=== PATIENT | female | born 1965 | race Caucasian/White ===

== ENCOUNTER 2018-09-25 19:48 | Emergency (ER) | payer OTHER ==
[~2018-09-25] VITALS: Ht 172.7 cm; Wt 142.9 kg
[~2018-09-25 19:48] MED LIST: ACID REDUCER 1150 MG PO; AMIT25 PO; Amitriptyline100 MG PO; BASAGLAR K100 UNIT/1 SC; BP MED; CEPH500 PO; Cipro500 MG PO; Cleocin HCl150 MG PO; Cyclobenzaprine5 MG PO; DULO30 PO; GABA100 PO; GABA300 PO; GLIM4 PO; HYDR1TAB94 PO; Humalog100 UNIT/1 SC; Humalog100 UNIT/1 SQ; IBUP400 PO; INSLIS75I SC; INSULANPEN SC; ISOMON30 PO; LEVO-T112 MCG PO; LEVO750 PO; LEVSOD75 PO; METF500 PO; METO10 PO; METO25ER; METO50 PO; METO5A PO; Milk Of Ma800 MG/5 M PO; Norco 5-325 Ta1 EACH PO; Novolog Fl100 UNIT/1 SQ; OMEP20ER PO; ONDA4ODT MM; OXYACE7.5T PO; OXYC5 PO; PANT40 PO; PROC10 PO; PROM25 PO; PROM25S PR; TRIM100 PO; ZOLP10 PO; Zofran Odt8 MG PO
[2018-09-25 20:36] LABS: BASOPHILS ABSOLUTE AUTO 0.07 K/mm3 (0.00-0.23); BASOPHILS PERCENT AUTO 1 % (0-2); EOSINOPHILS ABSOLUTE AUTO 0.53 K/mm3 (0.00-0.68); EOSINOPHILS PERCENT AUTO 5 % (0-6); Hematocrit 43.1 % (33.0-51.0); Hemoglobin 14.2 g/dL (11.5-16.0); IMMATURE GRAN ABSOLUTE AUTO 0.04 K/mm3 (0.00-0.10); IMMATURE GRAN PERCENT AUTO 0 % (0-1); LYMPHOCYTES ABSOLUTE AUTO 3.21 K/mm3 (0.84-5.20); LYMPHOCYTES PERCENT AUTO 32 % (21-46); MONOCYTES ABSOLUTE AUTO 0.64 K/mm3 (0.16-1.47); MONOCYTES PERCENT AUTO 6 % (4-13); Mean Corpuscular HGB 29.3 pg (26.0-34.0); Mean Corpuscular HGB Conc 32.9 g/dL (31.5-36.5); Mean Corpuscular Volume 89 fL (80-100); Mean Platelet Volume 9.8 fL (9.1-12.4); NEUTROPHILS ABSOLUTE AUTO 5.53 K/mm3 (1.96-9.15); NEUTROPHILS PERCENT AUTO 55 % (41-73); Platelet Count 367 K/mm3 (150-400); RDW Coefficient Variation 12.4 % (11.7-14.2); RDW Standard Deviation 40.4 fL (35.1-46.3); Red Blood Cell Count 4.85 M/mm3 (3.80-5.20); White Blood Cell Count 10.02 K/mm3 (4.00-11.30)
[2018-09-25 20:49] LABS: Alanine Aminotransfer (ALT/SGP 22 U/L (12-78); Albumin, Blood 3.8 g/dL (3.4-5.0); Alk Phos 104 U/L (50-136); Anion Gap 8 mmol/L (6-16); Aspartate Aminotrans (AST/SGOT 9 U/L (12-37); Bilirubin, Total 0.3 mg/dL (0.1-1.0); Blood Urea Nitrogen 12 mg/dL (8-24); Bun/Creatinine Ratio 17.7 (12.0-20.0); CO2, Blood 26 mmol/L (21-32); Calcium, Blood 9.1 mg/dL (8.5-10.1); Chloride, Blood 104 mmol/L (98-108); Creatinine, Blood 0.68 mg/dL (0.40-1.00); Glomerular Filtration Rate >60 (60-); Glucose, Blood 279 mg/dL (70-99); Potassium, Blood 4.1 mmol/L (3.5-5.5); Sodium, Blood 138 mmol/L (136-145); Total Protein, Blood 7.8 g/dL (6.4-8.2); Troponin I <0.015 ng/mL (0.000-0.040)
== END 2018-09-26 01:15 | disposition home or self-care (01) ==
LOC: ER 19:48
PROVIDERS: Physician Assistant
DX: R07.89 Other chest pain (principal); I10 Essential (primary) hypertension; E11.9 Type 2 diabetes mellitus without complications; Z88.0 Allergy status to penicillin; Z88.1 Allergy status to other antibiotic agents; Z88.5 Allergy status to narcotic agent; Z79.899 Other long term (current) drug therapy; Z79.4 Long term (current) use of insulin; Z87.891 Personal history of nicotine dependence
CPT/HCPCS: 71046; 80053; 84484; 85025; 93005; 93010; 99285-25

== ENCOUNTER 2019-01-13 21:27 | Emergency (ER) | payer OTHER ==
[~2019-01-13] VITALS: Ht 172.7 cm; Wt 136.1 kg
[2019-01-13] MEDS ORDERED: CETI5 PO (22:18)
[2019-01-13] MEDS ORDERED: PRED20 PO (22:18)
== END 2019-01-13 22:34 | disposition home or self-care (01) ==
LOC: ER 21:27
DX: L30.9 Dermatitis, unspecified (principal); Z88.0 Allergy status to penicillin; Z88.1 Allergy status to other antibiotic agents; Z88.5 Allergy status to narcotic agent; Z79.84 Long term (current) use of oral hypoglycemic drugs; Z79.4 Long term (current) use of insulin; E11.9 Type 2 diabetes mellitus without complications; G62.9 Polyneuropathy, unspecified; Z90.710 Acquired absence of both cervix and uterus; Z87.891 Personal history of nicotine dependence
CPT/HCPCS: 99282; J7512

== ENCOUNTER 2019-03-15 11:41 | Emergency (ER) | payer OTHER ==
[~2019-03-15] VITALS: Ht 172.7 cm; Wt 136.1 kg
[~2019-03-15 11:41] MED LIST changes: +CETI5 PO; +PRED20 PO
[2019-03-15] MEDS ORDERED: Crutch1 EACH MISC (14:06)
[2019-03-15] MEDS ORDERED: HYDR1TAB94 PO (14:38)
[2019-03-15] MEDS ORDERED: Norco 5-325 Ta1 EACH PO (14:46)
== END 2019-03-15 14:57 | disposition home or self-care (01) ==
LOC: ER 11:41
DX: S82.832A Other fracture of upper and lower end of left fibula, initial encounter for closed fracture (principal); W19.XXXA Unspecified fall, initial encounter; Z88.0 Allergy status to penicillin; Z88.1 Allergy status to other antibiotic agents; Z88.5 Allergy status to narcotic agent; Z79.4 Long term (current) use of insulin; Z79.899 Other long term (current) drug therapy; Z79.52 Long term (current) use of systemic steroids; E11.9 Type 2 diabetes mellitus without complications; Z87.891 Personal history of nicotine dependence
CPT/HCPCS: 29515; 73610; 73630; 99283-25

== ENCOUNTER 2019-04-26 19:05 | Emergency (ER) | payer OTHER ==
[~2019-04-26] VITALS: Ht 172.7 cm; Wt 146.3 kg
[~2019-04-26 19:05] MED LIST changes: +Crutch1 EACH MISC
[2019-04-26] MEDS ORDERED: MOTION RELIEF25 MG PO (19:24)
[2019-04-26] MEDS ORDERED: OMEPRAZOLE20 MG (19:24)
[2019-04-26] MEDS ORDERED: HYDHCL25 PO (19:25)
[2019-04-26] MEDS ORDERED: DOXY100 (19:25)
[2019-04-26] MEDS ORDERED: JARDIANCE25 MG PO (19:25)
[2019-04-26] MEDS ORDERED: METO25ER (19:26)
[2019-04-26] MEDS ORDERED: CYCL10 PO (19:26)
[2019-04-26 20:03] LABS: BASOPHILS ABSOLUTE AUTO 0.07 K/mm3 (0.00-0.23); BASOPHILS PERCENT AUTO 1 % (0-2); EOSINOPHILS ABSOLUTE AUTO 0.53 K/mm3 (0.00-0.68); EOSINOPHILS PERCENT AUTO 5 % (0-6); Hematocrit 43.6 % (33.0-51.0); Hemoglobin 13.6 g/dL (11.5-16.0); IMMATURE GRAN ABSOLUTE AUTO 0.06 K/mm3 (0.00-0.10); IMMATURE GRAN PERCENT AUTO 1 % (0-1); LYMPHOCYTES PERCENT AUTO 18 % (21-46); MONOCYTES ABSOLUTE AUTO 0.93 K/mm3 (0.16-1.47); MONOCYTES PERCENT AUTO 8 % (4-13); Mean Corpuscular HGB Conc 31.2 g/dL (31.5-36.5); Mean Corpuscular Volume 93 fL (80-100); Mean Platelet Volume 9.9 fL (9.1-12.4); NEUTROPHILS ABSOLUTE AUTO 8.09 K/mm3 (1.96-9.15); NEUTROPHILS PERCENT AUTO 69 % (41-73); Platelet Count 296 K/mm3 (150-400); RDW Coefficient Variation 12.5 % (11.7-14.2); RDW Standard Deviation 42.7 fL (35.1-46.3); Red Blood Cell Count 4.69 M/mm3 (3.80-5.20); White Blood Cell Count 11.78 K/mm3 (4.00-11.30)
[2019-04-26 20:28] LABS: Alanine Aminotransfer (ALT/SGP 19 U/L (12-78); Albumin, Blood 3.7 g/dL (3.4-5.0); Albumin/Globulin Ratio 0.9 (0.8-1.8); Alk Phos 181 U/L (50-136); Anion Gap 4 mmol/L (6-16); Aspartate Aminotrans (AST/SGOT 11 U/L (12-37); Bilirubin, Total 0.4 mg/dL (0.1-1.0); Blood Urea Nitrogen 14 mg/dL (8-24); Bun/Creatinine Ratio 20.5 (12.0-20.0); CO2, Blood 31 mmol/L (21-32); Chloride, Blood 108 mmol/L (98-108); Creatinine, Blood 0.68 mg/dL (0.40-1.00); Globulin, Blood 4.1 g/dL (2.2-4.0); Glomerular Filtration Rate >60 (60-); Glucose, Blood 94 mg/dL (70-99); Sodium, Blood 143 mmol/L (136-145); Total Protein, Blood 7.8 g/dL (6.4-8.2)
[2019-04-27] MEDS ORDERED: Bactrim Ds Tab1 EACH PO (00:59)
[2019-04-27] MEDS ORDERED: Keflex500 MG PO (00:59)
== END 2019-04-27 01:27 | disposition home or self-care (01) ==
LOC: ER 19:05
PROVIDERS: Physician Assistant
DX: E08.621 Diabetes mellitus due to underlying condition with foot ulcer (principal); L97.511 Non-pressure chronic ulcer of other part of right foot limited to breakdown of skin; L03.115 Cellulitis of right lower limb; K21.9 Gastro-esophageal reflux disease without esophagitis; E03.9 Hypothyroidism, unspecified; Z87.891 Personal history of nicotine dependence; Z88.0 Allergy status to penicillin; Z88.1 Allergy status to other antibiotic agents; Z88.5 Allergy status to narcotic agent; Z79.899 Other long term (current) drug therapy; Z79.4 Long term (current) use of insulin
CPT/HCPCS: 36415; 73630; 80053; 83605; 85025; 85651; 86140; 96365; 96366; 96375; 99283-25; A9270-GY; J1885; J2405; J3370; J7050

== ENCOUNTER 2019-05-03 16:12 | Emergency (ER) | payer OTHER ==
[~2019-05-03] VITALS: Ht 175.3 cm; Wt 145.2 kg
[~2019-05-03 16:12] MED LIST changes: +Bactrim Ds Tab1 EACH PO; +CYCL10 PO; +DOXY100; +HYDHCL25 PO; +JARDIANCE25 MG PO; +Keflex500 MG PO; +MOTION RELIEF25 MG PO; +OMEPRAZOLE20 MG
== END 2019-05-03 17:28 | disposition home or self-care (01) ==
LOC: ER 16:12
DX: E11.621 Type 2 diabetes mellitus with foot ulcer (principal); L97.511 Non-pressure chronic ulcer of other part of right foot limited to breakdown of skin; Z88.0 Allergy status to penicillin; Z88.1 Allergy status to other antibiotic agents; Z88.5 Allergy status to narcotic agent; Z79.899 Other long term (current) drug therapy; Z79.4 Long term (current) use of insulin; E11.40 Type 2 diabetes mellitus with diabetic neuropathy, unspecified; E03.9 Hypothyroidism, unspecified; K21.9 Gastro-esophageal reflux disease without esophagitis; Z87.891 Personal history of nicotine dependence
CPT/HCPCS: 73630; 87070; 87077; 87147; 87186; 87205; 99283-25

== ENCOUNTER 2019-08-25 23:54 | Observation (INO) | payer OTHER ==
[~2019-08-25] VITALS: Ht 172.7 cm; Wt 149.7 kg
[~2019-08-25 23:54] MED LIST changes: +METO25ER PO; -OMEPRAZOLE20 MG; +OMEPRAZOLE20 MG PO
[2019-08-26] MEDS ORDERED: CEPH250A (00:19)
[2019-08-26 01:02] LABS: Source, Urine Clean Catch
[2019-08-26] MEDS ORDERED: OXYC5 PO (01:04)
[2019-08-26] MEDS ORDERED: TRULICITY0.75 MG/0. (01:05)
[2019-08-26 01:07] LABS: BASOPHILS ABSOLUTE AUTO 0.07 K/mm3 (0.00-0.23); BASOPHILS PERCENT AUTO 1 % (0-2); EOSINOPHILS ABSOLUTE AUTO 0.42 K/mm3 (0.00-0.68); EOSINOPHILS PERCENT AUTO 4 % (0-6); Hematocrit 43.1 % (33.0-51.0); Hemoglobin 13.7 g/dL (11.5-16.0); IMMATURE GRAN ABSOLUTE AUTO 0.06 K/mm3 (0.00-0.10); IMMATURE GRAN PERCENT AUTO 1 % (0-1); LYMPHOCYTES ABSOLUTE AUTO 3.13 K/mm3 (0.84-5.20); LYMPHOCYTES PERCENT AUTO 32 % (21-46); MONOCYTES ABSOLUTE AUTO 0.62 K/mm3 (0.16-1.47); MONOCYTES PERCENT AUTO 6 % (4-13); Mean Corpuscular HGB Conc 31.8 g/dL (31.5-36.5); Mean Corpuscular Volume 88 fL (80-100); NEUTROPHILS ABSOLUTE AUTO 5.53 K/mm3 (1.96-9.15); NEUTROPHILS PERCENT AUTO 56 % (41-73); Platelet Count 314 K/mm3 (150-400); RDW Coefficient Variation 13.5 % (11.7-14.2); RDW Standard Deviation 43.5 fL (35.1-46.3); White Blood Cell Count 9.83 K/mm3 (4.00-11.30)
[2019-08-26 01:08] LABS: Appearance, Urine Clear (Clear); Bilirubin, Urine Neg (Neg); Blood, Urine 1+ (Neg); Color, Urine Yellow (P-Yellow); Glucose Qualitative, Urine 4+ (Neg); Ketones, Urine Neg (Neg); Leukocyte Esterase, Urine 2+ (Neg); Nitrite, Urine Neg (Neg); Protein, Urine Neg (Neg); Specific Gravity, Urine 1.005 (1.003-1.022); Urobilinogen, Urine NORM (Normal)
[2019-08-26 01:14] LABS: Bacteria Few /hpf; Red Blood Cells, Urine 0-2 /hpf (0-2); Squamous Epithelial Cells Few /hpf (Few)
[2019-08-26 01:25] LABS: Alanine Aminotransfer (ALT/SGP 27 U/L (12-78); Albumin, Blood 3.6 g/dL (3.4-5.0); Alk Phos 130 U/L (50-136); Anion Gap 8 mmol/L (6-16); Aspartate Aminotrans (AST/SGOT 13 U/L (12-37); Bilirubin, Total 0.3 mg/dL (0.1-1.0); Blood Urea Nitrogen 15 mg/dL (8-24); Bun/Creatinine Ratio 22.3 (12.0-20.0); CO2, Blood 25 mmol/L (21-32); Calcium, Blood 8.9 mg/dL (8.5-10.1); Chloride, Blood 106 mmol/L (98-108); Creatinine, Blood 0.67 mg/dL (0.40-1.00); Globulin, Blood 3.7 g/dL (2.2-4.0); Glomerular Filtration Rate >60 (60-); Glucose, Blood 265 mg/dL (70-99); Potassium, Blood 3.9 mmol/L (3.5-5.5); Sodium, Blood 139 mmol/L (136-145); Total Protein, Blood 7.3 g/dL (6.4-8.2)
[2019-08-26 04:37] LABS: Hematocrit 43.7 % (33.0-51.0); Hemoglobin 13.9 g/dL (11.5-16.0); Mean Corpuscular HGB 28.1 pg (26.0-34.0); Mean Corpuscular HGB Conc 31.8 g/dL (31.5-36.5); Mean Corpuscular Volume 88 fL (80-100); Mean Platelet Volume 9.5 fL (9.1-12.4); Platelet Count 313 K/mm3 (150-400); RDW Coefficient Variation 13.6 % (11.7-14.2); RDW Standard Deviation 43.7 fL (35.1-46.3); Red Blood Cell Count 4.95 M/mm3 (3.80-5.20); White Blood Cell Count 9.87 K/mm3 (4.00-11.30)
[2019-08-26 04:58] LABS: Alanine Aminotransfer (ALT/SGP 23 U/L (12-78); Albumin, Blood 3.6 g/dL (3.4-5.0); Albumin/Globulin Ratio 0.9 (0.8-1.8); Alk Phos 136 U/L (50-136); Anion Gap 6 mmol/L (6-16); Aspartate Aminotrans (AST/SGOT 16 U/L (12-37); Bilirubin, Total 0.5 mg/dL (0.1-1.0); Blood Urea Nitrogen 12 mg/dL (8-24); Bun/Creatinine Ratio 19.4 (12.0-20.0); CO2, Blood 23 mmol/L (21-32); Calcium, Blood 8.9 mg/dL (8.5-10.1); Chloride, Blood 111 mmol/L (98-108); Creatinine, Blood 0.62 mg/dL (0.40-1.00); Globulin, Blood 3.9 g/dL (2.2-4.0); Glomerular Filtration Rate >60 (60-); Glucose, Blood 208 mg/dL (70-99); Potassium, Blood 4.3 mmol/L (3.5-5.5); Sodium, Blood 140 mmol/L (136-145); Total Protein, Blood 7.5 g/dL (6.4-8.2)
--- NOTE | 2019-08-26 05:42 | NUR ---
SHIFT SUMMARY/HANDOFF RECEIVED HANDOFF RECEIVED FROM ER NURSE AMERICA. PT TRANSFERED TO FLOOR VIA GURNEY AND ORIENTED TO UNIT. CPAP ORDERED FOR PM SLEEP. OXYCODONE ORDERED FOR CHRONIC PAIN, PT TAKES THIS AT HOME. BILAT SOLES WOUND CARE PERFORMED ORDERED. ADMITTED FOR FOOT BLISTERS. FULL CODE. ADA DIET, ACHS, RA, A&O X4. NS INFUSING @ 75 ML/HR. HX: DM2, NEUROPATHY, CHRONIC HEADACHES, HISTORY OF FALLS AT HOME.
--- NOTE | 2019-08-26 17:26 | NUR ---
SHIFT SUMMARY PT AXO, PLEASANT AND COOPERATIVE WITH CARE. VSS THOUGH HR OF 102 NOTED WITH AFTERNOON VS. INSULINS ORDERED AND GIVEN AT HOME DOSES PER DR GARCIA. DRESSING CHANGED X2 TO BILATERAL FEET, PHOTOS IN CHART. PT MEDICATED FOR PAIN PER EMAR THOUGH PT REQUESTING IV PAIN MEDICATION. INDEPENDENT TO BSC THOUGH PT REMINDED TO CALL WHEN UP. PT CONFIDENT THAT SHE CAN SAFELY MAKE IT TO BSC. BED IN LOW POSITION, CALL LIGHT WITHIN REACH.
--- NOTE | 2019-08-27 04:46 | NUR ---
SHIFT SUMMARY ADMIT FOR BLISTERS ON BILAT SOLES OF FEET (POSSIBLE DRUG REACTION). FULL CODE. HOPEFUL FOR DC TODAY. CHANGE DRESSINGS Q SHIFT, WOUND CARE ORDERS IN [facility]. LEAVE DRESSINGS OFF FOR DR'S MORNING ROUNDS TODAY. ACHS, ADA DIET, RA, A&O X4, CPAP @ PM. HX: DM2, NEUROPATHY, LFT FOOT FRACTURE, SINUS INFECTION, HEADACHE. INDEPENDENT IN ROOM.
[2019-08-27] MEDS ORDERED: TRULICITY0.75 MG/0. SC (13:53)
[2019-08-27] MEDS ORDERED: PRED20 PO (13:57)
--- NOTE | 2019-08-27 14:53 | NUR ---
PT AOX4 AND COOPERATIVE OF CARE. PT TREATED FOR MILD PAIN IN ABDOMEN AREA PER EMAR. PT HAD BANDAGES CHANGED AND REWRAPPED BY STUDENT NURSE UNDER THIS WRITERS SUPERVISION. PT PLEASANT AND COOPERATIVE. PT DISCHARGED AT 1435 AND HAD ALL PAPERWORK REVIEWED AND EDUCATIONAL MATERIAL SENT WITH HER. PT ESCORTED VIA WHEELCHAIR BY THIS LOCOMOTIVE CRANE ENGINEER TO [facility]. NO DISTRESS NOTED.
== END 2019-08-27 15:00 | disposition home or self-care (01) ==
LOC: ER 23:54 → MEDS 23:55
PROVIDERS: Emergency Medicine; ADMIT Internal Medicine
DX: S90.822A Blister (nonthermal), left foot, initial encounter (principal); S90.821A Blister (nonthermal), right foot, initial encounter; I10 Essential (primary) hypertension; K21.9 Gastro-esophageal reflux disease without esophagitis; J32.9 Chronic sinusitis, unspecified; E11.40 Type 2 diabetes mellitus with diabetic neuropathy, unspecified; E78.5 Hyperlipidemia, unspecified; F32.9 Major depressive disorder, single episode, unspecified; G47.00 Insomnia, unspecified; G47.30 Sleep apnea, unspecified; E66.9 Obesity, unspecified; Z68.42 Body mass index [BMI] 45.0-49.9, adult; Z88.1 Allergy status to other antibiotic agents; Z88.5 Allergy status to narcotic agent; Z88.0 Allergy status to penicillin; Z79.4 Long term (current) use of insulin; Z79.899 Other long term (current) drug therapy; Z99.89 Dependence on other enabling machines and devices; X58.XXXA Exposure to other specified factors, initial encounter
CPT/HCPCS: 36415; 80053; 81001; 82947; 83690; 85025; 85027; 87086; 94660; 96361; 96372; 96374; 96375; 99284; G0378; J1200; J1650; J1885; J2930; J7030; J7512

== ENCOUNTER 2019-10-26 17:08 | Observation (INO) | payer OTHER ==
[~2019-10-26] VITALS: Ht 172.7 cm; Wt 148.9 kg
[~2019-10-26 17:08] MED LIST changes: +CEPH250A; -GABA100 PO; +Glucophage1000 MG PO; +LEVSOD112 PO; -LEVSOD75 PO; -METF500 PO; +TRULICITY0.75 MG/0.; +TRULICITY0.75 MG/0. SC
[2019-10-26 18:15] LABS: BASOPHILS ABSOLUTE AUTO 0.06 K/mm3 (0.00-0.23); BASOPHILS PERCENT AUTO 1 % (0-2); EOSINOPHILS ABSOLUTE AUTO 0.34 K/mm3 (0.00-0.68); EOSINOPHILS PERCENT AUTO 4 % (0-6); Hematocrit 45.9 % (33.0-51.0); Hemoglobin 14.7 g/dL (11.5-16.0); IMMATURE GRAN ABSOLUTE AUTO 0.04 K/mm3 (0.00-0.10); IMMATURE GRAN PERCENT AUTO 1 % (0-1); LYMPHOCYTES ABSOLUTE AUTO 2.02 K/mm3 (0.84-5.20); LYMPHOCYTES PERCENT AUTO 26 % (21-46); MONOCYTES ABSOLUTE AUTO 0.55 K/mm3 (0.16-1.47); MONOCYTES PERCENT AUTO 7 % (4-13); Mean Corpuscular HGB 29.2 pg (26.0-34.0); Mean Corpuscular Volume 91 fL (80-100); Mean Platelet Volume 10.5 fL (9.1-12.4); NEUTROPHILS ABSOLUTE AUTO 4.75 K/mm3 (1.96-9.15); NEUTROPHILS PERCENT AUTO 61 % (41-73); Platelet Count 349 K/mm3 (150-400); RDW Coefficient Variation 14.1 % (11.7-14.2); RDW Standard Deviation 47.1 fL (35.1-46.3); Red Blood Cell Count 5.04 M/mm3 (3.80-5.20); White Blood Cell Count 7.76 K/mm3 (4.00-11.30)
[2019-10-26 18:32] LABS: Alanine Aminotransfer (ALT/SGP 25 U/L (12-78); Albumin, Blood 3.5 g/dL (3.4-5.0); Alk Phos 145 U/L (50-136); Anion Gap 6 mmol/L (6-16); Aspartate Aminotrans (AST/SGOT 19 U/L (12-37); Bilirubin, Total 0.4 mg/dL (0.1-1.0); Blood Urea Nitrogen 14 mg/dL (8-24); Bun/Creatinine Ratio 24.1 (12.0-20.0); CO2, Blood 25 mmol/L (21-32); Calcium, Blood 8.5 mg/dL (8.5-10.1); Chloride, Blood 106 mmol/L (98-108); Creatinine, Blood 0.58 mg/dL (0.40-1.00); Globulin, Blood 3.6 g/dL (2.2-4.0); Glomerular Filtration Rate >60 (60-); Glucose, Blood 401 mg/dL (70-99); Potassium, Blood 4.7 mmol/L (3.5-5.5); Sodium, Blood 137 mmol/L (136-145); Total Protein, Blood 7.1 g/dL (6.4-8.2)
[2019-10-26] MEDS ORDERED: JARDIANCE10 MG PO (21:27)
[2019-10-26] MEDS ORDERED: ATOR20 PO (21:28)
[2019-10-26] MEDS ORDERED: ESCI20 PO (21:28)
[2019-10-26] MEDS ORDERED: FAMO10 PO (21:28)
[2019-10-27 04:59] LABS: BASOPHILS ABSOLUTE AUTO 0.03 K/mm3 (0.00-0.23); BASOPHILS PERCENT AUTO 0 % (0-2); EOSINOPHILS ABSOLUTE AUTO 0.01 K/mm3 (0.00-0.68); EOSINOPHILS PERCENT AUTO 0 % (0-6); Hematocrit 48.4 % (33.0-51.0); Hemoglobin 15.7 g/dL (11.5-16.0); IMMATURE GRAN ABSOLUTE AUTO 0.08 K/mm3 (0.00-0.10); IMMATURE GRAN PERCENT AUTO 1 % (0-1); LYMPHOCYTES ABSOLUTE AUTO 1.22 K/mm3 (0.84-5.20); LYMPHOCYTES PERCENT AUTO 10 % (21-46); MONOCYTES ABSOLUTE AUTO 0.08 K/mm3 (0.16-1.47); MONOCYTES PERCENT AUTO 1 % (4-13); Mean Corpuscular HGB Conc 32.4 g/dL (31.5-36.5); Mean Corpuscular Volume 90 fL (80-100); Mean Platelet Volume 10.1 fL (9.1-12.4); NEUTROPHILS ABSOLUTE AUTO 10.81 K/mm3 (1.96-9.15); NEUTROPHILS PERCENT AUTO 88 % (41-73); Platelet Count 345 K/mm3 (150-400); RDW Standard Deviation 45.2 fL (35.1-46.3); Red Blood Cell Count 5.41 M/mm3 (3.80-5.20); White Blood Cell Count 12.23 K/mm3 (4.00-11.30)
[2019-10-27 05:20] LABS: Anion Gap 8 mmol/L (6-16); Blood Urea Nitrogen 14 mg/dL (8-24); Bun/Creatinine Ratio 21.1 (12.0-20.0); CO2, Blood 23 mmol/L (21-32); Calcium, Blood 8.8 mg/dL (8.5-10.1); Chloride, Blood 104 mmol/L (98-108); Creatinine, Blood 0.66 mg/dL (0.40-1.00); Glomerular Filtration Rate >60 (60-); Glucose, Blood 371 mg/dL (70-99); Potassium, Blood 4.5 mmol/L (3.5-5.5); Sodium, Blood 135 mmol/L (136-145)
--- NOTE | 2019-10-27 05:22 | NUR ---
SHIFT SUMMARY RECIEVED REPORT FROM MYRANDA GRAF, ED. ARRIVED TO FLOOR VIA WHEELCHAIR @ 2206. NO ASSISTANCE NEEDED WITH TRANSFER. ORIENTED TO ROOM AND CALL LIGHT. A/O, ABLE TO MAKE NEEDS KNOWN. COOPERATIVE WITH CARE. C/O PAIN THAT IS CHRONIC / TO BILATERAL HIPS/LEGS; MEDICATED PER EMAR. CPAP SET UP FOR USE BY RT; REFUSED CONT. BIOX. NEW IV TO L HAND; STATED IV TO R HAND WAS BURNING. DRESSING TO L FOOT THAT HAS BEEN WEEPING. ADVISED TO ELEVATE EXTREMITIES. NO ACUTE CHANGES NOTED. VSS/AFEBRILE. BED IN LOWEST POSITION. CALL LIGHT AND BELONGINGS WITHIN REACH. WCTM. REPORT TO ONCBRYCE GRAF.
--- NOTE | 2019-10-27 14:39 | NUR ---
Patient is sitting on EOB and alert. Patient immediately shares about her medical issues (and shows pictures on her phone of the wounds on her feet), about her family unit complications and about her spiritual journey. Patient also talks about her cats, her personal struggles and her fears. I listen empathically, reinforce helpful attitudes and practices and provide pastoral alcohol and drug counselor and prayer. Patient responds well and displays evidence of renewed michael. Patient states, after the prayer, that she can now actually rest for the first time in awhile. I will continue to remain available to patient and family.
--- NOTE | 2019-10-27 18:12 | NUR ---
SHIFT SUMMARY. A&OX4, INDEPENDENT IN ROOM, PLEASANT AND COOPERATIVE. PT WITH MODERATE AMOUNT OF DRAINAGE TO R FOOT SECONDARY TO OPEN BLISTERS, WOUNDS CLEANSED AND DRESSING CHANGED TWICE. DR. CHRISTIANSEN OBSERVED WOUND, DERMOTOLOGY CONSULT PLACED AND CALLED IN. PT C/O PAIN TO R FOOT THAT IS THROBBING. PT REPORTS THAT HER FEET ARE NUMB AT BASELINE FROM CHRONIC NEUROPATHY, ALTHOUGH SHE IS ABLE TO FEEL THAT PAIN. NEW ORDERS RECIEVED FOR PAIN MANAGEMENT, PAIN MANAGED WELL PER PT AFTER NEW ORDERS AVAILABLE. NO N/V, SOB.
[2019-10-28 05:15] LABS: BASOPHILS ABSOLUTE AUTO 0.04 K/mm3 (0.00-0.23); BASOPHILS PERCENT AUTO 0 % (0-2); EOSINOPHILS PERCENT AUTO 1 % (0-6); Hematocrit 43.7 % (33.0-51.0); Hemoglobin 14.2 g/dL (11.5-16.0); IMMATURE GRAN ABSOLUTE AUTO 0.05 K/mm3 (0.00-0.10); IMMATURE GRAN PERCENT AUTO 0 % (0-1); LYMPHOCYTES ABSOLUTE AUTO 2.36 K/mm3 (0.84-5.20); LYMPHOCYTES PERCENT AUTO 19 % (21-46); MONOCYTES ABSOLUTE AUTO 1.07 K/mm3 (0.16-1.47); MONOCYTES PERCENT AUTO 9 % (4-13); Mean Corpuscular HGB 29.2 pg (26.0-34.0); Mean Corpuscular HGB Conc 32.5 g/dL (31.5-36.5); Mean Corpuscular Volume 90 fL (80-100); Mean Platelet Volume 10.1 fL (9.1-12.4); NEUTROPHILS ABSOLUTE AUTO 8.53 K/mm3 (1.96-9.15); NEUTROPHILS PERCENT AUTO 70 % (41-73); Platelet Count 311 K/mm3 (150-400); RDW Coefficient Variation 14.4 % (11.7-14.2); RDW Standard Deviation 46.8 fL (35.1-46.3); Red Blood Cell Count 4.87 M/mm3 (3.80-5.20); White Blood Cell Count 12.15 K/mm3 (4.00-11.30)
[2019-10-28 05:43] LABS: Alanine Aminotransfer (ALT/SGP 22 U/L (12-78); Albumin, Blood 3.3 g/dL (3.4-5.0); Albumin/Globulin Ratio 0.9 (0.8-1.8); Alk Phos 133 U/L (50-136); Anion Gap 6 mmol/L (6-16); Aspartate Aminotrans (AST/SGOT 10 U/L (12-37); Bilirubin, Total 0.5 mg/dL (0.1-1.0); Blood Urea Nitrogen 22 mg/dL (8-24); Bun/Creatinine Ratio 24.8 (12.0-20.0); CO2, Blood 27 mmol/L (21-32); CPK Creatine Kinase 47 U/L (26-193); Calcium, Blood 8.7 mg/dL (8.5-10.1); Chloride, Blood 105 mmol/L (98-108); Creatinine, Blood 0.89 mg/dL (0.40-1.00); Globulin, Blood 3.5 g/dL (2.2-4.0); Glomerular Filtration Rate >60 (60-); Glucose, Blood 228 mg/dL (70-99); Magnesium, Blood 1.9 mg/dL (1.6-2.4); Phosphorus, Blood 3.8 mg/dL (2.5-4.9); Potassium, Blood 3.7 mmol/L (3.5-5.5); Sodium, Blood 138 mmol/L (136-145); Total Protein, Blood 6.8 g/dL (6.4-8.2)
--- NOTE | 2019-10-28 07:30 | NUR ---
SHIFT SUMMARY PT IS PLEASANT AND COOPERATIVE WITH CARE. FOOT DRESSING CHANGED DURING SHIFT CHANGE LAST NIGHT THEN NEEDED AGAIN THIS MORNING. TREATED FOR PAIN PER EMAR TO GOOD EFFECT. VSS. NO ACUTE CHANGES NOTED THIS NIGHT. REPORT TO ONCOMING RN.
[2019-10-28] MEDS ORDERED: Doxycycline Mo100 M1 PO (10:51)
[2019-10-28] MEDS ORDERED: Florastor250 MG PO (10:51)
--- NOTE | 2019-10-28 12:00 | NUR ---
DISCHARGE INSTRUCTIONS COMPLETED AND DISCUSSED WITH PT EXPRESSING UNDERSTANDING. SCRIPTS FAXED TO [facility]. DRESSING CHANGED TO R FOOT PRIOR TO DISCHARGE. TO [facility] VIA W/C. PT REPORTS SHE WILL BE DRIVING HERSELF HOME.
== END 2019-10-28 12:07 | disposition home or self-care (01) ==
LOC: ER 17:08 → MEDS 17:09 → ENPENDDIS 10-28 10:23 → MEDS 10-28 12:07
PROVIDERS: Hospitalist; Nurse Practitioner Acute Care; Physician Assistant; ADMIT Internal Medicine
DX: L08.89 Other specified local infections of the skin and subcutaneous tissue (principal); E11.42 Type 2 diabetes mellitus with diabetic polyneuropathy; I10 Essential (primary) hypertension; E78.5 Hyperlipidemia, unspecified; E03.9 Hypothyroidism, unspecified; K21.9 Gastro-esophageal reflux disease without esophagitis; F32.9 Major depressive disorder, single episode, unspecified; G47.00 Insomnia, unspecified; G47.33 Obstructive sleep apnea (adult) (pediatric); E66.01 Morbid (severe) obesity due to excess calories; Z99.89 Dependence on other enabling machines and devices; Z87.891 Personal history of nicotine dependence; Z88.1 Allergy status to other antibiotic agents; Z88.5 Allergy status to narcotic agent; Z88.0 Allergy status to penicillin; Z88.2 Allergy status to sulfonamides; Z79.899 Other long term (current) drug therapy; Z79.4 Long term (current) use of insulin; Z68.42 Body mass index [BMI] 45.0-49.9, adult
CPT/HCPCS: 36415; 80048; 80053; 82550; 82947; 83735; 84100; 85025; 85651; 86140; 94660; 96372; 96374; 96375; 96376; 97110; 97162; 97530; 99284-25; A9270-GY; G0378; J1650; J2405; J2930; J3010

== ENCOUNTER 2019-10-30 14:01 | Inpatient (IN) | payer OTHER ==
[~2019-10-30] VITALS: Ht 172.7 cm; Wt 154.7 kg
[~2019-10-30 14:01] MED LIST changes: +ATOR20 PO; +Doxycycline Mo100 M1 PO; +ESCI20 PO; +FAMO10 PO; +Florastor250 MG PO; +JARDIANCE10 MG PO
[2019-10-30 15:05] LABS: BASOPHILS ABSOLUTE AUTO 0.04 K/mm3 (0.00-0.23); BASOPHILS PERCENT AUTO 0 % (0-2); EOSINOPHILS ABSOLUTE AUTO 0.22 K/mm3 (0.00-0.68); EOSINOPHILS PERCENT AUTO 2 % (0-6); Hematocrit 43.7 % (33.0-51.0); Hemoglobin 13.9 g/dL (11.5-16.0); IMMATURE GRAN ABSOLUTE AUTO 0.05 K/mm3 (0.00-0.10); IMMATURE GRAN PERCENT AUTO 1 % (0-1); LYMPHOCYTES ABSOLUTE AUTO 2.11 K/mm3 (0.84-5.20); LYMPHOCYTES PERCENT AUTO 20 % (21-46); MONOCYTES ABSOLUTE AUTO 0.72 K/mm3 (0.16-1.47); MONOCYTES PERCENT AUTO 7 % (4-13); Mean Corpuscular HGB 29.4 pg (26.0-34.0); Mean Corpuscular HGB Conc 31.8 g/dL (31.5-36.5); Mean Platelet Volume 9.9 fL (9.1-12.4); NEUTROPHILS ABSOLUTE AUTO 7.52 K/mm3 (1.96-9.15); NEUTROPHILS PERCENT AUTO 70 % (41-73); Platelet Count 274 K/mm3 (150-400); RDW Coefficient Variation 13.8 % (11.7-14.2); RDW Standard Deviation 47.2 fL (35.1-46.3); Red Blood Cell Count 4.72 M/mm3 (3.80-5.20); White Blood Cell Count 10.66 K/mm3 (4.00-11.30)
[2019-10-30 15:08] LABS: Mean Corpuscular Volume 93 fL (80-100)
[2019-10-30 15:20] LABS: Prothrombin Time Results 10.7 Sec (9.7-11.5)
[2019-10-30 15:27] LABS: Alanine Aminotransfer (ALT/SGP 16 U/L (12-78); Albumin/Globulin Ratio 0.8 (0.8-1.8); Alk Phos 126 U/L (50-136); Anion Gap 5 mmol/L (6-16); Aspartate Aminotrans (AST/SGOT 8 U/L (12-37); Bilirubin, Total 0.6 mg/dL (0.1-1.0); Blood Urea Nitrogen 16 mg/dL (8-24); Bun/Creatinine Ratio 25.1 (12.0-20.0); CO2, Blood 28 mmol/L (21-32); Calcium, Blood 8.8 mg/dL (8.5-10.1); Chloride, Blood 103 mmol/L (98-108); Creatinine, Blood 0.64 mg/dL (0.40-1.00); Glomerular Filtration Rate >60 (60-); Glucose, Blood 276 mg/dL (70-99); Potassium, Blood 4.1 mmol/L (3.5-5.5); Sodium, Blood 136 mmol/L (136-145)
[2019-10-30 21:55] LABS: Source, Urine Clean Catch
[2019-10-30 22:07] LABS: Bilirubin, Urine Neg (Neg); Blood, Urine Neg (Neg); Glucose Qualitative, Urine 4+ (Neg); Ketones, Urine 2+ (Neg); Leukocyte Esterase, Urine Neg (Neg); Nitrite, Urine Neg (Neg); Protein, Urine Neg (Neg); Specific Gravity, Urine 1.015 (1.003-1.022); Urobilinogen, Urine NORM (Normal)
[2019-10-30 22:12] LABS: Appearance, Urine Clear (Clear); Color, Urine Yellow (P-Yellow)
[2019-10-31 05:25] LABS: BASOPHILS ABSOLUTE AUTO 0.04 K/mm3 (0.00-0.23); BASOPHILS PERCENT AUTO 1 % (0-2); EOSINOPHILS ABSOLUTE AUTO 0.33 K/mm3 (0.00-0.68); EOSINOPHILS PERCENT AUTO 4 % (0-6); Hematocrit 37.9 % (33.0-51.0); Hemoglobin 11.8 g/dL (11.5-16.0); IMMATURE GRAN ABSOLUTE AUTO 0.04 K/mm3 (0.00-0.10); IMMATURE GRAN PERCENT AUTO 1 % (0-1); LYMPHOCYTES ABSOLUTE AUTO 2.31 K/mm3 (0.84-5.20); LYMPHOCYTES PERCENT AUTO 27 % (21-46); MONOCYTES ABSOLUTE AUTO 0.65 K/mm3 (0.16-1.47); MONOCYTES PERCENT AUTO 8 % (4-13); Mean Corpuscular HGB 29.2 pg (26.0-34.0); Mean Corpuscular HGB Conc 31.1 g/dL (31.5-36.5); Mean Corpuscular Volume 94 fL (80-100); Mean Platelet Volume 10.4 fL (9.1-12.4); NEUTROPHILS PERCENT AUTO 61 % (41-73); Platelet Count 287 K/mm3 (150-400); RDW Coefficient Variation 13.8 % (11.7-14.2); Red Blood Cell Count 4.04 M/mm3 (3.80-5.20); White Blood Cell Count 8.57 K/mm3 (4.00-11.30)
[2019-10-31 05:49] LABS: Anion Gap 5 mmol/L (6-16); Blood Urea Nitrogen 15 mg/dL (8-24); Bun/Creatinine Ratio 22.3 (12.0-20.0); CO2, Blood 27 mmol/L (21-32); Calcium, Blood 8.3 mg/dL (8.5-10.1); Chloride, Blood 108 mmol/L (98-108); Creatinine, Blood 0.67 mg/dL (0.40-1.00); Glomerular Filtration Rate >60 (60-); Glucose, Blood 238 mg/dL (70-99); Potassium, Blood 3.7 mmol/L (3.5-5.5); Sodium, Blood 140 mmol/L (136-145)
--- NOTE | 2019-10-31 05:59 | NUR ---
SHIFT SUMMARY: 54 Y/O OBESE FEMALE RESTED COMFORTABLY IN BED; RIGHT FOOT WRAPPED OIL EMULSION, 4X4, KERLIX AND WAYNE WRAP APPLIED (SEE PHOTOS ON CHART); HAPPY AND COOPERATIVE; DENIES PAIN OR NAUSEA; BED LOW POSITION WITH CALL LIGHT AT SIDE.
[2019-10-31 15:31] LABS: Vancomycin, Trough 10.2 ug/mL (5.0-10.0)
--- NOTE | 2019-10-31 19:25 | NUR ---
NO NOTEABLE CHANGES THIS SHIFT. DR. FARAH CAME TO SEE PT. TODAY AND HAS MADE HERE NPO AFTER MIDNIGHT.
--- NOTE | 2019-11-01 03:01 | NUR ---
PT NPO SINCE MIDNIGHT FOR POSSIBLE SURGERY THIS AM.
--- NOTE | 2019-11-01 06:51 | NUR ---
SHIFT SUMMARY: 54 Y/O OBESE FEMALE RESTED COMFORTABLY ALL SHIFT; NPO SINCE MIDNIGHT; PT RATED RIGHT FOOT PAIN 8/10 WITH ROXICODONE 5MG IVP GIVEN TWICE WITH RELIEF FELT; RIGHT FOOT DRESSING DRY AND INTACT; BED LOW POSITION WITH CALL LIGHT AT SIDE.
[2019-11-01 15:29] LABS: Vancomycin, Trough 15.3 ug/mL (5.0-10.0)
--- NOTE | 2019-11-01 18:55 | NUR ---
NO CHANGE IN PT. CONDITION TODAY. US AND XRAY COMPLETE ON RLE COMPLETED BUT DR. ALEJANDRA NEEDS TO HAVE AN MRI OF THE FOOT BEFORE DOING SURGERY. NPO AFTER MIDNIGHT IN CASE OF SURGERY.
[2019-11-02 05:02] LABS: BASOPHILS ABSOLUTE AUTO 0.08 K/mm3 (0.00-0.23); BASOPHILS PERCENT AUTO 1 % (0-2); EOSINOPHILS ABSOLUTE AUTO 0.46 K/mm3 (0.00-0.68); EOSINOPHILS PERCENT AUTO 4 % (0-6); Hematocrit 40.1 % (33.0-51.0); Hemoglobin 12.7 g/dL (11.5-16.0); IMMATURE GRAN ABSOLUTE AUTO 0.11 K/mm3 (0.00-0.10); IMMATURE GRAN PERCENT AUTO 1 % (0-1); LYMPHOCYTES ABSOLUTE AUTO 2.47 K/mm3 (0.84-5.20); LYMPHOCYTES PERCENT AUTO 23 % (21-46); MONOCYTES ABSOLUTE AUTO 1.03 K/mm3 (0.16-1.47); MONOCYTES PERCENT AUTO 10 % (4-13); Mean Corpuscular HGB 29.3 pg (26.0-34.0); Mean Corpuscular HGB Conc 31.7 g/dL (31.5-36.5); Mean Corpuscular Volume 92 fL (80-100); Mean Platelet Volume 9.7 fL (9.1-12.4); NEUTROPHILS ABSOLUTE AUTO 6.53 K/mm3 (1.96-9.15); NEUTROPHILS PERCENT AUTO 61 % (41-73); Platelet Count 326 K/mm3 (150-400); RDW Coefficient Variation 13.6 % (11.7-14.2); RDW Standard Deviation 46.5 fL (35.1-46.3); Red Blood Cell Count 4.34 M/mm3 (3.80-5.20); White Blood Cell Count 10.68 K/mm3 (4.00-11.30)
[2019-11-02 05:40] LABS: Anion Gap 7 mmol/L (6-16); Blood Urea Nitrogen 13 mg/dL (8-24); Bun/Creatinine Ratio 19.1 (12.0-20.0); CO2, Blood 25 mmol/L (21-32); Calcium, Blood 8.7 mg/dL (8.5-10.1); Chloride, Blood 106 mmol/L (98-108); Creatinine, Blood 0.68 mg/dL (0.40-1.00); Glomerular Filtration Rate >60 (60-); Glucose, Blood 203 mg/dL (70-99); Potassium, Blood 3.8 mmol/L (3.5-5.5); Sodium, Blood 138 mmol/L (136-145)
--- NOTE | 2019-11-02 07:31 | NUR ---
54 year old Fer recently DC home after spending 2 nights in hospital for rt le cellulitis. Home 2 nights PT didnt fill home abx script due to copay . PT on IV doxy and IV vanco. 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 LArge wound rt foot with multiple toes peeling & large lateral eschar present. No foul odor. Wound care done. PT on CPAP at HS, room air. MRI RT foot pending this AM NPO for possible surgical debridement. PT on 70 units lantus BID with 30 units humalog with meals plus low sliding scale. Blood glucose in 200 at HS and after being NPO since midnight
--- NOTE | 2019-11-02 11:55 | NUR ---
PT TO MRI. SPOKE WITH DR FARAH THIS AM WHO REPORTS HE SPOKE WITH DR JONES AND MIL YESTERDAY. PER DR JONES HE IS ON HIS WAY IN NOW TO SEE PT.
--- NOTE | 2019-11-02 13:18 | NUR ---
DR JAEGER IN TO SEE PT.
--- NOTE | 2019-11-02 14:40 | NUR ---
PT TO SURGERY FOR I&D.
--- NOTE | 2019-11-02 15:16 | NUR ---
Spiritual care visit conducted. Patient is sitting up in bed and alert. Patient tells me about her foot turning black overnight and the fears associated with that. Patient tells me about the procedure that will happen today and the one tomorrow and how it is much to process. I listen empathically and provide pastoral supervisor counseling and guidance and prayer. patient responds well and shows evidence of reduced stress. I will continue to remain available to patient and family.
--- NOTE | 2019-11-02 16:40 | NUR ---
SHIFT SUMMARY- PT A/OX4, INDEP UP IN ROOM. PT WITH I&D TODAY OF RIGHT FOOT, CURRENTLY STILL IN OR. DR JAEGER CONSULTED AND PLAN FOR REVASCULARIZATION TOMORROW. LS CLEAR, ON RA. HRR. 2+ SWELLING TO RIGHT FOOT WITH REDNESS TO TOP OF FOOT, PHOTO IN CHART PRIOR TO I&D. NEW PG PLACED TO CIRO. NO OTHER ACUTE CHANGES THIS SHIFT.
--- NOTE | 2019-11-02 16:42 | NUR ---
PER DR MIL GARCIA TO MANAGEMET DIABETES AND INSULINS WITH PT BEING NPO FOR PROCEDURES, SPOKE WITH DR GARCIA WHO REPORTS TO HOLD LANTUS 70 UNITS 3/24 AM WELL HUMALOG 30 UNITS. GIVE HUMALOG SLIDING SCALE AND 30 UNITS OF LANTUS 3/24 AM.
--- NOTE | 2019-11-02 17:58 | NUR ---
PT BACK FROM OR. PT AWAKE, A//OX4. 4 PERSON SLIDE INTO BED. PT REPORTS 8/10 PAIN TO RIGHT FOOT, PRN OXY GIVEN. WOUND VAC TO RIGHT FOOT RUNNING AT 120 CONT, KERLEX AND WAYNE WRAP AROUND FOOT C/D/I. PT EDUCATED ON NON WEIGHT BEARING STATUS WELL I.S. USE. POST OP SHOE AT BEDSIDE. SATS 99% ON 3L.
--- NOTE | 2019-11-03 06:10 | NUR ---
PT had I & D rt foot with wound vac placement yesterday. She tolerated procedure but needed reversal of propofol due to ADRIANNE. She had elevated bg 399 at HS due to not taking AM dose of 70 units lantus insulin and holding TID humalog 30 units.. Medicated for rt foot pain x 2 with oxycodone 5 mg and 650 mg tylenol with helpful effect. Wound vac rt foot intact no output. RT le revascularization planned for this AM PT hopeful she will have good effect. Uses CPAP at HS room air. NWB RT le up with assist.
--- NOTE | 2019-11-03 11:29 | NUR ---
PT TO HEART CENTER AT THIS TIME
--- NOTE | 2019-11-03 12:01 | NUR ---
REPORT GIVEN TO TEST CLERK. PERSONAL BELONGINGS SENT TO ROOM PCU 10.
[2019-11-03 15:25] LABS: Vancomycin, Trough 12.3 ug/mL (5.0-10.0)
--- NOTE | 2019-11-03 15:47 | NUR ---
Spiritual care visit conducted. Patient is lying flat on her back as per her instructions. Patient is very excited about how things have gone for her. Patient tells me that not only did she not have to have her foot removed but she also did not lose any toes. Patient also tells me about the success of her procedure today. Patient speaks of how some family unit complications were resolved as well (via phone and text). I listen empathically, celebrate with patient and provide a prayer of thanksgiving and praise. I will continue to remain available to patient and family.
--- NOTE | 2019-11-03 17:06 | NUR ---
SHIFT SUMMARY PT ALERT AND ORIENTED. VS STABLE. O2 SATS REMAIN ABOVE 90% ON RA. BP STABLE. HR NSR. ASSUMED CARE OF PT POST REVASCULARIZATION WITH LEFT GROIN ACCESS. NO SIGNS OF HEMATOMA, BLEEDING, OR BRUISING NOTED. PT ABLE TO SIT UP AT THIS TIME IT HAS BEEN 4 HOURS POST PROCEDURE. PT DENIES ANY PAIN AT THIS TIME. DR. JONES IN THIS EVENING AND REDRESSED WOUND TO RIGHT FOOT. WILL CONTINUE TO MONITOR AND REPORT TO ONCOMING RN. CALL LIGHT IN REACH.
--- NOTE | 2019-11-03 20:04 | NUR ---
REPORT RECEIVED FROM HOMAR SILVA. PT IS ALERT, ORIENTED X4. HAS 9/10 LEFT GROIN PAIN AND RIGHT FOOT PAIN, MEDICATED WITH OXYCODONE 10MG WITH TYLENOL 650MG PO. HEART RATE REGULAR, NO C/O CHEST PAIN. LUNG SOUNDS DIMINISHED AT BASES. STABLE OXYGEN SATURATION ON ROOM AIR. ABDOMEN LARGE, ROUND, NON TENDER WITH BOWEL TONES NOTED X4 QUADRANTS, DENIES NAUSEA, VAOMITING OR DIARRHEA. LEFT GROIN SITE SOFT, TENDER, ABLE TO WIGGLE LEFT TOES. RIGHT FOOT WITH WOUND VAC, DRESSING CLEAN, DRY AND INTACT. IV W/O RST. BED IN LOW POSITION, CALL CHAVEZ WITHIN REACH.
[2019-11-04 03:56] LABS: BASOPHILS ABSOLUTE AUTO 0.04 K/mm3 (0.00-0.23); BASOPHILS PERCENT AUTO 0 % (0-2); EOSINOPHILS ABSOLUTE AUTO 0.13 K/mm3 (0.00-0.68); EOSINOPHILS PERCENT AUTO 1 % (0-6); Hematocrit 37.6 % (33.0-51.0); Hemoglobin 12.1 g/dL (11.5-16.0); IMMATURE GRAN ABSOLUTE AUTO 0.12 K/mm3 (0.00-0.10); IMMATURE GRAN PERCENT AUTO 1 % (0-1); LYMPHOCYTES ABSOLUTE AUTO 2.32 K/mm3 (0.84-5.20); LYMPHOCYTES PERCENT AUTO 19 % (21-46); MONOCYTES PERCENT AUTO 7 % (4-13); Mean Corpuscular HGB 29.8 pg (26.0-34.0); Mean Corpuscular HGB Conc 32.2 g/dL (31.5-36.5); Mean Corpuscular Volume 93 fL (80-100); Mean Platelet Volume 9.7 fL (9.1-12.4); NEUTROPHILS ABSOLUTE AUTO 8.81 K/mm3 (1.96-9.15); NEUTROPHILS PERCENT AUTO 72 % (41-73); Platelet Count 420 K/mm3 (150-400); RDW Coefficient Variation 13.4 % (11.7-14.2); RDW Standard Deviation 45.6 fL (35.1-46.3); Red Blood Cell Count 4.06 M/mm3 (3.80-5.20); White Blood Cell Count 12.32 K/mm3 (4.00-11.30)
[2019-11-04 04:10] LABS: Anion Gap 6 mmol/L (6-16); Blood Urea Nitrogen 23 mg/dL (8-24); Bun/Creatinine Ratio 29.5 (12.0-20.0); CO2, Blood 27 mmol/L (21-32); Calcium, Blood 8.2 mg/dL (8.5-10.1); Chloride, Blood 106 mmol/L (98-108); Creatinine, Blood 0.78 mg/dL (0.40-1.00); Glomerular Filtration Rate >60 (60-); Glucose, Blood 300 mg/dL (70-99); Potassium, Blood 3.9 mmol/L (3.5-5.5); Sodium, Blood 139 mmol/L (136-145)
--- NOTE | 2019-11-04 04:58 | NUR ---
VSS, LEFT GROING PUNCTURE SITE SOFT, TENDER, MEDICATED X1 FOR PAIN IN LEFT GROING AND RIGHT FOOT. WOUND VAC INTACT, MINIMAL SEROSANGUINOUS DRAINAGE NOTED IN COLLECTION CONTAINER. TELEMETRY SHOWS SINUS RHYTHM, NO C/O CHEST PAIN OR SHORTNESS OF BREATH. +CMS TO LEFT FOOT, PT HAS NEUROPATHY IN FEET. FARZANEH PEDAL PULSE NOTED. RIGHT FOOT DRESSING CLEAN, DRY AND INTACT. POWERGLID TO LEFT UPPER ARM IS PATENT, WITH GOOD BLOOD RETURN NOTED, INFUSES WELL. VOIDING QS UO,USES BEDSIDE COMMODE WITH ASSIST. BED IN LOW POSITION, CALL CHAVEZ WITHIN REACH.
--- NOTE | 2019-11-04 07:11 | NUR ---
ASSUMED PATIENT CARE. PATIENT RESITNG COMFORTABLY IN BED, NO SIGNS OF ACUTE DISTRESS. NO DISCHARGE NOTED AT GROIN PUNCTURE SITE, TM.
--- NOTE | 2019-11-04 15:13 | NUR ---
Patient is sitting on a chair and alert. Patient immediately tells me about the disappointment of having to go to a rehab facility after discharge. 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 Patient begins to cry as she talks about the amazing individuals she met along the way. Patient actually seemed excited about the rehab idea by the time I left. I listen empathically and provided companionship and prayer. Patient responded well and showed sings of improved courage. I will continue to remain available to patient and family.
[2019-11-04 15:51] LABS: Vancomycin, Trough 25.1 ug/mL (5.0-10.0)
--- NOTE | 2019-11-04 17:51 | NUR ---
NO ACUTE EVENTS THIS SHIFT. PAIN MANAGED THIS SHIFT WITH OXYCODONE AND TYLENOL. NO NEW DISCHARGE NOTED AT GROIN PUNCTURE SITE. SITE REMAINED TENDER T/O THIS SHIFT. NEW REDNESS AND WARMTH NOTED ON LUE. PLAN IS TO CONTINUE IV ABX, CONTINUE TO MANAGE BLOOD GLUCOSE, AND PROMOTE RLE WOUND HEALING.
--- NOTE | 2019-11-05 05:59 | NUR ---
SHIFT SUMMARY PATIENT PLEASENT AND COOPERATIVE THROUGHUT THE NIGHT. PATIENT MEDICATED FOR PAIN PER EMAR. WOUND VAC INTACT TO RIGHT FOOT. PATIENT APPEARED TO SLEEP WELL THROUGHOUT THE SECOND HALF OF THE NIGHT. PATIENT CURRENTLY APPEARS TO BE ASLEEP. CPAP IN PLACE WHILE ASLEEP. PATIENT HAS SIGNED THE CONTINUOUS BIOX REFUSAL FORM AND IT IS IN CHART AT THIS TIME. PATIENT CURRENTLY APPEARS TO BE ASLEEP. IV ABX GIVEN PER ORDERS. WILL CONTINUE TO MONITOR PATIENT AND GIVE BEDSIDE REPORT TO ONCOMING RN.
--- NOTE | 2019-11-05 07:39 | NUR ---
ASSUMED PATIENT CARE. PATIENT SLEEPING COMFORTABLY IN BED, CPAP APPLIED. NO SIGNS OF ACUTE DISTRESS, WCTM.
[2019-11-05 08:39] LABS: Vancomycin, Trough 18.7 ug/mL (5.0-10.0)
--- NOTE | 2019-11-05 15:23 | NUR ---
Spiritual care visit conducted. Patient tells me that she thinks she may be going home tomorrow. Patient voices that she is excited and nervous at the same time. We talk about her concerns. I listen empathically and pray a prayer of blessing. Patient verbalizes appreciation for the time and care.
--- NOTE | 2019-11-05 16:10 | NUR ---
REPORT GIVEN TO HOMAR YATES IN MEDICAL. PATIENT TRANSFERED VIA BED, NO SIGNS OF ACUTE DISTRESS.
--- NOTE | 2019-11-05 16:47 | NUR ---
SHIFT SUMMARY PCU TRANSFER THIS AFTERNOON. PATIENT DENIES PAIN, NAUSEA, AND SHORTNESS OF BREATH. PATIENT UP ONE ASSIST TO BSC. WOUND VAC DRESSING IN PLACE AND DRAINING. PATIENT IS PENDING DISCHARGE TO [facility] TOMORROW AFTERNOON. CALL LIGHT IN REACH.
[2019-11-05 17:55] LABS: BASOPHILS ABSOLUTE AUTO 0.07 K/mm3 (0.00-0.23); BASOPHILS PERCENT AUTO 1 % (0-2); EOSINOPHILS ABSOLUTE AUTO 0.32 K/mm3 (0.00-0.68); EOSINOPHILS PERCENT AUTO 4 % (0-6); Hematocrit 41.3 % (33.0-51.0); Hemoglobin 12.8 g/dL (11.5-16.0); IMMATURE GRAN ABSOLUTE AUTO 0.13 K/mm3 (0.00-0.10); IMMATURE GRAN PERCENT AUTO 2 % (0-1); LYMPHOCYTES ABSOLUTE AUTO 2.33 K/mm3 (0.84-5.20); LYMPHOCYTES PERCENT AUTO 30 % (21-46); MONOCYTES ABSOLUTE AUTO 0.75 K/mm3 (0.16-1.47); MONOCYTES PERCENT AUTO 10 % (4-13); Mean Corpuscular Volume 93 fL (80-100); Mean Platelet Volume 9.3 fL (9.1-12.4); NEUTROPHILS PERCENT AUTO 54 % (41-73); Platelet Count 377 K/mm3 (150-400); RDW Coefficient Variation 13.5 % (11.7-14.2); RDW Standard Deviation 46.1 fL (35.1-46.3); Red Blood Cell Count 4.42 M/mm3 (3.80-5.20)
--- NOTE | 2019-11-06 06:41 | NUR ---
SHIFT SUMMARY PATIENT ALERT AND ORIENTED. STILL HAS SWELLING IN HIS RIGHT FOOT AND LOWER LEG. PATIENT MEDICATED PER EMAR FOR PAIN. BED IN LOWEST POSITION WITH WHEELS LOCKED. CALL LIGHT WITHIN REACH. REPORT GIVEN TO ONCOMING RN.
[2019-11-06] MEDS ORDERED: LISI5 PO (13:19)
[2019-11-06] MEDS ORDERED: Doxycycline Mo100 M1 PO (13:20)
--- NOTE | 2019-11-06 15:27 | NUR ---
Diabetes education provided r/t Hb A1c 11.8% Pt agreeable to accepting handouts, but declines more extensive verbal education. Provided dietitians' office phone number for additional concerns as pt to discharge to Rehab today.
--- NOTE | 2019-11-06 15:37 | NUR ---
Pt has discharged today. Consult for helping pt develop and explore resources to improve self care. Pt is a readmission for right foot cellulitis. She was unable to get her prescription from the pharmacy after being discharged from the hospital for treatment due to insufficient funds and did not try. It is in the doctor's notes that she lives with a nephew and he may be able to help with paying for a prescription in the future. automotive services manager has seen her this admission to assist with payment of future prescriptions. Pt is discharged to rehab following treatment of foot. Pt does not have POLST form. She has history of poorly controled insulin dependent diabetes, angina, neuropathy, GERD, dyslipidemia, depression, insomnia, hypertension, morbid obesity with BMI of 41. Pt would be appropriate for palliative assessment of home environment, PPS and KPS scoring, evaluation of palliative domains if return to the hospital. She would benefit from advanced care planning and strategies to improve diabetic control and blood sugars.
--- NOTE | 2019-11-06 16:14 | NUR ---
PT DISCHARGED TO [facility]. PT PACKED BELONGINGS. TRANSFERRED TO AND TAKEN DOWN TO [place].
== END 2019-11-06 15:28 | DRG 623 ==
LOC: ER 14:01 → MEDS 17:48 → PCU 17:48 → SURS 17:48 → MEDS 18:25 → PCU 11-03 13:41 → MEDS 11-05 15:58
PROVIDERS: Internal Medicine; Pharmacist; Physician Assistant; Podiatrist Foot & Ankle Surgery; ADMIT Student in an Organized Health Care Education/Training Program
PROC: 0JBQ0ZZ Excision of Right Foot Subcutaneous Tissue and Fascia, Open Approach (ICD-10-PCS; principal; 2019-11-02 10:30)
PROC: 047P3ZZ Dilation of Right Anterior Tibial Artery, Percutaneous Approach (ICD-10-PCS; 2019-11-03)
PROC: B41D1ZZ Fluoroscopy of Aorta and Bilateral Lower Extremity Arteries using Low Osmolar Contrast (ICD-10-PCS; 2019-11-03)
DX: E11.621 Type 2 diabetes mellitus with foot ulcer (principal); L03.115 Cellulitis of right lower limb; Z68.42 Body mass index [BMI] 45.0-49.9, adult; L97.519 Non-pressure chronic ulcer of other part of right foot with unspecified severity; E11.65 Type 2 diabetes mellitus with hyperglycemia; E11.51 Type 2 diabetes mellitus with diabetic peripheral angiopathy without gangrene; I70.201 Unspecified atherosclerosis of native arteries of extremities, right leg; G47.33 Obstructive sleep apnea (adult) (pediatric); F32.9 Major depressive disorder, single episode, unspecified; G47.00 Insomnia, unspecified; I10 Essential (primary) hypertension; E03.9 Hypothyroidism, unspecified; K21.9 Gastro-esophageal reflux disease without esophagitis; E78.5 Hyperlipidemia, unspecified; E11.40 Type 2 diabetes mellitus with diabetic neuropathy, unspecified; E66.01 Morbid (severe) obesity due to excess calories; E11.610 Type 2 diabetes mellitus with diabetic neuropathic arthropathy; Z87.891 Personal history of nicotine dependence; Z79.891 Long term (current) use of opiate analgesic; Z79.899 Other long term (current) drug therapy; Z79.4 Long term (current) use of insulin; Z88.1 Allergy status to other antibiotic agents; Z88.0 Allergy status to penicillin; Z88.2 Allergy status to sulfonamides; Z88.8 Allergy status to other drugs, medicaments and biological substances
CPT/HCPCS: 36415; 37228; 73630; 73720; 75625; 75716; 75774; 76937; 80048; 80053; 80202; 81003; 82565; 82947; 83036; 83605; 85025; 85347; 85610; 85730; 86140; 87040; 87070; 87075; 87205; 93005; 93010; 93925; 94660; 94762; 96361; 96365; 96366; 96367; 97110; 97161; 97165; 97530; 97535; 99152; 99153; 99285-25; A9270; A9577; C1725; C1751; C1760; C1769; C1887; C1894; J1100; J1644; J1650; J1815; J2250; J2270; J2405; J2704; J3010; J3370; J7030; J7050; J7120; Q9967

== ENCOUNTER 2019-12-07 08:49 | Day surgery (SDC) | payer OTHER ==
[~2019-12-07 08:49] MED LIST changes: +LISI5 PO
== END 2019-12-07 22:58 | disposition home or self-care (01) ==
LOC: WOUND 08:49
DX: E11.621 Type 2 diabetes mellitus with foot ulcer (principal); L97.516 Non-pressure chronic ulcer of other part of right foot with bone involvement without evidence of necrosis; E11.65 Type 2 diabetes mellitus with hyperglycemia; E11.42 Type 2 diabetes mellitus with diabetic polyneuropathy; Z87.891 Personal history of nicotine dependence
CPT/HCPCS: G0463

== ENCOUNTER 2019-12-14 00:30 | Day surgery (SDC) | payer OTHER | END 2019-12-14 22:44 | disposition home or self-care (01) | LOC: WOUND 00:30 | DX: E11.621 Type 2 diabetes mellitus with foot ulcer (principal); E11.65 Type 2 diabetes mellitus with hyperglycemia; E11.42 Type 2 diabetes mellitus with diabetic polyneuropathy; J44.9 Chronic obstructive pulmonary disease, unspecified; I10 Essential (primary) hypertension; L97.419 Non-pressure chronic ulcer of right heel and midfoot with unspecified severity; Z79.899 Other long term (current) drug therapy; Z79.4 Long term (current) use of insulin | CPT/HCPCS: 87071; 87075; 87076; 87077; 87147; 87185; 87186; 87205 ==

== ENCOUNTER 2019-12-17 00:13 | Day surgery (SDC) | payer OTHER ==
[~2019-12-17] VITALS: Ht 172.7 cm; Wt 136.4 kg
[2019-12-18] MEDS ORDERED: VANCOMYCIN1.5 GM/15 IV (09:08)
== END 2019-12-17 17:40 | disposition home or self-care (01) ==
LOC: ATC 00:13
DX: E11.621 Type 2 diabetes mellitus with foot ulcer (principal); L97.412 Non-pressure chronic ulcer of right heel and midfoot with fat layer exposed; L03.115 Cellulitis of right lower limb; I10 Essential (primary) hypertension; E11.42 Type 2 diabetes mellitus with diabetic polyneuropathy; J44.9 Chronic obstructive pulmonary disease, unspecified; M19.90 Unspecified osteoarthritis, unspecified site; G47.30 Sleep apnea, unspecified
CPT/HCPCS: 82565; 96365; 96366; C1751; J3370; J7050

== ENCOUNTER 2019-12-18 00:15 | Day surgery (SDC) | payer OTHER ==
[2019-12-18] MEDS ORDERED: VANCOMYCIN1.5 GM/15 IV (09:08)
--- NOTE | 2019-12-18 18:35 | NUR ---
PT START TIME FOR IV VANCOMYCIN, WAS 1635 AND NOTICED WHEN STOPPING MEDICATION TIME THE BEGINNING SCAN TIME WAS NOT ON EMAR. START:1635 STOP: 180
== END 2019-12-18 18:15 | disposition home or self-care (01) ==
LOC: ATC 00:15
DX: E11.621 Type 2 diabetes mellitus with foot ulcer (principal); E11.42 Type 2 diabetes mellitus with diabetic polyneuropathy; L03.115 Cellulitis of right lower limb; J44.9 Chronic obstructive pulmonary disease, unspecified; L97.512 Non-pressure chronic ulcer of other part of right foot with fat layer exposed; I10 Essential (primary) hypertension; Z79.899 Other long term (current) drug therapy; Z79.4 Long term (current) use of insulin
CPT/HCPCS: J3370; J7050

== ENCOUNTER 2019-12-19 07:17 | Day surgery (SDC) | payer OTHER ==
[~2019-12-19 07:17] MED LIST changes: +VANCOMYCIN1.5 GM/15 IV
[2019-12-19 08:30] LABS: Creatinine, Blood 0.72 mg/dL (0.40-1.00); Vancomycin, Trough 8.7 ug/mL (5.0-10.0)
== END 2019-12-19 17:45 | disposition home or self-care (01) ==
LOC: ATC 07:17
PROVIDERS: Nurse Practitioner Family
DX: E11.621 Type 2 diabetes mellitus with foot ulcer (principal); L03.115 Cellulitis of right lower limb; E11.42 Type 2 diabetes mellitus with diabetic polyneuropathy; I10 Essential (primary) hypertension; J44.9 Chronic obstructive pulmonary disease, unspecified; L97.512 Non-pressure chronic ulcer of other part of right foot with fat layer exposed; Z79.899 Other long term (current) drug therapy; Z79.4 Long term (current) use of insulin
CPT/HCPCS: 80202; 82565; J3370; J7050

== ENCOUNTER 2019-12-20 21:10 | Emergency (ER) | payer OTHER ==
[~2019-12-20] VITALS: Ht 172.7 cm; Wt 147.4 kg
== END 2019-12-20 23:36 | disposition home or self-care (01) ==
LOC: ER 21:10
DX: S50.12XA Contusion of left forearm, initial encounter (principal); E11.40 Type 2 diabetes mellitus with diabetic neuropathy, unspecified; Z79.899 Other long term (current) drug therapy; Z79.82 Long term (current) use of aspirin; Z79.4 Long term (current) use of insulin; Z87.891 Personal history of nicotine dependence; W22.8XXA Striking against or struck by other objects, initial encounter
CPT/HCPCS: 73090; 99283-25

== ENCOUNTER 2019-12-21 00:15 | Day surgery (SDC) | payer OTHER ==
[2019-12-21 17:00] LABS: C-REACTIVE PROTEIN, EXT RANGE 3.43 mg/dL (0.000-0.300); Creatinine, Blood 0.75 mg/dL (0.40-1.00)
--- NOTE | 2019-12-21 17:20 | NUR ---
JASMYN IN CENTER REPORTS PT TPO HAVE AN MRI TOMORROW. JASMNY REQUESTED THAT PT FILL OUT MRI SCREENING FORM DURING TODAY'S APPOINTMENT. PT FILLED OUT FORM AND FAXED TO MRI DEPARTMENT. PT IS AWARE THAT JASMYN WILL CALL HER TOMORROW WITH A TIME FOR HER MRI.
== END 2019-12-21 16:49 | disposition home or self-care (01) ==
LOC: ATC 00:15
PROVIDERS: Nurse Practitioner Family
DX: E11.621 Type 2 diabetes mellitus with foot ulcer (principal); L03.115 Cellulitis of right lower limb; E11.42 Type 2 diabetes mellitus with diabetic polyneuropathy; J44.9 Chronic obstructive pulmonary disease, unspecified; L97.412 Non-pressure chronic ulcer of right heel and midfoot with fat layer exposed; Z79.899 Other long term (current) drug therapy; Z79.4 Long term (current) use of insulin
CPT/HCPCS: 82565; 85651; 86140; J1335; J3370; J7050

== ENCOUNTER 2019-12-21 01:11 | Day surgery (SDC) | payer OTHER | END 2019-12-21 22:46 | disposition home or self-care (01) | LOC: WOUND | DX: E11.621 Type 2 diabetes mellitus with foot ulcer (principal); L97.412 Non-pressure chronic ulcer of right heel and midfoot with fat layer exposed; E11.65 Type 2 diabetes mellitus with hyperglycemia; E11.42 Type 2 diabetes mellitus with diabetic polyneuropathy; I10 Essential (primary) hypertension; J44.9 Chronic obstructive pulmonary disease, unspecified; G47.30 Sleep apnea, unspecified; Z79.4 Long term (current) use of insulin; Z79.899 Other long term (current) drug therapy ==

== ENCOUNTER 2019-12-23 00:01 | Day surgery (SDC) | payer OTHER ==
[2019-12-24] MEDS ORDERED: Invanz1 GM IV (16:14)
== END 2019-12-23 16:25 | disposition home or self-care (01) ==
LOC: ATC 00:01
DX: E11.621 Type 2 diabetes mellitus with foot ulcer (principal); L97.519 Non-pressure chronic ulcer of other part of right foot with unspecified severity; L03.115 Cellulitis of right lower limb; I10 Essential (primary) hypertension; J44.9 Chronic obstructive pulmonary disease, unspecified; E11.42 Type 2 diabetes mellitus with diabetic polyneuropathy; G47.30 Sleep apnea, unspecified; Z79.899 Other long term (current) drug therapy; Z79.4 Long term (current) use of insulin
CPT/HCPCS: 96365; J1335

== ENCOUNTER 2019-12-24 00:11 | Day surgery (SDC) | payer OTHER ==
[~2019-12-24 00:11] MED LIST changes: +LISI20 PO; -LISI5 PO
[2019-12-24] MEDS ORDERED: Invanz1 GM IV (16:14)
== END 2019-12-24 16:42 | disposition home or self-care (01) ==
LOC: ATC 00:11
DX: E11.621 Type 2 diabetes mellitus with foot ulcer (principal); L03.115 Cellulitis of right lower limb; E11.42 Type 2 diabetes mellitus with diabetic polyneuropathy; I10 Essential (primary) hypertension; J44.9 Chronic obstructive pulmonary disease, unspecified; L97.419 Non-pressure chronic ulcer of right heel and midfoot with unspecified severity; Z79.899 Other long term (current) drug therapy; Z79.4 Long term (current) use of insulin
CPT/HCPCS: 96365; J1335

== ENCOUNTER 2019-12-25 00:13 | Day surgery (SDC) | payer OTHER ==
[~2019-12-25 00:13] MED LIST changes: +Invanz1 GM IV
== END 2019-12-25 16:23 | disposition home or self-care (01) ==
LOC: ATC 00:13
DX: E11.621 Type 2 diabetes mellitus with foot ulcer (principal); L03.115 Cellulitis of right lower limb; E11.65 Type 2 diabetes mellitus with hyperglycemia; L97.519 Non-pressure chronic ulcer of other part of right foot with unspecified severity; E11.42 Type 2 diabetes mellitus with diabetic polyneuropathy; J44.9 Chronic obstructive pulmonary disease, unspecified; I10 Essential (primary) hypertension; Z79.4 Long term (current) use of insulin; Z79.899 Other long term (current) drug therapy
CPT/HCPCS: 96365; J1335

== ENCOUNTER 2019-12-27 00:05 | Day surgery (SDC) | payer OTHER | END 2019-12-27 22:40 | disposition home or self-care (01) | LOC: ATC 00:05 | DX: E11.621 Type 2 diabetes mellitus with foot ulcer (principal); L97.519 Non-pressure chronic ulcer of other part of right foot with unspecified severity; L03.115 Cellulitis of right lower limb; I10 Essential (primary) hypertension; J44.9 Chronic obstructive pulmonary disease, unspecified; E11.42 Type 2 diabetes mellitus with diabetic polyneuropathy; Z79.4 Long term (current) use of insulin; Z79.899 Other long term (current) drug therapy | CPT/HCPCS: J1335 ==

== ENCOUNTER 2019-12-28 12:56 | Inpatient (IN) | payer OTHER ==
[~2019-12-28] VITALS: Ht 172.7 cm; Wt 140.7 kg
[2019-12-28 14:20] LABS: BASOPHILS ABSOLUTE AUTO 0.05 K/mm3 (0.00-0.23); BASOPHILS PERCENT AUTO 0 % (0-2); EOSINOPHILS PERCENT AUTO 0 % (0-6); Hematocrit 47.6 % (33.0-51.0); Hemoglobin 15.3 g/dL (11.5-16.0); IMMATURE GRAN ABSOLUTE AUTO 0.13 K/mm3 (0.00-0.10); IMMATURE GRAN PERCENT AUTO 1 % (0-1); LYMPHOCYTES ABSOLUTE AUTO 1.97 K/mm3 (0.84-5.20); LYMPHOCYTES PERCENT AUTO 10 % (21-46); MONOCYTES ABSOLUTE AUTO 1.14 K/mm3 (0.16-1.47); MONOCYTES PERCENT AUTO 6 % (4-13); Mean Corpuscular HGB 28.3 pg (26.0-34.0); Mean Corpuscular HGB Conc 32.1 g/dL (31.5-36.5); Mean Corpuscular Volume 88 fL (80-100); Mean Platelet Volume 9.7 fL (9.1-12.4); NEUTROPHILS PERCENT AUTO 83 % (41-73); Platelet Count 557 K/mm3 (150-400); RDW Coefficient Variation 13.4 % (11.7-14.2); RDW Standard Deviation 42.7 fL (35.1-46.3); White Blood Cell Count 19.59 K/mm3 (4.00-11.30)
[2019-12-28 14:37] LABS: Alanine Aminotransfer (ALT/SGP 21 U/L (12-78); Albumin, Blood 3.9 g/dL (3.4-5.0); Albumin/Globulin Ratio 0.7 (0.8-1.8); Alk Phos 166 U/L (50-136); Anion Gap 17 mmol/L (6-16); Aspartate Aminotrans (AST/SGOT 21 U/L (12-37); Bilirubin, Total 0.8 mg/dL (0.1-1.0); Blood Urea Nitrogen 22 mg/dL (8-24); Bun/Creatinine Ratio 28.8 (12.0-20.0); CO2, Blood 16 mmol/L (21-32); Calcium, Blood 9.6 mg/dL (8.5-10.1); Chloride, Blood 103 mmol/L (98-108); Creatinine, Blood 0.76 mg/dL (0.40-1.00); Globulin, Blood 5.4 g/dL (2.2-4.0); Glomerular Filtration Rate >60 (60-); Glucose, Blood 412 mg/dL (70-99); Potassium, Blood 4.2 mmol/L (3.5-5.5); Sodium, Blood 136 mmol/L (136-145); Total Protein, Blood 9.3 g/dL (6.4-8.2)
[2019-12-28 14:42] LABS: Troponin I <0.015 ng/mL (0.000-0.040)
[2019-12-28 15:45] LABS: Base Excess Venous -7.7 mmol/L; Bicarbonate Venous 19.8 mmol/L (24.0-30.0); PCO2 Venous 25.6 mmHg (38-42); PO2 Venous 154 mmHg (38-42); pH Blood Venous 7.42 (7.34-7.37)
[2019-12-28 19:14] LABS: Albumin, Blood 3.7 g/dL (3.4-5.0); Anion Gap 12 mmol/L (6-16); Blood Urea Nitrogen 22 mg/dL (8-24); Bun/Creatinine Ratio 27.7 (12.0-20.0); CO2, Blood 21 mmol/L (21-32); Calcium, Blood 9.1 mg/dL (8.5-10.1); Chloride, Blood 107 mmol/L (98-108); Glomerular Filtration Rate >60 (60-); Glucose, Blood 331 mg/dL (70-99); Magnesium, Blood 2.2 mg/dL (1.6-2.4); Potassium, Blood 4.5 mmol/L (3.5-5.5); Sodium, Blood 140 mmol/L (136-145)
--- NOTE | 2019-12-28 20:00 | NUR ---
ASSUMPTION OF CARE: PT A&O. REPORTING RUQ PAIN. PT HYPERTENSIVE ON ADMIT, HR IN THE 120S. LUNG SOUNDS CLEAR, SPO2 >90% ON RA. PT VOIDS ON OWN. ONE BM THIS SHIFT. WOUNDS ON R FOOT AND L ANKLE. PHOTOS IN CHART. PG TO DAVID PATENT HOWEVER DOES NOT DRAW BACK. PIV IN RFA. WILL CONTINUE TO MONITOR
[2019-12-28 22:18] LABS: Alanine Aminotransfer (ALT/SGP 20 U/L (12-78); Albumin, Blood 3.4 g/dL (3.4-5.0); Albumin/Globulin Ratio 0.7 (0.8-1.8); Alk Phos 150 U/L (50-136); Anion Gap 12 mmol/L (6-16); Aspartate Aminotrans (AST/SGOT 15 U/L (12-37); Bilirubin, Total 0.6 mg/dL (0.1-1.0); Blood Urea Nitrogen 22 mg/dL (8-24); Bun/Creatinine Ratio 30.9 (12.0-20.0); CO2, Blood 18 mmol/L (21-32); Calcium, Blood 8.3 mg/dL (8.5-10.1); Chloride, Blood 111 mmol/L (98-108); Creatinine, Blood 0.71 mg/dL (0.40-1.00); Globulin, Blood 4.7 g/dL (2.2-4.0); Glomerular Filtration Rate >60 (60-); Glucose, Blood 285 mg/dL (70-99); Phosphorus, Blood 2.4 mg/dL (2.5-4.9); Sodium, Blood 141 mmol/L (136-145); Total Protein, Blood 8.1 g/dL (6.4-8.2)
[2019-12-29 02:25] LABS: Albumin, Blood 3.2 g/dL (3.4-5.0); Anion Gap 9 mmol/L (6-16); Blood Urea Nitrogen 25 mg/dL (8-24); Bun/Creatinine Ratio 33.3 (12.0-20.0); CO2, Blood 21 mmol/L (21-32); Calcium, Blood 8.3 mg/dL (8.5-10.1); Chloride, Blood 113 mmol/L (98-108); Creatinine, Blood 0.75 mg/dL (0.40-1.00); Glomerular Filtration Rate >60 (60-); Glucose, Blood 254 mg/dL (70-99); Phosphorus, Blood 2.7 mg/dL (2.5-4.9); Potassium, Blood 4.1 mmol/L (3.5-5.5); Sodium, Blood 143 mmol/L (136-145)
[2019-12-29 05:57] LABS: BASOPHILS ABSOLUTE AUTO 0.06 K/mm3 (0.00-0.23); BASOPHILS PERCENT AUTO 0 % (0-2); EOSINOPHILS ABSOLUTE AUTO 0.04 K/mm3 (0.00-0.68); EOSINOPHILS PERCENT AUTO 0 % (0-6); Hematocrit 40.1 % (33.0-51.0); Hemoglobin 12.5 g/dL (11.5-16.0); IMMATURE GRAN ABSOLUTE AUTO 0.08 K/mm3 (0.00-0.10); IMMATURE GRAN PERCENT AUTO 1 % (0-1); LYMPHOCYTES ABSOLUTE AUTO 2.77 K/mm3 (0.84-5.20); LYMPHOCYTES PERCENT AUTO 16 % (21-46); MONOCYTES ABSOLUTE AUTO 1.26 K/mm3 (0.16-1.47); MONOCYTES PERCENT AUTO 7 % (4-13); Mean Corpuscular HGB 28.2 pg (26.0-34.0); Mean Corpuscular HGB Conc 31.2 g/dL (31.5-36.5); Mean Platelet Volume 9.4 fL (9.1-12.4); NEUTROPHILS PERCENT AUTO 75 % (41-73); Platelet Count 406 K/mm3 (150-400); RDW Coefficient Variation 13.5 % (11.7-14.2); RDW Standard Deviation 44.4 fL (35.1-46.3); Red Blood Cell Count 4.43 M/mm3 (3.80-5.20); White Blood Cell Count 17.01 K/mm3 (4.00-11.30)
--- NOTE | 2019-12-29 05:58 | NUR ---
SHIFT SUMMARY: NO ACUTE CHANGES T/O SHIFT. PT SLEPT MAJORITY OF NIGHT. POC GLUCOSES IS 206. D5 1/2NS WITH KCL INFUSING AT 125MLS/HR. INSULIN GTT AT 6U/HR. VSS-NO EPISODES OF HYPERTENSION SINCE ADMIT. LUNG SOUNDS CLEAR, SPO2 >90% ON RA. VOIDS ON OWN. PG TO DAVID-DRESSING CHANGED TODAY. IS C/D/I. WILL PASS REPORT TO ONCOMING SHIFT.
[2019-12-29 06:13] LABS: Mean Corpuscular Volume 91 fL (80-100)
[2019-12-29 06:17] LABS: Alanine Aminotransfer (ALT/SGP 23 U/L (12-78); Albumin/Globulin Ratio 0.7 (0.8-1.8); Alk Phos 123 U/L (50-136); Anion Gap 7 mmol/L (6-16); Aspartate Aminotrans (AST/SGOT 16 U/L (12-37); Bilirubin, Total 0.4 mg/dL (0.1-1.0); Blood Urea Nitrogen 26 mg/dL (8-24); Bun/Creatinine Ratio 36.4 (12.0-20.0); CO2, Blood 22 mmol/L (21-32); Calcium, Blood 8.4 mg/dL (8.5-10.1); Chloride, Blood 113 mmol/L (98-108); Creatinine, Blood 0.72 mg/dL (0.40-1.00); Globulin, Blood 4.1 g/dL (2.2-4.0); Glomerular Filtration Rate >60 (60-); Glucose, Blood 224 mg/dL (70-99); Magnesium, Blood 2.2 mg/dL (1.6-2.4); Phosphorus, Blood 2.3 mg/dL (2.5-4.9); Potassium, Blood 3.9 mmol/L (3.5-5.5); Sodium, Blood 142 mmol/L (136-145); Total Protein, Blood 7.1 g/dL (6.4-8.2)
--- NOTE | 2019-12-29 06:30 | NUR ---
CALL PLACED TO DR. ALLEN RE ORDERS FOR INSULIN AND FLUIDS. CO2 IS 22, GAP IS 7 POC GLUCOSE 201. ORDERS RE TO KEEP CURRENTL INSULIN GTT AND FLUIDS.
--- NOTE | 2019-12-29 07:30 | NUR ---
Recieved report from Robert GRAF. Patient resting in bed with CPAP in place and sats mid 90%'s. She has 18ga PowerGlide infusing D5 with 20meq of potassium, and Regular Insulin gtt at 7 units/hr with CBG's <200. She has 20ga IV RFA dressing intact and site WNL's. She is alert with verbal stimuli and is able to communicate her needs. She is independent in room and is up to bedside cammode with SBA. She nenies any current nausea and request diet sprite.
--- NOTE | 2019-12-29 10:00 | NUR ---
Dr James has started her on 70 units of Lantus and stop Insulin gtt 1 hour after. Started on High SS Humalog and 5 units humalog AC/HS. She has been nauseated and medicated and also medicate for 8/10 epigatric pain that resolved after medicating. She has been wanting to sleep and remains on CPAP when not up. Continues to sat mid 90%'s. Up to bedside cammode with 600 ml urine. Denies any appetite and refused breakfast. Independent in room .
--- NOTE | 2019-12-29 12:19 | NUR ---
Patient was resting post Phenergan, Reglan, Fentanyl. She also was able to hold down PO meds. She remains on CPAP and sats mid 90%'s. She continues 1/2NS with 20meq potassium at 125ml/hr, which was changed over when D5 was finished. She just got up to bedside cammode with minimal assist for lines and tubes. She currently denies any nausea, and pain reduced to 4/10.
--- NOTE | 2019-12-29 14:30 | NUR ---
Medicated for pain with 0.5 mg dilaudid as she states that the Fentanyl was not working very long and to full need. She is independent up to bedside cammode and urinates about 600ml clear yellow urine at a time, She continues to rest with CPAP on to resist nausea. She remains on 1/2 NS with 20meq Cathie 125ml/hr. She sats 98-100% on CPAP. Gave dose of Hydralazine for 190's systolic, HR 100's.
--- NOTE | 2019-12-29 19:33 | NUR ---
Patient medicated for pain 1730 and gave her some jello and tea. Systolic 100-120 and HR 80-90. She remains independent in room. 1/2 NS with 20 meq K at 125ml/hr. Power glide intact and WNL's. She remains independent in room and with bedside cammode. Last CBG 260 and covered with 10 units humalog and held 5 units humalog with meals. She is resting without CPAP currently. Gave report to eugenia and went in room and introduced patient.
--- NOTE | 2019-12-29 19:55 | NUR ---
ASSUMED PT CARE FROM HOMAR OLIVER AT 1915 PT SITTING UP IN BED. APPEARS ALERT AND ORIENTED AND ABLE TO MAKE NEEDS KNOWN. VSS STABLE; SEE FLOWSHEET. 1/2 NS WITH 20MEQ POTASSIUM INFUSING AT 125MLS/HR. PT IS INDEPENDENT IN ROOM. NOTED TO HAVE DRESSINGS IN PLACE TO BILATERAL ANKLES/FEET. NO C/O PAIN, N/V, OR SOB AT THIS TIME. CALL LIGHT WITHIN REACH.
[2019-12-30 03:52] LABS: BASOPHILS ABSOLUTE AUTO 0.07 K/mm3 (0.00-0.23); BASOPHILS PERCENT AUTO 1 % (0-2); EOSINOPHILS ABSOLUTE AUTO 0.17 K/mm3 (0.00-0.68); EOSINOPHILS PERCENT AUTO 1 % (0-6); Hematocrit 42.5 % (33.0-51.0); Hemoglobin 13.1 g/dL (11.5-16.0); IMMATURE GRAN ABSOLUTE AUTO 0.04 K/mm3 (0.00-0.10); IMMATURE GRAN PERCENT AUTO 0 % (0-1); LYMPHOCYTES ABSOLUTE AUTO 3.02 K/mm3 (0.84-5.20); LYMPHOCYTES PERCENT AUTO 24 % (21-46); MONOCYTES ABSOLUTE AUTO 0.82 K/mm3 (0.16-1.47); MONOCYTES PERCENT AUTO 7 % (4-13); Mean Corpuscular HGB 28.2 pg (26.0-34.0); Mean Corpuscular HGB Conc 30.8 g/dL (31.5-36.5); Mean Corpuscular Volume 91 fL (80-100); Mean Platelet Volume 9.2 fL (9.1-12.4); NEUTROPHILS ABSOLUTE AUTO 8.48 K/mm3 (1.96-9.15); NEUTROPHILS PERCENT AUTO 67 % (41-73); Platelet Count 395 K/mm3 (150-400); RDW Coefficient Variation 13.4 % (11.7-14.2); RDW Standard Deviation 45.4 fL (35.1-46.3); Red Blood Cell Count 4.65 M/mm3 (3.80-5.20)
[2019-12-30 04:12] LABS: Alanine Aminotransfer (ALT/SGP 17 U/L (12-78); Albumin, Blood 2.8 g/dL (3.4-5.0); Albumin/Globulin Ratio 0.7 (0.8-1.8); Alk Phos 123 U/L (50-136); Anion Gap 8 mmol/L (6-16); Aspartate Aminotrans (AST/SGOT 17 U/L (12-37); Bilirubin, Total 0.4 mg/dL (0.1-1.0); Blood Urea Nitrogen 27 mg/dL (8-24); Bun/Creatinine Ratio 35.3 (12.0-20.0); C-REACTIVE PROTEIN, EXT RANGE 0.447 mg/dL (0.000-0.300); CO2, Blood 22 mmol/L (21-32); Calcium, Blood 8.3 mg/dL (8.5-10.1); Chloride, Blood 111 mmol/L (98-108); Creatinine, Blood 0.76 mg/dL (0.40-1.00); Globulin, Blood 4.1 g/dL (2.2-4.0); Glomerular Filtration Rate >60 (60-); Glucose, Blood 201 mg/dL (70-99); Potassium, Blood 4.2 mmol/L (3.5-5.5); Sodium, Blood 141 mmol/L (136-145); Total Protein, Blood 6.9 g/dL (6.4-8.2)
--- NOTE | 2019-12-30 05:56 | NUR ---
END OF SHIFT SUMMARY NO SIGNFICANT CHANGES SINCE LAST ENTRY. PT CONTINUED TO C/O EPIGASTRIC PAIN THAT WAS TIGHT. APPEARED TO AFFECT PT MORE AFTER SWALLOWING LIQUIDS OR ATTEMPTING TO EAT. SHE STATED SHE FELT LIKE THE FOOD AND PILLS KEPT GETTING "STUCK IN HER THROAT". MEDICATED WITH DILAUDID 0.5MG TWICE THIS SHIFT THAT WAS UNEFFECTIVE FOR EPIGASTRIC PAIN. PT REMAINS ON AC HS BLOOD SUGAR CHECKS. ONLY COVERED WITH HIGH SS WITHOUT THE ADDITIONAL 5 UNITS D/T BLOOD SUGAR BEING 195 AND PT NOT EATING. HOWEVER, DID ADMINISTER 70 UNITS OF LANTUS PER ORDERS. PT SLEPT MOST OF NIGHT WITH CPAP IN PLACE. ABLE TO REPOSITION SELF IN BED AND MAKE NEEDS KNOWN. PT HAS NOT VOIDED THIS SHIFT. ASKED IF SHE HAD TO USE THE RESTROOM AT 0400 AND PT DENIED SAYING THAT SHE NORMALLY DOESN'T PEE AT NIGHT; WILL PASS OFF TO DAY RN. CHANGED DRESSINGS TO BILATERAL FEET/ANKLES; SEE NURSE ORDERS. CALL LIGHT WITHIN REACH; PT ABLE TO MAKE HER NEEDS KNOWN. WILL CONTINUE TO MONITOR UNTIL REPORT IS HANDED OFF TO ONCOMING RN.
--- NOTE | 2019-12-30 08:00 | NUR ---
Received report from Sai GRAF. Patient has cindy resting on CPAP and sats in the upper 90%'s. She awakens to verbal stimuli and is able to communicate her needs. CBG 177 and covered with 4 units humalog, held 5 units for meals humalog as she is not eating. She has Powerglide DAVID dressing intact and WNL's and is infusing 1/2 NS with 20meq K and is infusing at 125ml/hr. She is independent in room and up to bedside cammode. two dressed wounds to right foot, See pics. She has c/o 7/10 epigastric pain since admission. VSS, See EMR.
--- NOTE | 2019-12-30 12:00 | NUR ---
Patient has been resting off and on with her CPAP. She has not c/o of pain recently and she even tried to have a little lunch. VSS See EMR. Her 1/2 NS with 20meq K at 125 ml/hr. Still c/o lump like feeling in the epigastric area.
--- NOTE | 2019-12-30 16:24 | NUR ---
Dr James by to see her and transferred he to [facility]. discussed increaseing dilaudid and will leave at 0.5 mg Q3. Gave her GI cocktail. Called consult to GI and he has been by to see her and upper endo today if possible. Medicated again for pain. She was tolerating ensure earlier and is NPO until after scope.
--- NOTE | 2019-12-30 18:01 | NUR ---
Patient being scoped tonite with anesthesia. She has been incontinent to utine twice and quiet a bit. She was affended when asked if she wanted an attends. She states she does not wake up in time and never really happens. VSS. She is medical status without tele and is awaiting til after scope. She remains NPO.
--- NOTE | 2019-12-30 18:49 | NUR ---
12/30/19 1849 Krishan Campbell See Anesthesia record. Bite Block Placed History, Chart, Medications and Allergies reviewed before start of procedure.O2 VIA N/C INTACT THROUGHOUT SEDATION/PROCEDURE.MONITOR INTACT WITH CONTINUOUS PULSE OXIMETRY AND INTERMITTENT BP.
--- NOTE | 2019-12-30 20:46 | NUR ---
12/29 @ 1905 WENT INTO ROOM POST-PROCEDURE, PATIENT AMBULATED TO BEDIDE COMMODE TO URINATE. PT. FULLY AWAKE, ALERT, ORIENTED, MOVES ALL EXTREMETIES, C/O SOME LOWER EXTREMITY WEAKNESS, R/T CURRENT WOUNDS. DENIED NEED FOR GRIPPY SOCKS, STATES "I'M MORE STABLE WITHOUT THOSE DUMB SOCKS." RETURNED TO BED WITHOUT ISSUE. GIVEN DILAUDID FOR 8/10 GENERALIZED PAIN. HR 90S, RESPIRATORY RATE ~18, BP 184/114, PT. STATES "THIS IS NORMAL WHEN I'M IN PAIN." GOOD PULSES IN ALL 4 EXTREMETIES. LUNG SOUNDS CLEAR THROUGHOUT. NO BM NOTED, COMPLAINS OF NAUSEA, OK PER DR. ERICKSON TO RESUME PRN ZOFRAN POST-PROCEDURE. REPORT WAS CALLED TO FLOOR BY HOMAR OLIVER, ALL QUESTIONS ANSWERED BY MELODY AND MYSELF. PATIENT TRANSFERRED TO . 312 @ 20:00. IT HAS BEEN A PLEASURE TAKING CARE OF THIS PATIENT.
--- NOTE | 2019-12-31 05:51 | NUR ---
SHIFT SUMMARY TRANSFER FROM ICU @ 1999. TRANSFERED FROM ICU BED TO MEDICAL FLOOR BED WITHOUT ASSISTANCE. ORIENTED TO ROOM AND CALL SYSTEM. A/O, ABLE TO MAKE NEEDS KNOWN. COOPERATIVE WITH CARE. C/O PAIN/DISCOMFORT; MEDICATED PER EMAR. C/O NAUSEA SEVERAL TIMES AND STATED FELT OVERALL "YUCKY"; MEDICATED PER EMAR. GIVEN X2 SHOWERS; STATED RELIEF. REPLACED DRESSINGS TO R OUTER FOOT AND L INNER ANKLE. IV FLUIDS INFUSED WITHOUT COMPLICATIONS. APPEARED TO REST MINIMALLY. VSS APPEARED TO BE HYPERTENSIVE, CHANGED CUFF TO BARIATRIC APPEAR TO NOW BE HYPOTENSIVE WHICH SHOWS TO BE NORMALIZED FOR PATIENT TENDS, WCTM. NO OTHER ACUTE CHANGES NOTED OVERNIGHT. CPAP @ HS; REFUSED BIOX. CALL LIGHT AND BELONGINGS WITHIN REACH. WCTM. REPORT TO ONCOMING RN.
[2019-12-31 06:32] LABS: BASOPHILS ABSOLUTE AUTO 0.04 K/mm3 (0.00-0.23); BASOPHILS PERCENT AUTO 0 % (0-2); EOSINOPHILS ABSOLUTE AUTO 0.16 K/mm3 (0.00-0.68); EOSINOPHILS PERCENT AUTO 2 % (0-6); Hematocrit 41.8 % (33.0-51.0); Hemoglobin 13.1 g/dL (11.5-16.0); IMMATURE GRAN ABSOLUTE AUTO 0.03 K/mm3 (0.00-0.10); IMMATURE GRAN PERCENT AUTO 0 % (0-1); LYMPHOCYTES ABSOLUTE AUTO 2.98 K/mm3 (0.84-5.20); LYMPHOCYTES PERCENT AUTO 30 % (21-46); MONOCYTES ABSOLUTE AUTO 0.94 K/mm3 (0.16-1.47); MONOCYTES PERCENT AUTO 9 % (4-13); Mean Corpuscular HGB 28.2 pg (26.0-34.0); Mean Corpuscular HGB Conc 31.3 g/dL (31.5-36.5); Mean Corpuscular Volume 90 fL (80-100); Mean Platelet Volume 9.2 fL (9.1-12.4); NEUTROPHILS PERCENT AUTO 59 % (41-73); Platelet Count 404 K/mm3 (150-400); RDW Coefficient Variation 13.2 % (11.7-14.2); Red Blood Cell Count 4.64 M/mm3 (3.80-5.20); White Blood Cell Count 10.05 K/mm3 (4.00-11.30)
[2019-12-31 06:48] LABS: Anion Gap 5 mmol/L (6-16); Blood Urea Nitrogen 22 mg/dL (8-24); Bun/Creatinine Ratio 24.7 (12.0-20.0); CO2, Blood 26 mmol/L (21-32); Calcium, Blood 8.3 mg/dL (8.5-10.1); Chloride, Blood 110 mmol/L (98-108); Creatinine, Blood 0.89 mg/dL (0.40-1.00); Glomerular Filtration Rate >60 (60-); Glucose, Blood 92 mg/dL (70-99); Potassium, Blood 3.6 mmol/L (3.5-5.5); Sodium, Blood 141 mmol/L (136-145)
--- NOTE | 2019-12-31 10:00 | NUR ---
COMPATIBILITY CHECKED VERIFIED WITH PHARMACY THAT 1/2NS W/ KCL IS COMPATABLE WITH MERREM
--- NOTE | 2019-12-31 18:24 | NUR ---
SHIFT SUMMARY PT SHOWERED TWICE THIS SHIFT. PT STATES EPIGASTRIC PAIN & NAUSEA THROUGHOUT SHIFT. LITTLE RELIEF FROM PRN MEDS. PT WOUND CARE COMPLETED THIS SHIFT. BP DECREASED TO 119/66 AFTER DOSE OF HYDRALAZINE. OTHER VITALS STABLE. NO OTHER CHANGES IN ASSESSMENT AT THIS TIME. WILL CONTINUE TO MONITOR UNTIL TURNOVER IS COMPLETE.
[2020-01-01 05:24] LABS: BASOPHILS ABSOLUTE AUTO 0.05 K/mm3 (0.00-0.23); BASOPHILS PERCENT AUTO 1 % (0-2); EOSINOPHILS ABSOLUTE AUTO 0.23 K/mm3 (0.00-0.68); EOSINOPHILS PERCENT AUTO 3 % (0-6); Hematocrit 42.3 % (33.0-51.0); Hemoglobin 13.2 g/dL (11.5-16.0); IMMATURE GRAN ABSOLUTE AUTO 0.03 K/mm3 (0.00-0.10); IMMATURE GRAN PERCENT AUTO 0 % (0-1); LYMPHOCYTES ABSOLUTE AUTO 3.19 K/mm3 (0.84-5.20); LYMPHOCYTES PERCENT AUTO 37 % (21-46); MONOCYTES ABSOLUTE AUTO 0.74 K/mm3 (0.16-1.47); MONOCYTES PERCENT AUTO 9 % (4-13); Mean Corpuscular HGB 28.1 pg (26.0-34.0); Mean Corpuscular HGB Conc 31.2 g/dL (31.5-36.5); Mean Corpuscular Volume 90 fL (80-100); Mean Platelet Volume 9.3 fL (9.1-12.4); NEUTROPHILS ABSOLUTE AUTO 4.39 K/mm3 (1.96-9.15); NEUTROPHILS PERCENT AUTO 51 % (41-73); Platelet Count 379 K/mm3 (150-400); RDW Coefficient Variation 13.4 % (11.7-14.2); RDW Standard Deviation 43.5 fL (35.1-46.3); Red Blood Cell Count 4.69 M/mm3 (3.80-5.20); White Blood Cell Count 8.63 K/mm3 (4.00-11.30)
[2020-01-01 05:44] LABS: Anion Gap 5 mmol/L (6-16); Blood Urea Nitrogen 21 mg/dL (8-24); Bun/Creatinine Ratio 23.1 (12.0-20.0); CO2, Blood 28 mmol/L (21-32); Calcium, Blood 8.3 mg/dL (8.5-10.1); Chloride, Blood 107 mmol/L (98-108); Creatinine, Blood 0.91 mg/dL (0.40-1.00); Glomerular Filtration Rate >60 (60-); Glucose, Blood 111 mg/dL (70-99); Potassium, Blood 3.8 mmol/L (3.5-5.5); Sodium, Blood 140 mmol/L (136-145)
--- NOTE | 2020-01-01 06:33 | NUR ---
SUMMARY PT HAS HAD EPISODES OF NAUSEA AND PAIN. PT TX PER EMAR WITH RELIEF AND WAS ABLE TO SLEEP. PT THIS AM FOUND TO HAVE BP IN 80'S. PT DENIED ANY WEAKNESS OR DIZZINESS. PROVIDER CALLED AND A 500 ML BOLUS WAS ORDERED. BP INCREASED TO 100'S. PT THIS AM IS COMPLAINING OF EPIGASTRIC DISCOMFORT. WILL REEVALUATE BP PRIOR TO PAIN MED ADMINISTRATION. PT CURRENTLY AWAKE AND WATCHING TV COMFORTABLY. CALL LIGHT IN REACH. [facility]
--- NOTE | 2020-01-01 15:29 | NUR ---
HYPERTENSION PT AFTERNOON BP 174/97. LISINOPRIL HELD THIS AM DUE TO HYPOTENSION. DR. PANTOJA NOTIFIED. DR. PANTOJA ORDERED TO GIVEN ADJUSTED LISINOPRIL ORDER NOW.
--- NOTE | 2020-01-01 18:17 | NUR ---
SHIFT SUMMARY THOROUGHOUT SHIFT PT STATES SHE IS FEELING WORSE & WORSE. DR. PANTOJA NOTIFIED ABOUT CONTINUED NAUSEA. CHANGES MADE IN EMAR PER DRDonato ORDERS. PT STATES PAIN IS UNMANAGED. IV PAIN MEDS GIVEN PER EMAR. PT REFUSING TO TAKE PO PAIN MED, STATING SHE CANNOT SWALLOW. NO VOMITING THIS SHIFT. NAUSEA ONLY. METOPROLOL & LISINOPRIL HELD THIS AM DUE TO HYPOTENSION. HR & BP CONTINUE TO INCREASE THROUGHOUT SHIFT. DR. PANTOJA PLACED ORDER TO GIVEN PO METOPROLOL NOW. PT REFUSING TO TAKE MEDICATION, BECAUSE OF SWALLOWING. KALPESH MELENDEZ ORDERED TO GIVE OT 10MG IV LABETALOL. TELE NEEDED TO GIVE THIS MEDICATION. AWAITING TELE TO BE SENT FROM PCU. PT UP INDEPENDENTLY TO BSC. NO OTHER ACUTE CHANGES IN ASSESSMENT AT THIS TIME. WILL CONTINUE TO MONITOR UNTIL TURNOVER IS COMPLETE.
--- NOTE | 2020-01-02 04:32 | NUR ---
SUMMARY NO NEW ISSUES NOTED. PT CONTINUES TO HAVE DISCOMFORT AND NAUSEA. PT TX PER EMAR W/ RELIEF. PT HAS SLEPT WELL THIS SHIFT. PT CURRENTLY SLEEPING AND BREATHING EASY VIA CPAP. CALL LIGHT IN REACH.
--- NOTE | 2020-01-02 05:57 | NUR ---
0545 PT REQUESTED TO POSSIBLY HAVE SOME PO MEDS CHANGED TO IV MEDS.
--- NOTE | 2020-01-02 16:55 | NUR ---
PT IS A/OX3, PLEASANT AND COOPERATIVE, THE PT IS UP WITH MINIMAL ASSIST TO THE BATHROOM, THE PT APPERAS TO BE BREATHING EASILY ON RA AT THIS TIME, THE PT HAS BEEN MEDICATED FOR GASTRIC PAIN T/O THE DAY, THE PT HAS BEEN MEDICATED FOR NAUSEA T/O THE DAY, NO EMISIS REPORTED, THE PT WORKED WITH THE PHYSICAL THERAPIST TODAY AND AMBULATED INTO THE MANRIQUE, THE PT SAT UP ON THE SIDE OF THE BED T/O THE DAY, CALL LIGHT IN REACH WILL CONTINUE TO MONITOR AND ASSESS FOR CHANGES
--- NOTE | 2020-01-03 05:41 | NUR ---
SHIFT SUMMARY PT HAS HAD NO ACUTE CHANGES THIS SHIFT, MEDICATED 1X FOR PAIN, NO OTHER C/O ANY KIND, PT SHOWERED INDEP THIS EVENING, R FOOT & L LEG WOUNDS WERE CLEANED & REDRESSED, PT SLEPT T/O THE NIGHT & IS STILL SLEEPING AT THIS TIME, CALL LIGHT IN REACH, WILL CONT [facility] UNTIL REPORT GIVEN TO DAY RN.
--- NOTE | 2020-01-03 17:59 | NUR ---
PT IS A/OX3,PLEASANT AND COOPERATIVE, THE PT IS UP IND IN HER ROOM, THE PT WAS UP IN THE SHOWER TODAY, THE PT WAS SITTING UP ON THE SIDE OF HER BED FOR MEALS, THE PT WAS UP AMBULATING IN THE MANRIQUE, THE PT TODAY WAS MEDICATED FOR PAIN IN THE AM, AND DIDNT REQUIRE OR ASK AGAIN UNTIL THIS AFTERNOON JUST BEFORE DINNER, THE PT REPORTED SEVERE EPIGASTRIC PAIN AFTER DINNER AND ASKED THAT THE DOCTOR BE CALLED FOR MORE RELIEF, A CALL WAS MADE TO DR. PANTOJA AND A MESSAGE WAS LEFT, THE PT WAS MEDICATED FOR NAUSEA X2, PTS BILATERAL FOOT WOUNDS WERE CLEANED AND REDRESSED AFTER HER SHOWER, THE PT TOLERATED THE PROCEDURE WELL, PT APPEARS TO BE BREATHING EASILY ON RA, CALL LIGHT IN REACH NO OTHER CHANGES NOTICED THIS SHIFT
--- NOTE | 2020-01-04 03:54 | NUR ---
VIEW SCORE 3 BUT PT'S IV WAS BEEPING AFTER IV ABX HAD COMPLETED AND PT AWOKE ANXIOUS W/ C/O PAIN BUT REFUSED PRN MEDS WHEN OFFERED TO HER. SHE SAID SHE DIDN'T WANT TO "ATTEMPT ORAL MEDS BECAUSE THEY DON'T WORK". PT DOESN'T APPEAR IN ANY DISTRESS AND WILL LIKELY D/C HOME TODAY. DISCUSSED W/INSPECTOR RAW QUARTZ, MAGDALENE RIVERA WHO AGREED TO WATCH PT AND NOTIFY MD IF WORSENING OBSERVED.
--- NOTE | 2020-01-04 05:57 | NUR ---
SUMMARY: PT IS A/OX3, INDEPENDENT IN ROOM AND SPECIFIES NEEDS. SHE WAS SOMEWHAT IRRITABLE THIS SHIFT RE: DC OF HER IV PAIN MEDS BUT PT IS PROBABLE D/C TODAY AND HOSPITALIST WANTED TO ESTABLISH WORKING ORAL REGIMEN. SHE STATED TAKING PO MEDS "WAS NOT WORTH IT BECAUSE OF ESOPHAGITIS" BUT AGREED TO X1 DOSE OF PRN ZOFRAN SL AND OXYCODONE PO AFTER ENCOURAGEMENT W/HS MEDS. SHE DIDN'T APPEAR TO HAVE ANY TROUBLE SWALLOWING PILLS BUT CLAIMED SHE "WOULDN'T LIKELY KEEP THEM DOWN". SHE FELL ASLEEP AND APPEARED W/O DISTRESS BUT AWOKE AGGITATED THIS AM W/FURTHER C/O NAUSEA AND ABDO PAIN. SHE REFUSED ADDITIONAL PRN MEDS AND SCHEDULED PROTONIX THIS AM. PICKER/PULLER IV ABX RECIEVED VIA L.ARM PG FOR CHRONIC OSTEOMYELITIS TO R.FOOT, DX REMAINS C/D/I BILAT FEET. SEE PICS FOR DETAILS. INSULIN RECIEVED PER EMAR PER NGHIA. NO ACUTE CHANGES, VSS AND AFEBRILE. WCTM AND REPORT TO DAY RN.
[2020-01-04] MEDS ORDERED: LISI5 PO (14:18)
[2020-01-04] MEDS ORDERED: METO10 PO (14:20)
[2020-01-04] MEDS ORDERED: FLUC200 PO (14:20)
[2020-01-04] MEDS ORDERED: ONDA4ODT MM (14:21)
[2020-01-04] MEDS ORDERED: PANT40 PO (14:21)
--- NOTE | 2020-01-04 14:39 | NUR ---
1430 PT TO DISCHARGE HOME. NURSE WENT OVER DISCHARGE INSTUCTIONS WITH PT. PT GIVEN HAND OUT AND EDUCATED ON MEDIUM SLIDING SCALE. PT IS TO FOLLOW UP WITH [facility] SATURDAY AND DUE TO THE HOLIDAY NO ONE WAS THERE TO MAKE APPOINTMENT. CHARGE NURSE KATE FAXED OVER ALL INFORMATION NEEDED TO SCHEDULE THE APPOINTEMENT. THIS NURSE WROTE DOWN [facility] PHONE NUMBER ON DISCHARGE INSTRUCTIONS AND INSTRUCTED PT THAT IF SHE HADNT HEARD FROM [facility] BY 1000 TO CALL THEM. PTS DRESSINGS TO FEET WERE CHANGED PRIOR TO DISCHARGE. NURSE ATTEMPTED TO EDUCATE PATIENT ON DM2 AND CHANGING HER DIET TO HELP MANAGE HER DM. PT WHEELED OUT AND DROVE HERSELF HOME.
[2020-01-05] MEDS ORDERED: ONDA4ODT MM (15:33)
[2020-01-13] MEDS ORDERED: ACET325 PO (15:18)
[2020-01-13] MEDS ORDERED: HIGH POTENCY P1 EACH PO (15:20)
[2020-01-13] MEDS ORDERED: Compro25 MG PR (15:21)
[2020-01-13] MEDS ORDERED: SUCR1 PO (15:24)
== END 2020-01-04 14:34 | disposition home or self-care (01) | DRG 637 ==
LOC: ER 12:56 → ICUE 18:03 → MEDS 18:03 → ICUW 18:03 → ICUE 18:36 → MEDS 12-30 20:00
PROVIDERS: Emergency Medicine; Nurse Practitioner Acute Care; Physician Assistant; Student in an Organized Health Care Education/Training Program; ADMIT Hospitalist
PROC: 0DD68ZX Extraction of Stomach, Via Natural or Artificial Opening Endoscopic, Diagnostic (ICD-10-PCS; principal; 2019-12-30 17:00)
PROC: 5A09357 Assistance with Respiratory Ventilation, Less than 24 Consecutive Hours, Continuous Positive Airway Pressure (ICD-10-PCS; 2019-12-31)
DX: E11.10 Type 2 diabetes mellitus with ketoacidosis without coma (principal); K22.11 Ulcer of esophagus with bleeding; M86.9 Osteomyelitis, unspecified; Z68.41 Body mass index [BMI] 40.0-44.9, adult; B37.81 Candidal esophagitis; E66.2 Morbid (severe) obesity with alveolar hypoventilation; E11.69 Type 2 diabetes mellitus with other specified complication; Z79.4 Long term (current) use of insulin; E11.40 Type 2 diabetes mellitus with diabetic neuropathy, unspecified; Z87.891 Personal history of nicotine dependence; E03.9 Hypothyroidism, unspecified; G89.4 Chronic pain syndrome; Z79.891 Long term (current) use of opiate analgesic; I25.10 Atherosclerotic heart disease of native coronary artery without angina pectoris; E11.51 Type 2 diabetes mellitus with diabetic peripheral angiopathy without gangrene; E78.5 Hyperlipidemia, unspecified; I10 Essential (primary) hypertension; K21.0 Gastro-esophageal reflux disease with esophagitis; K82.4 Cholesterolosis of gallbladder; K29.70 Gastritis, unspecified, without bleeding
CPT/HCPCS: 36415; 71046; 76705; 80048; 80053; 80069; 82010; 82803; 82947; 83036; 83605; 83690; 83735; 84100; 84145; 84484; 85025; 85651; 86140; 87040; 88305; 88312; 88342; 93005; 93010; 94660; 94762; 96361; 96365; 96375; 96376; 97112; 97161; 97165; 97535; 99285-25; A9270-GY; C9113; J0360; J0780; J1170; J1815; J2185; J2250; J2405; J2550; J2704; J2765; J3010; J3480; J7030; J7040; J7050; J7120

== ENCOUNTER 2020-01-05 11:29 | Emergency (ER) | payer OTHER ==
[~2020-01-05] VITALS: Ht 172.7 cm; Wt 141.5 kg
[~2020-01-05 11:29] MED LIST changes: +FLUC200 PO; +LISI5 PO
[2020-01-05 14:52] LABS: BASOPHILS ABSOLUTE AUTO 0.05 K/mm3 (0.00-0.23); BASOPHILS PERCENT AUTO 1 % (0-2); EOSINOPHILS ABSOLUTE AUTO 0.09 K/mm3 (0.00-0.68); EOSINOPHILS PERCENT AUTO 1 % (0-6); Hematocrit 49.4 % (33.0-51.0); Hemoglobin 15.6 g/dL (11.5-16.0); IMMATURE GRAN ABSOLUTE AUTO 0.03 K/mm3 (0.00-0.10); IMMATURE GRAN PERCENT AUTO 0 % (0-1); LYMPHOCYTES ABSOLUTE AUTO 2.34 K/mm3 (0.84-5.20); LYMPHOCYTES PERCENT AUTO 23 % (21-46); MONOCYTES ABSOLUTE AUTO 0.82 K/mm3 (0.16-1.47); MONOCYTES PERCENT AUTO 8 % (4-13); Mean Corpuscular HGB 28.3 pg (26.0-34.0); Mean Corpuscular HGB Conc 31.6 g/dL (31.5-36.5); Mean Corpuscular Volume 90 fL (80-100); Mean Platelet Volume 9.9 fL (9.1-12.4); NEUTROPHILS ABSOLUTE AUTO 6.99 K/mm3 (1.96-9.15); NEUTROPHILS PERCENT AUTO 68 % (41-73); Platelet Count 423 K/mm3 (150-400); RDW Coefficient Variation 12.9 % (11.7-14.2); RDW Standard Deviation 42.4 fL (35.1-46.3); Red Blood Cell Count 5.51 M/mm3 (3.80-5.20); White Blood Cell Count 10.32 K/mm3 (4.00-11.30)
[2020-01-05 15:14] LABS: Alanine Aminotransfer (ALT/SGP 25 U/L (12-78); Albumin, Blood 3.6 g/dL (3.4-5.0); Albumin/Globulin Ratio 0.8 (0.8-1.8); Alk Phos 157 U/L (50-136); Anion Gap 8 mmol/L (6-16); Aspartate Aminotrans (AST/SGOT 24 U/L (12-37); Bilirubin, Total 0.7 mg/dL (0.1-1.0); Blood Urea Nitrogen 16 mg/dL (8-24); Bun/Creatinine Ratio 22.1 (12.0-20.0); CO2, Blood 27 mmol/L (21-32); Calcium, Blood 9.4 mg/dL (8.5-10.1); Chloride, Blood 102 mmol/L (98-108); Creatinine, Blood 0.72 mg/dL (0.40-1.00); Globulin, Blood 4.7 g/dL (2.2-4.0); Glomerular Filtration Rate >60 (60-); Glucose, Blood 215 mg/dL (70-99); Potassium, Blood 4.5 mmol/L (3.5-5.5); Sodium, Blood 137 mmol/L (136-145); Total Protein, Blood 8.3 g/dL (6.4-8.2)
[2020-01-05] MEDS ORDERED: ONDA4ODT MM (15:33)
[2020-01-06] MEDS ORDERED: BASAGLAR K100 UNIT/1 SC (19:37)
[2020-01-06] MEDS ORDERED: Prednisone50 MG PO (20:40)
[2020-01-06] MEDS ORDERED: DIFLUCAN40 MG/1 ML PO (21:20)
[2020-01-06] MEDS ORDERED: PHENERGAN25 MG PR (21:20)
== END 2020-01-05 16:00 | disposition home or self-care (01) ==
LOC: ER 11:29
PROVIDERS: Physician Assistant
DX: E11.65 Type 2 diabetes mellitus with hyperglycemia (principal); R11.2 Nausea with vomiting, unspecified; E11.40 Type 2 diabetes mellitus with diabetic neuropathy, unspecified; Z88.0 Allergy status to penicillin; Z88.1 Allergy status to other antibiotic agents; Z88.2 Allergy status to sulfonamides; Z88.5 Allergy status to narcotic agent; Z79.899 Other long term (current) drug therapy; Z79.4 Long term (current) use of insulin
CPT/HCPCS: 36415; 80053; 82947; 83690; 85025; 96361; 96374; 99283-25; J2405; J7030

== ENCOUNTER 2020-01-06 18:17 | Emergency (ER) | payer OTHER ==
[~2020-01-06] VITALS: Ht 172.7 cm; Wt 132.9 kg
[2020-01-06] MEDS ORDERED: BASAGLAR K100 UNIT/1 SC (19:37)
[2020-01-06 20:21] LABS: BASOPHILS ABSOLUTE AUTO 0.03 K/mm3 (0.00-0.23); BASOPHILS PERCENT AUTO 0 % (0-2); EOSINOPHILS PERCENT AUTO 1 % (0-6); Hematocrit 47.9 % (33.0-51.0); Hemoglobin 15.2 g/dL (11.5-16.0); IMMATURE GRAN ABSOLUTE AUTO 0.02 K/mm3 (0.00-0.10); IMMATURE GRAN PERCENT AUTO 0 % (0-1); LYMPHOCYTES ABSOLUTE AUTO 2.71 K/mm3 (0.84-5.20); LYMPHOCYTES PERCENT AUTO 26 % (21-46); MONOCYTES ABSOLUTE AUTO 0.88 K/mm3 (0.16-1.47); MONOCYTES PERCENT AUTO 9 % (4-13); Mean Corpuscular HGB Conc 31.7 g/dL (31.5-36.5); Mean Corpuscular Volume 88 fL (80-100); Mean Platelet Volume 9.7 fL (9.1-12.4); NEUTROPHILS ABSOLUTE AUTO 6.51 K/mm3 (1.96-9.15); NEUTROPHILS PERCENT AUTO 64 % (41-73); Platelet Count 464 K/mm3 (150-400); RDW Coefficient Variation 12.9 % (11.7-14.2); Red Blood Cell Count 5.42 M/mm3 (3.80-5.20); White Blood Cell Count 10.25 K/mm3 (4.00-11.30)
[2020-01-06] MEDS ORDERED: Prednisone50 MG PO (20:40)
[2020-01-06 20:44] LABS: Alanine Aminotransfer (ALT/SGP 22 U/L (12-78); Albumin, Blood 3.6 g/dL (3.4-5.0); Albumin/Globulin Ratio 0.8 (0.8-1.8); Alk Phos 157 U/L (50-136); Anion Gap 8 mmol/L (6-16); Aspartate Aminotrans (AST/SGOT 11 U/L (12-37); Bilirubin, Total 0.7 mg/dL (0.1-1.0); Blood Urea Nitrogen 23 mg/dL (8-24); Bun/Creatinine Ratio 21.7 (12.0-20.0); CO2, Blood 28 mmol/L (21-32); Calcium, Blood 9.3 mg/dL (8.5-10.1); Chloride, Blood 99 mmol/L (98-108); Creatinine, Blood 1.06 mg/dL (0.40-1.00); Globulin, Blood 4.6 g/dL (2.2-4.0); Glomerular Filtration Rate 57 (60-); Glucose, Blood 245 mg/dL (70-99); Potassium, Blood 3.9 mmol/L (3.5-5.5); Sodium, Blood 135 mmol/L (136-145); Total Protein, Blood 8.2 g/dL (6.4-8.2); Troponin I <0.015 ng/mL (0.000-0.040)
[2020-01-06] MEDS ORDERED: PHENERGAN25 MG PR (21:20)
[2020-01-06] MEDS ORDERED: DIFLUCAN40 MG/1 ML PO (21:20)
[2020-01-07] MEDS ORDERED: LORTAB 10 MG-3473 ML PO (23:05)
== END 2020-01-06 22:51 | disposition home or self-care (01) ==
LOC: ER 18:17
PROVIDERS: Physician Assistant
DX: R11.2 Nausea with vomiting, unspecified (principal); E11.40 Type 2 diabetes mellitus with diabetic neuropathy, unspecified; E03.9 Hypothyroidism, unspecified; K21.9 Gastro-esophageal reflux disease without esophagitis; E78.5 Hyperlipidemia, unspecified; F32.9 Major depressive disorder, single episode, unspecified; G47.00 Insomnia, unspecified; I10 Essential (primary) hypertension; Z88.1 Allergy status to other antibiotic agents; Z88.0 Allergy status to penicillin; Z88.2 Allergy status to sulfonamides; Z79.899 Other long term (current) drug therapy; Z79.4 Long term (current) use of insulin; Z87.891 Personal history of nicotine dependence
CPT/HCPCS: 36415; 71046; 74018; 80053; 82010; 83690; 84484; 85025; 93005; 93010; 96361; 96374; 96375; 99285-25; J2405; J3010; J7030

== ENCOUNTER 2020-01-07 20:43 | Emergency (ER) | payer OTHER ==
[~2020-01-07] VITALS: Ht 172.7 cm; Wt 122.5 kg
[~2020-01-07 20:43] MED LIST changes: +DIFLUCAN40 MG/1 ML PO; +PHENERGAN25 MG PR; +Prednisone50 MG PO
[2020-01-07 22:04] LABS: BASOPHILS ABSOLUTE AUTO 0.04 K/mm3 (0.00-0.23); BASOPHILS PERCENT AUTO 0 % (0-2); EOSINOPHILS ABSOLUTE AUTO 0.05 K/mm3 (0.00-0.68); EOSINOPHILS PERCENT AUTO 1 % (0-6); Hematocrit 45.1 % (33.0-51.0); Hemoglobin 14.5 g/dL (11.5-16.0); IMMATURE GRAN ABSOLUTE AUTO 0.05 K/mm3 (0.00-0.10); IMMATURE GRAN PERCENT AUTO 1 % (0-1); LYMPHOCYTES PERCENT AUTO 19 % (21-46); MONOCYTES ABSOLUTE AUTO 0.83 K/mm3 (0.16-1.47); MONOCYTES PERCENT AUTO 8 % (4-13); Mean Corpuscular HGB 27.9 pg (26.0-34.0); Mean Corpuscular HGB Conc 32.2 g/dL (31.5-36.5); Mean Corpuscular Volume 87 fL (80-100); Mean Platelet Volume 9.8 fL (9.1-12.4); NEUTROPHILS ABSOLUTE AUTO 7.81 K/mm3 (1.96-9.15); NEUTROPHILS PERCENT AUTO 72 % (41-73); Platelet Count 470 K/mm3 (150-400); RDW Coefficient Variation 12.9 % (11.7-14.2); RDW Standard Deviation 40.6 fL (35.1-46.3); White Blood Cell Count 10.88 K/mm3 (4.00-11.30)
[2020-01-07 22:26] LABS: Alanine Aminotransfer (ALT/SGP 21 U/L (12-78); Albumin, Blood 3.4 g/dL (3.4-5.0); Albumin/Globulin Ratio 0.8 (0.8-1.8); Alk Phos 147 U/L (50-136); Anion Gap 12 mmol/L (6-16); Aspartate Aminotrans (AST/SGOT 11 U/L (12-37); Bilirubin, Total 0.6 mg/dL (0.1-1.0); Blood Urea Nitrogen 25 mg/dL (8-24); Bun/Creatinine Ratio 22.9 (12.0-20.0); CO2, Blood 24 mmol/L (21-32); Chloride, Blood 100 mmol/L (98-108); Creatinine, Blood 1.09 mg/dL (0.40-1.00); Globulin, Blood 4.2 g/dL (2.2-4.0); Glomerular Filtration Rate 55 (60-); Glucose, Blood 280 mg/dL (70-99); Sodium, Blood 136 mmol/L (136-145); Total Protein, Blood 7.6 g/dL (6.4-8.2); Troponin I <0.015 ng/mL (0.000-0.040)
[2020-01-07] MEDS ORDERED: LORTAB 10 MG-3473 ML PO (23:05)
== END 2020-01-08 00:20 | disposition home or self-care (01) ==
LOC: ER 20:43
PROVIDERS: Emergency Medicine
DX: R55 Syncope and collapse (principal); E86.0 Dehydration; E11.65 Type 2 diabetes mellitus with hyperglycemia; B37.81 Candidal esophagitis; K29.70 Gastritis, unspecified, without bleeding; M86.9 Osteomyelitis, unspecified; E11.40 Type 2 diabetes mellitus with diabetic neuropathy, unspecified; E03.9 Hypothyroidism, unspecified; K21.9 Gastro-esophageal reflux disease without esophagitis; F32.9 Major depressive disorder, single episode, unspecified; I10 Essential (primary) hypertension; Z87.891 Personal history of nicotine dependence; I25.119 Atherosclerotic heart disease of native coronary artery with unspecified angina pectoris; Z88.0 Allergy status to penicillin; Z88.1 Allergy status to other antibiotic agents; Z88.2 Allergy status to sulfonamides; Z79.899 Other long term (current) drug therapy; Z79.4 Long term (current) use of insulin; W19.XXXA Unspecified fall, initial encounter
CPT/HCPCS: 36415; 73502; 80053; 84484; 85025; 93005; 93010; 96361; 96374; 96375; 99284-25; J2270; J2405; J3010; J7030

== ENCOUNTER 2020-01-14 00:10 | Day surgery (SDC) | payer OTHER ==
[~2020-01-14 00:10] MED LIST changes: +ACET325 PO; +Compro25 MG PR; +HIGH POTENCY P1 EACH PO; +LORTAB 10 MG-3473 ML PO; +SUCR1 PO
== END 2020-01-14 15:02 | disposition home or self-care (01) ==
LOC: ATC 00:10
DX: E11.621 Type 2 diabetes mellitus with foot ulcer (principal); L03.115 Cellulitis of right lower limb; E66.01 Morbid (severe) obesity due to excess calories; E11.42 Type 2 diabetes mellitus with diabetic polyneuropathy; J44.9 Chronic obstructive pulmonary disease, unspecified; I10 Essential (primary) hypertension; Z79.4 Long term (current) use of insulin; Z79.899 Other long term (current) drug therapy; Z87.891 Personal history of nicotine dependence; L97.412 Non-pressure chronic ulcer of right heel and midfoot with fat layer exposed; Z68.42 Body mass index [BMI] 45.0-49.9, adult
CPT/HCPCS: 96365; C1751; J1335

== ENCOUNTER 2020-01-15 00:26 | Day surgery (SDC) | payer OTHER ==
[2020-01-16] MEDS ORDERED: ONDA4ODT SL (20:29)
[2020-01-16] MEDS ORDERED: Miralax17 GM PO (20:29)
[2020-01-16] MEDS ORDERED: BISA10S PR (20:29)
== END 2020-01-15 17:18 | disposition home or self-care (01) ==
LOC: ATC 00:26
DX: E11.621 Type 2 diabetes mellitus with foot ulcer (principal); L03.115 Cellulitis of right lower limb; E11.43 Type 2 diabetes mellitus with diabetic autonomic (poly)neuropathy; I10 Essential (primary) hypertension; J44.9 Chronic obstructive pulmonary disease, unspecified; L97.412 Non-pressure chronic ulcer of right heel and midfoot with fat layer exposed; Z79.899 Other long term (current) drug therapy; Z79.4 Long term (current) use of insulin
CPT/HCPCS: 96365; J1335; J7030

== ENCOUNTER 2020-01-16 00:10 | Day surgery (SDC) | payer OTHER ==
--- NOTE | 2020-01-16 16:04 | NUR ---
PT REPORTS TO THIS RN THAT SHE HAS NOT HAD A BOWEL MOVEMENT "IN A MONTH" REPORTS SHE HAS TRIED MIRALAX, STOOL SOFTENERS, FLEET ENEMA AND SUPP" WITH NO RESULTS. SHE SAYS SHE FEELS IMPACTED AND HAS PASSED "ONLY A COUPLE BARTOLO" AFTER ATTEMPTING "TO DIG THEM OUT". FEELS PRESSURE ON RECTUM "BUT I JUST CANT HAVE A BOWEL MOVEMENT". REPORTS N & V AND REPORTS "CANNOT KEEP ANYTHING DOWN, IT JUST COMES BACK UP". PT HAD EMESIS 300ML DURING INFUSION OF GREENISH/LIGHT BROWN IN COLOR, PER THIS RN WHO EMPTIED EMESIS BAG. PT REPORTS SHE IS GOING TO ER SOON SHE LEAVES INFUSION APPT THE PAIN IS HORRIBLE AND REPORTS SHE CANT TOLERATE THIS UNTIL SHE GETS IN TO SEE HER PCP. PT ESCORTED TO ER VIA W/C BY TRANSPORTER
[2020-01-16] MEDS ORDERED: BISA10S PR (20:29)
[2020-01-16] MEDS ORDERED: ONDA4ODT SL (20:29)
[2020-01-16] MEDS ORDERED: Miralax17 GM PO (20:29)
== END 2020-01-16 16:02 | disposition other institution (70) ==
LOC: ATC 00:10
DX: E11.621 Type 2 diabetes mellitus with foot ulcer (principal); L97.519 Non-pressure chronic ulcer of other part of right foot with unspecified severity; L03.115 Cellulitis of right lower limb; E11.43 Type 2 diabetes mellitus with diabetic autonomic (poly)neuropathy; I10 Essential (primary) hypertension; J44.9 Chronic obstructive pulmonary disease, unspecified; G47.30 Sleep apnea, unspecified
CPT/HCPCS: 96365; J1335

== ENCOUNTER 2020-01-16 16:04 | Emergency (ER) | payer OTHER ==
[~2020-01-16] VITALS: Ht 172.7 cm; Wt 122.5 kg
[2020-01-16 18:25] LABS: Calcium, Ionized (POC) 1.07 mmol/L (1.10-1.46); Chloride (POC) 101 mmol/L (98-108); Creatinine (POC) 0.6 mg/dL (0.6-1.0); Glucose (ISTAT POC) 260 mg/dL (70-99); Potassium (POC) 3.9 mmol/L (3.5-5.5); Sodium (POC) 137 mmol/L (135-148); Total CO2 (POC) 23 mmol/L (21-32)
[2020-01-16] MEDS ORDERED: BISA10S PR (20:29)
[2020-01-16] MEDS ORDERED: ONDA4ODT SL (20:29)
[2020-01-16] MEDS ORDERED: Miralax17 GM PO (20:29)
== END 2020-01-16 21:49 | disposition home or self-care (01) ==
LOC: ER 16:04
PROVIDERS: Emergency Medicine
DX: K59.00 Constipation, unspecified (principal); Z88.0 Allergy status to penicillin; Z88.1 Allergy status to other antibiotic agents; Z88.2 Allergy status to sulfonamides; Z79.4 Long term (current) use of insulin; Z79.899 Other long term (current) drug therapy; E11.40 Type 2 diabetes mellitus with diabetic neuropathy, unspecified; E03.9 Hypothyroidism, unspecified; K21.9 Gastro-esophageal reflux disease without esophagitis; F32.9 Major depressive disorder, single episode, unspecified; I10 Essential (primary) hypertension; I25.119 Atherosclerotic heart disease of native coronary artery with unspecified angina pectoris; Z87.891 Personal history of nicotine dependence
CPT/HCPCS: 36415; 51798; 80047; 84443; 85014; 96361; 96374; 96375; 96376; 99283-25; J1885; J2405; J3010; J7120

== ENCOUNTER 2020-01-17 00:22 | Day surgery (SDC) | payer OTHER ==
[~2020-01-17 00:22] MED LIST changes: +BISA10S PR; +Miralax17 GM PO; +ONDA4ODT SL
--- NOTE | 2020-01-17 15:35 | NUR ---
PT C/O CONSTIPATION. REPORTS SHE WAS EVALUATED IN THE ER YESTERDAY FOR HER BOWELS. SHE HAS TRIED ENEMAS WITHOUT RESULT AND PLANS TO TRY MIRALAX AND PRUNE JUICE THIS AFTERNOON.
== END 2020-01-17 15:33 | disposition home or self-care (01) ==
LOC: ATC 00:22
DX: E11.621 Type 2 diabetes mellitus with foot ulcer (principal); L97.519 Non-pressure chronic ulcer of other part of right foot with unspecified severity; L03.115 Cellulitis of right lower limb; E11.43 Type 2 diabetes mellitus with diabetic autonomic (poly)neuropathy; I10 Essential (primary) hypertension; J44.9 Chronic obstructive pulmonary disease, unspecified; G47.30 Sleep apnea, unspecified
CPT/HCPCS: 96365; J1335

== ENCOUNTER 2020-01-18 00:24 | Day surgery (SDC) | payer OTHER ==
[~2020-01-18 00:24] MED LIST changes: +GLUCOPHAGE1000 MG PO; -Glucophage1000 MG PO; +INVANZ1 GM IV; -Invanz1 GM IV; -TRULICITY0.75 MG/0. SC; +TRULICITY0.75 MG/01 SC
--- NOTE | 2020-01-18 15:46 | NUR ---
PT C/O N/V. RECORDED 360 ML EMESIS OUTPUT THAT APPEARS BROWN/YELLOW IN COLOR AND RUNNY CONSISTENCY.
--- NOTE | 2020-01-18 16:32 | NUR ---
PT WITH INTERMITTEN EMESIS OF BROWN FLUID. PT VITALS BP 156/78, HR 115, BIOX 99% ON RA. PT C/O CHEST PAIN, PRESSURE IN CHEST. STATES PAIN IS A "8" ON THE PAIN SCALE. REPORT CALLED TO ER AMD PT TRANSFURED VIA WHEEL CHAIR.
== END 2020-01-18 16:19 | disposition home or self-care (01) ==
LOC: ATC 00:24
DX: E11.621 Type 2 diabetes mellitus with foot ulcer (principal); L97.519 Non-pressure chronic ulcer of other part of right foot with unspecified severity; L03.115 Cellulitis of right lower limb; E11.43 Type 2 diabetes mellitus with diabetic autonomic (poly)neuropathy; I10 Essential (primary) hypertension; J44.9 Chronic obstructive pulmonary disease, unspecified; G47.30 Sleep apnea, unspecified
CPT/HCPCS: 96365; 96375; J1335; J2405; J7030

== ENCOUNTER 2020-01-18 00:41 | Day surgery (SDC) | payer OTHER | END 2020-01-18 23:13 | disposition home or self-care (01) | LOC: WOUND 00:41 | DX: E11.621 Type 2 diabetes mellitus with foot ulcer (principal); E11.65 Type 2 diabetes mellitus with hyperglycemia; M86.671 Other chronic osteomyelitis, right ankle and foot; E11.42 Type 2 diabetes mellitus with diabetic polyneuropathy; I10 Essential (primary) hypertension; J44.9 Chronic obstructive pulmonary disease, unspecified; L97.415 Non-pressure chronic ulcer of right heel and midfoot with muscle involvement without evidence of necrosis; Z79.4 Long term (current) use of insulin; Z79.899 Other long term (current) drug therapy ==

== ENCOUNTER 2020-01-18 16:23 | Emergency (ER) | payer OTHER ==
[~2020-01-18] VITALS: Ht 172.7 cm; Wt 122.0 kg
[2020-01-18 20:17] LABS: Alanine Aminotransfer (ALT/SGP 24 U/L (12-78); Albumin, Blood 3.4 g/dL (3.4-5.0); Albumin/Globulin Ratio 0.8 (0.8-1.8); Alk Phos 159 U/L (50-136); Anion Gap 11 mmol/L (6-16); Aspartate Aminotrans (AST/SGOT 14 U/L (12-37); Bilirubin, Total 0.5 mg/dL (0.1-1.0); Blood Urea Nitrogen 24 mg/dL (8-24); Bun/Creatinine Ratio 29.1 (12.0-20.0); CO2, Blood 24 mmol/L (21-32); Calcium, Blood 9.1 mg/dL (8.5-10.1); Chloride, Blood 102 mmol/L (98-108); Creatinine, Blood 0.83 mg/dL (0.40-1.00); Globulin, Blood 4.3 g/dL (2.2-4.0); Glomerular Filtration Rate >60 (60-); Glucose, Blood 222 mg/dL (70-99); Potassium, Blood 3.5 mmol/L (3.5-5.5); Sodium, Blood 137 mmol/L (136-145); Total Protein, Blood 7.7 g/dL (6.4-8.2); Troponin I <0.015 ng/mL (0.000-0.040)
[2020-01-18 20:30] LABS: BASOPHILS ABSOLUTE AUTO 0.04 K/mm3 (0.00-0.23); BASOPHILS PERCENT AUTO 0 % (0-2); EOSINOPHILS ABSOLUTE AUTO 0.12 K/mm3 (0.00-0.68); EOSINOPHILS PERCENT AUTO 1 % (0-6); Hematocrit 45.3 % (33.0-51.0); Hemoglobin 14.6 g/dL (11.5-16.0); IMMATURE GRAN ABSOLUTE AUTO 0.04 K/mm3 (0.00-0.10); IMMATURE GRAN PERCENT AUTO 0 % (0-1); LYMPHOCYTES ABSOLUTE AUTO 1.93 K/mm3 (0.84-5.20); LYMPHOCYTES PERCENT AUTO 19 % (21-46); MONOCYTES ABSOLUTE AUTO 0.68 K/mm3 (0.16-1.47); MONOCYTES PERCENT AUTO 7 % (4-13); Mean Corpuscular HGB 27.7 pg (26.0-34.0); Mean Corpuscular HGB Conc 32.2 g/dL (31.5-36.5); Mean Corpuscular Volume 86 fL (80-100); NEUTROPHILS PERCENT AUTO 72 % (41-73); Platelet Count 359 K/mm3 (150-400); RDW Standard Deviation 40.9 fL (35.1-46.3); Red Blood Cell Count 5.27 M/mm3 (3.80-5.20); White Blood Cell Count 10.01 K/mm3 (4.00-11.30)
[2020-01-18 21:54] LABS: Source, Urine Clean Catch
[2020-01-18 21:58] LABS: Appearance, Urine Hazy (Clear); Bilirubin, Urine Neg (Neg); Blood, Urine 2+ (Neg); Color, Urine Amber (P-Yellow); Glucose Qualitative, Urine 4+ (Neg); Ketones, Urine 4+ (Neg); Leukocyte Esterase, Urine 3+ (Neg); Nitrite, Urine Neg (Neg); Protein, Urine 2+ (Neg); Urobilinogen, Urine NORM (Normal); pH, Urine 6.5 (5.0-8.0)
[2020-01-18 22:03] LABS: White Blood Cells, Urine TNTC /hpf (0-5)
[2020-01-18 22:04] LABS: Bacteria Many /hpf; Mucus Mod (0-Heavy); Squamous Epithelial Cells Mod /hpf (Few); Yeast/Fungi Urine Few /hpf
== END 2020-01-18 23:58 | disposition home or self-care (01) ==
LOC: ER 16:23
PROVIDERS: Physician Assistant
DX: R07.9 Chest pain, unspecified (principal); R10.9 Unspecified abdominal pain; R11.2 Nausea with vomiting, unspecified; R91.1 Solitary pulmonary nodule; B37.9 Candidiasis, unspecified; Z88.1 Allergy status to other antibiotic agents; Z88.0 Allergy status to penicillin; Z88.2 Allergy status to sulfonamides; Z79.899 Other long term (current) drug therapy; Z79.4 Long term (current) use of insulin; E11.40 Type 2 diabetes mellitus with diabetic neuropathy, unspecified; E03.9 Hypothyroidism, unspecified; K21.9 Gastro-esophageal reflux disease without esophagitis; E78.5 Hyperlipidemia, unspecified; F32.9 Major depressive disorder, single episode, unspecified; I10 Essential (primary) hypertension; I25.10 Atherosclerotic heart disease of native coronary artery without angina pectoris; G47.33 Obstructive sleep apnea (adult) (pediatric); Z87.891 Personal history of nicotine dependence
CPT/HCPCS: 36415; 71046; 71260; 80053; 81001; 83690; 84484; 85025; 85379; 87086; 93005; 93010; 96374; 96375; 96376; 99285-25; J0780; J1170; J1200; J2765; Q9967

== ENCOUNTER 2020-01-19 00:04 | Day surgery (SDC) | payer OTHER ==
[2020-01-20] MEDS ORDERED: AMBIEN10 MG PO (15:42)
[2020-01-20] MEDS ORDERED: NOVOLOG FL100 UNIT/3 SC (15:43)
== END 2020-01-19 15:52 | disposition home or self-care (01) ==
LOC: ATC 00:04
DX: E11.621 Type 2 diabetes mellitus with foot ulcer (principal); E11.42 Type 2 diabetes mellitus with diabetic polyneuropathy; L03.115 Cellulitis of right lower limb; E11.65 Type 2 diabetes mellitus with hyperglycemia; E11.43 Type 2 diabetes mellitus with diabetic autonomic (poly)neuropathy; J44.9 Chronic obstructive pulmonary disease, unspecified; I10 Essential (primary) hypertension; L97.412 Non-pressure chronic ulcer of right heel and midfoot with fat layer exposed; Z79.899 Other long term (current) drug therapy; Z79.4 Long term (current) use of insulin
CPT/HCPCS: 96365; J1335

== ENCOUNTER 2020-01-20 15:01 | Emergency (ER) | payer OTHER ==
[~2020-01-20] VITALS: Ht 170.2 cm; Wt 122.5 kg
[2020-01-20] MEDS ORDERED: AMBIEN10 MG PO (15:42)
[2020-01-20] MEDS ORDERED: NOVOLOG FL100 UNIT/3 SC (15:43)
== END 2020-01-20 18:18 | disposition home or self-care (01) ==
LOC: ER 15:01
DX: S20.229A Contusion of unspecified back wall of thorax, initial encounter (principal); Z88.0 Allergy status to penicillin; Z88.2 Allergy status to sulfonamides; Z88.1 Allergy status to other antibiotic agents; Z79.899 Other long term (current) drug therapy; Z79.4 Long term (current) use of insulin; E11.40 Type 2 diabetes mellitus with diabetic neuropathy, unspecified; E03.9 Hypothyroidism, unspecified; K21.9 Gastro-esophageal reflux disease without esophagitis; F32.9 Major depressive disorder, single episode, unspecified; E78.5 Hyperlipidemia, unspecified; I10 Essential (primary) hypertension; I25.119 Atherosclerotic heart disease of native coronary artery with unspecified angina pectoris; E11.621 Type 2 diabetes mellitus with foot ulcer; L97.519 Non-pressure chronic ulcer of other part of right foot with unspecified severity; Z87.891 Personal history of nicotine dependence; W19.XXXA Unspecified fall, initial encounter
CPT/HCPCS: 72070; 93005; 93010; 96361; 96374; 96375; 99284-25; J0780; J1200; J1335; J1885; J7030

== ENCOUNTER 2020-01-21 00:22 | Day surgery (SDC) | payer OTHER ==
[~2020-01-21 00:22] MED LIST changes: +AMBIEN10 MG PO; +NOVOLOG FL100 UNIT/3 SC
== END 2020-01-21 15:35 | disposition home or self-care (01) ==
LOC: ATC 00:22
DX: E11.621 Type 2 diabetes mellitus with foot ulcer (principal); L03.115 Cellulitis of right lower limb; E11.43 Type 2 diabetes mellitus with diabetic autonomic (poly)neuropathy; I10 Essential (primary) hypertension; J44.9 Chronic obstructive pulmonary disease, unspecified; L97.412 Non-pressure chronic ulcer of right heel and midfoot with fat layer exposed; Z79.899 Other long term (current) drug therapy; Z79.4 Long term (current) use of insulin
CPT/HCPCS: 96365; 96375; J1335; J2405

== ENCOUNTER 2020-01-22 00:27 | Day surgery (SDC) | payer OTHER ==
--- NOTE | 2020-01-25 17:22 | NUR ---
STOP TIME FOR INVANZ ON 01-22-20 WAS 1600
== END 2020-01-22 16:50 | disposition home or self-care (01) ==
LOC: ATC 00:27
DX: E11.621 Type 2 diabetes mellitus with foot ulcer (principal); L03.115 Cellulitis of right lower limb; E11.43 Type 2 diabetes mellitus with diabetic autonomic (poly)neuropathy; J44.9 Chronic obstructive pulmonary disease, unspecified; I10 Essential (primary) hypertension; L97.512 Non-pressure chronic ulcer of other part of right foot with fat layer exposed; E11.65 Type 2 diabetes mellitus with hyperglycemia; Z79.899 Other long term (current) drug therapy; Z79.4 Long term (current) use of insulin
CPT/HCPCS: 96365; 96375; J1335; J2405; J7030

== ENCOUNTER 2020-01-23 00:12 | Day surgery (SDC) | payer OTHER | END 2020-01-23 15:49 | disposition home or self-care (01) | LOC: ATC 00:12 | DX: E11.621 Type 2 diabetes mellitus with foot ulcer (principal); L97.519 Non-pressure chronic ulcer of other part of right foot with unspecified severity; E11.43 Type 2 diabetes mellitus with diabetic autonomic (poly)neuropathy; L03.115 Cellulitis of right lower limb; I10 Essential (primary) hypertension; J44.9 Chronic obstructive pulmonary disease, unspecified; G47.30 Sleep apnea, unspecified | CPT/HCPCS: 96365; 96375; J1335; J2405 ==

== ENCOUNTER 2020-01-24 00:07 | Day surgery (SDC) | payer OTHER | END 2020-01-24 15:21 | disposition home or self-care (01) | LOC: ATC 00:07 | DX: E11.621 Type 2 diabetes mellitus with foot ulcer (principal); L03.115 Cellulitis of right lower limb; E11.43 Type 2 diabetes mellitus with diabetic autonomic (poly)neuropathy; I10 Essential (primary) hypertension; J44.9 Chronic obstructive pulmonary disease, unspecified; G47.30 Sleep apnea, unspecified | CPT/HCPCS: 96365; 96375; C1751; J1335; J2405 ==

== ENCOUNTER 2020-01-25 00:21 | Day surgery (SDC) | payer OTHER | END 2020-01-25 22:39 | disposition home or self-care (01) | LOC: WOUND 00:21 | DX: E11.621 Type 2 diabetes mellitus with foot ulcer (principal); E11.65 Type 2 diabetes mellitus with hyperglycemia; M86.671 Other chronic osteomyelitis, right ankle and foot; E11.42 Type 2 diabetes mellitus with diabetic polyneuropathy; I10 Essential (primary) hypertension; J44.9 Chronic obstructive pulmonary disease, unspecified; L97.516 Non-pressure chronic ulcer of other part of right foot with bone involvement without evidence of necrosis; Z79.899 Other long term (current) drug therapy; Z79.4 Long term (current) use of insulin ==

== ENCOUNTER 2020-01-27 00:05 | Day surgery (SDC) | payer OTHER | END 2020-01-27 23:01 | disposition home or self-care (01) | LOC: ATC 00:05 | DX: E11.621 Type 2 diabetes mellitus with foot ulcer (principal); L97.519 Non-pressure chronic ulcer of other part of right foot with unspecified severity; L03.115 Cellulitis of right lower limb; E11.43 Type 2 diabetes mellitus with diabetic autonomic (poly)neuropathy; I10 Essential (primary) hypertension; J44.9 Chronic obstructive pulmonary disease, unspecified | CPT/HCPCS: 96365; 96375; J1335; J2405; J7030 ==

== ENCOUNTER 2020-01-28 00:06 | Day surgery (SDC) | payer OTHER | END 2020-01-28 15:35 | disposition home or self-care (01) | LOC: ATC 00:06 | DX: E11.621 Type 2 diabetes mellitus with foot ulcer (principal); L03.115 Cellulitis of right lower limb; E11.43 Type 2 diabetes mellitus with diabetic autonomic (poly)neuropathy; J44.9 Chronic obstructive pulmonary disease, unspecified; I10 Essential (primary) hypertension; L97.512 Non-pressure chronic ulcer of other part of right foot with fat layer exposed; Z79.899 Other long term (current) drug therapy; Z79.4 Long term (current) use of insulin | CPT/HCPCS: 96365; 96375; J1335; J2405 ==

== ENCOUNTER 2020-02-01 00:13 | Day surgery (SDC) | payer OTHER ==
--- NOTE | 2020-02-01 16:39 | NUR ---
PT C/O 03/21 SUBSTERNAL CHEST PAIN. SHE STATES THAT IT IS A STABBING KIND OF PAIN. PT HAD BEEN VOMITING AND HAD SOME DRY HEAVES PRIOR TO THE C/P. VS ON R ARM WERE BP 150/105, AND P-115. VS ON L 129/86, P-113. REPORT CALLED TO ER AND PT TRANSFERED TO ER VIA WHEELCHAIR.
--- NOTE | 2020-02-01 16:43 | NUR ---
PT TRANSFERED TO ER VIA WHEELCHAIR AT 1606.
== END 2020-02-01 16:06 | disposition home or self-care (01) ==
LOC: ATC 00:13
DX: R11.2 Nausea with vomiting, unspecified (principal); R55 Syncope and collapse; E11.621 Type 2 diabetes mellitus with foot ulcer; E11.43 Type 2 diabetes mellitus with diabetic autonomic (poly)neuropathy; I10 Essential (primary) hypertension; K21.9 Gastro-esophageal reflux disease without esophagitis; E03.9 Hypothyroidism, unspecified; L97.519 Non-pressure chronic ulcer of other part of right foot with unspecified severity; L97.529 Non-pressure chronic ulcer of other part of left foot with unspecified severity; E78.5 Hyperlipidemia, unspecified; F32.9 Major depressive disorder, single episode, unspecified; E66.01 Morbid (severe) obesity due to excess calories; G47.33 Obstructive sleep apnea (adult) (pediatric); K20.9 Esophagitis, unspecified; M86.8X7 Other osteomyelitis, ankle and foot; A41.9 Sepsis, unspecified organism; E87.1 Hypo-osmolality and hyponatremia; D47.3 Essential (hemorrhagic) thrombocythemia; S09.90XA Unspecified injury of head, initial encounter; X58.XXXA Exposure to other specified factors, initial encounter; Z88.1 Allergy status to other antibiotic agents; Z88.0 Allergy status to penicillin; Z88.2 Allergy status to sulfonamides; Z79.899 Other long term (current) drug therapy; Z79.4 Long term (current) use of insulin; Z87.891 Personal history of nicotine dependence; Z91.14 Patient's other noncompliance with medication regimen
CPT/HCPCS: 96365; 96375; J1335; J2405; J7030

== ENCOUNTER 2020-02-01 00:33 | Day surgery (SDC) | payer OTHER | END 2020-02-01 22:40 | disposition home or self-care (01) | LOC: WOUND 00:33 | DX: E11.621 Type 2 diabetes mellitus with foot ulcer (principal); E11.51 Type 2 diabetes mellitus with diabetic peripheral angiopathy without gangrene; M86.671 Other chronic osteomyelitis, right ankle and foot; E11.65 Type 2 diabetes mellitus with hyperglycemia; E11.42 Type 2 diabetes mellitus with diabetic polyneuropathy; I10 Essential (primary) hypertension; J44.9 Chronic obstructive pulmonary disease, unspecified; L97.415 Non-pressure chronic ulcer of right heel and midfoot with muscle involvement without evidence of necrosis; Z79.899 Other long term (current) drug therapy; Z79.4 Long term (current) use of insulin ==

== ENCOUNTER 2020-02-07 00:30 | Day surgery (SDC) | payer OTHER ==
[~2020-02-07 00:30] MED LIST changes: -LEVSOD112 PO; -TRULICITY0.75 MG/01 SC
== END 2020-02-07 14:55 | disposition home or self-care (01) ==
LOC: ATC 00:30
DX: M86.8X7 Other osteomyelitis, ankle and foot (principal); E11.621 Type 2 diabetes mellitus with foot ulcer; L97.329 Non-pressure chronic ulcer of left ankle with unspecified severity; L97.419 Non-pressure chronic ulcer of right heel and midfoot with unspecified severity; R55 Syncope and collapse; K21.0 Gastro-esophageal reflux disease with esophagitis; E03.9 Hypothyroidism, unspecified; F32.9 Major depressive disorder, single episode, unspecified; E11.40 Type 2 diabetes mellitus with diabetic neuropathy, unspecified; E66.01 Morbid (severe) obesity due to excess calories; I25.10 Atherosclerotic heart disease of native coronary artery without angina pectoris; G89.4 Chronic pain syndrome; E78.5 Hyperlipidemia, unspecified; G47.33 Obstructive sleep apnea (adult) (pediatric); Z99.89 Dependence on other enabling machines and devices; Z91.14 Patient's other noncompliance with medication regimen; Z79.4 Long term (current) use of insulin; Z87.891 Personal history of nicotine dependence; Z79.899 Other long term (current) drug therapy; Z79.82 Long term (current) use of aspirin; Z88.1 Allergy status to other antibiotic agents; Z88.2 Allergy status to sulfonamides; Z88.0 Allergy status to penicillin
CPT/HCPCS: 96365; J1335

== ENCOUNTER 2020-02-08 00:06 | Day surgery (SDC) | payer OTHER | END 2020-02-08 16:45 | disposition home or self-care (01) | LOC: ATC 00:06 | DX: M86.8X7 Other osteomyelitis, ankle and foot (principal); R55 Syncope and collapse; E11.621 Type 2 diabetes mellitus with foot ulcer; K21.0 Gastro-esophageal reflux disease with esophagitis; E11.40 Type 2 diabetes mellitus with diabetic neuropathy, unspecified; E03.9 Hypothyroidism, unspecified; E78.5 Hyperlipidemia, unspecified; F32.9 Major depressive disorder, single episode, unspecified; I10 Essential (primary) hypertension; E66.01 Morbid (severe) obesity due to excess calories; G47.33 Obstructive sleep apnea (adult) (pediatric); L97.329 Non-pressure chronic ulcer of left ankle with unspecified severity; L97.519 Non-pressure chronic ulcer of other part of right foot with unspecified severity; A41.9 Sepsis, unspecified organism; G89.4 Chronic pain syndrome; E87.1 Hypo-osmolality and hyponatremia; S09.90XA Unspecified injury of head, initial encounter; X58.XXXA Exposure to other specified factors, initial encounter; Z88.0 Allergy status to penicillin; Z88.2 Allergy status to sulfonamides; Z88.1 Allergy status to other antibiotic agents; Z79.899 Other long term (current) drug therapy; Z99.89 Dependence on other enabling machines and devices; Z87.891 Personal history of nicotine dependence; Z91.14 Patient's other noncompliance with medication regimen | CPT/HCPCS: 96365; J1335; J2405; J7030 ==

== ENCOUNTER 2020-02-16 00:15 | Day surgery (SDC) | payer OTHER | END 2020-02-16 22:40 | disposition home or self-care (01) | LOC: WOUND 00:15 | DX: E11.621 Type 2 diabetes mellitus with foot ulcer (principal); E11.51 Type 2 diabetes mellitus with diabetic peripheral angiopathy without gangrene; M86.671 Other chronic osteomyelitis, right ankle and foot; E11.65 Type 2 diabetes mellitus with hyperglycemia; E11.42 Type 2 diabetes mellitus with diabetic polyneuropathy; I10 Essential (primary) hypertension; J44.9 Chronic obstructive pulmonary disease, unspecified; L97.515 Non-pressure chronic ulcer of other part of right foot with muscle involvement without evidence of necrosis; Z79.899 Other long term (current) drug therapy; Z79.4 Long term (current) use of insulin ==

== ENCOUNTER 2020-02-19 16:31 | Observation (INO) | payer OTHER ==
[~2020-02-19] VITALS: Ht 172.7 cm; Wt 116.5 kg
[2020-02-19 17:41] LABS: Alanine Aminotransfer (ALT/SGP 57 U/L (12-78); Albumin, Blood 3.1 g/dL (3.4-5.0); Albumin/Globulin Ratio 0.8 (0.8-1.8); Alk Phos 122 U/L (50-136); Anion Gap 9 mmol/L (6-16); Aspartate Aminotrans (AST/SGOT 39 U/L (12-37); Bilirubin, Total 1.3 mg/dL (0.1-1.0); Blood Urea Nitrogen 20 mg/dL (8-24); Bun/Creatinine Ratio 21.1 (12.0-20.0); CO2, Blood 29 mmol/L (21-32); Calcium, Blood 8.7 mg/dL (8.5-10.1); Chloride, Blood 93 mmol/L (98-108); Creatinine, Blood 0.95 mg/dL (0.40-1.00); Glomerular Filtration Rate >60 (60-); Glucose, Blood 226 mg/dL (70-99); Potassium, Blood 2.6 mmol/L (3.5-5.5); Sodium, Blood 131 mmol/L (136-145); Total Protein, Blood 7.1 g/dL (6.4-8.2)
[2020-02-19 18:05] LABS: BASOPHILS ABSOLUTE AUTO 0.06 K/mm3 (0.00-0.23); BASOPHILS PERCENT AUTO 1 % (0-2); EOSINOPHILS ABSOLUTE AUTO 0.04 K/mm3 (0.00-0.68); EOSINOPHILS PERCENT AUTO 0 % (0-6); Hematocrit 48.6 % (33.0-51.0); Hemoglobin 15.9 g/dL (11.5-16.0); IMMATURE GRAN ABSOLUTE AUTO 0.07 K/mm3 (0.00-0.10); IMMATURE GRAN PERCENT AUTO 1 % (0-1); LYMPHOCYTES ABSOLUTE AUTO 3.68 K/mm3 (0.84-5.20); LYMPHOCYTES PERCENT AUTO 29 % (21-46); MONOCYTES ABSOLUTE AUTO 0.92 K/mm3 (0.16-1.47); MONOCYTES PERCENT AUTO 7 % (4-13); Mean Corpuscular HGB 27.3 pg (26.0-34.0); Mean Corpuscular HGB Conc 32.7 g/dL (31.5-36.5); Mean Corpuscular Volume 84 fL (80-100); Mean Platelet Volume 9.7 fL (9.1-12.4); NEUTROPHILS ABSOLUTE AUTO 7.82 K/mm3 (1.96-9.15); NEUTROPHILS PERCENT AUTO 62 % (41-73); Platelet Count 434 K/mm3 (150-400); RDW Coefficient Variation 14.2 % (11.7-14.2); RDW Standard Deviation 42.8 fL (35.1-46.3); Red Blood Cell Count 5.82 M/mm3 (3.80-5.20); White Blood Cell Count 12.59 K/mm3 (4.00-11.30)
[2020-02-19] MEDS ORDERED: BASAGLAR K100 UNIT/1 SC (18:59)
[2020-02-19] MEDS ORDERED: LEVSOD112 PO (19:11)
[2020-02-19] MEDS ORDERED: TRULICITY0.75 MG/01 SC (19:12)
[2020-02-19] MEDS ORDERED: PANT40 PO (19:13)
[2020-02-19] MEDS ORDERED: CYCL10 PO (19:15)
[2020-02-19 21:02] LABS: Source, Urine Clean Catch
[2020-02-19 21:06] LABS: Bilirubin, Urine Neg (Neg); Blood, Urine 1+ (Neg); Glucose Qualitative, Urine 3+ (Neg); Ketones, Urine 3+ (Neg); Leukocyte Esterase, Urine 3+ (Neg); Nitrite, Urine Neg (Neg); Protein, Urine 1+ (Neg); Specific Gravity, Urine 1.015 (1.003-1.022); Urobilinogen, Urine NORM (Normal)
[2020-02-19 21:14] LABS: Appearance, Urine Clear (Clear); Color, Urine Yellow (P-Yellow)
[2020-02-19 21:15] LABS: Squamous Epithelial Cells Mod /hpf (Few); White Blood Cells, Urine 50-100 /hpf (0-5)
[2020-02-19 21:16] LABS: Bacteria Rare /hpf
--- NOTE | 2020-02-20 02:17 | NUR ---
0217 DURING ORTHOSTATIC VS, PT HAD A NOTICEABLE DROP IN BP AND INCREASE IN PULSE RATE. PT ALSO COMPLAINED OF FEELING DIZZY WHILE STANDING FOR VS. WCTM. VS- 89/57, P- 119
--- NOTE | 2020-02-20 04:29 | NUR ---
SUMMARY PT ARRIVED TO FLOOR IN NO DISTRESS. PT REPORTS PAIN IN HEAD, NEACK AND COCCYX AREA. PROVIDER CALLED AND PAIN MED WAS ORDERED. PT SHOWERED AND HER R FOOT WOUND WAS CLEANED AND DRESSED. PT REPORTS WOUND IS LOOKING WORSE. PT DID HAVE ORTHOSTATIC CHANGES WHEN STANDING. BP DROPPED AND PULSE RATE INCREASED. PT ALSO COMPLAINED OF DIZZINESS. PT IS ABLE TO AMBULATE W/ FWW TO BATHROOM W/ SBA. PT HAS BEEN VOIDING. PT CURRENTLY SLEEPING W/ CPAP AND BREATHING EASY. CALL LIGHT IN REACH.
[2020-02-20 05:12] LABS: BASOPHILS ABSOLUTE AUTO 0.04 K/mm3 (0.00-0.23); BASOPHILS PERCENT AUTO 0 % (0-2); EOSINOPHILS ABSOLUTE AUTO 0.09 K/mm3 (0.00-0.68); EOSINOPHILS PERCENT AUTO 1 % (0-6); Hematocrit 40.1 % (33.0-51.0); Hemoglobin 13.1 g/dL (11.5-16.0); IMMATURE GRAN ABSOLUTE AUTO 0.02 K/mm3 (0.00-0.10); IMMATURE GRAN PERCENT AUTO 0 % (0-1); LYMPHOCYTES ABSOLUTE AUTO 2.53 K/mm3 (0.84-5.20); LYMPHOCYTES PERCENT AUTO 27 % (21-46); MONOCYTES ABSOLUTE AUTO 0.73 K/mm3 (0.16-1.47); MONOCYTES PERCENT AUTO 8 % (4-13); Mean Corpuscular HGB 27.4 pg (26.0-34.0); Mean Corpuscular HGB Conc 32.7 g/dL (31.5-36.5); Mean Corpuscular Volume 84 fL (80-100); Mean Platelet Volume 9.4 fL (9.1-12.4); NEUTROPHILS PERCENT AUTO 63 % (41-73); Platelet Count 360 K/mm3 (150-400); RDW Coefficient Variation 14.1 % (11.7-14.2); RDW Standard Deviation 43.1 fL (35.1-46.3); Red Blood Cell Count 4.78 M/mm3 (3.80-5.20); White Blood Cell Count 9.31 K/mm3 (4.00-11.30)
[2020-02-20 05:39] LABS: Alanine Aminotransfer (ALT/SGP 44 U/L (12-78); Albumin, Blood 2.9 g/dL (3.4-5.0); Albumin/Globulin Ratio 0.8 (0.8-1.8); Alk Phos 110 U/L (50-136); Anion Gap 8 mmol/L (6-16); Aspartate Aminotrans (AST/SGOT 26 U/L (12-37); Bilirubin, Total 1.1 mg/dL (0.1-1.0); Blood Urea Nitrogen 18 mg/dL (8-24); Bun/Creatinine Ratio 21.1 (12.0-20.0); CO2, Blood 31 mmol/L (21-32); Calcium, Blood 8.3 mg/dL (8.5-10.1); Chloride, Blood 97 mmol/L (98-108); Creatinine, Blood 0.86 mg/dL (0.40-1.00); Globulin, Blood 3.5 g/dL (2.2-4.0); Glomerular Filtration Rate >60 (60-); Glucose, Blood 162 mg/dL (70-99); Potassium, Blood 2.7 mmol/L (3.5-5.5); Sodium, Blood 136 mmol/L (136-145); Total Protein, Blood 6.4 g/dL (6.4-8.2)
--- NOTE | 2020-02-20 07:00 | NUR ---
ASSUMED CARE OF PT- BEDSIDE REPORT COMPLETED WITH NIGHT RN JERRY. PER REPORT PT HAS ORDERS FOR ORTHOSTATIC VITALS RESULTS SHOW ORTHOSTATIC HYPOTENSION. VITALS WERE FOLLOWS PER PT RECORD AND REPORT FROM NIGHT RN: LYING- BP132/83 P101 SITTING- BP139/91 P107 STANDING- BP89/57 P119 PT CURRENTLY LAYING IN BED CALL LIGHT IN REACH, 1P SBA FOR TRANSFERS FOR SAFETY.
--- NOTE | 2020-02-20 11:58 | NUR ---
SPOKE TO DR GARCIA RECIEVED ORDER FOR BID ORTHOSTATIC VITALS. PT HAS DIFFICULTY SWALLOWING PILLS REQUESTED LIQUID FOR POTASSIUM THE PILLS ARE SO LARGE. PT REQUESTED TO INCREASE HER DIET FROM CLEAR LIQUID, PER DR GARCIA OK TO CHANGE TO THE PT HOME DIET. PER PT SHE EATS A REGULAR DIET AT HOME TOLLERATED. SUGGESTED [facility] SOFT GROUND MEAT AND THE PT STATED THAT IS NOT NECESSARY. WILL CHANGE DIET TO REGULAR ADA PER HOME DIET RESUMPTION.
--- NOTE | 2020-02-20 19:56 | NUR ---
SHIFT SUMMARY- PT ALERT AND ORIENTED, 1PA FOR AMBULATION. PT CALLS APPROPRIATELY. NEW LABS ORDERED THIS EVENING BY DR GARCIA, HE CALLED AND SPOKE TO RN ABOUT THEM BEING IN THE AM THEN LAB ARRIVED TO DRAW THE BLOOD. THIS RN INSTRUCTED THE ANSWERER TO RETIME THE AM CORTISOL TO BE IN THE AM WITH AM LABS. PT MEDICATED FOR PAIN TWICE THIS SHIFT. PT CURRENTLY IN BED WITH THE CALL LIGHT IN REACH NO S&S OF DISTRESS, SHE IS TRYING TO SLEEP, C-PAP IN PLACE.
[2020-02-21 06:16] LABS: BASOPHILS ABSOLUTE AUTO 0.04 K/mm3 (0.00-0.23); BASOPHILS PERCENT AUTO 1 % (0-2); EOSINOPHILS ABSOLUTE AUTO 0.26 K/mm3 (0.00-0.68); EOSINOPHILS PERCENT AUTO 4 % (0-6); Hemoglobin 12.6 g/dL (11.5-16.0); IMMATURE GRAN ABSOLUTE AUTO 0.02 K/mm3 (0.00-0.10); IMMATURE GRAN PERCENT AUTO 0 % (0-1); LYMPHOCYTES ABSOLUTE AUTO 2.23 K/mm3 (0.84-5.20); LYMPHOCYTES PERCENT AUTO 30 % (21-46); MONOCYTES PERCENT AUTO 8 % (4-13); Mean Corpuscular HGB 28.1 pg (26.0-34.0); Mean Corpuscular HGB Conc 32.3 g/dL (31.5-36.5); Mean Corpuscular Volume 87 fL (80-100); Mean Platelet Volume 9.7 fL (9.1-12.4); NEUTROPHILS ABSOLUTE AUTO 4.31 K/mm3 (1.96-9.15); NEUTROPHILS PERCENT AUTO 58 % (41-73); Platelet Count 343 K/mm3 (150-400); RDW Coefficient Variation 14.4 % (11.7-14.2); RDW Standard Deviation 46.2 fL (35.1-46.3); Red Blood Cell Count 4.48 M/mm3 (3.80-5.20); White Blood Cell Count 7.46 K/mm3 (4.00-11.30)
[2020-02-21 06:30] LABS: Anion Gap 3 mmol/L (6-16); Blood Urea Nitrogen 12 mg/dL (8-24); Bun/Creatinine Ratio 14.3 (12.0-20.0); CO2, Blood 31 mmol/L (21-32); Calcium, Blood 8.2 mg/dL (8.5-10.1); Chloride, Blood 105 mmol/L (98-108); Creatinine, Blood 0.84 mg/dL (0.40-1.00); Glomerular Filtration Rate >60 (60-); Glucose, Blood 180 mg/dL (70-99); Potassium, Blood 3.3 mmol/L (3.5-5.5); Sodium, Blood 139 mmol/L (136-145)
[2020-02-21] MEDS ORDERED: ATOR40TA PO (14:11)
[2020-02-21] MEDS ORDERED: METO10 PO (14:11)
[2020-02-21] MEDS ORDERED: MIDO5 PO (14:13)
[2020-02-21] MEDS ORDERED: POTA20LUD PO (14:14)
[2020-02-21] MEDS ORDERED: CEFD300 PO (14:15)
[2020-02-21] MEDS ORDERED: Carafate1 GM/10 ML PO (14:15)
--- NOTE | 2020-02-21 15:17 | NUR ---
DISCHARGE NOTE. PT DISCHARGED HOME. PT WAS GIVEN VERBAL AND WRITTEN DISCHARGE INSTRUCTIONS AND ACKNOWLEDGED UNDERSTANDING OF THEM. PT PHARMACY IS CLOSED ON SATURDAY SO, PER HER REQUEST MEDS WERE FAXED TO [facility]. PT HAD NOT RECIEVED ANY PAIN MEDICATION T/O THE SHIFT. LAST DOSE OF MIDODRENE WAS GIVEN AT 1400 PRIOR TO PT DISCHARGE. TELE DC'D AND PG DC'D PRIOR TO PT DISCHARGE. NO FURTHER QUESTIONS AT TIME OF DISCHARGE. PT ESCORTED OUT VIA WC BY THE COLOR REPAIRER.
--- NOTE | 2020-02-21 19:33 | NUR ---
529 shift summary NO NEW ISSUES REPORTED DURING SHIFT. PT PAIN MANAGED WELL W/ PRESCRIBED TX. PT REQUESTED AMBIEN AND PROVIDER ORDERED IT. PT WAS ABLE TO SLEEP THIS SHIFT. PT ORTHOS PERFORMED ORDERED NOTED DROP IN BP STANDING. PT LABS DRAWN VIA POWERGLIDE AND SENT. PT IN NO DISTRESS. CALL LIGHT IN REACH.
== END 2020-02-21 14:40 | disposition home or self-care (01) ==
LOC: ER 16:31 → MEDS 16:32 → ER 16:32 → MEDS 16:32 → ER 20:26 → MEDS 20:26
PROVIDERS: Internal Medicine; Nurse Practitioner Acute Care; Physician Assistant; ADMIT Internal Medicine
DX: I95.1 Orthostatic hypotension (principal); K21.0 Gastro-esophageal reflux disease with esophagitis; B37.81 Candidal esophagitis; E11.43 Type 2 diabetes mellitus with diabetic autonomic (poly)neuropathy; K31.84 Gastroparesis; E87.6 Hypokalemia; R65.10 Systemic inflammatory response syndrome (SIRS) of non-infectious origin without acute organ dysfunction; M86.9 Osteomyelitis, unspecified; E11.621 Type 2 diabetes mellitus with foot ulcer; L97.509 Non-pressure chronic ulcer of other part of unspecified foot with unspecified severity; G89.4 Chronic pain syndrome; I10 Essential (primary) hypertension; E11.42 Type 2 diabetes mellitus with diabetic polyneuropathy; E66.01 Morbid (severe) obesity due to excess calories; G47.33 Obstructive sleep apnea (adult) (pediatric); E03.9 Hypothyroidism, unspecified; E78.5 Hyperlipidemia, unspecified; F32.9 Major depressive disorder, single episode, unspecified; I25.10 Atherosclerotic heart disease of native coronary artery without angina pectoris; Z88.0 Allergy status to penicillin; Z88.1 Allergy status to other antibiotic agents; Z88.2 Allergy status to sulfonamides; Z79.4 Long term (current) use of insulin; Z79.899 Other long term (current) drug therapy
CPT/HCPCS: 36415; 70450; 72125; 80048; 80053; 81001; 82533; 82947; 83605; 83735; 85025; 85651; 86140; 87040; 87086; 93005; 93010; 94660; 96361; 96365; 96366; 96372; 96375; 96376; 99285-25; A9270-GY; C1751; C9113; G0378; J0696; J0780; J1450; J1650; J2405; J2550; J3010; J3475; J3480; J7030

== ENCOUNTER 2020-03-01 09:38 | Day surgery (SDC) | payer OTHER ==
[~2020-03-01 09:38] MED LIST changes: +ATOR40TA PO; +CEFD300 PO; +Carafate1 GM/10 ML PO; +LEVSOD112 PO; +MIDO5 PO; +POTA20LUD PO; +TRULICITY0.75 MG/01 SC
== END 2020-03-01 23:22 | disposition home or self-care (01) ==
LOC: WOUND 09:38
DX: E11.621 Type 2 diabetes mellitus with foot ulcer (principal); M86.671 Other chronic osteomyelitis, right ankle and foot; I73.9 Peripheral vascular disease, unspecified; E11.42 Type 2 diabetes mellitus with diabetic polyneuropathy; J44.9 Chronic obstructive pulmonary disease, unspecified; I10 Essential (primary) hypertension; G47.30 Sleep apnea, unspecified
CPT/HCPCS: 36415; 73630; 85651; 86140

== ENCOUNTER 2020-03-03 18:31 | Inpatient (IN) | payer OTHER ==
[~2020-03-03] VITALS: Ht 172.7 cm; Wt 118.4 kg
[2020-03-03 19:12] LABS: BASOPHILS ABSOLUTE AUTO 0.04 K/mm3 (0.00-0.23); BASOPHILS PERCENT AUTO 0 % (0-2); EOSINOPHILS ABSOLUTE AUTO 0.11 K/mm3 (0.00-0.68); EOSINOPHILS PERCENT AUTO 1 % (0-6); Hematocrit 36.7 % (33.0-51.0); Hemoglobin 11.7 g/dL (11.5-16.0); IMMATURE GRAN ABSOLUTE AUTO 0.07 K/mm3 (0.00-0.10); IMMATURE GRAN PERCENT AUTO 0 % (0-1); LYMPHOCYTES ABSOLUTE AUTO 2.13 K/mm3 (0.84-5.20); LYMPHOCYTES PERCENT AUTO 13 % (21-46); MONOCYTES ABSOLUTE AUTO 1.16 K/mm3 (0.16-1.47); MONOCYTES PERCENT AUTO 7 % (4-13); Mean Corpuscular HGB 28.1 pg (26.0-34.0); Mean Corpuscular HGB Conc 31.9 g/dL (31.5-36.5); Mean Corpuscular Volume 88 fL (80-100); Mean Platelet Volume 9.8 fL (9.1-12.4); NEUTROPHILS ABSOLUTE AUTO 13.47 K/mm3 (1.96-9.15); NEUTROPHILS PERCENT AUTO 80 % (41-73); Platelet Count 342 K/mm3 (150-400); RDW Coefficient Variation 15.6 % (11.7-14.2); RDW Standard Deviation 49.9 fL (35.1-46.3); Red Blood Cell Count 4.16 M/mm3 (3.80-5.20); White Blood Cell Count 16.98 K/mm3 (4.00-11.30)
[2020-03-03 19:33] LABS: Alanine Aminotransfer (ALT/SGP 20 U/L (12-78); Albumin, Blood 2.5 g/dL (3.4-5.0); Albumin/Globulin Ratio 0.6 (0.8-1.8); Alk Phos 133 U/L (50-136); Anion Gap 8 mmol/L (6-16); Aspartate Aminotrans (AST/SGOT 20 U/L (12-37); Blood Urea Nitrogen 9 mg/dL (8-24); Bun/Creatinine Ratio 13.9 (12.0-20.0); CO2, Blood 22 mmol/L (21-32); Calcium, Blood 8.1 mg/dL (8.5-10.1); Chloride, Blood 106 mmol/L (98-108); Creatinine, Blood 0.65 mg/dL (0.40-1.00); Globulin, Blood 4.1 g/dL (2.2-4.0); Glomerular Filtration Rate >60 (60-); Glucose, Blood 195 mg/dL (70-99); Potassium, Blood 3.4 mmol/L (3.5-5.5); Sodium, Blood 136 mmol/L (136-145); Total Protein, Blood 6.6 g/dL (6.4-8.2); Troponin I <0.015 ng/mL (0.000-0.040)
[2020-03-03] MEDS ORDERED: HUMALOG KW100 UNIT/1 SC (19:43)
[2020-03-04 04:07] LABS: Adenovirus F 40/41 Not Detected (NOT DETECT); Astrovirus Not Detected (NOT DETECT); Campylobacter Sp Not Detected (NOT DETECT); Cryptosporidium Not Detected (NOT DETECT); Cyclospora Cayetanensis Not Detected (NOT DETECT); E. Coli O157 Not Detected (NOT DETECT); Entamoeba Histolytica Not Detected (NOT DETECT); Enteroaggregative E. coli-EAEC Not Detected (NOT DETECT); Enteropathogenic E. coli-EPEC Not Detected (NOT DETECT); Enterotoxigenic E. coli-ETEC Not Detected (NOT DETECT); Giardia Lamblia Not Detected (NOT DETECT); Norovirus GI/GII Not Detected (NOT DETECT); Plesiomonas Shigelloides Not Detected (NOT DETECT); Rotavirus A Not Detected (NOT DETECT); Salmonella Sp Not Detected (NOT DETECT); Sapovirus Not Detected (NOT DETECT); Shiga Toxin-prod E. coli-STEC Not Detected (NOT DETECT); Shigella/Enteroin E. coli-EIEC Not Detected (NOT DETECT); Vibrio Cholerae Not Detected (NOT DETECT); Vibrio Sp Not Detected (NOT DETECT); Yersinia Enterocolitica Not Detected (NOT DETECT)
[2020-03-04 05:04] LABS: BASOPHILS ABSOLUTE AUTO 0.03 K/mm3 (0.00-0.23); BASOPHILS PERCENT AUTO 0 % (0-2); EOSINOPHILS ABSOLUTE AUTO 0.27 K/mm3 (0.00-0.68); EOSINOPHILS PERCENT AUTO 2 % (0-6); Hematocrit 32.3 % (33.0-51.0); Hemoglobin 10.3 g/dL (11.5-16.0); IMMATURE GRAN ABSOLUTE AUTO 0.05 K/mm3 (0.00-0.10); IMMATURE GRAN PERCENT AUTO 0 % (0-1); LYMPHOCYTES PERCENT AUTO 20 % (21-46); MONOCYTES ABSOLUTE AUTO 0.83 K/mm3 (0.16-1.47); MONOCYTES PERCENT AUTO 7 % (4-13); Mean Corpuscular HGB 27.8 pg (26.0-34.0); Mean Corpuscular HGB Conc 31.9 g/dL (31.5-36.5); Mean Corpuscular Volume 87 fL (80-100); Mean Platelet Volume 9.5 fL (9.1-12.4); NEUTROPHILS ABSOLUTE AUTO 7.93 K/mm3 (1.96-9.15); NEUTROPHILS PERCENT AUTO 69 % (41-73); Platelet Count 296 K/mm3 (150-400); RDW Coefficient Variation 15.2 % (11.7-14.2); RDW Standard Deviation 48.8 fL (35.1-46.3); Red Blood Cell Count 3.71 M/mm3 (3.80-5.20); White Blood Cell Count 11.41 K/mm3 (4.00-11.30)
[2020-03-04 05:30] LABS: Alanine Aminotransfer (ALT/SGP 17 U/L (12-78); Albumin, Blood 2.6 g/dL (3.4-5.0); Albumin/Globulin Ratio 0.7 (0.8-1.8); Alk Phos 107 U/L (50-136); Anion Gap 7 mmol/L (6-16); Aspartate Aminotrans (AST/SGOT 13 U/L (12-37); Bilirubin, Total 0.9 mg/dL (0.1-1.0); Blood Urea Nitrogen 8 mg/dL (8-24); Bun/Creatinine Ratio 13.4 (12.0-20.0); CO2, Blood 24 mmol/L (21-32); Chloride, Blood 112 mmol/L (98-108); Globulin, Blood 3.6 g/dL (2.2-4.0); Glomerular Filtration Rate >60 (60-); Glucose, Blood 126 mg/dL (70-99); Potassium, Blood 2.9 mmol/L (3.5-5.5); Sodium, Blood 143 mmol/L (136-145); Total Protein, Blood 6.2 g/dL (6.4-8.2)
[2020-03-05 05:48] LABS: Anion Gap 9 mmol/L (6-16); Blood Urea Nitrogen 14 mg/dL (8-24); Bun/Creatinine Ratio 22.2 (12.0-20.0); CO2, Blood 22 mmol/L (21-32); Calcium, Blood 8.2 mg/dL (8.5-10.1); Chloride, Blood 108 mmol/L (98-108); Creatinine, Blood 0.63 mg/dL (0.40-1.00); Glomerular Filtration Rate >60 (60-); Glucose, Blood 292 mg/dL (70-99); Potassium, Blood 3.6 mmol/L (3.5-5.5); Sodium, Blood 139 mmol/L (136-145)
[2020-03-06 04:44] LABS: BASOPHILS ABSOLUTE AUTO 0.04 K/mm3 (0.00-0.23); BASOPHILS PERCENT AUTO 0 % (0-2); EOSINOPHILS ABSOLUTE AUTO 0.07 K/mm3 (0.00-0.68); EOSINOPHILS PERCENT AUTO 1 % (0-6); Hemoglobin 10.7 g/dL (11.5-16.0); IMMATURE GRAN ABSOLUTE AUTO 0.05 K/mm3 (0.00-0.10); IMMATURE GRAN PERCENT AUTO 1 % (0-1); LYMPHOCYTES ABSOLUTE AUTO 2.73 K/mm3 (0.84-5.20); LYMPHOCYTES PERCENT AUTO 25 % (21-46); MONOCYTES ABSOLUTE AUTO 0.76 K/mm3 (0.16-1.47); MONOCYTES PERCENT AUTO 7 % (4-13); Mean Corpuscular HGB 27.3 pg (26.0-34.0); Mean Corpuscular HGB Conc 31.5 g/dL (31.5-36.5); Mean Corpuscular Volume 87 fL (80-100); Mean Platelet Volume 9.7 fL (9.1-12.4); NEUTROPHILS ABSOLUTE AUTO 7.18 K/mm3 (1.96-9.15); NEUTROPHILS PERCENT AUTO 66 % (41-73); Platelet Count 365 K/mm3 (150-400); RDW Coefficient Variation 15.4 % (11.7-14.2); RDW Standard Deviation 48.8 fL (35.1-46.3); Red Blood Cell Count 3.92 M/mm3 (3.80-5.20); White Blood Cell Count 10.83 K/mm3 (4.00-11.30)
[2020-03-06 05:03] LABS: Anion Gap 6 mmol/L (6-16); Blood Urea Nitrogen 15 mg/dL (8-24); CO2, Blood 24 mmol/L (21-32); Chloride, Blood 113 mmol/L (98-108); Creatinine, Blood 0.65 mg/dL (0.40-1.00); Glomerular Filtration Rate >60 (60-); Glucose, Blood 194 mg/dL (70-99); Potassium, Blood 3.4 mmol/L (3.5-5.5); Sodium, Blood 143 mmol/L (136-145)
[2020-03-08 05:33] LABS: Anion Gap 6 mmol/L (6-16); Blood Urea Nitrogen 11 mg/dL (8-24); Bun/Creatinine Ratio 18.6 (12.0-20.0); CO2, Blood 26 mmol/L (21-32); Calcium, Blood 8.5 mg/dL (8.5-10.1); Chloride, Blood 110 mmol/L (98-108); Creatinine, Blood 0.59 mg/dL (0.40-1.00); Glomerular Filtration Rate >60 (60-); Glucose, Blood 234 mg/dL (70-99); Potassium, Blood 3.9 mmol/L (3.5-5.5); Sodium, Blood 142 mmol/L (136-145)
[2020-03-09] MEDS ORDERED: ASPI81CH PO (11:03)
[2020-03-09] MEDS ORDERED: OXYC10ER PO (11:04)
[2020-03-09] MEDS ORDERED: VANCOCIN HCL125 MG PO (11:05)
[2020-03-09] MEDS ORDERED: PROBIOTIC250 MG PO (11:06)
== END 2020-03-09 13:30 | disposition home or self-care (01) | DRG 617 ==
LOC: ER 18:31 → MEDS 23:14 → ER 03-04 00:21 → MEDS 03-04 00:21
PROVIDERS: Emergency Medicine; Family Medicine; Podiatrist; Student in an Organized Health Care Education/Training Program; ADMIT Internal Medicine
PROC: 0Y6X0Z0 Detachment at Right 5th Toe, Complete, Open Approach (ICD-10-PCS; principal; 2020-03-04 12:30)
DX: E11.621 Type 2 diabetes mellitus with foot ulcer (principal); L03.115 Cellulitis of right lower limb; A04.72 Enterocolitis due to Clostridium difficile, not specified as recurrent; M86.171 Other acute osteomyelitis, right ankle and foot; E11.43 Type 2 diabetes mellitus with diabetic autonomic (poly)neuropathy; E88.09 Other disorders of plasma-protein metabolism, not elsewhere classified; G89.4 Chronic pain syndrome; G90.9 Disorder of the autonomic nervous system, unspecified; I95.9 Hypotension, unspecified; E78.5 Hyperlipidemia, unspecified; E03.9 Hypothyroidism, unspecified; L97.514 Non-pressure chronic ulcer of other part of right foot with necrosis of bone; E11.69 Type 2 diabetes mellitus with other specified complication; F32.9 Major depressive disorder, single episode, unspecified; K21.9 Gastro-esophageal reflux disease without esophagitis; E87.6 Hypokalemia; G47.01 Insomnia due to medical condition; E86.9 Volume depletion, unspecified; G47.33 Obstructive sleep apnea (adult) (pediatric); E11.51 Type 2 diabetes mellitus with diabetic peripheral angiopathy without gangrene; E11.65 Type 2 diabetes mellitus with hyperglycemia; E11.628 Type 2 diabetes mellitus with other skin complications; Z20.828 Contact with and (suspected) exposure to other viral communicable diseases; I25.10 Atherosclerotic heart disease of native coronary artery without angina pectoris; Z87.891 Personal history of nicotine dependence; I10 Essential (primary) hypertension; E66.9 Obesity, unspecified; Z68.39 Body mass index [BMI] 39.0-39.9, adult; K31.84 Gastroparesis; E11.21 Type 2 diabetes mellitus with diabetic nephropathy
CPT/HCPCS: 0097U; 36415; 80048; 80053; 82947; 84484; 85025; 87015; 87045; 87046; 87205; 87324; 87493; 87899; 88305; 88311; 93005; 93010; 94660; 97116; 97162; 97165; 99284-25; A9270; A9270-GY; J1100; J2185; J2250; J2405; J2704; J3010; J3480; J7030; J7120; P9046; U0002

== ENCOUNTER 2020-04-13 09:57 | Day surgery (SDC) | payer OTHER ==
[~2020-04-13] VITALS: Ht 175.3 cm; Wt 129.0 kg
[~2020-04-13 09:57] MED LIST changes: +ASPI81CH PO; +ESCI10 PO; +HUMALOG KW100 UNIT/1 SC; +OXYC10ER PO; +PROBIOTIC250 MG PO; +VANCOCIN HCL125 MG PO
--- NOTE | 2020-04-13 16:40 | NUR ---
0849 ASSUMED CARE OF PATIENT, SBAR FROM HOMAR HENRY AND PATIENT STILL HAVING 4-5/10 GROIN SITE PAIN IN THE LEFT GROIN. PATIENT LYING UP IN THE RIGHT SIDE DRINKING COFFEE AND TALKING WITH VISITOR AT THE BEDSIDE. NO BLEEDING, NO HEMATOMA TO THE LFA SITE.
--- NOTE | 2020-04-13 17:57 | NUR ---
DISCHARGE PT AMBULATED TO RESTROOM AND DRESSED SELF WITH NO COMPLICATIONS. L FEMORAL SITE HAD NO BLEEDING, OOZING OR HEMATOMA NOTED. PT STATES HER UNDERSTANDING OF DC AND SITE CARE INSTRUCTIONS AND DENIES ANY QUESTIONS OR CONCERNS. IV DCD WITH CATH INTACT. VSS. PT TAKEN VIA WHEELCHAIR TO EXIT WHERE FRIEND WAS WAITING WITH CAR.
== END 2020-04-13 22:43 | disposition home or self-care (01) ==
LOC: MHTC 09:57
DX: E11.51 Type 2 diabetes mellitus with diabetic peripheral angiopathy without gangrene (principal); E11.621 Type 2 diabetes mellitus with foot ulcer; I70.235 Atherosclerosis of native arteries of right leg with ulceration of other part of foot; I70.212 Atherosclerosis of native arteries of extremities with intermittent claudication, left leg; L97.519 Non-pressure chronic ulcer of other part of right foot with unspecified severity; E66.01 Morbid (severe) obesity due to excess calories; I10 Essential (primary) hypertension; E78.5 Hyperlipidemia, unspecified; E11.40 Type 2 diabetes mellitus with diabetic neuropathy, unspecified; K21.9 Gastro-esophageal reflux disease without esophagitis; E03.9 Hypothyroidism, unspecified; G47.33 Obstructive sleep apnea (adult) (pediatric); Z87.891 Personal history of nicotine dependence; Z88.0 Allergy status to penicillin; Z88.2 Allergy status to sulfonamides; Z88.1 Allergy status to other antibiotic agents; Z88.8 Allergy status to other drugs, medicaments and biological substances; Z79.4 Long term (current) use of insulin; Z79.899 Other long term (current) drug therapy; Z79.82 Long term (current) use of aspirin; Z68.41 Body mass index [BMI] 40.0-44.9, adult
CPT/HCPCS: 37224; 37229; 37232; 75625; 75716; 75774; 82947; 85347; 99152; 99153; C1714; C1725; C1760; C1769; C1887; C1894; J0360; J1200; J1644; J2060; J2250; J3010; J7030; J7050; Q9967

== ENCOUNTER 2020-05-06 14:16 | Inpatient (IN) | payer OTHER ==
[~2020-05-06] VITALS: Ht 175.3 cm; Wt 122.5 kg
[~2020-05-06 14:16] MED LIST changes: -ASPI81CH PO; +Aspirin EC81 MG PO
[2020-05-06] MEDS ORDERED: TRULICITY0.75 MG/01 SC (14:34)
[2020-05-06 15:10] LABS: BASOPHILS ABSOLUTE AUTO 0.04 K/mm3 (0.00-0.23); BASOPHILS PERCENT AUTO 0 % (0-2); EOSINOPHILS PERCENT AUTO 0 % (0-6); Hematocrit 45.6 % (33.0-51.0); Hemoglobin 14.9 g/dL (11.5-16.0); IMMATURE GRAN ABSOLUTE AUTO 0.12 K/mm3 (0.00-0.10); IMMATURE GRAN PERCENT AUTO 1 % (0-1); LYMPHOCYTES ABSOLUTE AUTO 1.65 K/mm3 (0.84-5.20); LYMPHOCYTES PERCENT AUTO 7 % (21-46); MONOCYTES ABSOLUTE AUTO 0.99 K/mm3 (0.16-1.47); MONOCYTES PERCENT AUTO 4 % (4-13); Mean Corpuscular HGB 28.9 pg (26.0-34.0); Mean Corpuscular HGB Conc 32.7 g/dL (31.5-36.5); Mean Corpuscular Volume 89 fL (80-100); Mean Platelet Volume 10.3 fL (9.1-12.4); NEUTROPHILS ABSOLUTE AUTO 20.86 K/mm3 (1.96-9.15); NEUTROPHILS PERCENT AUTO 88 % (41-73); Platelet Count 448 K/mm3 (150-400); RDW Coefficient Variation 12.4 % (11.7-14.2); RDW Standard Deviation 40.8 fL (35.1-46.3); Red Blood Cell Count 5.15 M/mm3 (3.80-5.20); White Blood Cell Count 23.66 K/mm3 (4.00-11.30)
[2020-05-06 15:32] LABS: Alanine Aminotransfer (ALT/SGP 18 U/L (12-78); Albumin, Blood 4.2 g/dL (3.4-5.0); Alk Phos 158 U/L (50-136); Anion Gap 12 mmol/L (6-16); Aspartate Aminotrans (AST/SGOT 9 U/L (12-37); Bilirubin, Total 1.1 mg/dL (0.1-1.0); Blood Urea Nitrogen 25 mg/dL (8-24); Bun/Creatinine Ratio 32.6 (12.0-20.0); CO2, Blood 25 mmol/L (21-32); Calcium, Blood 9.9 mg/dL (8.5-10.1); Chloride, Blood 100 mmol/L (98-108); Creatinine, Blood 0.77 mg/dL (0.40-1.00); Globulin, Blood 4.2 g/dL (2.2-4.0); Glomerular Filtration Rate >60 (60-); Glucose, Blood 411 mg/dL (70-99); Potassium, Blood 3.5 mmol/L (3.5-5.5); Sodium, Blood 137 mmol/L (136-145); Total Protein, Blood 8.4 g/dL (6.4-8.2)
[2020-05-07 04:06] LABS: BASOPHILS ABSOLUTE AUTO 0.04 K/mm3 (0.00-0.23); BASOPHILS PERCENT AUTO 0 % (0-2); EOSINOPHILS ABSOLUTE AUTO 0.01 K/mm3 (0.00-0.68); EOSINOPHILS PERCENT AUTO 0 % (0-6); Hematocrit 43.1 % (33.0-51.0); Hemoglobin 14.1 g/dL (11.5-16.0); IMMATURE GRAN ABSOLUTE AUTO 0.11 K/mm3 (0.00-0.10); IMMATURE GRAN PERCENT AUTO 1 % (0-1); LYMPHOCYTES ABSOLUTE AUTO 1.97 K/mm3 (0.84-5.20); LYMPHOCYTES PERCENT AUTO 9 % (21-46); MONOCYTES ABSOLUTE AUTO 1.25 K/mm3 (0.16-1.47); MONOCYTES PERCENT AUTO 6 % (4-13); Mean Corpuscular HGB 29.3 pg (26.0-34.0); Mean Corpuscular HGB Conc 32.7 g/dL (31.5-36.5); Mean Corpuscular Volume 89 fL (80-100); NEUTROPHILS ABSOLUTE AUTO 17.51 K/mm3 (1.96-9.15); NEUTROPHILS PERCENT AUTO 84 % (41-73); Platelet Count 397 K/mm3 (150-400); RDW Coefficient Variation 12.6 % (11.7-14.2); RDW Standard Deviation 41.5 fL (35.1-46.3); Red Blood Cell Count 4.82 M/mm3 (3.80-5.20); White Blood Cell Count 20.89 K/mm3 (4.00-11.30)
[2020-05-07 04:33] LABS: Alanine Aminotransfer (ALT/SGP 15 U/L (12-78); Albumin, Blood 3.8 g/dL (3.4-5.0); Alk Phos 146 U/L (50-136); Anion Gap 4 mmol/L (6-16); Aspartate Aminotrans (AST/SGOT 8 U/L (12-37); Bilirubin, Total 0.7 mg/dL (0.1-1.0); Blood Urea Nitrogen 30 mg/dL (8-24); Bun/Creatinine Ratio 37.3 (12.0-20.0); CO2, Blood 29 mmol/L (21-32); Calcium, Blood 9.3 mg/dL (8.5-10.1); Chloride, Blood 107 mmol/L (98-108); Creatinine, Blood 0.81 mg/dL (0.40-1.00); Globulin, Blood 3.7 g/dL (2.2-4.0); Glomerular Filtration Rate >60 (60-); Glucose, Blood 279 mg/dL (70-99); Potassium, Blood 3.8 mmol/L (3.5-5.5); Sodium, Blood 140 mmol/L (136-145); Total Protein, Blood 7.5 g/dL (6.4-8.2)
--- NOTE | 2020-05-07 05:32 | NUR ---
PT RESTED THROUGH NIGHT AO TELE NSR WEARS CPAP AT NIGHT/RA WHEN AWAKE HAS DRESSING ON R 5TH TOE FROM PREVIOUS AMP 3WEEKS AGO - C/D/I SBA WITH AMBULATION UOP X1 0 BM PAIN X2 NAUSEA X2/EMESIS X1 - 300ML CBG 378, 326, AND 279 WITH COVERAGE EACH TIME VSS CALL LIGHT WITHIN REACH, BED IN LOWEST POSITION. WILL CONTINUE TO MONITOR.
--- NOTE | 2020-05-07 07:40 | NUR ---
ASSUMED PATIENT CARE. PATIENT SLEEPING COMFORTABLY IN BED, NO SIGNS OF ACUTE DISTRESS, WCTM.
--- NOTE | 2020-05-07 09:24 | NUR ---
TRANSFERED PT VIA GURNY FROM PCU. History, Chart, Medications and Allergies reviewed before start of procedure. Lungs clear T/O to Auscultation. Patient confirms NPO status and agrees with scheduled surgery. Pre-Op teaching done. Pt verbalizes understanding.
--- NOTE | 2020-05-07 10:20 | NUR ---
05/07/20 1020 CAMELIA ANDREWS History, Chart, Medications and Allergies reviewed before start of procedure. 3-LEAD EKG REVIEWED WITH PHYSICIAN PRIOR TO START OF PROCEDURE. O2 VIA N/C INTACT THROUGHOUT SEDATION/PROCEDURE. MONITOR INTACT WITH CONTINUOUS PULSE OXIMETRY AND INTERMITTENT BP. MAC WITH DR. PORTER.
--- NOTE | 2020-05-07 11:30 | NUR ---
PATIENT HYPERTENSIVE IN 190S/100S. DR. MORTON NOTIFIED, X1 METOPROLOL PO 25 MG GIVEN, WCTM.
--- NOTE | 2020-05-07 15:24 | NUR ---
REPORT GIVEN TO CHIKI GRAF ON MEDICAL.
--- NOTE | 2020-05-07 18:11 | NUR ---
SHIFT SUMMARY PATIENT IS A PCU TRANSFER TODAY. SHE IS ALERT AND ORIENTED, INDEPENDENT IN THE ROOM. CALLS APPROPRIATELY. SHE IS HAVING ABDOMINAL PAIN. SHE DENIES ANY DIARRHEA TODAY. SHE DID HAVE SOME EMESIS SINCE SHE CAME TO THE FLOOR. SHE DID NOT HAVE ANY COFFEE GROUND CONSISTENCY. SHE DID HAVE GREEN/BILE LIKE EMESIS. DENIES ANY OTHER CONCERNS AT THIS TIME. SHE HAS HER CPAP AND HER CONTINUOUS BIOX IN PLACE.
[2020-05-08 04:10] LABS: BASOPHILS ABSOLUTE AUTO 0.04 K/mm3 (0.00-0.23); BASOPHILS PERCENT AUTO 0 % (0-2); EOSINOPHILS ABSOLUTE AUTO 0.03 K/mm3 (0.00-0.68); EOSINOPHILS PERCENT AUTO 0 % (0-6); Hematocrit 44.6 % (33.0-51.0); Hemoglobin 14.2 g/dL (11.5-16.0); IMMATURE GRAN ABSOLUTE AUTO 0.04 K/mm3 (0.00-0.10); IMMATURE GRAN PERCENT AUTO 0 % (0-1); LYMPHOCYTES ABSOLUTE AUTO 2.48 K/mm3 (0.84-5.20); LYMPHOCYTES PERCENT AUTO 17 % (21-46); MONOCYTES ABSOLUTE AUTO 0.82 K/mm3 (0.16-1.47); MONOCYTES PERCENT AUTO 6 % (4-13); Mean Corpuscular HGB 28.9 pg (26.0-34.0); Mean Corpuscular HGB Conc 31.8 g/dL (31.5-36.5); Mean Corpuscular Volume 91 fL (80-100); Mean Platelet Volume 9.9 fL (9.1-12.4); NEUTROPHILS ABSOLUTE AUTO 11.22 K/mm3 (1.96-9.15); NEUTROPHILS PERCENT AUTO 77 % (41-73); Platelet Count 371 K/mm3 (150-400); RDW Coefficient Variation 11.9 % (11.7-14.2); RDW Standard Deviation 40.1 fL (35.1-46.3); Red Blood Cell Count 4.92 M/mm3 (3.80-5.20); White Blood Cell Count 14.63 K/mm3 (4.00-11.30)
[2020-05-08 04:30] LABS: Alanine Aminotransfer (ALT/SGP 15 U/L (12-78); Albumin, Blood 3.7 g/dL (3.4-5.0); Albumin/Globulin Ratio 0.9 (0.8-1.8); Alk Phos 144 U/L (50-136); Anion Gap 7 mmol/L (6-16); Aspartate Aminotrans (AST/SGOT 7 U/L (12-37); Bilirubin, Total 0.7 mg/dL (0.1-1.0); Blood Urea Nitrogen 27 mg/dL (8-24); Bun/Creatinine Ratio 39.1 (12.0-20.0); CO2, Blood 27 mmol/L (21-32); Calcium, Blood 9.1 mg/dL (8.5-10.1); Chloride, Blood 104 mmol/L (98-108); Creatinine, Blood 0.69 mg/dL (0.40-1.00); Globulin, Blood 3.9 g/dL (2.2-4.0); Glomerular Filtration Rate >60 (60-); Glucose, Blood 234 mg/dL (70-99); Potassium, Blood 3.7 mmol/L (3.5-5.5); Sodium, Blood 138 mmol/L (136-145); Total Protein, Blood 7.6 g/dL (6.4-8.2)
--- NOTE | 2020-05-08 05:05 | NUR ---
SHIFT SUMMARY- PT. VERY NAUSEATED AND VOMITING GREEN DURING THE NIGHT, UNABLE TO TOLERATE PO. NOTIFIED HOSPITALIST DR. LOZA. RECEIVED ORDER FOR 1X DOSE OF IV COMPAZINE. MEDICATED PER EMAR WITH GOOD EFFECT. PT. ALSO C/O ABD PAIN 01/19. ADMINISTERED DILAUDID PER EMAR, TOLERATED WELL. PT. STATES MINIMAL AND SHORT TERM EFFECT. RESTED QUIETLY T/O THE NIGHT, NO APPARENT DISTRESS NOTED. PT. DID HAVE ADDITIONAL C/O PAIN AND NA DURING THE NIGHT. MEDICATED PER EMAR. CPAP IN PLACE WHILE ASLEEP. PT. REFUSED CONT BIOX. DENIED ANY OTHER NEEDS THIS SHIFT. CALL LIGHT WITHIN REACH AND SIDE RAILS UPX2. WILL CONT TO MONITOR.
--- NOTE | 2020-05-08 18:29 | NUR ---
RECEIVED REPORT FROM PRIMARY CARE RN APPROX 1630. HAS BEEN STABLE SINCE TAKING OVER CARE. ASKED PT IF SHE THOUGHT SHE COULD TOLERATE A PUREE DIET AND SHE REPORTED SHE DIDN'T THINK SHE COULD. ONLY ATE APPROX 120ML OF FULL LIQUID DINNER. STATES IT HURTS HER THROAT TO SWALLOW. SPOKE WITH MD ABOUT IV INFILTRATING AND CONTINUED NEED OF IT. WILL REPORT TO ONCOMING SHIFT.
[2020-05-09 05:07] LABS: BASOPHILS ABSOLUTE AUTO 0.04 K/mm3 (0.00-0.23); BASOPHILS PERCENT AUTO 0 % (0-2); EOSINOPHILS ABSOLUTE AUTO 0.05 K/mm3 (0.00-0.68); EOSINOPHILS PERCENT AUTO 0 % (0-6); Hematocrit 45.3 % (33.0-51.0); Hemoglobin 14.9 g/dL (11.5-16.0); IMMATURE GRAN ABSOLUTE AUTO 0.05 K/mm3 (0.00-0.10); IMMATURE GRAN PERCENT AUTO 0 % (0-1); LYMPHOCYTES ABSOLUTE AUTO 2.92 K/mm3 (0.84-5.20); LYMPHOCYTES PERCENT AUTO 22 % (21-46); MONOCYTES ABSOLUTE AUTO 0.95 K/mm3 (0.16-1.47); MONOCYTES PERCENT AUTO 7 % (4-13); Mean Corpuscular HGB Conc 32.9 g/dL (31.5-36.5); Mean Corpuscular Volume 88 fL (80-100); Mean Platelet Volume 9.5 fL (9.1-12.4); NEUTROPHILS ABSOLUTE AUTO 9.04 K/mm3 (1.96-9.15); NEUTROPHILS PERCENT AUTO 69 % (41-73); Platelet Count 370 K/mm3 (150-400); RDW Coefficient Variation 11.7 % (11.7-14.2); RDW Standard Deviation 37.5 fL (35.1-46.3); Red Blood Cell Count 5.14 M/mm3 (3.80-5.20); White Blood Cell Count 13.05 K/mm3 (4.00-11.30)
--- NOTE | 2020-05-09 05:24 | NUR ---
SHIFT SUMMARY- PT. HAD N/V AND ABD PAIN LAST NIGHT. MEDICATED PER EMAR WITH MINIMAL EFFECT. PT. STATES UNABLE TO TOLERATE LIQUIDS OTHER THAN WATER AT THIS TIME. SLEPT MOST OF THE NIGHT. REQUESTED TO SHOWER EARY THIS AM. DENIED ANY FURTHER NEEDS T/O THE SHIFT. APPEARS TO BE RESTING COMFORTABLY IN BED. NO APPARENT DISTRESS NOTED. CALL LIGHT WITHIN REACH AND SIDE RAILS UPX2. WILL CONT TO MONITOR.
[2020-05-09 05:32] LABS: Alanine Aminotransfer (ALT/SGP 15 U/L (12-78); Albumin, Blood 3.6 g/dL (3.4-5.0); Alk Phos 140 U/L (50-136); Anion Gap 8 mmol/L (6-16); Aspartate Aminotrans (AST/SGOT 11 U/L (12-37); Bilirubin, Total 0.7 mg/dL (0.1-1.0); Blood Urea Nitrogen 26 mg/dL (8-24); CO2, Blood 28 mmol/L (21-32); Calcium, Blood 9.1 mg/dL (8.5-10.1); Chloride, Blood 102 mmol/L (98-108); Globulin, Blood 3.7 g/dL (2.2-4.0); Glomerular Filtration Rate >60 (60-); Glucose, Blood 176 mg/dL (70-99); Potassium, Blood 3.4 mmol/L (3.5-5.5); Sodium, Blood 138 mmol/L (136-145); Total Protein, Blood 7.3 g/dL (6.4-8.2)
--- NOTE | 2020-05-09 12:42 | NUR ---
PATIENT STATES SHE HAD AN EPISODE OF VOMITTING AFTER DRINKING PINAPPLE JUICE. STATES SHE CAN TOLERATE WATER. PATIENT HAS WOKEN UP FOR MEDICATIONS AND TO QUICKLY TRY LUNCH, OTHERWISE SHE HAS SLEPT ALL MORNING. WILL CONTINUE TO MONITOR
[2020-05-09] MEDS ORDERED: ONDA4ODT MM (13:36)
[2020-05-09] MEDS ORDERED: ZEGERID 20 MG1 EACH (13:36)
--- NOTE | 2020-05-09 14:59 | NUR ---
PATIENT DISCHARGED AT 1458 ON 05/09/20
[2020-05-10] MEDS ORDERED: PROM25 PO (22:36)
[2020-05-10] MEDS ORDERED: Pepcid20 MG PO (22:36)
== END 2020-05-09 14:59 | disposition home or self-care (01) | DRG 637 ==
LOC: ER 14:16 → PCU 19:26 → MEDS 19:26 → PCU 19:30 → MEDS 05-07 15:29 → ENPENDDIS 05-09 12:53 → MEDS 05-09 14:59
PROVIDERS: Emergency Medicine; Internal Medicine Gastroenterology; ADMIT Internal Medicine Endocrinology, Diabetes & Metabolism
PROC: 0DJ08ZZ Inspection of Upper Intestinal Tract, Via Natural or Artificial Opening Endoscopic (ICD-10-PCS; principal; 2020-05-07 09:00)
DX: E11.65 Type 2 diabetes mellitus with hyperglycemia (principal); K22.11 Ulcer of esophagus with bleeding; Z68.41 Body mass index [BMI] 40.0-44.9, adult; K22.10 Ulcer of esophagus without bleeding; G89.4 Chronic pain syndrome; E66.1 Drug-induced obesity; E11.43 Type 2 diabetes mellitus with diabetic autonomic (poly)neuropathy; K31.84 Gastroparesis; Z79.4 Long term (current) use of insulin; K21.9 Gastro-esophageal reflux disease without esophagitis; E03.9 Hypothyroidism, unspecified; G47.33 Obstructive sleep apnea (adult) (pediatric); E86.0 Dehydration; G47.00 Insomnia, unspecified; E11.51 Type 2 diabetes mellitus with diabetic peripheral angiopathy without gangrene; I25.10 Atherosclerotic heart disease of native coronary artery without angina pectoris; K31.9 Disease of stomach and duodenum, unspecified; E11.621 Type 2 diabetes mellitus with foot ulcer; F32.9 Major depressive disorder, single episode, unspecified
CPT/HCPCS: 36415; 80053; 82947; 83690; 84484; 85025; 86850; 86900; 86901; 93005; 93010; 94660; 94762; 96361; 96374; 96375; 96376; 99285-25; A9270-GY; C9113; J0780; J1170; J1815; J2405; J3480; J7030; U0003

== ENCOUNTER 2020-05-10 17:58 | Observation (INO) | payer OTHER ==
[~2020-05-10] VITALS: Ht 172.7 cm; Wt 122.5 kg
[~2020-05-10 17:58] MED LIST changes: +ZEGERID 20 MG1 EACH
[2020-05-10 19:10] LABS: BASOPHILS ABSOLUTE AUTO 0.05 K/mm3 (0.00-0.23); BASOPHILS PERCENT AUTO 0 % (0-2); EOSINOPHILS ABSOLUTE AUTO 0.04 K/mm3 (0.00-0.68); EOSINOPHILS PERCENT AUTO 0 % (0-6); Hematocrit 44.1 % (33.0-51.0); IMMATURE GRAN ABSOLUTE AUTO 0.05 K/mm3 (0.00-0.10); IMMATURE GRAN PERCENT AUTO 0 % (0-1); LYMPHOCYTES ABSOLUTE AUTO 2.96 K/mm3 (0.84-5.20); LYMPHOCYTES PERCENT AUTO 21 % (21-46); MONOCYTES ABSOLUTE AUTO 0.82 K/mm3 (0.16-1.47); MONOCYTES PERCENT AUTO 6 % (4-13); Mean Corpuscular HGB 29.3 pg (26.0-34.0); Mean Corpuscular Volume 86 fL (80-100); Mean Platelet Volume 9.9 fL (9.1-12.4); NEUTROPHILS ABSOLUTE AUTO 10.27 K/mm3 (1.96-9.15); NEUTROPHILS PERCENT AUTO 72 % (41-73); Platelet Count 391 K/mm3 (150-400); RDW Coefficient Variation 11.7 % (11.7-14.2); RDW Standard Deviation 36.9 fL (35.1-46.3); Red Blood Cell Count 5.12 M/mm3 (3.80-5.20); White Blood Cell Count 14.19 K/mm3 (4.00-11.30)
[2020-05-10 19:23] LABS: Alanine Aminotransfer (ALT/SGP 17 U/L (12-78); Albumin, Blood 3.5 g/dL (3.4-5.0); Albumin/Globulin Ratio 0.9 (0.8-1.8); Alk Phos 133 U/L (50-136); Anion Gap 13 mmol/L (6-16); Aspartate Aminotrans (AST/SGOT 8 U/L (12-37); Blood Urea Nitrogen 23 mg/dL (8-24); CO2, Blood 22 mmol/L (21-32); Calcium, Blood 9.3 mg/dL (8.5-10.1); Chloride, Blood 102 mmol/L (98-108); Creatinine, Blood 0.62 mg/dL (0.40-1.00); Globulin, Blood 3.8 g/dL (2.2-4.0); Glomerular Filtration Rate >60 (60-); Glucose, Blood 167 mg/dL (70-99); Potassium, Blood 3.2 mmol/L (3.5-5.5); Sodium, Blood 137 mmol/L (136-145); Total Protein, Blood 7.3 g/dL (6.4-8.2)
[2020-05-10 22:13] LABS: Source, Urine Clean Catch
[2020-05-10 22:16] LABS: Bilirubin, Urine Neg (Neg); Blood, Urine 1+ (Neg); Glucose Qualitative, Urine 1+ (Neg); Ketones, Urine 4+ (Neg); Leukocyte Esterase, Urine 2+ (Neg); Nitrite, Urine Neg (Neg); Protein, Urine 1+ (Neg); Urobilinogen, Urine NORM (Normal)
[2020-05-10 22:23] LABS: Appearance, Urine Hazy (Clear); Color, Urine Yellow (P-Yellow)
[2020-05-10 22:24] LABS: Amorphous Light (0-Heavy); Bacteria Few /hpf; Red Blood Cells, Urine Rare /hpf (0-2); Squamous Epithelial Cells Mod /hpf (Few)
[2020-05-10] MEDS ORDERED: Pepcid20 MG PO (22:36)
[2020-05-10] MEDS ORDERED: PROM25 PO (22:36)
--- NOTE | 2020-05-11 04:36 | NUR ---
SHIFT SUMMARY ADMITTED FROM ER THIS SHIFT FOR ACUTE CHOLECYSTITIS. FULL CODE. PLAN IS FOR SURGICAL CONSULT TO EVALUATE AND POSSIBLY PERFORM A CHOLECYSTECTOMY. PT IS IN SEVERE PAIN, IV PAIN MEDS ARE IN EMAR. PT IS COVID NEGATIVE. PT USES A CPAP AT NIGHT. PT IS NPO, Q 6 CHEM BG'S. PT IS A RECENT DISCHARGE ON 05/09 FOR GI BLEED.
[2020-05-11 04:47] LABS: BASOPHILS ABSOLUTE AUTO 0.03 K/mm3 (0.00-0.23); BASOPHILS PERCENT AUTO 0 % (0-2); EOSINOPHILS ABSOLUTE AUTO 0.09 K/mm3 (0.00-0.68); EOSINOPHILS PERCENT AUTO 1 % (0-6); Hematocrit 41.6 % (33.0-51.0); Hemoglobin 13.9 g/dL (11.5-16.0); IMMATURE GRAN ABSOLUTE AUTO 0.03 K/mm3 (0.00-0.10); IMMATURE GRAN PERCENT AUTO 0 % (0-1); LYMPHOCYTES ABSOLUTE AUTO 3.03 K/mm3 (0.84-5.20); LYMPHOCYTES PERCENT AUTO 29 % (21-46); MONOCYTES ABSOLUTE AUTO 0.74 K/mm3 (0.16-1.47); MONOCYTES PERCENT AUTO 7 % (4-13); Mean Corpuscular HGB 29.1 pg (26.0-34.0); Mean Corpuscular HGB Conc 33.4 g/dL (31.5-36.5); Mean Corpuscular Volume 87 fL (80-100); Mean Platelet Volume 9.8 fL (9.1-12.4); NEUTROPHILS ABSOLUTE AUTO 6.61 K/mm3 (1.96-9.15); NEUTROPHILS PERCENT AUTO 63 % (41-73); Platelet Count 346 K/mm3 (150-400); RDW Coefficient Variation 11.8 % (11.7-14.2); Red Blood Cell Count 4.78 M/mm3 (3.80-5.20); White Blood Cell Count 10.53 K/mm3 (4.00-11.30)
[2020-05-11 05:12] LABS: Alanine Aminotransfer (ALT/SGP 11 U/L (12-78); Albumin, Blood 3.2 g/dL (3.4-5.0); Albumin/Globulin Ratio 0.9 (0.8-1.8); Alk Phos 121 U/L (50-136); Anion Gap 12 mmol/L (6-16); Aspartate Aminotrans (AST/SGOT 9 U/L (12-37); Bilirubin, Total 0.9 mg/dL (0.1-1.0); Blood Urea Nitrogen 22 mg/dL (8-24); Bun/Creatinine Ratio 26.9 (12.0-20.0); CO2, Blood 24 mmol/L (21-32); Calcium, Blood 8.6 mg/dL (8.5-10.1); Chloride, Blood 100 mmol/L (98-108); Creatinine, Blood 0.82 mg/dL (0.40-1.00); Globulin, Blood 3.4 g/dL (2.2-4.0); Glomerular Filtration Rate >60 (60-); Glucose, Blood 223 mg/dL (70-99); Potassium, Blood 2.8 mmol/L (3.5-5.5); Sodium, Blood 136 mmol/L (136-145); Total Protein, Blood 6.6 g/dL (6.4-8.2)
--- NOTE | 2020-05-11 10:07 | NUR ---
PT TRANSPORTED TO [facility]. AGREES WITH PLANNED SURGERY. LUNG SOUNDS CLEAR.
--- NOTE | 2020-05-11 20:01 | NUR ---
SHIFT SUMMARY PT OUT TO LAP ZOILA AT 1000 AND RETURNED APPROX 1200. ABLE TO TRANSFER TO BED WITH 1 PERSON SBA WITH A FEW STEPS. VISITOR FOLLOWED ON RETURN TO ROOM AND STAYED FOR A FEW HOURS. STERI STRIPS IN PLACE WITH NO BLEEDING NOTED. REPORTS PAIN DIFFERENT THAN PRIOR TO SURGERY. VS STARTED. HAS BEEN UP TO BATHROOM INDEPENDENTL SINCE RETURN AND HAS TAKEN A SHOWER. SPOKE WITH MD ABOUT POTASSIUM LEVEL AND MEDS ORDERED. REPORT GIVEN TO ONCOMING SHIFT.
--- NOTE | 2020-05-12 02:43 | NUR ---
PT AWAKE EARLIER, UP TO THE BATHROOM FOR SHOWER. IV FLAGYL ADMINISTERED - SEE MAR FOR DETAILS. RECEIVED ANALGESIC EARLIER, MED EFFECTIVE, RSETING QUIETLY. CALL LIGHT IN REACH
--- NOTE | 2020-05-12 06:13 | NUR ---
HAS BEEN AWAKE AT TIMES THIS SHIFT, UP TO TAKE A SHOWER X 2 SHE VOICED IT CALMED HER. HAS HAD ANALGESICS ABOUT EVERY 4 HRS (SEE MAR FOR DETAILS) FOR ABD PAIN. VSS. CALL LIGHT IN REACH.
[2020-05-12 06:23] LABS: BASOPHILS ABSOLUTE AUTO 0.05 K/mm3 (0.00-0.23); BASOPHILS PERCENT AUTO 0 % (0-2); EOSINOPHILS ABSOLUTE AUTO 0.17 K/mm3 (0.00-0.68); EOSINOPHILS PERCENT AUTO 2 % (0-6); Hematocrit 42.8 % (33.0-51.0); Hemoglobin 13.7 g/dL (11.5-16.0); IMMATURE GRAN ABSOLUTE AUTO 0.04 K/mm3 (0.00-0.10); IMMATURE GRAN PERCENT AUTO 0 % (0-1); LYMPHOCYTES ABSOLUTE AUTO 2.55 K/mm3 (0.84-5.20); LYMPHOCYTES PERCENT AUTO 23 % (21-46); MONOCYTES PERCENT AUTO 9 % (4-13); Mean Corpuscular HGB 28.4 pg (26.0-34.0); Mean Corpuscular Volume 89 fL (80-100); Mean Platelet Volume 9.6 fL (9.1-12.4); NEUTROPHILS ABSOLUTE AUTO 7.39 K/mm3 (1.96-9.15); NEUTROPHILS PERCENT AUTO 66 % (41-73); Platelet Count 347 K/mm3 (150-400); RDW Coefficient Variation 11.9 % (11.7-14.2); RDW Standard Deviation 38.5 fL (35.1-46.3); Red Blood Cell Count 4.82 M/mm3 (3.80-5.20)
[2020-05-12 06:37] LABS: Anion Gap 11 mmol/L (6-16); Blood Urea Nitrogen 18 mg/dL (8-24); Bun/Creatinine Ratio 24.9 (12.0-20.0); CO2, Blood 23 mmol/L (21-32); Calcium, Blood 8.8 mg/dL (8.5-10.1); Chloride, Blood 103 mmol/L (98-108); Creatinine, Blood 0.72 mg/dL (0.40-1.00); Glomerular Filtration Rate >60 (60-); Glucose, Blood 195 mg/dL (70-99); Potassium, Blood 3.6 mmol/L (3.5-5.5); Sodium, Blood 137 mmol/L (136-145)
--- NOTE | 2020-05-12 09:55 | NUR ---
05/12/20 0955 Kristi May VERIFIED FIRST COUNT CORRECT WITH MICHELA Interiano CST.
[2020-05-12] MEDS ORDERED: PANT40 (14:35)
[2020-05-12] MEDS ORDERED: PANT40 PO (14:36)
--- NOTE | 2020-05-12 14:47 | NUR ---
DISCHARGE SUMMARY PT A/O X3 AND SBA TO THE BA. POD #1 FOR LAP ZOILA. [address] TO ABD C/D/I. USES A CPAP WHILE SLEEPING. UNDERWENT A TOE AMPUTATION ABOUT A MONTH AGO. PT DC'D HOME WITH HARD PRESCRIPTION FOR OXYCODONE.
== END 2020-05-12 15:00 | disposition home or self-care (01) ==
LOC: ER 17:58 → MEDS 17:59
PROVIDERS: Emergency Medicine; Internal Medicine; Surgery; ADMIT Family Medicine
PROC: 0FT44ZZ Resection of Gallbladder, Percutaneous Endoscopic Approach (ICD-10-PCS; principal; 2020-05-11 10:00)
DX: K81.0 Acute cholecystitis (principal); E11.40 Type 2 diabetes mellitus with diabetic neuropathy, unspecified; E03.9 Hypothyroidism, unspecified; F32.9 Major depressive disorder, single episode, unspecified; I10 Essential (primary) hypertension; E78.5 Hyperlipidemia, unspecified; E87.6 Hypokalemia; Z79.4 Long term (current) use of insulin; Z20.828 Contact with and (suspected) exposure to other viral communicable diseases; Z88.0 Allergy status to penicillin; Z88.2 Allergy status to sulfonamides; Z79.82 Long term (current) use of aspirin; Z79.899 Other long term (current) drug therapy; Z87.891 Personal history of nicotine dependence; K59.00 Constipation, unspecified
CPT/HCPCS: 36415; 71045; 76705; 80048; 80053; 81001; 82947; 83690; 84484; 85025; 87086; 88304; 93005; 93010; 94660; 96367; 96375; 96376; 99285-25; A9270-GY; C9113; G0378; J0330; J0696; J0744; J1815; J1885; J2250; J2270; J2405; J2710; J2765; J3010; J3480; J7120; U0003

== ENCOUNTER 2020-05-14 20:13 | Emergency (ER) | payer OTHER ==
[~2020-05-14] VITALS: Ht 172.7 cm; Wt 122.5 kg
[~2020-05-14 20:13] MED LIST changes: +PANT40; +Pepcid20 MG PO
[2020-05-14 20:52] LABS: BASOPHILS ABSOLUTE AUTO 0.04 K/mm3 (0.00-0.23); BASOPHILS PERCENT AUTO 0 % (0-2); EOSINOPHILS ABSOLUTE AUTO 0.13 K/mm3 (0.00-0.68); EOSINOPHILS PERCENT AUTO 1 % (0-6); Hematocrit 44.8 % (33.0-51.0); Hemoglobin 14.8 g/dL (11.5-16.0); IMMATURE GRAN ABSOLUTE AUTO 0.06 K/mm3 (0.00-0.10); IMMATURE GRAN PERCENT AUTO 1 % (0-1); LYMPHOCYTES ABSOLUTE AUTO 2.14 K/mm3 (0.84-5.20); LYMPHOCYTES PERCENT AUTO 17 % (21-46); MONOCYTES ABSOLUTE AUTO 0.74 K/mm3 (0.16-1.47); MONOCYTES PERCENT AUTO 6 % (4-13); Mean Corpuscular HGB 28.7 pg (26.0-34.0); Mean Corpuscular Volume 87 fL (80-100); Mean Platelet Volume 10.1 fL (9.1-12.4); NEUTROPHILS ABSOLUTE AUTO 9.54 K/mm3 (1.96-9.15); NEUTROPHILS PERCENT AUTO 76 % (41-73); Platelet Count 442 K/mm3 (150-400); RDW Coefficient Variation 11.6 % (11.7-14.2); RDW Standard Deviation 37.3 fL (35.1-46.3); Red Blood Cell Count 5.16 M/mm3 (3.80-5.20); White Blood Cell Count 12.65 K/mm3 (4.00-11.30)
[2020-05-14 21:06] LABS: Alanine Aminotransfer (ALT/SGP 19 U/L (12-78); Albumin, Blood 3.5 g/dL (3.4-5.0); Albumin/Globulin Ratio 0.9 (0.8-1.8); Alk Phos 131 U/L (50-136); Anion Gap 13 mmol/L (6-16); Aspartate Aminotrans (AST/SGOT 8 U/L (12-37); Bilirubin, Total 0.6 mg/dL (0.1-1.0); Blood Urea Nitrogen 27 mg/dL (8-24); Bun/Creatinine Ratio 36.8 (12.0-20.0); CO2, Blood 19 mmol/L (21-32); Chloride, Blood 102 mmol/L (98-108); Creatinine, Blood 0.73 mg/dL (0.40-1.00); Globulin, Blood 3.8 g/dL (2.2-4.0); Glomerular Filtration Rate >60 (60-); Glucose, Blood 207 mg/dL (70-99); Potassium, Blood 3.8 mmol/L (3.5-5.5); Sodium, Blood 134 mmol/L (136-145); Total Protein, Blood 7.3 g/dL (6.4-8.2)
[2020-05-14] MEDS ORDERED: PROC25S PR (23:10)
== END 2020-05-15 | disposition home or self-care (01) ==
LOC: ER 20:13
PROVIDERS: Emergency Medicine
DX: G89.18 Other acute postprocedural pain (principal); R10.9 Unspecified abdominal pain; R11.2 Nausea with vomiting, unspecified; E11.40 Type 2 diabetes mellitus with diabetic neuropathy, unspecified; I10 Essential (primary) hypertension; Z79.4 Long term (current) use of insulin; Z79.899 Other long term (current) drug therapy; Z90.49 Acquired absence of other specified parts of digestive tract; Z88.0 Allergy status to penicillin; Z88.2 Allergy status to sulfonamides; Z87.891 Personal history of nicotine dependence
CPT/HCPCS: 80053; 83690; 84484; 85025; 93005; 93010; 96374; 96375; 99284-25; J0780; J2405; J3010

== ENCOUNTER 2020-05-24 20:56 | Observation (INO) | payer OTHER ==
[~2020-05-24] VITALS: Ht 172.7 cm; Wt 114.6 kg
[~2020-05-24 20:56] MED LIST changes: +PROC25S PR
[2020-05-24 21:30] LABS: BASOPHILS ABSOLUTE AUTO 0.06 K/mm3 (0.00-0.23); BASOPHILS PERCENT AUTO 1 % (0-2); EOSINOPHILS PERCENT AUTO 1 % (0-6); Hematocrit 45.8 % (33.0-51.0); Hemoglobin 15.5 g/dL (11.5-16.0); IMMATURE GRAN ABSOLUTE AUTO 0.02 K/mm3 (0.00-0.10); IMMATURE GRAN PERCENT AUTO 0 % (0-1); LYMPHOCYTES ABSOLUTE AUTO 2.13 K/mm3 (0.84-5.20); LYMPHOCYTES PERCENT AUTO 23 % (21-46); MONOCYTES ABSOLUTE AUTO 0.53 K/mm3 (0.16-1.47); MONOCYTES PERCENT AUTO 6 % (4-13); Mean Corpuscular HGB 28.9 pg (26.0-34.0); Mean Corpuscular HGB Conc 33.8 g/dL (31.5-36.5); Mean Corpuscular Volume 85 fL (80-100); Mean Platelet Volume 10.3 fL (9.1-12.4); NEUTROPHILS ABSOLUTE AUTO 6.41 K/mm3 (1.96-9.15); NEUTROPHILS PERCENT AUTO 69 % (41-73); Platelet Count 377 K/mm3 (150-400); RDW Standard Deviation 37.4 fL (35.1-46.3); Red Blood Cell Count 5.36 M/mm3 (3.80-5.20); White Blood Cell Count 9.25 K/mm3 (4.00-11.30)
[2020-05-24 21:54] LABS: Alanine Aminotransfer (ALT/SGP 18 U/L (12-78); Albumin, Blood 3.7 g/dL (3.4-5.0); Alk Phos 132 U/L (50-136); Anion Gap 13 mmol/L (6-16); Aspartate Aminotrans (AST/SGOT 10 U/L (12-37); Bilirubin, Total 0.7 mg/dL (0.1-1.0); Blood Urea Nitrogen 23 mg/dL (8-24); Bun/Creatinine Ratio 28.6 (12.0-20.0); CO2, Blood 26 mmol/L (21-32); Calcium, Blood 9.4 mg/dL (8.5-10.1); Chloride, Blood 98 mmol/L (98-108); Creatinine, Blood 0.81 mg/dL (0.40-1.00); Globulin, Blood 3.7 g/dL (2.2-4.0); Glomerular Filtration Rate >60 (60-); Glucose, Blood 282 mg/dL (70-99); Potassium, Blood 3.5 mmol/L (3.5-5.5); Sodium, Blood 137 mmol/L (136-145); Total Protein, Blood 7.4 g/dL (6.4-8.2); Troponin I <0.015 ng/mL (0.000-0.040)
--- NOTE | 2020-05-25 05:39 | NUR ---
SHIFT SUMMARY PT ARRIVIED TO UNIT FROM ED VIA STRETCHER. TRANSFERRED FROM STRETCHER TO BED IND/SBA. MEDICATED FOR CHEST/L SHOULDER PAIN X2 PER OCT. CPAP ON, PT REFUSED CONTINUOUS 02 MONITORING. PRN AMBEIN GIVEN @ 0030, PT UNABLE TO SLEEP T/O SHIFT. PT IS LAYING IN BED, WITH EYES CLOSED, EVEN AND UNLABORED RESPIRATIONS. NO APPARENT NEEDS OR DISTRESS AT THIS TIME. CALL LIGHT AND PERSONAL ITEMS WITHIN REACH, BED IN LOWERED POSITION. WILL CONTINUE TO MONITOR UNTIL REPORT GIVEN TO DAY RN.
[2020-05-25 16:22] LABS: Source, Urine Clean Catch
[2020-05-25 16:31] LABS: Bilirubin, Urine Neg (Neg); Blood, Urine 1+ (Neg); Glucose Qualitative, Urine 3+ (Neg); Ketones, Urine 3+ (Neg); Leukocyte Esterase, Urine 1+ (Neg); Nitrite, Urine Neg (Neg); Protein, Urine 2+ (Neg); Urobilinogen, Urine NORM (Normal)
[2020-05-25 16:46] LABS: Appearance, Urine Clear (Clear); Color, Urine Yellow (P-Yellow)
[2020-05-25 16:48] LABS: White Blood Cells, Urine 25-50 /hpf (0-5)
[2020-05-25 16:49] LABS: Bacteria Mod /hpf; Mucus Light (0-Heavy); Squamous Epithelial Cells Mod /hpf (Few); Yeast/Fungi Urine Few /hpf
--- NOTE | 2020-05-25 17:46 | NUR ---
SHIFT SUMMARY PT A&Ox3. PT APPEARS TO BE SLEEPING FOR MAJORITY OF SHIFT. PT WEARING CPAP; AT BASELINE. SPO2 >90% ON RA AND CPAP. PT REPORTS ABD/BACK/CHEST PAIN; MEDICATED x1 WITH OXYCODONE PER ORDERS. PT REPORTS MILD SOB; BREATING REMAINS EVEN AND UNLABORED. REPORTS NASUEA; MEDICATED PER EMAR. HYPOACTIVE BOWEL TONES T/O; PT REPORTS NO BM FOR 4 DAYS; STARTED BOWEL CARE PER ORDERS. PT RECEIVING GI COCKTAIL Q6 PER ORDERS. PT MEDICATED WITH MIDODRINE THIS AM PER ORDERS; BP HYPERTENSIVE THIS AFTERNOON AND EVENING; NOTIIFED DR AGRCIA; NO NEW ORDERS AND CONTINUE TO MONITOR. OTHER VSS. NO OTHER ACUTE CHANGES NOTED DURING SHIFT. WILL CONTINUE TO MONITOR UNITL REPORT GIVEN TO ONCOMING RN.
--- NOTE | 2020-05-25 19:28 | NUR ---
PT HAD BM AT SHIFT CHANGE; DISCONTINUED LACTULOSE PER PREVIOUS VERBAL ORDER PER DR GARCIA.
--- NOTE | 2020-05-25 22:38 | NUR ---
ASSUMED CARE OF PATIENT AT APPROXIMATELY 1905 FROM MARINA Bolton RN. PATIENT ALERT AND ORIENTED X4; FLAT. PATIENT DENIES CP/PRESSURE, PAIN ELSEWHERE, NUMBNESS, TINGLING, DIZZINESS OR NAUSEA. PATIENT REPORT SHE DOESNT FEEL WELL; REPORTS HER STOMACH IS BOTHERING HER. PATIENT HAVING DIARRHEA EPISODES AFTER MULTIPLE MEDICATIONS; INCONTIENT IN BED AND USES TOILET. NSR ON TELE; OXYGEN SATURATION ABOVE 90% ON ROOM AIR OR CPAP WHILE SLEEPING. BLOOD PRESSURE ELEVATED; PER DAYSHIFT HOSPITALIST NOTIFIED; NOT TREATING DUE TO PATIENT BEING HYPOTENSIVE UPON ADMISSION. PIV S/L. PATIENT CURRENTLY RESTING IN BED; CALL LIGHT IN REACH; BED IN LOWEST POSISTION; BED ALARM ON; WILL CONTINUE TO MONITOR AND ASSESS UNTIL END OF SHIFT.
--- NOTE | 2020-05-26 05:58 | NUR ---
PATIENT SLEPT ABOUT NINE HOURS LAST NIGHT; MULTIPLE LOOSE BMS. VSS. WILL CONTINUE TO MONITOR AND ASSESS UNTIL END OF SHIFT. PATIENT IN SHOWER.
[2020-05-26] MEDS ORDERED: LEVFLO500 PO (13:03)
[2020-05-26] MEDS ORDERED: SUCR1 PO (13:04)
--- NOTE | 2020-05-26 14:31 | NUR ---
Spiritual care visit conducted. Patient is in the DC process but immediately shares her list of medical issues and that she is feeling very "down" and "done with it all." We talk at length and patient assures me that she will never give up on God. She explains about her deep michael and that she is simply emotionally, spirituallly and physically exhausted. We talk about healing activities, about dealing with dark and negative thoughts and redirecting towards positive thoughts and about focus. I normalize patient's experience, reinforce helpful attitudes and practices and provide therapeutic listening, pastoral community health counselor and prayer. Patient responds well and displays evidence of improved hope and restored michael.
== END 2020-05-26 14:03 | disposition home or self-care (01) ==
LOC: ER 20:56 → PCU 20:57
PROVIDERS: Emergency Medicine; ADMIT Family Medicine
DX: R07.9 Chest pain, unspecified (principal); R11.2 Nausea with vomiting, unspecified; N39.0 Urinary tract infection, site not specified; K59.09 Other constipation; E11.65 Type 2 diabetes mellitus with hyperglycemia; E11.40 Type 2 diabetes mellitus with diabetic neuropathy, unspecified; I10 Essential (primary) hypertension; I95.9 Hypotension, unspecified; G47.30 Sleep apnea, unspecified; E03.9 Hypothyroidism, unspecified; G47.00 Insomnia, unspecified; E78.5 Hyperlipidemia, unspecified; F32.9 Major depressive disorder, single episode, unspecified; K21.01 Gastro-esophageal reflux disease with esophagitis, with bleeding; G89.4 Chronic pain syndrome; E66.01 Morbid (severe) obesity due to excess calories; Z68.41 Body mass index [BMI] 40.0-44.9, adult; Z90.710 Acquired absence of both cervix and uterus; Z90.49 Acquired absence of other specified parts of digestive tract; Z87.891 Personal history of nicotine dependence; Z88.0 Allergy status to penicillin; Z88.2 Allergy status to sulfonamides; Z79.4 Long term (current) use of insulin; Z79.82 Long term (current) use of aspirin; Z79.899 Other long term (current) drug therapy; Z99.89 Dependence on other enabling machines and devices; Z23 Encounter for immunization
CPT/HCPCS: 36415; 71046; 74018; 80053; 81001; 82947; 83690; 84484; 85025; 87086; 93005; 93010; 94660; 94762; 96361; 96365; 96374; 96375; 96376; 99285-25; A9270-GY; G0378; J1885; J1956; J2405; J3010; J7030

== ENCOUNTER 2020-05-28 10:47 | Emergency (ER) | payer OTHER ==
[~2020-05-28 10:47] MED LIST changes: +LEVFLO500 PO
[2020-05-28 14:54] LABS: Alanine Aminotransfer (ALT/SGP 23 U/L (12-78); Albumin, Blood 4.2 g/dL (3.4-5.0); Alk Phos 154 U/L (50-136); Anion Gap 14 mmol/L (6-16); Aspartate Aminotrans (AST/SGOT 20 U/L (12-37); Bilirubin, Total 0.8 mg/dL (0.1-1.0); Blood Urea Nitrogen 30 mg/dL (8-24); Bun/Creatinine Ratio 33.7 (12.0-20.0); CO2, Blood 25 mmol/L (21-32); Calcium, Blood 9.8 mg/dL (8.5-10.1); Chloride, Blood 98 mmol/L (98-108); Creatinine, Blood 0.89 mg/dL (0.40-1.00); Globulin, Blood 4.2 g/dL (2.2-4.0); Glomerular Filtration Rate >60 (60-); Glucose, Blood 205 mg/dL (70-99); Potassium, Blood 3.2 mmol/L (3.5-5.5); Sodium, Blood 137 mmol/L (136-145); Total Protein, Blood 8.4 g/dL (6.4-8.2); Troponin I <0.015 ng/mL (0.000-0.040)
[2020-05-28 14:58] LABS: BASOPHILS ABSOLUTE AUTO 0.05 K/mm3 (0.00-0.23); BASOPHILS PERCENT AUTO 0 % (0-2); EOSINOPHILS ABSOLUTE AUTO 0.03 K/mm3 (0.00-0.68); EOSINOPHILS PERCENT AUTO 0 % (0-6); Hematocrit 50.3 % (33.0-51.0); Hemoglobin 17.3 g/dL (11.5-16.0); IMMATURE GRAN ABSOLUTE AUTO 0.04 K/mm3 (0.00-0.10); IMMATURE GRAN PERCENT AUTO 0 % (0-1); LYMPHOCYTES ABSOLUTE AUTO 2.43 K/mm3 (0.84-5.20); LYMPHOCYTES PERCENT AUTO 18 % (21-46); MONOCYTES ABSOLUTE AUTO 0.65 K/mm3 (0.16-1.47); MONOCYTES PERCENT AUTO 5 % (4-13); Mean Corpuscular HGB 29.2 pg (26.0-34.0); Mean Corpuscular HGB Conc 34.4 g/dL (31.5-36.5); Mean Corpuscular Volume 85 fL (80-100); Mean Platelet Volume 10.9 fL (9.1-12.4); NEUTROPHILS PERCENT AUTO 76 % (41-73); Platelet Count 378 K/mm3 (150-400); RDW Coefficient Variation 12.2 % (11.7-14.2); RDW Standard Deviation 37.3 fL (35.1-46.3); Red Blood Cell Count 5.92 M/mm3 (3.80-5.20)
== END 2020-05-28 14:57 | disposition home or self-care (01) ==
LOC: ER 10:47
PROVIDERS: Emergency Medicine
DX: R07.89 Other chest pain (principal); R10.9 Unspecified abdominal pain; R11.2 Nausea with vomiting, unspecified; R56.9 Unspecified convulsions; E11.40 Type 2 diabetes mellitus with diabetic neuropathy, unspecified; Z88.0 Allergy status to penicillin; Z88.2 Allergy status to sulfonamides; Z79.899 Other long term (current) drug therapy; Z79.4 Long term (current) use of insulin; Z79.82 Long term (current) use of aspirin; Z87.891 Personal history of nicotine dependence
CPT/HCPCS: 71045; 80053; 83690; 84484; 85025; 93005; 93010; 99285-25; J1170; J2405; J7030

== ENCOUNTER 2020-05-31 13:45 | Observation (INO) | payer OTHER ==
[~2020-05-31] VITALS: Ht 172.7 cm; Wt 113.4 kg
[2020-05-31 14:56] LABS: BASOPHILS ABSOLUTE AUTO 0.04 K/mm3 (0.00-0.23); BASOPHILS PERCENT AUTO 0 % (0-2); EOSINOPHILS ABSOLUTE AUTO 0.04 K/mm3 (0.00-0.68); EOSINOPHILS PERCENT AUTO 0 % (0-6); Hematocrit 49.3 % (33.0-51.0); Hemoglobin 16.7 g/dL (11.5-16.0); IMMATURE GRAN ABSOLUTE AUTO 0.04 K/mm3 (0.00-0.10); IMMATURE GRAN PERCENT AUTO 0 % (0-1); LYMPHOCYTES ABSOLUTE AUTO 2.83 K/mm3 (0.84-5.20); LYMPHOCYTES PERCENT AUTO 24 % (21-46); MONOCYTES ABSOLUTE AUTO 0.67 K/mm3 (0.16-1.47); MONOCYTES PERCENT AUTO 6 % (4-13); Mean Corpuscular HGB 28.6 pg (26.0-34.0); Mean Corpuscular HGB Conc 33.9 g/dL (31.5-36.5); Mean Corpuscular Volume 85 fL (80-100); Mean Platelet Volume 10.8 fL (9.1-12.4); NEUTROPHILS ABSOLUTE AUTO 8.22 K/mm3 (1.96-9.15); NEUTROPHILS PERCENT AUTO 70 % (41-73); Platelet Count 356 K/mm3 (150-400); RDW Coefficient Variation 12.2 % (11.7-14.2); RDW Standard Deviation 37.2 fL (35.1-46.3); Red Blood Cell Count 5.83 M/mm3 (3.80-5.20); White Blood Cell Count 11.84 K/mm3 (4.00-11.30)
[2020-05-31 15:23] LABS: Alanine Aminotransfer (ALT/SGP 33 U/L (12-78); Alk Phos 159 U/L (50-136); Anion Gap 13 mmol/L (6-16); Aspartate Aminotrans (AST/SGOT 20 U/L (12-37); Bilirubin, Total 0.7 mg/dL (0.1-1.0); Blood Urea Nitrogen 30 mg/dL (8-24); Bun/Creatinine Ratio 39.8 (12.0-20.0); CO2, Blood 25 mmol/L (21-32); Calcium, Blood 9.9 mg/dL (8.5-10.1); Chloride, Blood 99 mmol/L (98-108); Creatinine, Blood 0.75 mg/dL (0.40-1.00); Globulin, Blood 4.1 g/dL (2.2-4.0); Glomerular Filtration Rate >60 (60-); Glucose, Blood 171 mg/dL (70-99); Magnesium, Blood 1.9 mg/dL (1.6-2.4); Potassium, Blood 3.5 mmol/L (3.5-5.5); Salicylate <1.7 mg/dL (2.8-20.0); Sodium, Blood 137 mmol/L (136-145); Total Protein, Blood 8.1 g/dL (6.4-8.2); Troponin I <0.015 ng/mL (0.000-0.040)
[2020-05-31 15:26] LABS: Acetaminophen, Random <2.0 ug/mL (10.0-30.0)
[2020-05-31 19:17] LABS: Source, Urine Voided
[2020-05-31 19:21] LABS: Blood, Urine 1+ (Neg); Glucose Qualitative, Urine Neg (Neg); Ketones, Urine 4+ (Neg); Leukocyte Esterase, Urine 2+ (Neg); Nitrite, Urine Neg (Neg); Protein, Urine 2+ (Neg); Urobilinogen, Urine 1+ (Normal); pH, Urine 6.5 (5.0-8.0)
[2020-05-31 19:27] LABS: Bilirubin, Urine 1+ (Neg)
[2020-05-31 19:28] LABS: Appearance, Urine Clear (Clear); Color, Urine Yellow (P-Yellow); Red Blood Cells, Urine 0-2 /hpf (0-2); Squamous Epithelial Cells Mod /hpf (Few)
[2020-05-31 19:29] LABS: Bacteria Mod /hpf
[2020-05-31 19:31] LABS: U Amphetamine Screen Not Detected; U Barbituate Screen DETECTED; U Benzodiazapine Screen Not Detected; U Buprenorphine Screen Not Detected; U Cannabinoids Screen Not Detected; U Cocaine Screen Not Detected; U Methadone Screen Not Detected; U Methamphetamine Screen Not Detected; U Opiates Screen DETECTED; U Oxycodone Screen Not Detected; U Phencyclidine Screen Not Detected; U Propoxyphene Screen Not Detected
--- NOTE | 2020-05-31 22:33 | NUR ---
Transfer report from Ernestine GRAF in ER on PT being admitted with moderate risk suicide precautions voluntary admission PT has chronic pancreatitis , hx of cdiff, & hx cholecystectomy lap. Reportedly said she would take alot of oral meds as a suicide plan but is cooperative with staff & interventions. Suicide precautions check list complted by Ernestine walter RN & we await admission. ABD CT done in ER & PT reportedly had IV dilaudid at least 2 mg over stay.
--- NOTE | 2020-06-01 01:45 | NUR ---
PT being admitted with moderated suicide precautions denies current plan to harm self. Camera monitoring remote comfirmed & personal belonging locked in closet. PT says she had 1 prior suicide attemt when she was 16 yearts old when she took some pain meds of Father but no other attempts. She is voluntarily admittings she is tired of continous abd problems which she says started in October 2019. PT is disabled lives alone in . She is poor historian & has 95 lb wt loss multiple recent hospitalizations. Cooperative & weak.
--- NOTE | 2020-06-01 03:52 | NUR ---
55 year old Female admitted with abd pain N V weight loss weakness. She is disabled lives alone in RV admitted for suicidal ideation. Poor historian who was recently DC from [facility] from 2nd floor with chest pain per PT. She had lap keith about a month ago per PT with [place] abd pain unresolved by procedure per PT report. PT says last BM about ten days ago & she reports she had extensive bowel care prior to Dc from hospital but not eating or drinking since due to unable to tolerate orals. Unable to say when she was DC in hospital PT says she missed postop followup with DR Tommy Jhaveri who did lap keith. She reports upper endo showing esopageal ulcerations & esophageal strictures. Bowel sounds hypoactive, gagging. Compazine & reglan given. Recieving 1 bag IVF with potassium. PT says she has been unable to take oral meds. Medicated for upper middle abd pain x 1 with good effect. Resting quietly with remote camera monitoring & moderate suicide precautions in place. Agrees to safety contract verbally & no attempts at self harm. HAs DR Sheehan consult, face sheet faxed to ER.
[2020-06-01 05:14] LABS: BASOPHILS ABSOLUTE AUTO 0.04 K/mm3 (0.00-0.23); BASOPHILS PERCENT AUTO 0 % (0-2); EOSINOPHILS PERCENT AUTO 1 % (0-6); Hematocrit 41.7 % (33.0-51.0); Hemoglobin 13.9 g/dL (11.5-16.0); IMMATURE GRAN ABSOLUTE AUTO 0.01 K/mm3 (0.00-0.10); IMMATURE GRAN PERCENT AUTO 0 % (0-1); LYMPHOCYTES PERCENT AUTO 31 % (21-46); MONOCYTES ABSOLUTE AUTO 0.68 K/mm3 (0.16-1.47); MONOCYTES PERCENT AUTO 7 % (4-13); Mean Corpuscular HGB 28.9 pg (26.0-34.0); Mean Corpuscular HGB Conc 33.3 g/dL (31.5-36.5); Mean Corpuscular Volume 87 fL (80-100); Mean Platelet Volume 10.4 fL (9.1-12.4); NEUTROPHILS ABSOLUTE AUTO 5.78 K/mm3 (1.96-9.15); NEUTROPHILS PERCENT AUTO 61 % (41-73); Platelet Count 257 K/mm3 (150-400); RDW Coefficient Variation 12.2 % (11.7-14.2); RDW Standard Deviation 38.8 fL (35.1-46.3); Red Blood Cell Count 4.81 M/mm3 (3.80-5.20); White Blood Cell Count 9.51 K/mm3 (4.00-11.30)
[2020-06-01 05:38] LABS: Anion Gap 7 mmol/L (6-16); Blood Urea Nitrogen 28 mg/dL (8-24); Bun/Creatinine Ratio 35.1 (12.0-20.0); CO2, Blood 28 mmol/L (21-32); Chloride, Blood 104 mmol/L (98-108); Glomerular Filtration Rate >60 (60-); Glucose, Blood 132 mg/dL (70-99); Potassium, Blood 3.6 mmol/L (3.5-5.5); Sodium, Blood 139 mmol/L (136-145)
--- NOTE | 2020-06-01 12:39 | NUR ---
Suicide Safety Plan completed. Pt reports she wants to live, but is "sick and tired of being sick". Reports lost 95 lbs since October as has been vomiting. She has been hospitalized "about 30 times and no one can tell me what is wrong". She has no plan on how she would kill herself. Had OD and psych hospitaliation at age 16 due to break up with boyfriend. No attempts since. She "wants to live her life and feel better". She lives with her cat in a 5th wheel for past 3 years. on SSDI due to diabetes. She has friend caring for her cat. She reports "all this started in October when I took and antibiotic". She had her smal right toe surgically removed, as she said the whole bottom of her foot "peeled off" in October. Pt prevuously thought about going to a retirement, but is not ready for that at this time. By her reports she is not suicidal. She is looking forward to the of her great grand daughter
--- NOTE | 2020-06-01 14:14 | NUR ---
Patient is lying in bed and alert. Patient's opening statement is "I'm done!" Patient then explains that she is emotionally, spiritually and physically tired. "I am tired of constantly vomiting," she emphasizes, and then adds that she has lost nearly 100lbs in just a few months. Patient's perspective is that if she had some help medically she could endure emotionally. Patient tells me that she has hope and it is in God and that she is not suicidal. Patient then tells me that she would like to rest but allows me to say a prayer for her. Patient voices appreciation for the visit and asks if I could come visit her next day. I agree to do so schedule permitting.
--- NOTE | 2020-06-01 15:06 | NUR ---
DR. ROMAN IN TO SEE PATIENT.
--- NOTE | 2020-06-01 15:57 | NUR ---
SUICIDE PRECAUTIONS D/C'D BY DR. ROMAN.
--- NOTE | 2020-06-01 18:36 | NUR ---
SHIFT SUMMARY: NO ACUTE EVENTS THIS SHIFT. DENIED SI, SAFETY PLAN COMPLETED. SUICIDE PRECAUTIONS D/C'D. C/O PERSISTENT UPPER ABD PAIN, POSSIBLY R/T CHRONIC PANCREATITIS; MEDICATED PER EMAR WITH SOME RELIEF. ALSO MEDICATED FOR NAUSEA AND HAD NO EMESIS THIS SHIFT, EATING SMALL AMOUNTS OF MEALS. REFUSING SOME MEDICATIONS LIKE CREON AND POTASSIUM DESPITE EDUCATION ABOUT RATIONALE FOR THESE. STATED NO BM "FOR ABOUT 10 DAYS", GAVE BISCODYL. EDUCATED HER THAT NOT MOVING HER BOWELS D/T GASTROPARESIS AND GETTING NARCOTIC PAIN MEDS IS ADDING TO THE PROBLEM AND HAVING BM MAY RELIEVE SOME DISCOMFORT. PICKED AT [employer], WHICH STARTED BLEEDING SLIGHTLY; APPLIED TRIPLE ANTIBIOTIC OINTMENT AND COVERED WITH BAND AID. DISCUSSED WITH PT AND HER FRIEND TYLER THAT ANDRÉS WOULD BENEFIT FROM CBT OR COUNSELING THROUGH [employer] AND ASKED THAT TYLER ASK FOR THIS AT ANDRÉS'S NEXT APPOINTMENT, TO WHICH SHE VERBALIZED UNDERSTANDING.
[2020-06-02 05:56] LABS: Alanine Aminotransfer (ALT/SGP 22 U/L (12-78); Albumin, Blood 3.1 g/dL (3.4-5.0); Alk Phos 120 U/L (50-136); Anion Gap 6 mmol/L (6-16); Aspartate Aminotrans (AST/SGOT 10 U/L (12-37); Bilirubin, Total 0.5 mg/dL (0.1-1.0); Blood Urea Nitrogen 19 mg/dL (8-24); CO2, Blood 28 mmol/L (21-32); Calcium, Blood 8.7 mg/dL (8.5-10.1); Chloride, Blood 105 mmol/L (98-108); Creatinine, Blood 0.87 mg/dL (0.40-1.00); Globulin, Blood 3.2 g/dL (2.2-4.0); Glomerular Filtration Rate >60 (60-); Glucose, Blood 127 mg/dL (70-99); Magnesium, Blood 1.7 mg/dL (1.6-2.4); Phosphorus, Blood 3.8 mg/dL (2.5-4.9); Potassium, Blood 3.5 mmol/L (3.5-5.5); Sodium, Blood 139 mmol/L (136-145); Total Protein, Blood 6.3 g/dL (6.4-8.2)
[2020-06-02 11:17] LABS: Amylase, Blood 57 U/L (25-115)
[2020-06-02 14:31] LABS: BASOPHILS ABSOLUTE AUTO 0.04 K/mm3 (0.00-0.23); BASOPHILS PERCENT AUTO 1 % (0-2); EOSINOPHILS ABSOLUTE AUTO 0.18 K/mm3 (0.00-0.68); EOSINOPHILS PERCENT AUTO 2 % (0-6); Hemoglobin 13.7 g/dL (11.5-16.0); IMMATURE GRAN ABSOLUTE AUTO 0.03 K/mm3 (0.00-0.10); IMMATURE GRAN PERCENT AUTO 0 % (0-1); LYMPHOCYTES ABSOLUTE AUTO 2.18 K/mm3 (0.84-5.20); LYMPHOCYTES PERCENT AUTO 25 % (21-46); MONOCYTES ABSOLUTE AUTO 0.65 K/mm3 (0.16-1.47); MONOCYTES PERCENT AUTO 7 % (4-13); Mean Corpuscular HGB 29.1 pg (26.0-34.0); Mean Corpuscular HGB Conc 33.4 g/dL (31.5-36.5); Mean Corpuscular Volume 87 fL (80-100); Mean Platelet Volume 10.7 fL (9.1-12.4); NEUTROPHILS ABSOLUTE AUTO 5.66 K/mm3 (1.96-9.15); NEUTROPHILS PERCENT AUTO 65 % (41-73); Platelet Count 265 K/mm3 (150-400); RDW Coefficient Variation 12.2 % (11.7-14.2); RDW Standard Deviation 39.1 fL (35.1-46.3); White Blood Cell Count 8.74 K/mm3 (4.00-11.30)
--- NOTE | 2020-06-02 18:07 | NUR ---
PATIENT IS ALERT AND ORIENTED. SHE C/O 7/ PAIN, TREATED PER EMAR WITH NO RELIEF. PATIENT IS NAUSEATED WITH 50 ML OF EMESIS. NAUSEA TREATED PER EMAR. PATIENT HAS REFUSED PO MEDICATIONS TODAY. SHE SHOWERED HERSELF THIS MORNING. SHE IS A SBA TO THE BATHROOM. PATIENT USES CPAP INDEPENDENTLY. SHE HAS SLEPT MOST OF THE DAY. WILL CONTINUE TO MONITOR.
--- NOTE | 2020-06-03 04:09 | NUR ---
SHIFT SUMMARY ADMITTED FOR SI (RESOLVED, FOLLOW UP OUTPATIENT). FULL CODE. PT HAS N/V WITH ORAL INTAKE OF FOOD OR ORAL MEDS. SHE REFUSES PO MEDS. SHE HAS GASTROPARESIS AND PANCREATITIS. SHE IS A&O X4, SHE CALLS APPROPRIATELY. IV MEDS FOR NAUSEA AND PAIN GIVEN THIS SHIFT. INSULIN GIVEN ORDERED. SHE SLEPT THROUGHOUT SHIFT WITH CPAP. SHE DID HAVE TWO EPISODES OF EMESIS THIS SHIFT. ABEL IS CONSULT. SHE DID FALL THIS SHIFT ON HER WAY BACK FROM THE BATHROOM. VITALS NORMAL, GLUCOSE LEVEL NORMAL, NO OBVIOUS SIGNS OF INJURY NOTED. HOSPITALIST INFORMED.
--- NOTE | 2020-06-03 19:12 | NUR ---
SHIFT SUMMARY ANDRÉS COMPLAINED OF PAIN IN HER ABD AND NAUSEA. GOT IV MORPHINE FOR PAIN WITH GOOD EFFECT AND COMPAZINE FOR NAUSEA. POOR PO INTAKE, LIKES PUREE BETTER. SBA TO BR, CALLED APPROPRIATELY. REFUSED ALL PILLS DUE TO NAUSEA.
--- NOTE | 2020-06-04 05:21 | NUR ---
SHIFT SUMMARY NO ACUTE CHANGES THIS SHIFT. PT IS SBA AND IS A&O X4. PT SLEPT WELL T/O NIGHT. MEDICATED FOR PAIN X2. PT IS LAYING IN BED WITH EYES CLOSED, EVEN AND UNLABORED RESPIRATIONS. BED IN LOWERED POSITION WITH CALL LIGHT AND PERSONAL ITEMS WITHIN REACH. NO APPARENT DISTRESS OR NEEDS AT THIS TIME, WILL CONTINUE TO MONITOR UNTIL REPORT GIVEN TO DAY RN.
[2020-06-04 05:23] LABS: BASOPHILS ABSOLUTE AUTO 0.04 K/mm3 (0.00-0.23); BASOPHILS PERCENT AUTO 1 % (0-2); EOSINOPHILS PERCENT AUTO 2 % (0-6); Hematocrit 41.2 % (33.0-51.0); Hemoglobin 13.6 g/dL (11.5-16.0); IMMATURE GRAN ABSOLUTE AUTO 0.03 K/mm3 (0.00-0.10); IMMATURE GRAN PERCENT AUTO 0 % (0-1); LYMPHOCYTES ABSOLUTE AUTO 2.67 K/mm3 (0.84-5.20); LYMPHOCYTES PERCENT AUTO 32 % (21-46); MONOCYTES ABSOLUTE AUTO 0.58 K/mm3 (0.16-1.47); MONOCYTES PERCENT AUTO 7 % (4-13); Mean Corpuscular HGB 28.3 pg (26.0-34.0); Mean Corpuscular Volume 86 fL (80-100); Mean Platelet Volume 10.9 fL (9.1-12.4); NEUTROPHILS ABSOLUTE AUTO 4.92 K/mm3 (1.96-9.15); NEUTROPHILS PERCENT AUTO 58 % (41-73); Platelet Count 275 K/mm3 (150-400); RDW Coefficient Variation 12.3 % (11.7-14.2); RDW Standard Deviation 38.6 fL (35.1-46.3); Red Blood Cell Count 4.81 M/mm3 (3.80-5.20); White Blood Cell Count 8.44 K/mm3 (4.00-11.30)
[2020-06-04 05:44] LABS: Alanine Aminotransfer (ALT/SGP 15 U/L (12-78); Albumin, Blood 3.1 g/dL (3.4-5.0); Alk Phos 108 U/L (50-136); Anion Gap 8 mmol/L (6-16); Aspartate Aminotrans (AST/SGOT 8 U/L (12-37); Bilirubin, Total 0.5 mg/dL (0.1-1.0); Blood Urea Nitrogen 14 mg/dL (8-24); Bun/Creatinine Ratio 17.8 (12.0-20.0); CO2, Blood 29 mmol/L (21-32); Calcium, Blood 9.1 mg/dL (8.5-10.1); Chloride, Blood 103 mmol/L (98-108); Creatinine, Blood 0.79 mg/dL (0.40-1.00); Globulin, Blood 3.1 g/dL (2.2-4.0); Glomerular Filtration Rate >60 (60-); Glucose, Blood 99 mg/dL (70-99); Potassium, Blood 2.9 mmol/L (3.5-5.5); Sodium, Blood 140 mmol/L (136-145); Total Protein, Blood 6.2 g/dL (6.4-8.2)
--- NOTE | 2020-06-04 14:35 | NUR ---
DR HARVEY NOTIFIED AT THIS TIME THAT PATIENT REFUSED HER AC LUNCH DOSE OF CARAFATE, CREON, REGLAN, MIDODRINE AND POTASSIUM CHLORIDE.
--- NOTE | 2020-06-04 18:34 | NUR ---
SHIFT SUMMARY PT AXO, FLAT AND WITHDRAWN. REFUSING PO MEDS AFTER MORNING ADMINISTRATION, SEE PRIOR NOTE. PT DID AGREE TO TAKE DINNER DOSE OF CARAFATE. MEDICATED FOR PAIN AND N/V X2 PER EMAR. EMEIS X2 THIS SHIFT. IV PATENT AND INFUSING. SBA TO BATHROOM. VSS. PT SLEPT MOST OF SHIFT. CPAP WHILE SLEEPING. BED IN LOW POSITION, CALL LIGHT WITHIN REACH.
--- NOTE | 2020-06-05 05:22 | NUR ---
SHIFT SUMMARY NO ACUTE CHANGES THIS SHIFT. PT HAD SHOWER, SHE STATED THAT WAS MUCH NEEDED AND HELPED HER FEEL BETTER. PT SLEPT T/O NIGHT WITH CPAP, NO COMPLAINTS OF ANY KIND. NO NAUSEA OR VOMITING THIS SHIFT. PT ABLE TO TOLERATE PO MEDS. PT IS LAYING IN BED WITH EYES CLOSED, EVEN AND UNLABORED RESPIRATIONS. BED IS IN LOWERED POSITION WITH HOB ELEVATED. CALL LIGHT AND PERSONAL ITEMS WITHIN REACH. NO APPARENT NEEDS OR DISTRESS AT THIS TIME, WILL CONTINUE TO MONITOR UNTIL REPORT GIVEN TO DAY RN.
[2020-06-05 05:30] LABS: BASOPHILS ABSOLUTE AUTO 0.04 K/mm3 (0.00-0.23); BASOPHILS PERCENT AUTO 1 % (0-2); EOSINOPHILS ABSOLUTE AUTO 0.18 K/mm3 (0.00-0.68); EOSINOPHILS PERCENT AUTO 2 % (0-6); Hematocrit 41.5 % (33.0-51.0); Hemoglobin 13.7 g/dL (11.5-16.0); IMMATURE GRAN ABSOLUTE AUTO 0.02 K/mm3 (0.00-0.10); IMMATURE GRAN PERCENT AUTO 0 % (0-1); LYMPHOCYTES ABSOLUTE AUTO 2.77 K/mm3 (0.84-5.20); LYMPHOCYTES PERCENT AUTO 36 % (21-46); MONOCYTES ABSOLUTE AUTO 0.58 K/mm3 (0.16-1.47); MONOCYTES PERCENT AUTO 8 % (4-13); Mean Corpuscular HGB 28.6 pg (26.0-34.0); Mean Corpuscular Volume 87 fL (80-100); Mean Platelet Volume 10.8 fL (9.1-12.4); NEUTROPHILS ABSOLUTE AUTO 4.05 K/mm3 (1.96-9.15); NEUTROPHILS PERCENT AUTO 53 % (41-73); Platelet Count 277 K/mm3 (150-400); RDW Coefficient Variation 12.6 % (11.7-14.2); RDW Standard Deviation 39.8 fL (35.1-46.3); Red Blood Cell Count 4.79 M/mm3 (3.80-5.20); White Blood Cell Count 7.64 K/mm3 (4.00-11.30)
[2020-06-05 06:00] LABS: Alanine Aminotransfer (ALT/SGP 16 U/L (12-78); Alk Phos 107 U/L (50-136); Anion Gap 9 mmol/L (6-16); Aspartate Aminotrans (AST/SGOT 8 U/L (12-37); Bilirubin, Total 0.4 mg/dL (0.1-1.0); Blood Urea Nitrogen 11 mg/dL (8-24); Bun/Creatinine Ratio 14.6 (12.0-20.0); CO2, Blood 28 mmol/L (21-32); Calcium, Blood 8.6 mg/dL (8.5-10.1); Chloride, Blood 106 mmol/L (98-108); Creatinine, Blood 0.76 mg/dL (0.40-1.00); Glomerular Filtration Rate >60 (60-); Glucose, Blood 105 mg/dL (70-99); Potassium, Blood 3.1 mmol/L (3.5-5.5); Sodium, Blood 143 mmol/L (136-145)
--- NOTE | 2020-06-05 18:03 | NUR ---
SHIFT SUMMARY ANDRÉS COMPLAINED OF PAIN AND REQUESTED IV MS Q4 HOURS. THIS AND COMPAZINE FOR HER NAUSEA SEEMED TO MAKE HER FEEL MUCH BETTER, SHE WAS ABLE TO EAT A GOOD AMT OF HER PUREED MEALS AND TOOK MOST OF HER PILLS. SBA TO BR, CALLED APPROPRIATELY. MIVF STILL RUNNING. WCTM
[2020-06-06 04:35] LABS: BASOPHILS ABSOLUTE AUTO 0.04 K/mm3 (0.00-0.23); BASOPHILS PERCENT AUTO 1 % (0-2); EOSINOPHILS ABSOLUTE AUTO 0.26 K/mm3 (0.00-0.68); EOSINOPHILS PERCENT AUTO 3 % (0-6); Hematocrit 39.8 % (33.0-51.0); Hemoglobin 12.9 g/dL (11.5-16.0); IMMATURE GRAN ABSOLUTE AUTO 0.01 K/mm3 (0.00-0.10); IMMATURE GRAN PERCENT AUTO 0 % (0-1); LYMPHOCYTES ABSOLUTE AUTO 3.19 K/mm3 (0.84-5.20); LYMPHOCYTES PERCENT AUTO 41 % (21-46); MONOCYTES ABSOLUTE AUTO 0.55 K/mm3 (0.16-1.47); MONOCYTES PERCENT AUTO 7 % (4-13); Mean Corpuscular HGB 28.4 pg (26.0-34.0); Mean Corpuscular HGB Conc 32.4 g/dL (31.5-36.5); Mean Corpuscular Volume 88 fL (80-100); Mean Platelet Volume 10.5 fL (9.1-12.4); NEUTROPHILS ABSOLUTE AUTO 3.68 K/mm3 (1.96-9.15); NEUTROPHILS PERCENT AUTO 48 % (41-73); Platelet Count 261 K/mm3 (150-400); RDW Coefficient Variation 12.5 % (11.7-14.2); RDW Standard Deviation 39.9 fL (35.1-46.3); Red Blood Cell Count 4.55 M/mm3 (3.80-5.20); White Blood Cell Count 7.73 K/mm3 (4.00-11.30)
[2020-06-06 04:57] LABS: Alanine Aminotransfer (ALT/SGP 15 U/L (12-78); Albumin, Blood 2.8 g/dL (3.4-5.0); Albumin/Globulin Ratio 0.9 (0.8-1.8); Alk Phos 95 U/L (50-136); Anion Gap 4 mmol/L (6-16); Aspartate Aminotrans (AST/SGOT 7 U/L (12-37); Bilirubin, Total 0.3 mg/dL (0.1-1.0); Blood Urea Nitrogen 10 mg/dL (8-24); Bun/Creatinine Ratio 12.6 (12.0-20.0); CO2, Blood 30 mmol/L (21-32); Calcium, Blood 8.4 mg/dL (8.5-10.1); Chloride, Blood 108 mmol/L (98-108); Creatinine, Blood 0.79 mg/dL (0.40-1.00); Glomerular Filtration Rate >60 (60-); Glucose, Blood 136 mg/dL (70-99); Potassium, Blood 3.6 mmol/L (3.5-5.5); Sodium, Blood 142 mmol/L (136-145); Total Protein, Blood 5.8 g/dL (6.4-8.2)
--- NOTE | 2020-06-06 05:29 | NUR ---
SHIFT SUMMARY NO ACUTE CHANGES THIS SHIFT. PT TOLERATED PO MEDS WELL. MEDICATED X1 FOR NAUSEA WITH SCHEDULED REGLAN. MEDICATED FOR PAIN X1 PER OCT. PT SLEPT WELL T/O NIGHT. PT IS LAYING IN BED WITH EYES CLOSED, EVEN AND UNLABORED RESPIRATIONS. BED IN LOWERED POSITION WITH CALL LIGHT AND PERSONAL ITEMS WITHIN REACH. NO APPARENT NEEDS OR DISTRESS AT THIS TIME, WILL CONTINUE TO MONITOR UNTIL REPORT GIVEN TO DAY RN.
--- NOTE | 2020-06-06 12:29 | NUR ---
Supportive visit this afternoon. Spoke with Bedside RN Greg prior to Pt visit, discussed case and concerns. Greg reports Pt may benefit from counseling. Pt sitting on edge of bed eating her lunch upon arrival. Pt reports a tolerable 4/10 pain. Pt denies dyspnea at this time. Pt reports nausea has improved. Engaged in therapeutic listening as Pt reports feeling over all better but does not want to D/C to soon. Pt reports being D/C home too soon during last hospital stay and ended being readmitted to hospital. Continued therapeutic listening and answered questions. Suggested the importance of starting her home pain medication regimen and relying less on the IV pain medication. Pt does not provided response or insight to suggestion. Ended visit to allow Pt to eat her lunch. Palliative Care will remain available.
--- NOTE | 2020-06-06 15:30 | NUR ---
SHIFT SUMMARY PT IS A/O X 4 WITH ONGOING COMPLAINTS OF PAIN, NAUSEA AND MALAISE. HER MOOD IS FLAT. SHE IS IND IN HER ROOM AND HAS BEEN UP WALKING AROUND. HER IV WAS NOT PATENT AND THE DR WAS NOTIFIED AND GAVE AN ORDER FOR NO IV ACCESS AND DCD HER IV FLUIDS. PT DIET WAS ADVANCED TO SOFT FOODS AND SHE TOLERATES IT WELL. PALLIATIVE CARE MET WITH HER THIS MORNING TO DISCUSS HER DIAGNOSIS AND DC PLAN. PT IS ABLE TO MAKE HER NEEDS KNOWN AND CALLS FOR HELP WHEN NEEDED.
--- NOTE | 2020-06-07 06:46 | NUR ---
06/07/20 0600 BIPAP ON LAST NIGHT. PT STATED SHE SLEPT WELL. VITALS STABLE. MEDICATED FOR UPPER ABDOMINAL DISCOMFORT PER MAR.
[2020-06-07] MEDS ORDERED: DOCUZEN 8.6-501 EACH PO (11:34)
[2020-06-07] MEDS ORDERED: ONDA4ODT MM (11:35)
[2020-06-07] MEDS ORDERED: MIRALAX17 GM PO (11:36)
[2020-06-07] MEDS ORDERED: TRAZ100 PO (11:36)
[2020-06-07] MEDS ORDERED: METO10 PO (11:37)
--- NOTE | 2020-06-07 13:38 | NUR ---
Spiritual care visit conducted. Patient is sitting on EOB and in street clothes. Patient explains that she should be released soon and that she is in a better place spiritually than when she arrived and that she has been able to eat food and not throw it back up. She talks about her home and the cat she lives with. We discuss family and support systems. I reinforce helpful attitudes and practices, encourage self care and provide prayer. Patient responds well and voices appreciation for the time and care given.
== END 2020-06-07 13:08 | disposition home or self-care (01) ==
LOC: ER 13:45 → EOR 13:46 → MEDS 13:46 → EOR 13:46 → MEDS 22:37
PROVIDERS: Emergency Medicine; Family Medicine; Hospitalist; Nurse Practitioner Acute Care; ADMIT Internal Medicine
DX: F33.9 Major depressive disorder, recurrent, unspecified (principal); F19.10 Other psychoactive substance abuse, uncomplicated; R45.851 Suicidal ideations; R11.2 Nausea with vomiting, unspecified; E11.65 Type 2 diabetes mellitus with hyperglycemia; E11.40 Type 2 diabetes mellitus with diabetic neuropathy, unspecified; I10 Essential (primary) hypertension; E03.9 Hypothyroidism, unspecified; G47.00 Insomnia, unspecified; E78.5 Hyperlipidemia, unspecified; I25.10 Atherosclerotic heart disease of native coronary artery without angina pectoris; G89.4 Chronic pain syndrome; E11.69 Type 2 diabetes mellitus with other specified complication; M86.8X7 Other osteomyelitis, ankle and foot; G47.33 Obstructive sleep apnea (adult) (pediatric); K21.00 Gastro-esophageal reflux disease with esophagitis, without bleeding; I95.9 Hypotension, unspecified; E11.43 Type 2 diabetes mellitus with diabetic autonomic (poly)neuropathy; K31.84 Gastroparesis; K86.1 Other chronic pancreatitis; E11.621 Type 2 diabetes mellitus with foot ulcer; L97.514 Non-pressure chronic ulcer of other part of right foot with necrosis of bone; E66.01 Morbid (severe) obesity due to excess calories; Z68.38 Body mass index [BMI] 38.0-38.9, adult; Z79.891 Long term (current) use of opiate analgesic; Z88.0 Allergy status to penicillin; Z88.2 Allergy status to sulfonamides; Z79.4 Long term (current) use of insulin; Z79.82 Long term (current) use of aspirin; Z79.899 Other long term (current) drug therapy; Z87.891 Personal history of nicotine dependence; Z90.710 Acquired absence of both cervix and uterus; Z90.49 Acquired absence of other specified parts of digestive tract; Z23 Encounter for immunization; Z51.5 Encounter for palliative care
CPT/HCPCS: 36415; 74177; 80048; 80053; 81001; 82150; 82947; 83690; 83735; 84100; 84443; 84484; 85025; 85651; 86140; 87086; 93005; 93010; 94660; 99285-25; A9270; A9270-GY; C9113; G0480; J0780; J1170; J1650; J2270; J2405; J2765; J3010; J3480; J7120; Q3014; Q9967

== ENCOUNTER → 2020-08-20 | Outpatient (CLI) | payer OTHER ==
[~2020-08-20] MED LIST changes: -ATOR40TA PO; +BELSOMRA10 MG PO; +DOCUZEN 8.6-501 EACH PO; +FLUC150A PO; +LEVOCETIRIZINE D5 MG PO; +MIRALAX17 GM PO; +OLAN5A MM; +OXYC10TA19 PO; +OZEMPIC0.25 MG/0. SC; +Reglan10 MG PO; +TRAZ100 PO; +TRULICITY1.5 MG/0.1 SC
[2020-08-20 15:01] LABS: BASOPHILS ABSOLUTE AUTO 0.06 K/mm3 (0.00-0.23); BASOPHILS PERCENT AUTO 1 % (0-2); EOSINOPHILS ABSOLUTE AUTO 0.58 K/mm3 (0.00-0.68); EOSINOPHILS PERCENT AUTO 7 % (0-6); Hematocrit 44.2 % (33.0-51.0); Hemoglobin 14.9 g/dL (11.5-16.0); IMMATURE GRAN ABSOLUTE AUTO 0.03 K/mm3 (0.00-0.10); IMMATURE GRAN PERCENT AUTO 0 % (0-1); LYMPHOCYTES ABSOLUTE AUTO 2.16 K/mm3 (0.84-5.20); LYMPHOCYTES PERCENT AUTO 26 % (21-46); MONOCYTES ABSOLUTE AUTO 0.35 K/mm3 (0.16-1.47); MONOCYTES PERCENT AUTO 4 % (4-13); Mean Corpuscular HGB 29.6 pg (26.0-34.0); Mean Corpuscular HGB Conc 33.7 g/dL (31.5-36.5); Mean Corpuscular Volume 88 fL (80-100); Mean Platelet Volume 9.9 fL (9.1-12.4); NEUTROPHILS ABSOLUTE AUTO 5.09 K/mm3 (1.96-9.15); NEUTROPHILS PERCENT AUTO 62 % (41-73); Platelet Count 290 K/mm3 (150-400); RDW Coefficient Variation 12.4 % (11.7-14.2); RDW Standard Deviation 39.5 fL (35.1-46.3); Red Blood Cell Count 5.03 M/mm3 (3.80-5.20); White Blood Cell Count 8.27 K/mm3 (4.00-11.30)
[2020-08-20 15:14] LABS: Albumin, Blood 3.8 g/dL (3.4-5.0); Bilirubin, Total 0.6 mg/dL (0.1-1.0); Calcium, Blood 9.2 mg/dL (8.5-10.1); Creatinine, Blood 1.29 mg/dL (0.40-1.00); Globulin, Blood 3.7 g/dL (2.2-4.0); Potassium, Blood 4.7 mmol/L (3.5-5.5); Total Protein, Blood 7.5 g/dL (6.4-8.2)
== END | disposition home or self-care (01) ==
LOC: LAB EV 14:54 → LAB SHORT 14:54
PROVIDERS: Chiropractor
DX: R33.9 Retention of urine, unspecified (principal)
CPT/HCPCS: 80053; 85025

== ENCOUNTER → 2020-08-21 | Outpatient (CLI) | payer OTHER ==
[2020-08-21 14:18] LABS: Bun/Creatinine Ratio 18.5 (12.0-20.0); Calcium, Blood 9.4 mg/dL (8.5-10.1); Creatinine, Blood 1.08 mg/dL (0.40-1.00); Potassium, Blood 4.1 mmol/L (3.5-5.5)
== END | disposition home or self-care (01) ==
LOC: LAB EV 14:08 → LAB SHORT 14:08
PROVIDERS: Physician Assistant
DX: R33.9 Retention of urine, unspecified (principal); R31.9 Hematuria, unspecified
CPT/HCPCS: 80048; 87086

== ENCOUNTER 2020-09-23 14:35 | Emergency (ER) | payer OTHER ==
[~2020-09-23] VITALS: Ht 172.7 cm; Wt 117.9 kg
[~2020-09-23 14:35] MED LIST changes: -Aspirin EC81 MG PO; -BELSOMRA10 MG PO; -FLUC150A PO; -HUMALOG KW100 UNIT/1 SC; -LEVOCETIRIZINE D5 MG PO; -LEVSOD112 PO; -OLAN5A MM; -OXYC10TA19 PO; -OZEMPIC0.25 MG/0. SC; -Reglan10 MG PO; -TRAZ100 PO; -TRULICITY1.5 MG/0.1 SC
[2020-09-23] MEDS ORDERED: LEVOCETIRIZINE D5 MG PO (15:59)
[2020-09-23] MEDS ORDERED: TRULICITY1.5 MG/0.1 SC (15:59)
[2020-09-23 16:12] LABS: BASOPHILS ABSOLUTE AUTO 0.01 K/mm3 (0.00-0.23); BASOPHILS PERCENT AUTO 0 % (0-2); EOSINOPHILS ABSOLUTE AUTO 0.02 K/mm3 (0.00-0.68); EOSINOPHILS PERCENT AUTO 0 % (0-6); Hematocrit 50.4 % (33.0-51.0); Hemoglobin 17.8 g/dL (11.5-16.0); IMMATURE GRAN ABSOLUTE AUTO 0.11 K/mm3 (0.00-0.10); IMMATURE GRAN PERCENT AUTO 1 % (0-1); LYMPHOCYTES ABSOLUTE AUTO 1.42 K/mm3 (0.84-5.20); LYMPHOCYTES PERCENT AUTO 9 % (21-46); MONOCYTES ABSOLUTE AUTO 0.95 K/mm3 (0.16-1.47); MONOCYTES PERCENT AUTO 6 % (4-13); Mean Corpuscular HGB 29.1 pg (26.0-34.0); Mean Corpuscular HGB Conc 35.3 g/dL (31.5-36.5); Mean Corpuscular Volume 83 fL (80-100); NEUTROPHILS ABSOLUTE AUTO 13.48 K/mm3 (1.96-9.15); NEUTROPHILS PERCENT AUTO 84 % (41-73); RDW Coefficient Variation 11.7 % (11.7-14.2); Red Blood Cell Count 6.11 M/mm3 (3.80-5.20); White Blood Cell Count 15.99 K/mm3 (4.00-11.30)
[2020-09-23 16:38] LABS: Mean Platelet Volume 10.1 fL (9.1-12.4); Platelet Count 245 K/mm3 (150-400)
[2020-09-23 17:20] LABS: Alanine Aminotransfer (ALT/SGP 20 U/L (12-78); Albumin, Blood 4.4 g/dL (3.4-5.0); Alk Phos 138 U/L (50-136); Anion Gap 9 mmol/L (6-16); Aspartate Aminotrans (AST/SGOT 13 U/L (12-37); Blood Urea Nitrogen 23 mg/dL (8-24); CO2, Blood 30 mmol/L (21-32); Chloride, Blood 98 mmol/L (98-108); Creatinine, Blood 0.66 mg/dL (0.40-1.00); Globulin, Blood 4.3 g/dL (2.2-4.0); Glomerular Filtration Rate >60 (60-); Glucose, Blood 324 mg/dL (70-99); Potassium, Blood 3.5 mmol/L (3.5-5.5); Sodium, Blood 137 mmol/L (136-145); Total Protein, Blood 8.7 g/dL (6.4-8.2)
[2020-09-23] MEDS ORDERED: PROC25S PR (20:03)
== END 2020-09-23 20:17 | disposition home or self-care (01) ==
LOC: ER 14:35
PROVIDERS: Emergency Medicine
DX: K20.90 Esophagitis, unspecified without bleeding (principal); K59.00 Constipation, unspecified; E11.40 Type 2 diabetes mellitus with diabetic neuropathy, unspecified; I10 Essential (primary) hypertension; K21.9 Gastro-esophageal reflux disease without esophagitis; E78.5 Hyperlipidemia, unspecified; Z88.0 Allergy status to penicillin; Z88.2 Allergy status to sulfonamides; Z79.899 Other long term (current) drug therapy; Z79.4 Long term (current) use of insulin; Z79.82 Long term (current) use of aspirin; Z87.891 Personal history of nicotine dependence
CPT/HCPCS: 36415; 71045; 74177; 80053; 82947; 83690; 85025; 93005; 93010; 96361; 96374-59; 96375; 96376; 99284-25; J0780; J1170; J1200; J1815; J7030; Q9967

== ENCOUNTER 2020-09-26 16:28 | Emergency (ER) | payer OTHER ==
[~2020-09-26] VITALS: Ht 172.7 cm; Wt 117.9 kg
[~2020-09-26 16:28] MED LIST changes: +LEVOCETIRIZINE D5 MG PO; +TRULICITY1.5 MG/0.1 SC
[2020-09-26 17:59] LABS: Alanine Aminotransfer (ALT/SGP 18 U/L (12-78); Alk Phos 137 U/L (50-136); Anion Gap 10 mmol/L (6-16); Aspartate Aminotrans (AST/SGOT 12 U/L (12-37); Blood Urea Nitrogen 29 mg/dL (8-24); Bun/Creatinine Ratio 39.8 (12.0-20.0); CO2, Blood 27 mmol/L (21-32); Calcium, Blood 9.3 mg/dL (8.5-10.1); Chloride, Blood 98 mmol/L (98-108); Creatinine, Blood 0.73 mg/dL (0.40-1.00); Globulin, Blood 4.1 g/dL (2.2-4.0); Glomerular Filtration Rate >60 (60-); Glucose, Blood 277 mg/dL (70-99); Potassium, Blood 3.6 mmol/L (3.5-5.5); Sodium, Blood 135 mmol/L (136-145); Total Protein, Blood 8.1 g/dL (6.4-8.2)
[2020-09-26 18:39] LABS: BASOPHILS ABSOLUTE AUTO 0.05 K/mm3 (0.00-0.23); BASOPHILS PERCENT AUTO 0 % (0-2); EOSINOPHILS ABSOLUTE AUTO 0.03 K/mm3 (0.00-0.68); EOSINOPHILS PERCENT AUTO 0 % (0-6); Hematocrit 49.8 % (33.0-51.0); IMMATURE GRAN ABSOLUTE AUTO 0.05 K/mm3 (0.00-0.10); IMMATURE GRAN PERCENT AUTO 0 % (0-1); LYMPHOCYTES ABSOLUTE AUTO 2.43 K/mm3 (0.84-5.20); LYMPHOCYTES PERCENT AUTO 21 % (21-46); MONOCYTES ABSOLUTE AUTO 0.76 K/mm3 (0.16-1.47); MONOCYTES PERCENT AUTO 6 % (4-13); Mean Corpuscular HGB Conc 34.1 g/dL (31.5-36.5); Mean Corpuscular Volume 85 fL (80-100); NEUTROPHILS ABSOLUTE AUTO 8.53 K/mm3 (1.96-9.15); NEUTROPHILS PERCENT AUTO 72 % (41-73); RDW Coefficient Variation 11.5 % (11.7-14.2); RDW Standard Deviation 35.6 fL (35.1-46.3); Red Blood Cell Count 5.86 M/mm3 (3.80-5.20); White Blood Cell Count 11.85 K/mm3 (4.00-11.30)
[2020-09-26 18:50] LABS: Mean Platelet Volume 9.8 fL (9.1-12.4)
[2020-09-26 18:58] LABS: Platelet Count 483 K/mm3 (150-400)
[2020-09-27] MEDS ORDERED: Reglan10 MG PO (00:47)
== END 2020-09-27 01:04 | disposition home or self-care (01) ==
LOC: ER 16:28
PROVIDERS: Physician Assistant
DX: R10.13 Epigastric pain (principal); R11.2 Nausea with vomiting, unspecified; I10 Essential (primary) hypertension; E03.9 Hypothyroidism, unspecified; E11.40 Type 2 diabetes mellitus with diabetic neuropathy, unspecified; E78.5 Hyperlipidemia, unspecified; Z79.82 Long term (current) use of aspirin; Z79.899 Other long term (current) drug therapy; Z79.4 Long term (current) use of insulin; Z88.0 Allergy status to penicillin; Z88.2 Allergy status to sulfonamides; Z87.891 Personal history of nicotine dependence
CPT/HCPCS: 36415; 80053; 81000; 83690; 85025; 93005; 93010; 96374; 96375; 96376; 99284-25; A9270; J1170; J1200; J2405; J2765; J7120

== ENCOUNTER → 2020-10-13 | Outpatient (CLI) | payer OTHER ==
[~2020-10-13] MED LIST changes: +Aspirin EC81 MG PO; +BELSOMRA10 MG PO; +FLUC150A PO; +HUMALOG KW100 UNIT/1 SC; +LEVSOD112 PO; +OLAN5A MM; +OXYC10TA19 PO; +OZEMPIC0.25 MG/0. SC; +Reglan10 MG PO; +TRAZ100 PO
== END | disposition home or self-care (01) ==
LOC: LAB SHORT 14:10 → LAB 14:10
DX: N39.0 Urinary tract infection, site not specified (principal)
CPT/HCPCS: 87086

== ENCOUNTER 2020-11-06 23:28 | Emergency (ER) | payer OTHER ==
[~2020-11-06] VITALS: Ht 172.7 cm; Wt 109.8 kg
[~2020-11-06 23:28] MED LIST changes: -Aspirin EC81 MG PO; -BELSOMRA10 MG PO; -FLUC150A PO; -HUMALOG KW100 UNIT/1 SC; -LEVSOD112 PO; -OLAN5A MM; -OXYC10TA19 PO; -OZEMPIC0.25 MG/0. SC; -TRAZ100 PO
[2020-11-06 23:54] LABS: BASOPHILS ABSOLUTE AUTO 0.06 K/mm3 (0.00-0.23); BASOPHILS PERCENT AUTO 0 % (0-2); EOSINOPHILS ABSOLUTE AUTO 0.02 K/mm3 (0.00-0.68); EOSINOPHILS PERCENT AUTO 0 % (0-6); IMMATURE GRAN ABSOLUTE AUTO 0.09 K/mm3 (0.00-0.10); IMMATURE GRAN PERCENT AUTO 1 % (0-1); LYMPHOCYTES ABSOLUTE AUTO 1.25 K/mm3 (0.84-5.20); LYMPHOCYTES PERCENT AUTO 9 % (21-46); MONOCYTES ABSOLUTE AUTO 0.25 K/mm3 (0.16-1.47); MONOCYTES PERCENT AUTO 2 % (4-13); Mean Corpuscular HGB 29.6 pg (26.0-34.0); Mean Corpuscular HGB Conc 34.7 g/dL (31.5-36.5); Mean Corpuscular Volume 85 fL (80-100); Mean Platelet Volume 9.6 fL (9.1-12.4); NEUTROPHILS ABSOLUTE AUTO 12.36 K/mm3 (1.96-9.15); NEUTROPHILS PERCENT AUTO 88 % (41-73); Platelet Count 377 K/mm3 (150-400); RDW Coefficient Variation 12.1 % (11.7-14.2); RDW Standard Deviation 37.8 fL (35.1-46.3); Red Blood Cell Count 5.74 M/mm3 (3.80-5.20); White Blood Cell Count 14.03 K/mm3 (4.00-11.30)
[2020-11-07 00:06] LABS: Alanine Aminotransfer (ALT/SGP 25 U/L (12-78); Albumin, Blood 4.4 g/dL (3.4-5.0); Alk Phos 134 U/L (50-136); Anion Gap 10 mmol/L (6-16); Aspartate Aminotrans (AST/SGOT 10 U/L (12-37); Bilirubin, Total 0.9 mg/dL (0.1-1.0); Blood Urea Nitrogen 15 mg/dL (8-24); Bun/Creatinine Ratio 25.9 (12.0-20.0); CO2, Blood 25 mmol/L (21-32); Calcium, Blood 9.5 mg/dL (8.5-10.1); Chloride, Blood 100 mmol/L (98-108); Creatinine, Blood 0.58 mg/dL (0.40-1.00); Ethanol (Alcohol), Blood, Med <3 mg/dL; Globulin, Blood 4.6 g/dL (2.2-4.0); Glomerular Filtration Rate >60 (60-); Glucose, Blood 327 mg/dL (70-99); Potassium, Blood 4.8 mmol/L (3.5-5.5); Sodium, Blood 135 mmol/L (136-145)
[2020-11-07 00:20] LABS: Source, Urine Clean Catch
[2020-11-07 00:24] LABS: Bilirubin, Urine Neg (Neg); Blood, Urine Neg (Neg); Glucose Qualitative, Urine Neg (Neg); Ketones, Urine Neg (Neg); Leukocyte Esterase, Urine Neg (Neg); Nitrite, Urine Neg (Neg); Protein, Urine 1+ (Neg); Specific Gravity, Urine 1.015 (1.003-1.022); Urobilinogen, Urine NORM (Normal)
[2020-11-07 00:38] LABS: Appearance, Urine Clear (Clear); Color, Urine Yellow (P-Yellow)
== END 2020-11-07 04:47 | disposition home or self-care (01) ==
LOC: ER 23:28
PROVIDERS: Emergency Medicine
DX: R10.9 Unspecified abdominal pain (principal); R11.2 Nausea with vomiting, unspecified; K21.9 Gastro-esophageal reflux disease without esophagitis; I25.810 Atherosclerosis of coronary artery bypass graft(s) without angina pectoris; E11.40 Type 2 diabetes mellitus with diabetic neuropathy, unspecified; E78.5 Hyperlipidemia, unspecified; E03.9 Hypothyroidism, unspecified; Z88.0 Allergy status to penicillin; Z88.2 Allergy status to sulfonamides; Z79.4 Long term (current) use of insulin; Z79.899 Other long term (current) drug therapy; Z87.891 Personal history of nicotine dependence
CPT/HCPCS: 74176; 80053; 83690; 85025; 96361; 96374; 96375; 96376; 99285-25; A9270; G0480; J1170; J2405; J7030

== ENCOUNTER 2020-11-08 19:19 | Observation (INO) | payer OTHER ==
[~2020-11-08] VITALS: Ht 172.7 cm; Wt 111.6 kg
[2020-11-08 20:13] LABS: BASOPHILS ABSOLUTE AUTO 0.05 K/mm3 (0.00-0.23); BASOPHILS PERCENT AUTO 0 % (0-2); EOSINOPHILS PERCENT AUTO 0 % (0-6); Hematocrit 49.4 % (33.0-51.0); Hemoglobin 16.7 g/dL (11.5-16.0); IMMATURE GRAN PERCENT AUTO 1 % (0-1); LYMPHOCYTES ABSOLUTE AUTO 2.12 K/mm3 (0.84-5.20); LYMPHOCYTES PERCENT AUTO 11 % (21-46); MONOCYTES ABSOLUTE AUTO 0.92 K/mm3 (0.16-1.47); MONOCYTES PERCENT AUTO 5 % (4-13); Mean Corpuscular HGB 28.8 pg (26.0-34.0); Mean Corpuscular HGB Conc 33.8 g/dL (31.5-36.5); Mean Corpuscular Volume 85 fL (80-100); Mean Platelet Volume 9.4 fL (9.1-12.4); NEUTROPHILS ABSOLUTE AUTO 16.83 K/mm3 (1.96-9.15); NEUTROPHILS PERCENT AUTO 84 % (41-73); Platelet Count 423 K/mm3 (150-400); RDW Coefficient Variation 12.1 % (11.7-14.2); RDW Standard Deviation 37.6 fL (35.1-46.3); Red Blood Cell Count 5.79 M/mm3 (3.80-5.20); White Blood Cell Count 20.02 K/mm3 (4.00-11.30)
[2020-11-08 20:28] LABS: Alanine Aminotransfer (ALT/SGP 22 U/L (12-78); Albumin, Blood 4.2 g/dL (3.4-5.0); Alk Phos 131 U/L (50-136); Anion Gap 10 mmol/L (6-16); Aspartate Aminotrans (AST/SGOT 10 U/L (12-37); Bilirubin, Total 1.8 mg/dL (0.1-1.0); Blood Urea Nitrogen 26 mg/dL (8-24); Bun/Creatinine Ratio 42.8 (12.0-20.0); CO2, Blood 26 mmol/L (21-32); Calcium, Blood 9.6 mg/dL (8.5-10.1); Chloride, Blood 95 mmol/L (98-108); Creatinine, Blood 0.61 mg/dL (0.40-1.00); Globulin, Blood 4.4 g/dL (2.2-4.0); Glomerular Filtration Rate >60 (60-); Glucose, Blood 312 mg/dL (70-99); Sodium, Blood 131 mmol/L (136-145); Total Protein, Blood 8.6 g/dL (6.4-8.2)
[2020-11-09 00:50] LABS: Source, Urine Clean Catch
[2020-11-09 00:54] LABS: Appearance, Urine Hazy (Clear); Bilirubin, Urine Neg (Neg); Blood, Urine 4+ (Neg); Color, Urine Yellow (P-Yellow); Glucose Qualitative, Urine 4+ (Neg); Ketones, Urine 4+ (Neg); Leukocyte Esterase, Urine 2+ (Neg); Nitrite, Urine Pos (Neg); Protein, Urine 3+ (Neg); Urobilinogen, Urine NORM (Normal)
[2020-11-09 01:04] LABS: Bacteria Many /hpf; Squamous Epithelial Cells Few /hpf (Few); White Blood Cells, Urine 50-100 /hpf (0-5); Yeast/Fungi Urine Mod /hpf
--- NOTE | 2020-11-09 03:30 | NUR ---
ASSUMED CARE RECEIVED REPORT FROM HOMAR HENRY. PT RESTING QUIETLY, IN NO ACUTE DISTRESS. DENIES NEEDS AT THIS TIME. CALL LIGHT, POSSESSIONS IN REACH.
[2020-11-09 04:41] LABS: BASOPHILS ABSOLUTE AUTO 0.05 K/mm3 (0.00-0.23); BASOPHILS PERCENT AUTO 0 % (0-2); EOSINOPHILS ABSOLUTE AUTO 0.01 K/mm3 (0.00-0.68); EOSINOPHILS PERCENT AUTO 0 % (0-6); Hematocrit 46.2 % (33.0-51.0); Hemoglobin 15.6 g/dL (11.5-16.0); IMMATURE GRAN ABSOLUTE AUTO 0.07 K/mm3 (0.00-0.10); IMMATURE GRAN PERCENT AUTO 0 % (0-1); LYMPHOCYTES ABSOLUTE AUTO 3.86 K/mm3 (0.84-5.20); LYMPHOCYTES PERCENT AUTO 23 % (21-46); MONOCYTES ABSOLUTE AUTO 1.31 K/mm3 (0.16-1.47); MONOCYTES PERCENT AUTO 8 % (4-13); Mean Corpuscular HGB 29.6 pg (26.0-34.0); Mean Corpuscular HGB Conc 33.8 g/dL (31.5-36.5); Mean Corpuscular Volume 88 fL (80-100); Mean Platelet Volume 9.5 fL (9.1-12.4); NEUTROPHILS ABSOLUTE AUTO 11.38 K/mm3 (1.96-9.15); NEUTROPHILS PERCENT AUTO 68 % (41-73); Platelet Count 327 K/mm3 (150-400); RDW Coefficient Variation 11.9 % (11.7-14.2); RDW Standard Deviation 38.3 fL (35.1-46.3); Red Blood Cell Count 5.27 M/mm3 (3.80-5.20); White Blood Cell Count 16.68 K/mm3 (4.00-11.30)
[2020-11-09 05:06] LABS: Alanine Aminotransfer (ALT/SGP 18 U/L (12-78); Albumin, Blood 3.6 g/dL (3.4-5.0); Alk Phos 107 U/L (50-136); Anion Gap 9 mmol/L (6-16); Aspartate Aminotrans (AST/SGOT 10 U/L (12-37); Bilirubin, Total 1.3 mg/dL (0.1-1.0); Blood Urea Nitrogen 31 mg/dL (8-24); Bun/Creatinine Ratio 38.6 (12.0-20.0); CO2, Blood 24 mmol/L (21-32); Calcium, Blood 8.6 mg/dL (8.5-10.1); Chloride, Blood 99 mmol/L (98-108); Globulin, Blood 3.7 g/dL (2.2-4.0); Glomerular Filtration Rate >60 (60-); Glucose, Blood 268 mg/dL (70-99); Potassium, Blood 3.3 mmol/L (3.5-5.5); Sodium, Blood 132 mmol/L (136-145); Total Protein, Blood 7.3 g/dL (6.4-8.2)
--- NOTE | 2020-11-09 07:19 | NUR ---
SOFTWARE SYSTEMS ANALYST SUMMARY PT RESTING, IN NO ACUTE DISTRESS, VS REVIEWED WNL. GARY CATHETER CHANGED, PATENT AND DRAINING TO GRAVITY, U/A PENDING. SHOWER DONE. NO ACUTE CHANGES NOTED FROM INITIAL ASSESSMENT. PT DENIES PAIN OR NEEDS AT THIS TIME. CALL LIGHT, POSSESSIONS IN REACH, BED IN LOW POSITION. REPORT GIVEN TO ONCOMING RN.
--- NOTE | 2020-11-09 12:12 | NUR ---
CARE COORDINATION REFERRAL - ADMIT: 11/08/20 DISCHARGE: 11/09/20 DX: DIABETIC GASTROAPARESIS CC: [email or web address] ADMIT: 06/03/20 DISCHARGE: 06/08/20 ADMIT: 05/24/20 DISCHARGE: 05/26/20 ADMIT: 05/10/20 DISCHARGE: 05/12/20 ADMIT: 05/06/20 DISCHARGE 05/09/20 ADMIT: 03/03/20 DISCHARGE: 03/09/20 ADMIT: 01/11/20 DISCHARGE: ADMIT: 12/28/19 DISCHARGE: 01/04/20 ADMIT: 10/30/19 DISCHARGE: 11/06/19 ADMIT: 10/26/19 DISCHARGE: 10/28/2019 ADMIT: 08/25/19 DISCHARGE:08/27/19 KAILASH CALL: PT AT HOME RESIDENCE: HOME, LIVES NEXT DOOR TO NEPHEW. CAREGIVER: CAROLANN JOHNSON, (CHILD), CHANNING JOHNSON, (FAMILY MEMBER), DX: HTN, CKD-STAGE 3, CHRONIC PANCREATITIS, DM-TYPE 2, SEE LIST DME: DM SUPPLIES, DIABETIC SHOES, WOUND CARE SUPPLIES CCM:CURRENT PATIENT- 01/13/20 NOT BEING SEEN AT THIS TIME, ON HOME HEALTH HOME HEALTH:06/07/20 RESUMED HOME HEALTH WITH [facility] FOR WOUND CARE AND PT SUMMARY: ADMIT: 11/08/20 11/09/20- PER CHART REVIEW WITH DR. HARVEY, PT IS STABLE TO D/C HOME. MET WITH PT AND REVIEWED KAILASH LETTER. PT ACKNOWLEDGED UNDERSTANDING. SHE WILL CALL HER SON FOR TRANSPORTATION HOME. PT DID NOT IDENTIFY ANY NEEDS AT THIS TIME. -ASPEN
[2020-11-09] MEDS ORDERED: CEFD300 PO (15:03)
--- NOTE | 2020-11-09 15:48 | NUR ---
Patient is sitting on the EOB with a barf bag and vomiting. She tells me that she is going home but is still feeling horrible. She also shares about her spiritual distress. I provide therapeutic listening, pastoral counseling services director and prayer. Patient responds well and voices appreciation for the visit.
[2020-11-10] MEDS ORDERED: FLUC150A PO (16:50)
== END 2020-11-09 15:49 | disposition home or self-care (01) ==
LOC: ER 19:19 → PCU 19:20
PROVIDERS: Physician Assistant; ADMIT Internal Medicine
DX: E11.43 Type 2 diabetes mellitus with diabetic autonomic (poly)neuropathy (principal); K31.84 Gastroparesis; G47.33 Obstructive sleep apnea (adult) (pediatric); E11.65 Type 2 diabetes mellitus with hyperglycemia; I10 Essential (primary) hypertension; I25.10 Atherosclerotic heart disease of native coronary artery without angina pectoris; E03.9 Hypothyroidism, unspecified; E78.5 Hyperlipidemia, unspecified; K21.9 Gastro-esophageal reflux disease without esophagitis; F32.9 Major depressive disorder, single episode, unspecified; Z87.891 Personal history of nicotine dependence; Z79.4 Long term (current) use of insulin; Z88.0 Allergy status to penicillin; Z88.2 Allergy status to sulfonamides
CPT/HCPCS: 36415; 51702; 76705; 80053; 81001; 82947; 83690; 85025; 87077; 87086; 87186; 94660; 96372; 96374; 96375; 96376; 99285-25; A9270; C1751; C9113; G0008; G0378; J0696; J1650; J1790; J2405; J7030; Q2038

== ENCOUNTER 2020-11-10 14:08 | Emergency (ER) | payer OTHER ==
[~2020-11-10] VITALS: Ht 170.2 cm; Wt 108.9 kg
[2020-11-10 14:45] LABS: Source, Urine Catheter
[2020-11-10 15:06] LABS: BASOPHILS ABSOLUTE AUTO 0.05 K/mm3 (0.00-0.23); BASOPHILS PERCENT AUTO 0 % (0-2); EOSINOPHILS ABSOLUTE AUTO 0.02 K/mm3 (0.00-0.68); EOSINOPHILS PERCENT AUTO 0 % (0-6); Hematocrit 45.9 % (33.0-51.0); Hemoglobin 15.8 g/dL (11.5-16.0); IMMATURE GRAN ABSOLUTE AUTO 0.06 K/mm3 (0.00-0.10); IMMATURE GRAN PERCENT AUTO 1 % (0-1); LYMPHOCYTES ABSOLUTE AUTO 2.14 K/mm3 (0.84-5.20); LYMPHOCYTES PERCENT AUTO 18 % (21-46); MONOCYTES ABSOLUTE AUTO 0.65 K/mm3 (0.16-1.47); MONOCYTES PERCENT AUTO 6 % (4-13); Mean Corpuscular HGB 29.3 pg (26.0-34.0); Mean Corpuscular HGB Conc 34.4 g/dL (31.5-36.5); Mean Corpuscular Volume 85 fL (80-100); NEUTROPHILS ABSOLUTE AUTO 8.71 K/mm3 (1.96-9.15); NEUTROPHILS PERCENT AUTO 75 % (41-73); Platelet Count 363 K/mm3 (150-400); RDW Coefficient Variation 11.9 % (11.7-14.2); RDW Standard Deviation 36.4 fL (35.1-46.3); White Blood Cell Count 11.63 K/mm3 (4.00-11.30)
[2020-11-10 15:12] LABS: Appearance, Urine Hazy (Clear); Bilirubin, Urine Neg (Neg); Blood, Urine 2+ (Neg); Color, Urine Yellow (P-Yellow); Glucose Qualitative, Urine 3+ (Neg); Ketones, Urine 4+ (Neg); Leukocyte Esterase, Urine 1+ (Neg); Nitrite, Urine Neg (Neg); Protein, Urine 2+ (Neg); Urobilinogen, Urine NORM (Normal)
[2020-11-10 15:53] LABS: Bacteria Few /hpf; Squamous Epithelial Cells Mod /hpf (Few); Yeast/Fungi Urine Few /hpf
[2020-11-10 16:17] LABS: Alanine Aminotransfer (ALT/SGP 17 U/L (12-78); Albumin, Blood 3.8 g/dL (3.4-5.0); Alk Phos 111 U/L (50-136); Anion Gap 10 mmol/L (6-16); Aspartate Aminotrans (AST/SGOT 6 U/L (12-37); Bilirubin, Total 1.1 mg/dL (0.1-1.0); Blood Urea Nitrogen 29 mg/dL (8-24); Bun/Creatinine Ratio 44.3 (12.0-20.0); CO2, Blood 25 mmol/L (21-32); Calcium, Blood 9.1 mg/dL (8.5-10.1); Chloride, Blood 99 mmol/L (98-108); Creatinine, Blood 0.65 mg/dL (0.40-1.00); Globulin, Blood 3.8 g/dL (2.2-4.0); Glomerular Filtration Rate >60 (60-); Glucose, Blood 274 mg/dL (70-99); Potassium, Blood 3.8 mmol/L (3.5-5.5); Sodium, Blood 134 mmol/L (136-145); Total Protein, Blood 7.6 g/dL (6.4-8.2)
[2020-11-10] MEDS ORDERED: FLUC150A PO (16:50)
== END 2020-11-10 18:58 | disposition home or self-care (01) ==
LOC: ER 14:08
PROVIDERS: Emergency Medicine; Physician Assistant
DX: R11.2 Nausea with vomiting, unspecified (principal); E11.40 Type 2 diabetes mellitus with diabetic neuropathy, unspecified; E03.9 Hypothyroidism, unspecified; E78.5 Hyperlipidemia, unspecified; Z88.0 Allergy status to penicillin; Z88.2 Allergy status to sulfonamides; Z79.899 Other long term (current) drug therapy; Z87.891 Personal history of nicotine dependence
CPT/HCPCS: 36415; 80053; 81001; 83690; 85025; 87077; 87086; 87186; 96361; 96365; 96375; 99284-25; J0696; J0780; J1170; J1200; J2405; J7030

== ENCOUNTER 2020-11-14 13:33 | Emergency (ER) | payer OTHER ==
[~2020-11-14] VITALS: Ht 172.7 cm; Wt 124.7 kg
[~2020-11-14 13:33] MED LIST changes: +FLUC150A PO
[2020-11-14 15:03] LABS: BASOPHILS ABSOLUTE AUTO 0.05 K/mm3 (0.00-0.23); BASOPHILS PERCENT AUTO 0 % (0-2); EOSINOPHILS ABSOLUTE AUTO 0.07 K/mm3 (0.00-0.68); EOSINOPHILS PERCENT AUTO 1 % (0-6); Hematocrit 46.9 % (33.0-51.0); Hemoglobin 16.3 g/dL (11.5-16.0); IMMATURE GRAN ABSOLUTE AUTO 0.07 K/mm3 (0.00-0.10); IMMATURE GRAN PERCENT AUTO 1 % (0-1); LYMPHOCYTES ABSOLUTE AUTO 2.41 K/mm3 (0.84-5.20); LYMPHOCYTES PERCENT AUTO 20 % (21-46); MONOCYTES ABSOLUTE AUTO 0.69 K/mm3 (0.16-1.47); MONOCYTES PERCENT AUTO 6 % (4-13); Mean Corpuscular HGB 29.5 pg (26.0-34.0); Mean Corpuscular HGB Conc 34.8 g/dL (31.5-36.5); Mean Corpuscular Volume 85 fL (80-100); Mean Platelet Volume 9.7 fL (9.1-12.4); NEUTROPHILS ABSOLUTE AUTO 8.99 K/mm3 (1.96-9.15); NEUTROPHILS PERCENT AUTO 73 % (41-73); Platelet Count 369 K/mm3 (150-400); RDW Coefficient Variation 11.7 % (11.7-14.2); RDW Standard Deviation 36.1 fL (35.1-46.3); Red Blood Cell Count 5.52 M/mm3 (3.80-5.20); White Blood Cell Count 12.28 K/mm3 (4.00-11.30)
[2020-11-14 15:27] LABS: Alanine Aminotransfer (ALT/SGP 14 U/L (12-78); Albumin, Blood 3.8 g/dL (3.4-5.0); Albumin/Globulin Ratio 1.1 (0.8-1.8); Alk Phos 111 U/L (50-136); Anion Gap 13 mmol/L (6-16); Aspartate Aminotrans (AST/SGOT 12 U/L (12-37); Bilirubin, Total 1.1 mg/dL (0.1-1.0); Blood Urea Nitrogen 24 mg/dL (8-24); Bun/Creatinine Ratio 33.5 (12.0-20.0); CO2, Blood 26 mmol/L (21-32); Calcium, Blood 9.1 mg/dL (8.5-10.1); Chloride, Blood 93 mmol/L (98-108); Creatinine, Blood 0.72 mg/dL (0.40-1.00); Globulin, Blood 3.6 g/dL (2.2-4.0); Glomerular Filtration Rate >60 (60-); Glucose, Blood 258 mg/dL (70-99); Potassium, Blood 3.1 mmol/L (3.5-5.5); Sodium, Blood 132 mmol/L (136-145); Total Protein, Blood 7.4 g/dL (6.4-8.2)
[2020-11-14 16:36] LABS: Source, Urine Clean Catch
[2020-11-14 16:52] LABS: Bilirubin, Urine Neg (Neg); Blood, Urine 1+ (Neg); Glucose Qualitative, Urine 4+ (Neg); Ketones, Urine 4+ (Neg); Leukocyte Esterase, Urine 2+ (Neg); Nitrite, Urine Neg (Neg); Protein, Urine Neg (Neg); Urobilinogen, Urine NORM (Normal)
[2020-11-14 17:04] LABS: Appearance, Urine Clear (Clear); Color, Urine Pale Yellow (P-Yellow)
[2020-11-14 17:06] LABS: Bacteria Few /hpf; Red Blood Cells, Urine 0-2 /hpf (0-2); Squamous Epithelial Cells Few /hpf (Few)
[2020-11-14 17:07] LABS: Yeast/Fungi Urine Many /hpf
== END 2020-11-14 18:39 | disposition home or self-care (01) ==
LOC: ER 13:33
PROVIDERS: Physician Assistant
DX: R11.2 Nausea with vomiting, unspecified (principal); E11.40 Type 2 diabetes mellitus with diabetic neuropathy, unspecified; K21.9 Gastro-esophageal reflux disease without esophagitis; E78.5 Hyperlipidemia, unspecified; I25.10 Atherosclerotic heart disease of native coronary artery without angina pectoris; Z88.0 Allergy status to penicillin; Z88.2 Allergy status to sulfonamides; Z79.4 Long term (current) use of insulin; Z87.891 Personal history of nicotine dependence; Z79.899 Other long term (current) drug therapy
CPT/HCPCS: 36415; 74177; 80053; 81001; 83690; 85025; 87077; 87086; 87106; 87186; 93005; 93010; 96374-59; 96375; 99284-25; J0780; J2270; J2405; J7030; Q9967

== ENCOUNTER → 2020-11-16 | Outpatient (CLI) | payer OTHER ==
[~2020-11-16] MED LIST changes: +Aspirin EC81 MG PO; +BELSOMRA10 MG PO; +HUMALOG KW100 UNIT/1 SC; +LEVSOD112 PO; +OXYC10TA19 PO; +OZEMPIC0.25 MG/0. SC; +TRAZ100 PO
[2020-11-16 12:09] LABS: BASOPHILS ABSOLUTE AUTO 0.05 K/mm3 (0.00-0.23); BASOPHILS PERCENT AUTO 1 % (0-2); EOSINOPHILS ABSOLUTE AUTO 0.06 K/mm3 (0.00-0.68); EOSINOPHILS PERCENT AUTO 1 % (0-6); Hematocrit 47.8 % (33.0-51.0); Hemoglobin 16.9 g/dL (11.5-16.0); IMMATURE GRAN ABSOLUTE AUTO 0.05 K/mm3 (0.00-0.10); IMMATURE GRAN PERCENT AUTO 1 % (0-1); LYMPHOCYTES ABSOLUTE AUTO 2.24 K/mm3 (0.84-5.20); LYMPHOCYTES PERCENT AUTO 22 % (21-46); MONOCYTES ABSOLUTE AUTO 0.57 K/mm3 (0.16-1.47); MONOCYTES PERCENT AUTO 6 % (4-13); Mean Corpuscular HGB 29.8 pg (26.0-34.0); Mean Corpuscular HGB Conc 35.4 g/dL (31.5-36.5); Mean Corpuscular Volume 84 fL (80-100); Mean Platelet Volume 10.5 fL (9.1-12.4); NEUTROPHILS ABSOLUTE AUTO 7.39 K/mm3 (1.96-9.15); NEUTROPHILS PERCENT AUTO 71 % (41-73); Platelet Count 428 K/mm3 (150-400); RDW Standard Deviation 36.4 fL (35.1-46.3); Red Blood Cell Count 5.67 M/mm3 (3.80-5.20); White Blood Cell Count 10.36 K/mm3 (4.00-11.30)
[2020-11-16 12:22] LABS: Bilirubin, Total 0.9 mg/dL (0.1-1.0); Bun/Creatinine Ratio 16.7 (12.0-20.0); Calcium, Blood 9.7 mg/dL (8.5-10.1); Creatinine, Blood 1.02 mg/dL (0.40-1.00); Globulin, Blood 4.1 g/dL (2.2-4.0); Potassium, Blood 2.6 mmol/L (3.5-5.5); Total Protein, Blood 8.1 g/dL (6.4-8.2)
[2020-11-16 13:16] LABS: Magnesium, Blood 1.8 mg/dL (1.6-2.4)
== END | disposition home or self-care (01) ==
LOC: LAB SHORT 11:59
PROVIDERS: Family Medicine
DX: K20.90 Esophagitis, unspecified without bleeding (principal); E87.6 Hypokalemia
CPT/HCPCS: 80053; 83735; 85025

== ENCOUNTER → 2020-12-05 | Outpatient (CLI) | payer OTHER ==
[2020-12-05 15:12] LABS: Source, Urine Voided
[2020-12-05 15:28] LABS: BASOPHILS ABSOLUTE AUTO 0.04 K/mm3 (0.00-0.23); BASOPHILS PERCENT AUTO 1 % (0-2); EOSINOPHILS ABSOLUTE AUTO 0.08 K/mm3 (0.00-0.68); EOSINOPHILS PERCENT AUTO 1 % (0-6); Hematocrit 44.6 % (33.0-51.0); Hemoglobin 15.7 g/dL (11.5-16.0); IMMATURE GRAN ABSOLUTE AUTO 0.03 K/mm3 (0.00-0.10); IMMATURE GRAN PERCENT AUTO 0 % (0-1); LYMPHOCYTES ABSOLUTE AUTO 1.78 K/mm3 (0.84-5.20); LYMPHOCYTES PERCENT AUTO 23 % (21-46); MONOCYTES ABSOLUTE AUTO 0.47 K/mm3 (0.16-1.47); MONOCYTES PERCENT AUTO 6 % (4-13); Mean Corpuscular HGB 29.9 pg (26.0-34.0); Mean Corpuscular HGB Conc 35.2 g/dL (31.5-36.5); Mean Corpuscular Volume 85 fL (80-100); Mean Platelet Volume 9.5 fL (9.1-12.4); NEUTROPHILS ABSOLUTE AUTO 5.46 K/mm3 (1.96-9.15); NEUTROPHILS PERCENT AUTO 70 % (41-73); Platelet Count 409 K/mm3 (150-400); RDW Coefficient Variation 12.2 % (11.7-14.2); RDW Standard Deviation 37.1 fL (35.1-46.3); Red Blood Cell Count 5.25 M/mm3 (3.80-5.20); White Blood Cell Count 7.86 K/mm3 (4.00-11.30)
[2020-12-05 15:29] LABS: Bacteria Many /hpf; Squamous Epithelial Cells Few /hpf (Few); White Blood Cells, Urine TNTC /hpf (0-5)
[2020-12-05 15:38] LABS: Alanine Aminotransfer (ALT/SGP 28 U/L (12-78); Albumin, Blood 3.7 g/dL (3.4-5.0); Albumin/Globulin Ratio 0.9 (0.8-1.8); Alk Phos 106 U/L (40-126); Anion Gap 10 mmol/L (6-16); Aspartate Aminotrans (AST/SGOT 21 U/L (12-37); Bilirubin, Total 1.6 mg/dL (0.1-1.0); Blood Urea Nitrogen 28 mg/dL (8-24); Bun/Creatinine Ratio 30.8 (12.0-20.0); CO2, Blood 26 mmol/L (21-32); Calcium, Blood 8.9 mg/dL (8.5-10.1); Chloride, Blood 94 mmol/L (98-108); Creatinine, Blood 0.91 mg/dL (0.40-1.00); Glomerular Filtration Rate >60 (60-); Glucose, Blood 363 mg/dL (70-99); Potassium, Blood 4.3 mmol/L (3.5-5.5); Sodium, Blood 130 mmol/L (136-145); Total Protein, Blood 7.7 g/dL (6.4-8.2)
== END | disposition home or self-care (01) ==
LOC: LAB SHORT 15:09
PROVIDERS: Physician Assistant Medical
DX: E86.0 Dehydration (principal); R11.2 Nausea with vomiting, unspecified
CPT/HCPCS: 80053; 81015; 85025

== ENCOUNTER 2020-12-19 19:36 | Inpatient (IN) | payer OTHER, MEDICARE ==
[~2020-12-19] VITALS: Ht 175.3 cm; Wt 104.7 kg
[~2020-12-19 19:36] MED LIST changes: -Aspirin EC81 MG PO; -BELSOMRA10 MG PO; -HUMALOG KW100 UNIT/1 SC; -LEVSOD112 PO; -OXYC10TA19 PO; -OZEMPIC0.25 MG/0. SC; -TRAZ100 PO
[2020-12-19 20:21] LABS: BASOPHILS ABSOLUTE AUTO 0.05 K/mm3 (0.00-0.23); BASOPHILS PERCENT AUTO 0 % (0-2); EOSINOPHILS ABSOLUTE AUTO 0.03 K/mm3 (0.00-0.68); EOSINOPHILS PERCENT AUTO 0 % (0-6); Hematocrit 43.6 % (33.0-51.0); IMMATURE GRAN ABSOLUTE AUTO 0.05 K/mm3 (0.00-0.10); IMMATURE GRAN PERCENT AUTO 0 % (0-1); LYMPHOCYTES PERCENT AUTO 16 % (21-46); MONOCYTES ABSOLUTE AUTO 1.19 K/mm3 (0.16-1.47); MONOCYTES PERCENT AUTO 7 % (4-13); Mean Corpuscular HGB 29.6 pg (26.0-34.0); Mean Corpuscular HGB Conc 34.4 g/dL (31.5-36.5); Mean Corpuscular Volume 86 fL (80-100); Mean Platelet Volume 9.5 fL (9.1-12.4); NEUTROPHILS PERCENT AUTO 77 % (41-73); Platelet Count 438 K/mm3 (150-400); RDW Coefficient Variation 12.1 % (11.7-14.2); RDW Standard Deviation 38.1 fL (35.1-46.3); Red Blood Cell Count 5.06 M/mm3 (3.80-5.20); White Blood Cell Count 17.22 K/mm3 (4.00-11.30)
[2020-12-19 20:24] LABS: Source, Urine Catheter
[2020-12-19 20:43] LABS: Alanine Aminotransfer (ALT/SGP 23 U/L (12-78); Albumin, Blood 3.5 g/dL (3.4-5.0); Albumin/Globulin Ratio 0.9 (0.8-1.8); Alk Phos 102 U/L (50-136); Anion Gap 8 mmol/L (6-16); Aspartate Aminotrans (AST/SGOT 9 U/L (12-37); Blood Urea Nitrogen 13 mg/dL (8-24); Bun/Creatinine Ratio 12.7 (12.0-20.0); CO2, Blood 33 mmol/L (21-32); Chloride, Blood 93 mmol/L (98-108); Creatinine, Blood 1.02 mg/dL (0.40-1.00); Globulin, Blood 4.1 g/dL (2.2-4.0); Glomerular Filtration Rate 59 (60-); Glucose, Blood 122 mg/dL (70-99); Potassium, Blood 2.5 mmol/L (3.5-5.5); Sodium, Blood 134 mmol/L (136-145); Total Protein, Blood 7.6 g/dL (6.4-8.2); Troponin I <0.015 ng/mL (0.000-0.040)
[2020-12-19 20:50] LABS: Blood, Urine 5+ (Neg); Glucose Qualitative, Urine 2+ (Neg); Ketones, Urine 3+ (Neg); Leukocyte Esterase, Urine 3+ (Neg); Nitrite, Urine Pos (Neg); Protein, Urine 4+ (Neg); Specific Gravity, Urine 1.025 (1.003-1.022); Urobilinogen, Urine 2+ (Normal)
[2020-12-19 21:22] LABS: Appearance, Urine Cloudy (Clear); Bilirubin, Urine 2+ (Neg); Color, Urine Yellow (P-Yellow)
[2020-12-19 21:24] LABS: Bacteria Many /hpf; Squamous Epithelial Cells Few /hpf (Few); White Blood Cells, Urine TNTC /hpf (0-5)
[2020-12-19] MEDS ORDERED: TRAZ100 PO (21:31)
[2020-12-19] MEDS ORDERED: OXYC10TA19 PO (21:33)
[2020-12-19] MEDS ORDERED: ATOR20 PO (21:35)
[2020-12-19] MEDS ORDERED: MIDO5 PO (21:35)
[2020-12-19] MEDS ORDERED: LEVSOD112 PO (21:35)
[2020-12-19] MEDS ORDERED: OZEMPIC0.25 MG/0. SC (21:37)
[2020-12-19] MEDS ORDERED: Aspirin EC81 MG PO (21:37)
[2020-12-19] MEDS ORDERED: METO10 PO (21:38)
[2020-12-19] MEDS ORDERED: CYCL10 PO (21:38)
[2020-12-19] MEDS ORDERED: BELSOMRA10 MG PO (21:40)
[2020-12-19] MEDS ORDERED: HUMALOG KW100 UNIT/1 SC (21:40)
[2020-12-19] MEDS ORDERED: BASAGLAR K100 UNIT/1 SC (21:40)
--- NOTE | 2020-12-19 23:00 | NUR ---
RECEIVED REPORT FROM [facility] ED RN. PT TRANSPORTED TO MEDICAL FLOOR VIA GURNEY, TRANSFERRED TO BED WITH ASSIST OF 2. TOLERATED WELL. VS TAKEN, PT ORIENTED TO ROOM/UNIT. PT IN NO ACUTE DISTRESS. PT DENIES NEEDS. CALL LIGHT, POSSESSIONS IN REACH.
--- NOTE | 2020-12-20 01:30 | NUR ---
SPOKE TO DR. MENESES REGARDING PT'S REQUEST FOR CPAP, ALSO INFORMED OF PT'S UNRELIEVED PAIN AND CURRENT BP READING. ORDERS RECEIVED.
[2020-12-20 02:16] LABS: BASOPHILS ABSOLUTE AUTO 0.03 K/mm3 (0.00-0.23); BASOPHILS PERCENT AUTO 0 % (0-2); EOSINOPHILS ABSOLUTE AUTO 0.05 K/mm3 (0.00-0.68); EOSINOPHILS PERCENT AUTO 0 % (0-6); Hematocrit 41.3 % (33.0-51.0); Hemoglobin 14.2 g/dL (11.5-16.0); IMMATURE GRAN ABSOLUTE AUTO 0.05 K/mm3 (0.00-0.10); IMMATURE GRAN PERCENT AUTO 0 % (0-1); LYMPHOCYTES ABSOLUTE AUTO 2.69 K/mm3 (0.84-5.20); LYMPHOCYTES PERCENT AUTO 19 % (21-46); MONOCYTES ABSOLUTE AUTO 1.17 K/mm3 (0.16-1.47); MONOCYTES PERCENT AUTO 8 % (4-13); Mean Corpuscular HGB 30.2 pg (26.0-34.0); Mean Corpuscular HGB Conc 34.4 g/dL (31.5-36.5); Mean Corpuscular Volume 88 fL (80-100); Mean Platelet Volume 9.5 fL (9.1-12.4); NEUTROPHILS ABSOLUTE AUTO 10.49 K/mm3 (1.96-9.15); NEUTROPHILS PERCENT AUTO 73 % (41-73); Platelet Count 384 K/mm3 (150-400); RDW Coefficient Variation 12.1 % (11.7-14.2); RDW Standard Deviation 39.3 fL (35.1-46.3); White Blood Cell Count 14.48 K/mm3 (4.00-11.30)
[2020-12-20 02:32] LABS: Bun/Creatinine Ratio 13.9 (12.0-20.0); Calcium, Blood 8.8 mg/dL (8.5-10.1); Creatinine, Blood 1.01 mg/dL (0.40-1.00)
--- NOTE | 2020-12-20 06:45 | NUR ---
SLITTING MACHINE OPERATOR SUMMARY PT RETURNED FROM TRANSPORT TO IMAGING, IN NO ACUTE DISTRESS. TOLERATED TRANSFER FROM [facility] TO BED WELL WITH ASSIST OF ONE. REPORTS MODERATE DIZZINESS; BP'S STABLE. SLEPT T/O NIGHT, USED CPAP FROM RT. SMALL AMOUNT OF EMESIS NOTED THIS AM, S/P ADMINISTRATION OF 0600 MEDS. OTHERWISE APPEARED TO TOLERATE CLEAR LIQUID DIET WELL. CBGS 70'S-80'S. PT RESTING IN BED AT THIS TIME. IVF ONGOING. REPORT GIVEN TO HOMAR MORGAN.
--- NOTE | 2020-12-20 16:44 | NUR ---
12/20/2020 1641 - Attempted to introduce myself to patient and discussed needs. Interrupted by phone call. Pt. in restroom when I returned to the room. Will attempt to meet with her again tomorrow to discuss home chronic care management needs. Pt. has had established with CCM previously. Declined further visits. I would like to discuss with her the benefit of re-establishing with CCM. consistent CCM would be beneficial to better manage chronic illness and potentially avoid future hospital admissions. - Copied from Marck Vasquez Notes
[2020-12-20 17:32] LABS: Anion Gap 6 mmol/L (6-16); Blood Urea Nitrogen 10 mg/dL (8-24); Bun/Creatinine Ratio 13.6 (12.0-20.0); CO2, Blood 29 mmol/L (21-32); Chloride, Blood 101 mmol/L (98-108); Creatinine, Blood 0.74 mg/dL (0.40-1.00); Glomerular Filtration Rate >60 (60-); Glucose, Blood 190 mg/dL (70-99); Sodium, Blood 136 mmol/L (136-145)
--- NOTE | 2020-12-20 18:02 | NUR ---
SHIFT SUMMARY: NO ACUTE EVENTS TO REPORT THIS SHIFT. PT A&O; CALM AND COOPERATIVE WITH CARE. MEDICATED FOR PAIN & N/V PER EMAR. REHYDRATION & K+ REPLENISHMENT CONTINUING. WCTM.
--- NOTE | 2020-12-20 23:52 | NUR ---
PT INSISTS ON HAVING AC IV DC'D BECAUSE IT IS BOTHERING HER, IV DCD CATH INTACT. PT UNDERSTANDS THE NEED FOR IV, FA IV STILL INFUSING.
[2020-12-21 09:23] LABS: BASOPHILS ABSOLUTE AUTO 0.02 K/mm3 (0.00-0.23); BASOPHILS PERCENT AUTO 0 % (0-2); EOSINOPHILS ABSOLUTE AUTO 0.03 K/mm3 (0.00-0.68); EOSINOPHILS PERCENT AUTO 0 % (0-6); Hematocrit 42.4 % (33.0-51.0); Hemoglobin 14.3 g/dL (11.5-16.0); IMMATURE GRAN ABSOLUTE AUTO 0.03 K/mm3 (0.00-0.10); IMMATURE GRAN PERCENT AUTO 0 % (0-1); LYMPHOCYTES ABSOLUTE AUTO 2.23 K/mm3 (0.84-5.20); LYMPHOCYTES PERCENT AUTO 27 % (21-46); MONOCYTES ABSOLUTE AUTO 0.44 K/mm3 (0.16-1.47); MONOCYTES PERCENT AUTO 5 % (4-13); Mean Corpuscular HGB 29.7 pg (26.0-34.0); Mean Corpuscular HGB Conc 33.7 g/dL (31.5-36.5); Mean Corpuscular Volume 88 fL (80-100); Mean Platelet Volume 9.3 fL (9.1-12.4); NEUTROPHILS ABSOLUTE AUTO 5.45 K/mm3 (1.96-9.15); NEUTROPHILS PERCENT AUTO 66 % (41-73); Platelet Count 344 K/mm3 (150-400); RDW Standard Deviation 38.5 fL (35.1-46.3); Red Blood Cell Count 4.82 M/mm3 (3.80-5.20)
[2020-12-21 09:34] LABS: Anion Gap 8 mmol/L (6-16); Blood Urea Nitrogen 14 mg/dL (8-24); Bun/Creatinine Ratio 18.9 (12.0-20.0); CO2, Blood 27 mmol/L (21-32); Calcium, Blood 8.8 mg/dL (8.5-10.1); Chloride, Blood 103 mmol/L (98-108); Creatinine, Blood 0.74 mg/dL (0.40-1.00); Glomerular Filtration Rate >60 (60-); Glucose, Blood 131 mg/dL (70-99); Potassium, Blood 3.9 mmol/L (3.5-5.5); Sodium, Blood 138 mmol/L (136-145)
--- NOTE | 2020-12-21 17:03 | NUR ---
Update 12/21/20 1706 - Visited pt. this evening. She continues to C/O Nausea and a lack of appetite. We discussed her current living situation and support at home. Pt. might likely benefit from some additional support. We discussed the option of chronic care management monthly which she was agreeable to. I also reached out to [facility] - Gato Larose to review patient's chart. Pt. seems to be agreeable to any additional support that can be offered at this time. Will continue to meet with patient daily until discharge to lay out a solid plan to avoid future re-admissions. Will offer [facility], and direct triage line to call with concerns. Noted by Marck Vasquez
--- NOTE | 2020-12-21 18:30 | NUR ---
PT IS A/OX3, COOPERATIVE, THE PT IS UP WITH MINIMAL ASSIST, THE PT THIS AM HAD WITNESSED EMISIS [id number] LIGHT GREEN TINGED, THE PT HAS REPORTED PAIN AND NAUSEA T/O THE DAY, PT HAD LITTLE TO NO PO INTAKE, THE PT WAS UP IN THE SHOWER TODAY, THE PTS SUPRAPUBIC CATHETER WAS CLEANED AND A NEW DRESSING APPLIED AFTER THE SHOWER, THE PT APPEARS TO BE BREATHING EASILY AT REST ON RA AT THIS TIME, CALL LIGHT IN REACH, WILL CONTINUE TO MONITOR AND ASSESS FOR CHANGES
--- NOTE | 2020-12-22 04:50 | NUR ---
MIGRANT LEADER SUMMARY NO ACUTE CHANGES THIS SHIFT. PT STILL HAVING SOME NAUSEA BUT NO ACTUAL EMESIS NOTED. SOMETIMES PT WILL DRY HEAVE. MEDICATING WITH IV ZOFRAN. PT CONTINUES TO COMPLAIN OF CHRONIC PAIN, MEDICATED WITH OXYCODONE PER EMAR. PT REFUSING ALL PO MEDS EXCEPT FOR OXYCODONE AND PO ZYPREXA. ZYPREXA DID SEEM TO HELP WITH PT'S NAUSEA AND ALLOWED HER TO SLEEP FOR 4-5 HOURS. SUPRAPUBIC CATH DRAINING CLEAR YELLOW URINE. VSS, WILL CONTINUE TO MONITOR.
[2020-12-22 08:08] LABS: BASOPHILS ABSOLUTE AUTO 0.03 K/mm3 (0.00-0.23); BASOPHILS PERCENT AUTO 0 % (0-2); EOSINOPHILS ABSOLUTE AUTO 0.02 K/mm3 (0.00-0.68); EOSINOPHILS PERCENT AUTO 0 % (0-6); Hematocrit 39.7 % (33.0-51.0); Hemoglobin 13.8 g/dL (11.5-16.0); IMMATURE GRAN ABSOLUTE AUTO 0.03 K/mm3 (0.00-0.10); IMMATURE GRAN PERCENT AUTO 0 % (0-1); LYMPHOCYTES ABSOLUTE AUTO 1.67 K/mm3 (0.84-5.20); LYMPHOCYTES PERCENT AUTO 19 % (21-46); MONOCYTES ABSOLUTE AUTO 0.48 K/mm3 (0.16-1.47); MONOCYTES PERCENT AUTO 5 % (4-13); Mean Corpuscular HGB 30.1 pg (26.0-34.0); Mean Corpuscular HGB Conc 34.8 g/dL (31.5-36.5); Mean Corpuscular Volume 87 fL (80-100); Mean Platelet Volume 9.4 fL (9.1-12.4); NEUTROPHILS ABSOLUTE AUTO 6.62 K/mm3 (1.96-9.15); NEUTROPHILS PERCENT AUTO 75 % (41-73); Platelet Count 339 K/mm3 (150-400); RDW Coefficient Variation 11.7 % (11.7-14.2); RDW Standard Deviation 37.3 fL (35.1-46.3); Red Blood Cell Count 4.59 M/mm3 (3.80-5.20); White Blood Cell Count 8.85 K/mm3 (4.00-11.30)
[2020-12-22 08:24] LABS: Anion Gap 8 mmol/L (6-16); Blood Urea Nitrogen 11 mg/dL (8-24); Bun/Creatinine Ratio 16.5 (12.0-20.0); CO2, Blood 26 mmol/L (21-32); Calcium, Blood 8.5 mg/dL (8.5-10.1); Chloride, Blood 103 mmol/L (98-108); Creatinine, Blood 0.67 mg/dL (0.40-1.00); Glomerular Filtration Rate >60 (60-); Glucose, Blood 161 mg/dL (70-99); Potassium, Blood 3.7 mmol/L (3.5-5.5); Sodium, Blood 137 mmol/L (136-145)
[2020-12-22] MEDS ORDERED: OLAN5A MM (13:45)
--- NOTE | 2020-12-22 17:34 | NUR ---
PT DISCHARGED THE PT VERBALIZED UNDERSTANDING OF THE DC INSTRUCTIONS, THE PTS PRESCRIPTION WAS FAXED, THE PT WAS A/OX4 AT THE TIME OF DC, APPEARED TO BE BREATHING EASILY, THE PT WAS TRANSFERED VIA WHEELCHAIR TO THE FRONT, THE PT WAS REMINDED TO FOLLOW UP WITH HER PCP
--- NOTE | 2020-12-23 08:28 | NUR ---
Update: Pt. discharged with care plan in place to avoid hospital re-admit. Pt. to be seen by member of primary care team weekly. Care team to include - CCM, [facility] and PCP. Pt. also given direct triage line to call with urgent concerns or questions. Pt. scheduled with PCP 12/27/20 at 1220 and CCM 12/29/20 at 1130. [facility] visit will be scheduled for the following week. Will discuss care plan further with team post discharge. - Noted by Marck Vasquez
== END 2020-12-22 14:33 | disposition home or self-care (01) | DRG 698 ==
LOC: ER 19:36 → MEDS 21:25
PROVIDERS: Emergency Medicine; Family Medicine; ADMIT Family Medicine
DX: T83.510A Infection and inflammatory reaction due to cystostomy catheter, initial encounter (principal); A41.51 Sepsis due to Escherichia coli [E. coli]; K22.10 Ulcer of esophagus without bleeding; N17.9 Acute kidney failure, unspecified; E87.1 Hypo-osmolality and hyponatremia; F34.89 Other specified persistent mood disorders; R82.71 Bacteriuria; E87.6 Hypokalemia; E86.9 Volume depletion, unspecified; Z91.14 Patient's other noncompliance with medication regimen; D47.3 Essential (hemorrhagic) thrombocythemia; E11.43 Type 2 diabetes mellitus with diabetic autonomic (poly)neuropathy; K31.84 Gastroparesis; E11.42 Type 2 diabetes mellitus with diabetic polyneuropathy; E11.22 Type 2 diabetes mellitus with diabetic chronic kidney disease; N18.2 Chronic kidney disease, stage 2 (mild); I12.9 Hypertensive chronic kidney disease with stage 1 through stage 4 chronic kidney disease, or unspecified chronic kidney disease; G47.30 Sleep apnea, unspecified; E03.9 Hypothyroidism, unspecified; G47.00 Insomnia, unspecified; N32.0 Bladder-neck obstruction; K21.9 Gastro-esophageal reflux disease without esophagitis; E78.5 Hyperlipidemia, unspecified; F32.9 Major depressive disorder, single episode, unspecified; G89.4 Chronic pain syndrome; I25.10 Atherosclerotic heart disease of native coronary artery without angina pectoris; Z90.710 Acquired absence of both cervix and uterus; Z88.0 Allergy status to penicillin; Z88.2 Allergy status to sulfonamides; Z79.4 Long term (current) use of insulin; Z79.899 Other long term (current) drug therapy; Z90.49 Acquired absence of other specified parts of digestive tract; Z98.890 Other specified postprocedural states; Z87.891 Personal history of nicotine dependence; Y84.6 Urinary catheterization as the cause of abnormal reaction of the patient, or of later complication, without mention of misadventure at the time of the procedure
CPT/HCPCS: 36415; 71045; 74176; 80048; 80053; 81001; 82947; 83605; 83690; 83880; 84484; 85025; 87040; 87077; 87086; 87106; 87186; 93005; 93010; 94660; 94762; 96365; 96366; 96375; 96376; 99285-25; A9270; J0780; J1170; J1650; J1815; J1956; J2405; J3010; J3480; J7030; J7050

== ENCOUNTER → 2021-01-11 | Outpatient (CLI) | payer OTHER ==
[~2021-01-11] MED LIST changes: +Aspirin EC81 MG PO; +BELSOMRA10 MG PO; +HUMALOG KW100 UNIT/1 SC; +LEVSOD112 PO; +OLAN5A MM; +OXYC10TA19 PO; +OZEMPIC0.25 MG/0. SC; +TRAZ100 PO
== END | disposition home or self-care (01) ==
LOC: LAB SHORT 10:05 → LAB 10:05
DX: R30.0 Dysuria (principal)
CPT/HCPCS: 87077; 87086; 87186

== ENCOUNTER → 2021-05-03 | Outpatient (CLI) | payer OTHER ==
[2021-05-03 16:55] LABS: BASOPHILS ABSOLUTE AUTO 0.05 K/mm3 (0.00-0.23); BASOPHILS PERCENT AUTO 1 % (0-2); EOSINOPHILS ABSOLUTE AUTO 0.06 K/mm3 (0.00-0.68); EOSINOPHILS PERCENT AUTO 1 % (0-6); Hematocrit 46.6 % (33.0-51.0); Hemoglobin 16.4 g/dL (11.5-16.0); IMMATURE GRAN ABSOLUTE AUTO 0.07 K/mm3 (0.00-0.10); IMMATURE GRAN PERCENT AUTO 1 % (0-1); LYMPHOCYTES ABSOLUTE AUTO 2.69 K/mm3 (0.84-5.20); LYMPHOCYTES PERCENT AUTO 26 % (21-46); MONOCYTES ABSOLUTE AUTO 0.82 K/mm3 (0.16-1.47); MONOCYTES PERCENT AUTO 8 % (4-13); Mean Corpuscular HGB 29.5 pg (26.0-34.0); Mean Corpuscular HGB Conc 35.2 g/dL (31.5-36.5); Mean Corpuscular Volume 84 fL (80-100); Mean Platelet Volume 10.1 fL (9.1-12.4); NEUTROPHILS ABSOLUTE AUTO 6.81 K/mm3 (1.96-9.15); NEUTROPHILS PERCENT AUTO 65 % (41-73); Platelet Count 388 K/mm3 (150-400); RDW Coefficient Variation 11.6 % (11.7-14.2); RDW Standard Deviation 34.9 fL (35.1-46.3); Red Blood Cell Count 5.55 M/mm3 (3.80-5.20)
[2021-05-03 17:11] LABS: Albumin, Blood 3.7 g/dL (3.4-5.0); Albumin/Globulin Ratio 0.9 (0.8-1.8); Bilirubin, Total 0.9 mg/dL (0.1-1.0); Bun/Creatinine Ratio 22.3 (12.0-20.0); Calcium, Blood 9.1 mg/dL (8.5-10.1); Creatinine, Blood 1.21 mg/dL (0.40-1.00); Globulin, Blood 3.9 g/dL (2.2-4.0); Potassium, Blood 3.2 mmol/L (3.5-5.5); Total Protein, Blood 7.6 g/dL (6.4-8.2)
== END | disposition home or self-care (01) ==
LOC: LAB SHORT 16:51
PROVIDERS: Physician Assistant
DX: R10.10 Upper abdominal pain, unspecified (principal); R55 Syncope and collapse; R82.90 Unspecified abnormal findings in urine
CPT/HCPCS: 80053; 83690; 84484; 85025; 87086

== ENCOUNTER → 2021-05-18 | Outpatient (CLI) | payer OTHER | END | disposition home or self-care (01) | LOC: LAB SHORT 17:21 | DX: R33.9 Retention of urine, unspecified (principal) | CPT/HCPCS: 87086 ==

== ENCOUNTER → 2021-05-29 | Outpatient (CLI) | payer OTHER | END | disposition home or self-care (01) | LOC: LAB SHORT 16:22 | DX: N12 Tubulo-interstitial nephritis, not specified as acute or chronic (principal) | CPT/HCPCS: 87077; 87086; 87186 ==

== ENCOUNTER 2021-07-19 10:46 | Emergency (ER) | payer OTHER ==
[~2021-07-19] VITALS: Ht 152.4 cm; Wt 30.8 kg
[~2021-07-19 10:46] MED LIST changes: -KLOR-CON M1010 MEQ PO; -OZEMPIC1 MG/0.72; -PROM12.5S PR
[2021-07-19 12:14] LABS: Magnesium, Blood 1.3 mg/dL (1.6-2.4); Troponin I <0.015 ng/mL (0.000-0.040)
[2021-07-19 12:38] LABS: Anion Gap 16 mmol/L (6-16); Blood Urea Nitrogen 18 mg/dL (8-24); CO2, Blood 31 mmol/L (21-32); Chloride, Blood 89 mmol/L (98-108); Creatinine, Blood 0.69 mg/dL (0.40-1.00); Glomerular Filtration Rate >60 (60-); Glucose, Blood 225 mg/dL (70-99); Potassium, Blood 2.2 mmol/L (3.5-5.5); Sodium, Blood 136 mmol/L (136-145)
[2021-07-19] MEDS ORDERED: OZEMPIC1 MG/0.72 (12:40)
[2021-07-19] MEDS ORDERED: KLOR-CON M1010 MEQ PO (14:20)
[2021-07-19] MEDS ORDERED: ONDA4ODT MM (14:20)
[2021-07-20] MEDS ORDERED: METO10 PO (17:02)
[2021-07-20] MEDS ORDERED: PROM12.5S PR (17:02)
== END 2021-07-19 15:21 | disposition home or self-care (01) ==
LOC: ER 10:46
PROVIDERS: Emergency Medicine
DX: R07.9 Chest pain, unspecified (principal); E87.6 Hypokalemia; E83.42 Hypomagnesemia; R11.2 Nausea with vomiting, unspecified; E11.40 Type 2 diabetes mellitus with diabetic neuropathy, unspecified; I10 Essential (primary) hypertension; G47.30 Sleep apnea, unspecified; E03.9 Hypothyroidism, unspecified; K21.9 Gastro-esophageal reflux disease without esophagitis; I25.10 Atherosclerotic heart disease of native coronary artery without angina pectoris; Z88.0 Allergy status to penicillin; Z88.2 Allergy status to sulfonamides; Z79.899 Other long term (current) drug therapy; Z79.82 Long term (current) use of aspirin; Z79.4 Long term (current) use of insulin
CPT/HCPCS: 71260; 80048; 83735; 84484; 93005; 93010; 96365-59; 96366; 96368; 96375-59; 99285-25; A9270; C9113; J1170; J2405; J2765; J3475; J3480; J7030; Q9967

== ENCOUNTER → 2021-07-19 | Outpatient (CLI) | payer OTHER ==
[~2021-07-19] MED LIST changes: +KLOR-CON M1010 MEQ PO; +OZEMPIC1 MG/0.72; +PROM12.5S PR
[2021-07-19 09:56] LABS: BASOPHILS ABSOLUTE AUTO 0.05 K/mm3 (0.00-0.23); BASOPHILS PERCENT AUTO 1 % (0-2); EOSINOPHILS ABSOLUTE AUTO 0.02 K/mm3 (0.00-0.68); EOSINOPHILS PERCENT AUTO 0 % (0-6); Hematocrit 44.7 % (33.0-51.0); Hemoglobin 16.5 g/dL (11.5-16.0); IMMATURE GRAN ABSOLUTE AUTO 0.04 K/mm3 (0.00-0.10); IMMATURE GRAN PERCENT AUTO 0 % (0-1); LYMPHOCYTES PERCENT AUTO 20 % (21-46); MONOCYTES ABSOLUTE AUTO 0.74 K/mm3 (0.16-1.47); MONOCYTES PERCENT AUTO 7 % (4-13); Mean Corpuscular HGB 30.7 pg (26.0-34.0); Mean Corpuscular HGB Conc 36.9 g/dL (31.5-36.5); Mean Corpuscular Volume 83 fL (80-100); Mean Platelet Volume 9.8 fL (9.1-12.4); NEUTROPHILS ABSOLUTE AUTO 7.84 K/mm3 (1.96-9.15); NEUTROPHILS PERCENT AUTO 73 % (41-73); Platelet Count 391 K/mm3 (150-400); RDW Coefficient Variation 11.6 % (11.7-14.2); RDW Standard Deviation 34.9 fL (35.1-46.3); Red Blood Cell Count 5.38 M/mm3 (3.80-5.20); White Blood Cell Count 10.79 K/mm3 (4.00-11.30)
[2021-07-19 10:13] LABS: Alanine Aminotransfer (ALT/SGP 23 U/L (12-78); Albumin, Blood 3.9 g/dL (3.4-5.0); Albumin/Globulin Ratio 1.1 (0.8-1.8); Alk Phos 89 U/L (40-126); Anion Gap 12 mmol/L (6-16); Aspartate Aminotrans (AST/SGOT 16 U/L (12-37); Bilirubin, Total 2.3 mg/dL (0.1-1.0); Blood Urea Nitrogen 21 mg/dL (8-24); Bun/Creatinine Ratio 21.9 (12.0-20.0); CO2, Blood 33 mmol/L (21-32); Calcium, Blood 9.4 mg/dL (8.5-10.1); Chloride, Blood 89 mmol/L (98-108); Creatinine, Blood 0.96 mg/dL (0.40-1.00); Globulin, Blood 3.7 g/dL (2.2-4.0); Glomerular Filtration Rate 60 (60-); Glucose, Blood 220 mg/dL (70-99); Sodium, Blood 134 mmol/L (136-145); Total Protein, Blood 7.6 g/dL (6.4-8.2); Troponin I <0.017 ng/mL (0.000-0.040)
== END | disposition home or self-care (01) ==
LOC: LAB SHORT 09:48
PROVIDERS: Chiropractor
DX: R07.9 Chest pain, unspecified (principal); R10.13 Epigastric pain
CPT/HCPCS: 80053; 83690; 84484; 85025; 85379

== ENCOUNTER 2021-07-20 11:49 | Emergency (ER) | payer OTHER ==
[~2021-07-20] VITALS: Ht 172.7 cm; Wt 101.6 kg
[~2021-07-20 11:49] MED LIST changes: +KLOR-CON M1010 MEQ PO; +OZEMPIC1 MG/0.72
[2021-07-20 13:03] LABS: Alanine Aminotransfer (ALT/SGP 27 U/L (12-78); Albumin, Blood 3.6 g/dL (3.4-5.0); Alk Phos 88 U/L (50-136); Anion Gap 15 mmol/L (6-16); Aspartate Aminotrans (AST/SGOT 18 U/L (12-37); Bilirubin, Total 1.4 mg/dL (0.1-1.0); Blood Urea Nitrogen 16 mg/dL (8-24); Bun/Creatinine Ratio 29.3 (12.0-20.0); CO2, Blood 27 mmol/L (21-32); Calcium, Blood 9.4 mg/dL (8.5-10.1); Chloride, Blood 95 mmol/L (98-108); Creatinine, Blood 0.55 mg/dL (0.40-1.00); Globulin, Blood 3.7 g/dL (2.2-4.0); Glomerular Filtration Rate >60 (60-); Glucose, Blood 221 mg/dL (70-99); Sodium, Blood 137 mmol/L (136-145); Total Protein, Blood 7.3 g/dL (6.4-8.2); Troponin I <0.015 ng/mL (0.000-0.040)
[2021-07-20 13:13] LABS: BASOPHILS ABSOLUTE AUTO 0.04 K/mm3 (0.00-0.23); BASOPHILS PERCENT AUTO 0 % (0-2); EOSINOPHILS ABSOLUTE AUTO 0.09 K/mm3 (0.00-0.68); EOSINOPHILS PERCENT AUTO 1 % (0-6); Hematocrit 44.7 % (33.0-51.0); Hemoglobin 16.1 g/dL (11.5-16.0); IMMATURE GRAN ABSOLUTE AUTO 0.03 K/mm3 (0.00-0.10); IMMATURE GRAN PERCENT AUTO 0 % (0-1); LYMPHOCYTES ABSOLUTE AUTO 2.54 K/mm3 (0.84-5.20); LYMPHOCYTES PERCENT AUTO 24 % (21-46); MONOCYTES ABSOLUTE AUTO 0.69 K/mm3 (0.16-1.47); MONOCYTES PERCENT AUTO 7 % (4-13); Mean Corpuscular HGB 30.2 pg (26.0-34.0); Mean Corpuscular Volume 84 fL (80-100); Mean Platelet Volume 9.7 fL (9.1-12.4); NEUTROPHILS ABSOLUTE AUTO 7.18 K/mm3 (1.96-9.15); NEUTROPHILS PERCENT AUTO 68 % (41-73); Platelet Count 377 K/mm3 (150-400); RDW Coefficient Variation 11.7 % (11.7-14.2); RDW Standard Deviation 35.2 fL (35.1-46.3); Red Blood Cell Count 5.33 M/mm3 (3.80-5.20); White Blood Cell Count 10.57 K/mm3 (4.00-11.30)
[2021-07-20 15:03] LABS: Source, Urine Catheter
[2021-07-20 15:21] LABS: Appearance, Urine Clear (Clear); Bilirubin, Urine Neg (Neg); Blood, Urine Neg (Neg); Color, Urine Yellow (P-Yellow); Glucose Qualitative, Urine 4+ (Neg); Ketones, Urine 4+ (Neg); Leukocyte Esterase, Urine 1+ (Neg); Nitrite, Urine Neg (Neg); Protein, Urine Neg (Neg); Urobilinogen, Urine NORM (Normal)
[2021-07-20 15:31] LABS: Bacteria Rare /hpf; Red Blood Cells, Urine Not Seen /hpf (0-2); Squamous Epithelial Cells Rare /hpf (Few); White Blood Cells, Urine 0-2 /hpf (0-5)
[2021-07-20] MEDS ORDERED: PROM12.5S PR (17:02)
[2021-07-20] MEDS ORDERED: METO10 PO (17:02)
== END 2021-07-20 20:53 | disposition home or self-care (01) ==
LOC: ER 11:49
PROVIDERS: Physician Assistant; Student in an Organized Health Care Education/Training Program
DX: E83.42 Hypomagnesemia (principal); E87.6 Hypokalemia; Z88.0 Allergy status to penicillin; Z88.2 Allergy status to sulfonamides; Z79.899 Other long term (current) drug therapy; Z79.82 Long term (current) use of aspirin; Z79.4 Long term (current) use of insulin; E11.40 Type 2 diabetes mellitus with diabetic neuropathy, unspecified; I10 Essential (primary) hypertension; G47.30 Sleep apnea, unspecified; E03.9 Hypothyroidism, unspecified; I25.10 Atherosclerotic heart disease of native coronary artery without angina pectoris
CPT/HCPCS: 36415; 71046; 74177; 80053; 81001; 83690; 83735; 83880; 84484; 85025; 87086; 93005; 93010; 94660; 96365-59; 96366; 96367; 96375; 99285-25; A9270; J1790; J2405; J2765; J3475; J3480; J7030; Q9967

== ENCOUNTER → 2021-08-01 | Outpatient (CLI) | payer OTHER ==
[~2021-08-01] MED LIST changes: +PROM12.5S PR
== END | disposition home or self-care (01) ==
LOC: LAB SHORT 12:58
DX: L02.212 Cutaneous abscess of back [any part, except buttock and flank] (principal)
CPT/HCPCS: 87070; 87205

== ENCOUNTER 2021-08-30 11:52 | Day surgery (SDC) | payer OTHER ==
[~2021-08-30] VITALS: Ht 175.3 cm; Wt 107.1 kg
[~2021-08-30 11:52] MED LIST changes: +DICLOFENAC SOD100 G1; +OZEMPIC1 MG/0.72 SC; +Oxybutynin Chlo15 MG PO
--- NOTE | 2021-08-30 12:47 | NUR ---
08/30/21 1247 Nohelia Dale 1 TRY RIGHT HAND NO FLASH 2 TRY RIGHT WRIST VALVE
--- NOTE | 2021-08-30 14:28 | NUR ---
08/30/21 1428 Zahida Flores 1410 O2 SATS DOWN TO 89% ON 2L/NC, O2 UP TO 5L/NC. SATS UP TO 96%. JAW THRUST PERFORMED OFF & ON DURING PROCEDURE. PT. SUCTIONED ORALLY FOR SMALL AMT. CLEAR SECRETIONS AT END OF CASE. SATS 98% ON RA.
== END 2021-08-30 15:00 | disposition home or self-care (01) ==
LOC: ORSCSDS 11:52
PROVIDERS: Internal Medicine Gastroenterology
PROC: 0DB78ZX Excision of Stomach, Pylorus, Via Natural or Artificial Opening Endoscopic, Diagnostic (ICD-10-PCS; principal; 2021-08-30 14:00)
PROC: 0DB58ZX Excision of Esophagus, Via Natural or Artificial Opening Endoscopic, Diagnostic (ICD-10-PCS; principal; 2021-08-30 14:00)
DX: R11.2 Nausea with vomiting, unspecified (principal); R13.14 Dysphagia, pharyngoesophageal phase; K29.70 Gastritis, unspecified, without bleeding; B19.20 Unspecified viral hepatitis C without hepatic coma; K20.90 Esophagitis, unspecified without bleeding; B37.81 Candidal esophagitis; G47.33 Obstructive sleep apnea (adult) (pediatric); E66.01 Morbid (severe) obesity due to excess calories; Z68.34 Body mass index [BMI] 34.0-34.9, adult; Z87.891 Personal history of nicotine dependence; E11.9 Type 2 diabetes mellitus without complications; Z79.4 Long term (current) use of insulin; Z79.899 Other long term (current) drug therapy; Z79.82 Long term (current) use of aspirin
CPT/HCPCS: 82947; 88305; 88312; 88342; J2704; J7120

== ENCOUNTER 2021-10-30 13:48 | Day surgery (SDC) | payer OTHER ==
[~2021-10-30] VITALS: Ht 175.3 cm; Wt 124.0 kg
[2021-10-30] MEDS ORDERED: INSULANI SC (14:46)
--- NOTE | 2021-10-30 15:35 | NUR ---
10/30/21 1535 Ruddy Hernandez PATIENT HAD FOOD IN STOMACH WHEN SCOPE PASSED. ABORTED CASE
== END 2021-10-30 16:06 | disposition home or self-care (01) ==
LOC: ORSCSDS 13:48
PROVIDERS: Internal Medicine Gastroenterology
PROC: 0DJ08ZZ Inspection of Upper Intestinal Tract, Via Natural or Artificial Opening Endoscopic (ICD-10-PCS; principal; 2021-10-30 15:15)
DX: R13.10 Dysphagia, unspecified (principal); E11.9 Type 2 diabetes mellitus without complications; G47.30 Sleep apnea, unspecified; K20.90 Esophagitis, unspecified without bleeding; K21.9 Gastro-esophageal reflux disease without esophagitis; K76.0 Fatty (change of) liver, not elsewhere classified; Z87.11 Personal history of peptic ulcer disease; E66.01 Morbid (severe) obesity due to excess calories; Z87.891 Personal history of nicotine dependence; E66.9 Obesity, unspecified; Z68.41 Body mass index [BMI] 40.0-44.9, adult; Z79.82 Long term (current) use of aspirin; Z79.4 Long term (current) use of insulin; Z79.899 Other long term (current) drug therapy
CPT/HCPCS: 82947; J0461; J2405; J2704

== ENCOUNTER 2021-11-01 14:51 | Day surgery (SDC) | payer OTHER ==
[~2021-11-01] VITALS: Ht 172.7 cm; Wt 121.9 kg
[~2021-11-01 14:51] MED LIST changes: +INSULANI SC
--- NOTE | 2021-11-01 15:57 | NUR ---
11/01/21 1557 KELLI DILLARD LARGE AMOUNT OF FOOD IN THE STOMACH
--- NOTE | 2021-11-01 16:57 | NUR ---
11/01/21 [address] SWEET, PT. TO BE NPO [id number]. PT. WAS OFFERED SOMETHING TO DRINK AT 1634 BUT REFUSED. PT. VERBALIZES THROAT STILL FEELS NUMB. PT. DID COME IN WITH CHRONIC FOOT, BACK, LEG PAIN.
== END 2021-11-01 16:51 | disposition home or self-care (01) ==
LOC: ORSCSDS 14:51
PROVIDERS: Internal Medicine Gastroenterology
PROC: 0DB58ZX Excision of Esophagus, Via Natural or Artificial Opening Endoscopic, Diagnostic (ICD-10-PCS; principal; 2021-11-01 15:30)
DX: K21.00 Gastro-esophageal reflux disease with esophagitis, without bleeding (principal); R13.14 Dysphagia, pharyngoesophageal phase; E11.40 Type 2 diabetes mellitus with diabetic neuropathy, unspecified; G47.33 Obstructive sleep apnea (adult) (pediatric); Z87.891 Personal history of nicotine dependence; E66.01 Morbid (severe) obesity due to excess calories; Z68.41 Body mass index [BMI] 40.0-44.9, adult; E03.9 Hypothyroidism, unspecified; Z79.4 Long term (current) use of insulin; Z79.899 Other long term (current) drug therapy; Z79.82 Long term (current) use of aspirin
CPT/HCPCS: 82947; 88305; 88312; J0330; J0461; J2405; J2704; J7120

== ENCOUNTER → 2021-11-21 | Outpatient (CLI) | payer OTHER | END | disposition home or self-care (01) | LOC: LAB SHORT 15:04 | DX: T83.198A Other mechanical complication of other urinary devices and implants, initial encounter (principal); R82.79 Other abnormal findings on microbiological examination of urine | CPT/HCPCS: 87086 ==

== ENCOUNTER 2022-07-19 13:20 | Inpatient (IN) | payer OTHER ==
[~2022-07-19] VITALS: Ht 175.3 cm; Wt 139.0 kg
[~2022-07-19 13:20] MED LIST changes: +OMEP20ER
[2022-07-19 16:10] LABS: BASOPHILS ABSOLUTE AUTO 0.05 K/mm3 (0.00-0.23); BASOPHILS PERCENT AUTO 0 % (0-2); EOSINOPHILS PERCENT AUTO 0 % (0-6); Hematocrit 47.1 % (33.0-51.0); Hemoglobin 16.7 g/dL (11.5-16.0); IMMATURE GRAN PERCENT AUTO 1 % (0-1); LYMPHOCYTES ABSOLUTE AUTO 1.42 K/mm3 (0.84-5.20); LYMPHOCYTES PERCENT AUTO 7 % (21-46); MONOCYTES ABSOLUTE AUTO 1.12 K/mm3 (0.16-1.47); MONOCYTES PERCENT AUTO 6 % (4-13); Mean Corpuscular HGB 30.4 pg (26.0-34.0); Mean Corpuscular HGB Conc 35.5 g/dL (31.5-36.5); Mean Corpuscular Volume 86 fL (80-100); Mean Platelet Volume 9.7 fL (9.1-12.4); NEUTROPHILS ABSOLUTE AUTO 16.81 K/mm3 (1.96-9.15); NEUTROPHILS PERCENT AUTO 86 % (41-73); Platelet Count 414 K/mm3 (150-400); RDW Standard Deviation 37.3 fL (35.1-46.3)
[2022-07-19 16:13] LABS: Albumin, Blood 4.1 g/dL (3.4-5.0); Bilirubin, Total 1.2 mg/dL (0.1-1.0); Bun/Creatinine Ratio 36.4 (12.0-20.0); Creatinine, Blood 0.88 mg/dL (0.40-1.00); Globulin, Blood 4.3 g/dL (2.2-4.0); Potassium, Blood 3.8 mmol/L (3.5-5.5); Total Protein, Blood 8.4 g/dL (6.4-8.2)
[2022-07-19 20:25] LABS: Source, Urine Clean Catch
[2022-07-19 20:27] LABS: Bilirubin, Urine Neg (Neg); Blood, Urine 5+ (Neg); Glucose Qualitative, Urine 4+ (Neg); Ketones, Urine 4+ (Neg); Leukocyte Esterase, Urine 3+ (Neg); Nitrite, Urine Neg (Neg); Protein, Urine 3+ (Neg); Specific Gravity, Urine 1.015 (1.003-1.022); Urobilinogen, Urine NORM (Normal)
[2022-07-19 20:37] LABS: Appearance, Urine Clear (Clear); Color, Urine Yellow (P-Yellow)
[2022-07-19 20:38] LABS: Bacteria Many /hpf; Granular Casts 0-2 /lpf (0); Hyaline Casts 0-2 /lpf (0-2); Red Blood Cells, Urine TNTC /hpf (0-2); Squamous Epithelial Cells Mod /hpf (Few); White Blood Cells, Urine TNTC /hpf (0-5)
[2022-07-20 01:14] LABS: Hematocrit 42.8 % (33.0-51.0); Hemoglobin 14.7 g/dL (11.5-16.0); Mean Corpuscular HGB 30.1 pg (26.0-34.0); Mean Corpuscular HGB Conc 34.3 g/dL (31.5-36.5); Mean Corpuscular Volume 88 fL (80-100); Mean Platelet Volume 9.7 fL (9.1-12.4); Platelet Count 388 K/mm3 (150-400); RDW Coefficient Variation 12.4 % (11.7-14.2); RDW Standard Deviation 39.2 fL (35.1-46.3); Red Blood Cell Count 4.89 M/mm3 (3.80-5.20); White Blood Cell Count 21.07 K/mm3 (4.00-11.30)
[2022-07-20 01:36] LABS: Bun/Creatinine Ratio 32.1 (12.0-20.0); Calcium, Blood 8.9 mg/dL (8.5-10.1); Creatinine, Blood 1.09 mg/dL (0.40-1.00); Potassium, Blood 3.5 mmol/L (3.5-5.5)
--- NOTE | 2022-07-20 04:13 | NUR ---
ADMIT/SHIFT SUMMARY PT TO UNIT FROM ER. AXO. VSS. PT DIRECT WITH NEEDS. C/O CONTINUED ABD PAIN DESPITE 5G MOP DOSE 1 HOUR PRIOR. BLOOD GLUCOSE ELEVATED ON ADMSSION WELL. ADMISSION PACKET COMPLETED. ORIENTED TO ROOM. CALLED PHYSICIAN AND RECEIVED ORDERS TO ADDRESS CBG, GAVE 1 TIME EXTRA DOSE OF 5MG MOP IV. CPAP PLACED ON PT PER BASELINE. SINCE CPAP PLACEMENT AND MOP ADMINISTRATION, PT RESTING QUIETELY IN ROOM. BED ALARM ON AT THIS TIME A REMINDER TO CALL STAFF DESPITE BEING INDEPENDENT.
--- NOTE | 2022-07-20 15:09 | NUR ---
CARE NOTE THIS NURSE WAS NOTIFIED THAT PT WAS COMPLAINING OF HEADACHE, PT STATED THAT SHE COULD NOT TAKE TYLENOL DUE TO NAUSEA, ZOFRAN GIVEN. BP CHECKED TO ENSURE THAT HEADACHE WAS NOT DUE TO HTN, SBP 200. CALL PLACED TO DR. NICHOLS TO NOTIFY HIM THAT PT HAS BEEN HYPERTENSIVE T/O SHIFT. HE STATED THAT ORDERS WILL BE PLACED. WILL CONTINUE TO MONITOR.
--- NOTE | 2022-07-20 15:52 | NUR ---
CARE NOTE LOBETOLOL GIVEN PER EMAR ORDERS, PT DENIED WANTING TO TAKE SANCTURA AT THIS TIME, WILL ATTEMPT TO ADMINISTER UPON REASSESSMENT. TELE MONITORING IN PLACE
[2022-07-20 16:14] LABS: Bun/Creatinine Ratio 38.7 (12.0-20.0); Calcium, Blood 8.9 mg/dL (8.5-10.1); Creatinine, Blood 0.96 mg/dL (0.40-1.00); Potassium, Blood 3.7 mmol/L (3.5-5.5)
--- NOTE | 2022-07-20 18:35 | NUR ---
SHIFT SUMMARY PT HAS BEEN ALERT AND ORIENTED X 4, SHE HAS BEEN SOMNOLENT T/O SHIFT AND HAS DENIED WANTING TO SIT IN CHAIR. SHE REPORTED NAUSEA, SEE EMAR. SHE HAS ALSO REPORTED GENERALIZED PAIN THIS AM, SEE EMAR AND A HEADACHE FOR WHICH SHE DENIED TYLENOL. SPO2 >95% VIA ROOM AIR OR CPAP, HR SR/ST 100'S PER TELE MONITORING. BP HAS BEEN HYPERTENSIVE W/ SBP PEAKING AT 224, MADE AWARE, SEE EMAR FOR BP MANAGEMENT. SBP NOW 166 UPON REASSESSMENT, PT APPEARS TO BE SLEEPING. PG PLACED BY MARIA ALEJANDRA CLARK RN IN [facility], INFUSING NS PER EMAR ORDERS. SUPRAPUBIC CATHETER IN PLACE W/ NO BAG IN PLACE, PT BOLUS EMPTIES BLADDER VIA URINAL INDEPENDENTLY. PER PT REPORT, SHE NEEDS SUPRAPUBIC CATHETER CHANGED IT HAS NOT BEEN CHANGED IN 1 MONTH, SHE REPORTED GOING TO URGENT CARE ROUTINELY FOR SP CATHETER CHANGES. SHE HAS BEEN INDEPENDENT TO BATHROOM AND IS STEADY ON HER FEET. NEED FOR CATHETER CHANGE WAS PASSED ON TO ROCKET TEST FIRE WORKER, WILL PASS ONTO ONCOMING RN WELL. NO OTHER ACUTE CHANGES NOTED. WILL CONTINUE TO MONITOR UNITL REPORT GIVEN.
[2022-07-20 22:20] LABS: Creatinine, Urine Random 95.4 mg/dL (27.00-270.00)
--- NOTE | 2022-07-21 05:04 | NUR ---
END OF SHIFT SUMMARY LINE: RIGHT UA POWER GLIDE. DRAWS BACK BLOOD AND FLUSHES NEURO: A&OX4. PT DENIES HEADACHE OR VISION CHANGES. PT CONFIRMS NUMBNESS/TINGLING TO ALL EXTREMITIES. DIMINISHED SENSITIVITY IN BUE. NO SENSATION IN BILATERAL FEET NOXIOUS STIMULI. GENERALIZED WEAKNESS. MOVES LIMBS AGAINST GRAVITY BUT CANNOT OVERCOME RESISTANCE. CARDIAC: NRS TO ST. BPM 90s-110s. 20 MG HYDRALAZINE GIVEN OVERNIGHT FOR HYPERTENSION. PT DENIES CHEST PAIN. CAP REFILL < 3 SEC. GENERALIZED +1 EDEMA. RESPIRATORY: RA WHEN AWAKE. CPAP WHEN SLEEPING. SATTING > 92%. PT DENIES SOB/DYSPNEA. APPRECIATED CLEAR BREATH SOUNDS BILATERALLY. GI/: N/V OVERNIGHT. HYPOACTIVE BOWEL SOUNDS AND ABDOMEN TENDER TO PALPATION. ZOFRAN GIVEN ONCE S/P EMESIS. CONTINENT OF BOWEL. NO BOWEL MOVEMENTS OVERNIGHT. SUPRAPUBIC CATHETER NOTED. NO DRAINAGE BAGS, BLADDER BOLUS EMPTIED. SITE WNL. PUTTING OUT ADEQUATE AMOUNTS OF HAZY YELLOW URINE. UA SENT TO LAB OVERNIGHT. MUSCULOSKELETAL: GENERALIZED WEAKNESS. INDEPENDENT IN ROOM. PSYCHOSOCIAL: IRRITABLE AND DEMANDING. PAIN: PT COMPLAINS OF GENERALIZED CHRONIC PAIN. MORPHINE GIVEN ONCE.
[2022-07-21 06:00] LABS: BASOPHILS ABSOLUTE AUTO 0.02 K/mm3 (0.00-0.23); BASOPHILS PERCENT AUTO 0 % (0-2); EOSINOPHILS PERCENT AUTO 0 % (0-6); Hematocrit 39.4 % (33.0-51.0); IMMATURE GRAN ABSOLUTE AUTO 0.05 K/mm3 (0.00-0.10); IMMATURE GRAN PERCENT AUTO 0 % (0-1); LYMPHOCYTES ABSOLUTE AUTO 1.66 K/mm3 (0.84-5.20); LYMPHOCYTES PERCENT AUTO 13 % (21-46); MONOCYTES ABSOLUTE AUTO 0.65 K/mm3 (0.16-1.47); MONOCYTES PERCENT AUTO 5 % (4-13); Mean Corpuscular HGB 30.1 pg (26.0-34.0); Mean Corpuscular Volume 91 fL (80-100); Mean Platelet Volume 9.4 fL (9.1-12.4); NEUTROPHILS ABSOLUTE AUTO 10.19 K/mm3 (1.96-9.15); NEUTROPHILS PERCENT AUTO 81 % (41-73); Platelet Count 329 K/mm3 (150-400); RDW Coefficient Variation 12.6 % (11.7-14.2); RDW Standard Deviation 41.9 fL (35.1-46.3); Red Blood Cell Count 4.32 M/mm3 (3.80-5.20); White Blood Cell Count 12.57 K/mm3 (4.00-11.30)
[2022-07-21 06:22] LABS: Bun/Creatinine Ratio 37.1 (12.0-20.0); Calcium, Blood 8.3 mg/dL (8.5-10.1); Potassium, Blood 3.7 mmol/L (3.5-5.5)
--- NOTE | 2022-07-21 18:40 | NUR ---
DAY SHIFT SUMMARY PT WITH FREQUENT NAUSEA, VOMITING AND PAIN THROUGHOUT THE DAY. PT ORIENTED X4, SBP LABILE WITH SEVERAL ROUNDS OF IVP ANTIHYPERTENSIVES (SEE EMAR FOR DETAILS). SBP 90S-190S. ST ON TELEMETRY. SP CATH CHANGED AND 800ML RETAINED AFTER PT HAD JUST EMPTIED. EDUCATED GIVEN ON HYGIENE, CHANGING Q30 DAYS ETC. PT AGREEABLE TO SOME PO MEDS, POC GLUCOSE IN 200S W/COVERAGE GIVEN. WILL PASS ON TO NOC RN
--- NOTE | 2022-07-21 23:25 | NUR ---
CARE ASSUMPTION: PATIENT SITTING ON SIDE OF BED, A&O X4, VS WNL. PATIENT REQUESTED SHOWER AND SHOWERED INDEPENDENTLY. POWERGLIDE FLUSHES. MEDICATED PER EMAR. BED LOW WITH CALL LIGHT IN REACH.
[2022-07-22 06:19] LABS: BASOPHILS ABSOLUTE AUTO 0.03 K/mm3 (0.00-0.23); BASOPHILS PERCENT AUTO 0 % (0-2); EOSINOPHILS ABSOLUTE AUTO 0.05 K/mm3 (0.00-0.68); EOSINOPHILS PERCENT AUTO 1 % (0-6); Hematocrit 42.2 % (33.0-51.0); Hemoglobin 14.1 g/dL (11.5-16.0); IMMATURE GRAN ABSOLUTE AUTO 0.06 K/mm3 (0.00-0.10); IMMATURE GRAN PERCENT AUTO 1 % (0-1); LYMPHOCYTES ABSOLUTE AUTO 1.89 K/mm3 (0.84-5.20); LYMPHOCYTES PERCENT AUTO 19 % (21-46); MONOCYTES ABSOLUTE AUTO 0.68 K/mm3 (0.16-1.47); MONOCYTES PERCENT AUTO 7 % (4-13); Mean Corpuscular HGB 29.9 pg (26.0-34.0); Mean Corpuscular HGB Conc 33.4 g/dL (31.5-36.5); Mean Corpuscular Volume 89 fL (80-100); Mean Platelet Volume 9.3 fL (9.1-12.4); NEUTROPHILS ABSOLUTE AUTO 7.15 K/mm3 (1.96-9.15); NEUTROPHILS PERCENT AUTO 73 % (41-73); Platelet Count 313 K/mm3 (150-400); RDW Coefficient Variation 12.1 % (11.7-14.2); RDW Standard Deviation 40.2 fL (35.1-46.3); Red Blood Cell Count 4.72 M/mm3 (3.80-5.20); White Blood Cell Count 9.86 K/mm3 (4.00-11.30)
--- NOTE | 2022-07-22 06:30 | NUR ---
SHIFT SUMMARY: PATIENT SLEPT WITH CPAP IN PLACE. BP SYS >200 THIS AM - MEDICATED PER EMAR. PATIENT REFUSED 0600 PO MEDS D/T "HEARTBURN." DAVID POWERGLIDE DRAWS AND FLUSHES. GARY DRAINING TO GRAVITY - PATIENT IS UPSET SHE HAS A BAG INSTEAD OF A DRAIN. NO ADVERSE EVENTS THIS SHIFT. BED LOW WITH CALL LIGHT IN PLACE. WILL CONTINUE TO MONITOR UNTIL REPORT TO DAY RN.
[2022-07-22 06:51] LABS: Bun/Creatinine Ratio 35.7 (12.0-20.0); Calcium, Blood 8.9 mg/dL (8.5-10.1); Creatinine, Blood 0.81 mg/dL (0.40-1.00); Potassium, Blood 3.4 mmol/L (3.5-5.5)
--- NOTE | 2022-07-22 19:04 | NUR ---
DAY SHIFT SUMMARY PT SLEPT MOST OF THE DAY. NAUSEA WHEN AWAKE. NO VOMITING. PRN COMPAZINE WORKING WELL FOR PT FOR NAUSEA CONTROL. REFUSING PO MEDS, EDUCATED ON IMPORTANCE OF ATTEMPTING PO MEDS WHEN NAUSEA IS BETTER. PT ABLE TO EAT 20-30% OF MEALS. PAIN IN ABD/GENERAL. MEDS GIVEN WITH RELIEF. SEE EMAR FOR DETAILS. WILL PASS ON TO JESSEE RN
--- NOTE | 2022-07-22 22:29 | NUR ---
CARE ASSUMPTION: PATIENT ASLEEP IN BED AT START OF SHIFT. HYPERTENSIVE WITH ELEVATED TEMP AND TACHY. PATIENT EXPRESSED FRUSTRATION WITH CATHETER BAG AND IS SWINGING BAG BY TUBING. PROVIDED EDUCATION AND EMPTIED CATHETER BAG. MEDICATED PER EMAR. PATIENT IS MED TELE STATUS. BED LOW WITH CALL LIGHT IN REACH.
[2022-07-23 04:53] LABS: BASOPHILS ABSOLUTE AUTO 0.03 K/mm3 (0.00-0.23); BASOPHILS PERCENT AUTO 0 % (0-2); EOSINOPHILS ABSOLUTE AUTO 0.08 K/mm3 (0.00-0.68); EOSINOPHILS PERCENT AUTO 1 % (0-6); Hemoglobin 13.6 g/dL (11.5-16.0); IMMATURE GRAN ABSOLUTE AUTO 0.05 K/mm3 (0.00-0.10); IMMATURE GRAN PERCENT AUTO 1 % (0-1); LYMPHOCYTES ABSOLUTE AUTO 2.69 K/mm3 (0.84-5.20); LYMPHOCYTES PERCENT AUTO 24 % (21-46); MONOCYTES ABSOLUTE AUTO 0.76 K/mm3 (0.16-1.47); MONOCYTES PERCENT AUTO 7 % (4-13); Mean Corpuscular HGB 30.1 pg (26.0-34.0); Mean Corpuscular HGB Conc 33.2 g/dL (31.5-36.5); Mean Corpuscular Volume 91 fL (80-100); Mean Platelet Volume 9.4 fL (9.1-12.4); NEUTROPHILS ABSOLUTE AUTO 7.41 K/mm3 (1.96-9.15); NEUTROPHILS PERCENT AUTO 67 % (41-73); Platelet Count 310 K/mm3 (150-400); RDW Coefficient Variation 12.1 % (11.7-14.2); RDW Standard Deviation 40.6 fL (35.1-46.3); Red Blood Cell Count 4.52 M/mm3 (3.80-5.20); White Blood Cell Count 11.02 K/mm3 (4.00-11.30)
[2022-07-23 05:20] LABS: Bun/Creatinine Ratio 31.3 (12.0-20.0); Calcium, Blood 8.8 mg/dL (8.5-10.1); Creatinine, Blood 0.99 mg/dL (0.40-1.00); Potassium, Blood 3.8 mmol/L (3.5-5.5)
--- NOTE | 2022-07-23 06:13 | NUR ---
SHIFT SUMMARY: PATIENT VS WNL THIS AM, A&O X3, SLEPT WITH CPAP IN PLACE ~6 HRS. WOKE UP VOMITING PALE GREEN EMESIS. MEDICATED PER EMAR. ADDITIONAL EMESIS YELLOW BILE. HELD 0600 MED D/T EMESIS. PATIENT CATHETER CONTAINED BLACK, SAND-LIKE PARTICLES IN URINE UPON EMPTYING. SKIN C/D/I. PATIENT INDEPENDENT IN ROOM. BED LOW WITH CALL LIGHT IN PLACE. WILL CONTINUE TO MONITOR UNTIL REPORT TO DAY RN.
--- NOTE | 2022-07-23 10:58 | NUR ---
Patient is sitting on a chair and alert, she immediately tells me about her struggle with nausea. She explains that the medical staff are "bringing everything they can" to address it, but it persists. She then shares about her family unit complications, her financial challenges and her current medical issues. She then talks about her positive spiritual growth throughout this last year, the good support of friends and family and (besides this trip to the hospital) her improved health. She is easily encouraged by prayer and conversation centered around her Protestant michael, which I gladly supply. I also provide therapeutic listening, anxiety containment and reinforcement of heplful attitudes and practices. Pt responds well to all interventions and shows signs of increased peace. I will continue to remain available to patient and family.
--- NOTE | 2022-07-23 18:21 | NUR ---
PT IS A/OX4, UP WITH MINIMAL ASSIST TO THE CHAIR AND BATHROOM. THE PT APPEARS TO BE BREATHING EASILY ON RA AT THIS TIME. THE PT REPORTED NAUSEA T/O THE DAY AND WAS MEDICATED FOR NAUSEA T/O THE DAY. PT HAD SOME LIGHT GREEN EMISIS THIS AM NO OTHER EMISIS SEEN OR REPORTED FOR THE REST OF THE SHIFT SO FAR. THE PT WAS MEDICATED FOR PAIN X2 TODAY. PT HAS BEEN UP AND DOWN TO THE SIDE OF THE BED, WAS ABLE TO EAT SOME SMALL BITES AT LUNCH, HOWEVER, DECLINED DINNER. PT WEARS HER CPAP WHILE NAPPING. CALL LIGHT IN REACH. WILL CONTINUE TO MONITOR AND ASSESS FOR CHANGES
--- NOTE | 2022-07-24 05:38 | NUR ---
PT TRANSFERRED TO [facility] AFTER REPORT GIVEN FROM THIS AUTHOR TO HOMAR CARMONA. PT GIVEN PRN PHENERGAN AND MORPHINE PRIOR TO TRANSFER PER PT REQUEST. AUTHOR GAVE SYNTHROID TO MED/SURG NURSE PT FELT NAUSEOUS. OVERALL, UNEVENTFUL SHIFT. PATIENT SLEPT WELL FOR ABOUT 6HRS W/O C/O PAIN OR NAUSEA.
--- NOTE | 2022-07-24 05:45 | NUR ---
0540: PT TRANSFERED FROM PCU1 TO MED UNIT 358 PT AOX4. TRANSFERED SBA WITH FWW TO BED. PT HAS BEEN INDEPENDENT IN ROOM. REPORTS MILD DIZZINESS AFTER MORPHINE WAS GIVEN. SUPRAPUBIC CATH INTACT, OFF FLOOR, GRAVITY AND PATENT WITH YELLOW URINE. NO BLOOD NOTED. REPORTS MILD NAUSEA. PT HAD ANTIMETICS FROM PCU PRIOR TO TRANSFER PER DENZEL GRAF. CALL LIGHT WITHIN REACH. WATER AND HOT TEA IN ROOM AT THIS TIME. PT SITTING AT THE SIDE OF THE BED.
--- NOTE | 2022-07-24 17:10 | NUR ---
SHIFT SUMMARY: PT ALERT AND ORIENTED X4. PT WAS VERY NAUSEATED THIS AM AND DID NOT WANT TO EAT OR TAKE ANY ORAL MEDS. GAVE PT IV COMPAZINE WHICH SHE STATED DID NOT HELP HER. PT C/O PAIN AND N/V THIS AFTERNOON. PT SLEPT THROUGHOUT THE AFTERNOON WITH CPAP ON. GAVE PT MORPHINE AND PHENERGAN. PT STATED SHE IS VERY UPSET THAT SHE IS STILL HERE AND WANTS TO GO HOME. PT APPEARS DISTANT AND WITHDRAWN. PT TO GO HOME AFTER N/V IS CONTROLLED. TELE IN PLACE. POWERGLIDE FLUSHING WITHOUT TENDERNESS OR SWELLING. SUPRAPUBIC CATH INTACT. CALL LIGHT IN REACH. BED IN LOWEST POSITION. WILL CONTINUE TO MONITOR.
--- NOTE | 2022-07-25 06:41 | NUR ---
SHIFT SUMMARY PT A&OX 4- PT AMBULATED IN HALLWAY WITH FWW- PT TOLERATED WELL- MEDICATED PT X2 FOR PAIN AND NAUSEA- PT REPORTED ITS BEEN 4 DAYS SINCE LAST BM AND WILL DISCUSS WITH DR TODAY- PT REFUSED TO TAKE SENAKOT ORDERED LAST NIGHT AND IS REQUESTING MIRALAX IN THE DAY- SUPRAPUBIC CARE DONE WITH SMALL AMT OF DRAINAGE NOTED AROUND SITE- PT INDEPENDENT IN ROOM- POWERGLIDE FLUSHED WITH GOOD BLOOD RETURN NOTED- BED LOW POSITION, CALL LIGHT WITHIN REACH
--- NOTE | 2022-07-25 17:08 | NUR ---
SHIFT SUMMARY: PT ALERT AND OREINTED X4. PT IS STILL C/O NAUSEA BUT NOT BAD YESTERDAY. GAVE HER BOTH COMPAZINE AND PHENERGAN THIS SHIFT. PT ALSO C/O A 5/10 PAIN IN HER BACK AND LEGS THIS SHIFT. GAVE HER A DOSE OF MORPHINE WHICH BROUGHT THE PAIN DOWN TO 3/10. DOCTOR ARGELIA ORDERED FOR PT/OT TO WORK WITH AND EVALUATE PT BEFORE DISCHARGING TOMORROW. PT INDEPENDENT IN ROOM. PT STATED SHE HAD SOME WEAKNESS IN LOWER EXTREMITIES. PT HAS NOT HAD A BOWEL MOVEMENT FOR 6 DAYS. GAVE PT MIRALAX THIS AM AND SENOKOT THIS AFTERNOON. PT STILL HAS NOT HAD BM. WILL TRY SUPPOSITORY OR ENEMA. DRESSING ON POWERGLIDE CHANGED WITHOUT COMPLICATIONS. PT TO LIKELY GO HOME TOMORROW. CALL LIGHT IN REACH. WILL CONTINUE TO MONITOR.
--- NOTE | 2022-07-26 07:29 | NUR ---
PT A&O X 4- ORDER FOR PT TO HAVE BM BEFORE DISCHARGE- GAVE SENOKOT, MIRALAX, AND SUPPOSITORY- NO BM - MEDICATED PT X2 WITH COMPAZINE FOR NAUSEA AND MORPHINE FOR PAIN- REMOVED MIDLINE AND STARTED IV IN RIGHT HAND- PLAN IS FOR PT TO D/C HOME ONCE HAS BM-
--- NOTE | 2022-07-26 14:40 | NUR ---
Patient is lying in bed and alert. Pt talks at length about her emotional struggles, her family unit complications and her theological views of the end times. Pt expresses her personal struggles and we explore sources of meaning, value and hope. I provide spiritual guidance, therapeutic listening and prayer. Pt responds well and shows signs of increased peace.
--- NOTE | 2022-07-26 17:38 | NUR ---
ALERT AND ORIENTED, INDEPEDENT IN ROOM, MAKES NEEDS KNOWN, PASSING GAS, NO BM, MEDICATED WITH MIRALAX, COLACE, FLEETS, PRUNE JUICE, STILL ONLY GAS, STAYING ANOTHER NIGHT PER DOCTOR. PLEASANT TO CARE, CONTINUES TO COMPLAIN OF NAUSEA, MEDICATED WITH COMPAZINE AND PHENEGRAN. COMPLAINED OF PAIN, MEDICATED WITH MORPHINE. WILL RELAY TO PM RN, NO ACUTE CHANGES
--- NOTE | 2022-07-27 03:56 | NUR ---
SHIFT SUMMARY ADMITTED FOR SEPSIS. FULL CODE. PLAN IS FOR DC HOME TODAY. SUPRAPUBIC CATHETER IN PLACE. IV PAIN RX GIVEN. NAUSEA MEDICATION GIVEN ON PREVIOUS SHIFT. SHE IS ACHS, HIGH SS. IV ANTIB RX ARE SCHEDULED[facility] SHE IS INDEP W/FWW. HOME CPAP @ HS. SHE IS CONSTIPATED FROM THE OPIOID USE.
--- NOTE | 2022-07-27 05:48 | NUR ---
PT STATUS SHE IS REFUSING HER 6 AM MEDICATIONS THAT ARE SCHEDULED. STATING THAT SHE WANTS TO SLEEP AND SHE WILL TAKE THEM LATER
[2022-07-27] MEDS ORDERED: CIPR500 PO (13:51)
[2022-07-27] MEDS ORDERED: MELA3 PO (13:52)
[2022-07-27] MEDS ORDERED: LOSA50 PO (13:52)
[2022-07-27] MEDS ORDERED: METO5A PO (13:53)
[2022-07-27] MEDS ORDERED: MIRALAX17 GM PO (13:54)
[2022-07-27] MEDS ORDERED: PROM25 PO (13:56)
[2022-07-27] MEDS ORDERED: PROC5 PO (13:56)
[2022-07-27] MEDS ORDERED: DOCUZEN 8.6-501 EACH PO (13:58)
--- NOTE | 2022-07-27 15:36 | NUR ---
DISCHARGED HOME, FRIEEND GIVING HER A RIDE HOME, PATIENT STATED UNDERSTANDING OF DISCHARGE NEEDS, FOLLOW UP, AND MEDICATION
== END 2022-07-27 15:31 | disposition home health service (06) | DRG 698 ==
LOC: ER 13:20 → PCU 07-20 00:49 → MEDS 07-24 05:44
PROVIDERS: Emergency Medicine; Internal Medicine; Physician Assistant; ADMIT Internal Medicine
PROC: 3E03329 Introduction of Other Anti-infective into Peripheral Vein, Percutaneous Approach (ICD-10-PCS; principal; 2022-07-20)
PROC: 5A09357 Assistance with Respiratory Ventilation, Less than 24 Consecutive Hours, Continuous Positive Airway Pressure (ICD-10-PCS; 2022-07-21)
DX: T83.518A Infection and inflammatory reaction due to other urinary catheter, initial encounter (principal); A41.9 Sepsis, unspecified organism; R65.20 Severe sepsis without septic shock; N39.0 Urinary tract infection, site not specified; N17.9 Acute kidney failure, unspecified; E87.20 Acidosis, unspecified; K21.9 Gastro-esophageal reflux disease without esophagitis; F32.A Depression, unspecified; I16.0 Hypertensive urgency; G47.33 Obstructive sleep apnea (adult) (pediatric); E11.65 Type 2 diabetes mellitus with hyperglycemia; I25.10 Atherosclerotic heart disease of native coronary artery without angina pectoris; E11.42 Type 2 diabetes mellitus with diabetic polyneuropathy; E11.43 Type 2 diabetes mellitus with diabetic autonomic (poly)neuropathy; K31.84 Gastroparesis; E03.9 Hypothyroidism, unspecified; I10 Essential (primary) hypertension; G47.00 Insomnia, unspecified; M54.9 Dorsalgia, unspecified; G89.29 Other chronic pain; Z87.39 Personal history of other diseases of the musculoskeletal system and connective tissue; Z98.890 Other specified postprocedural states; Z90.49 Acquired absence of other specified parts of digestive tract; Z90.710 Acquired absence of both cervix and uterus; Z87.19 Personal history of other diseases of the digestive system; Z99.81 Dependence on supplemental oxygen; Z88.0 Allergy status to penicillin; Z88.2 Allergy status to sulfonamides; Z88.8 Allergy status to other drugs, medicaments and biological substances; Z79.899 Other long term (current) drug therapy; Z79.02 Long term (current) use of antithrombotics/antiplatelets; Z79.82 Long term (current) use of aspirin; Z79.891 Long term (current) use of opiate analgesic; Z79.4 Long term (current) use of insulin; Y84.6 Urinary catheterization as the cause of abnormal reaction of the patient, or of later complication, without mention of misadventure at the time of the procedure
CPT/HCPCS: 36415; 71045; 74177; 80048; 80053; 81001; 82570; 82947; 83605; 83690; 84145; 84300; 84540; 85025; 85027; 87040; 87086; 94660; 94760; 96365; 96375; 97110; 97116; 97162; 97165; 97530; 99285-25; A9270; C1751; C9113; J0360; J0696; J0780; J1644; J1815; J2270; J2405; J2550; J2765; J3480; J7030; J7050; Q9967

== ENCOUNTER 2022-08-10 11:53 | Emergency (ER) | payer OTHER ==
[~2022-08-10] VITALS: Ht 175.3 cm; Wt 136.1 kg
[~2022-08-10 11:53] MED LIST changes: +CIPR500 PO; +LOSA50 PO; +MELA3 PO; +PROC5 PO
[2022-08-10] MEDS ORDERED: OXYACE7.5T PO (15:00)
== END 2022-08-10 16:25 | disposition home or self-care (01) ==
LOC: ER 11:53
DX: S82.65XA Nondisplaced fracture of lateral malleolus of left fibula, initial encounter for closed fracture (principal); S80.02XA Contusion of left knee, initial encounter; S70.02XA Contusion of left hip, initial encounter; I10 Essential (primary) hypertension; E11.9 Type 2 diabetes mellitus without complications; E03.9 Hypothyroidism, unspecified; K21.9 Gastro-esophageal reflux disease without esophagitis; I25.10 Atherosclerotic heart disease of native coronary artery without angina pectoris; W10.9XXA Fall (on) (from) unspecified stairs and steps, initial encounter; Z88.0 Allergy status to penicillin; Z88.2 Allergy status to sulfonamides; Z88.8 Allergy status to other drugs, medicaments and biological substances; Z79.890 Hormone replacement therapy; Z79.4 Long term (current) use of insulin; Z79.899 Other long term (current) drug therapy
CPT/HCPCS: 29515; 72100; 73502; 73562-LT; 73610; 96374-59; 96375-59; 99284-25; A9270; J2270; J2405; J3010

== ENCOUNTER 2022-08-29 15:19 | Inpatient (IN) | payer OTHER ==
[~2022-08-29] VITALS: Ht 175.3 cm; Wt 125.0 kg
[~2022-08-29 15:19] MED LIST changes: +ATOR40TA PO; -DICLOFENAC SOD100 G1; +DICLOFENAC SOD100 G1 TOP; +LOSA25 PO; -LOSA50 PO; -OMEP20ER; -OZEMPIC1 MG/0.72 SC; +OZEMPIC2 MG/0.75 SC; -TRAZ100 PO; +TRAZ50 PO
[2022-08-29 17:10] LABS: BASOPHILS ABSOLUTE AUTO 0.06 K/mm3 (0.00-0.23); BASOPHILS PERCENT AUTO 1 % (0-2); EOSINOPHILS ABSOLUTE AUTO 0.08 K/mm3 (0.00-0.68); EOSINOPHILS PERCENT AUTO 1 % (0-6); Hematocrit 44.8 % (33.0-51.0); Hemoglobin 15.9 g/dL (11.5-16.0); IMMATURE GRAN ABSOLUTE AUTO 0.07 K/mm3 (0.00-0.10); IMMATURE GRAN PERCENT AUTO 1 % (0-1); LYMPHOCYTES ABSOLUTE AUTO 2.88 K/mm3 (0.84-5.20); LYMPHOCYTES PERCENT AUTO 25 % (21-46); MONOCYTES ABSOLUTE AUTO 0.73 K/mm3 (0.16-1.47); MONOCYTES PERCENT AUTO 6 % (4-13); Mean Corpuscular HGB 30.2 pg (26.0-34.0); Mean Corpuscular HGB Conc 35.5 g/dL (31.5-36.5); Mean Corpuscular Volume 85 fL (80-100); NEUTROPHILS ABSOLUTE AUTO 7.94 K/mm3 (1.96-9.15); NEUTROPHILS PERCENT AUTO 68 % (41-73); RDW Coefficient Variation 11.9 % (11.7-14.2); RDW Standard Deviation 36.6 fL (35.1-46.3); Red Blood Cell Count 5.27 M/mm3 (3.80-5.20); White Blood Cell Count 11.76 K/mm3 (4.00-11.30)
[2022-08-29 17:31] LABS: Albumin, Blood 3.8 g/dL (3.4-5.0); Albumin/Globulin Ratio 0.9 (0.8-1.8); Bilirubin, Total 1.4 mg/dL (0.1-1.0); Bun/Creatinine Ratio 23.7 (12.0-20.0); Calcium, Blood 9.5 mg/dL (8.5-10.1); Creatinine, Blood 0.93 mg/dL (0.40-1.00); Globulin, Blood 4.1 g/dL (2.2-4.0); Mean Platelet Volume 9.5 fL (9.1-12.4); Platelet Count 429 K/mm3 (150-400); Potassium, Blood 3.2 mmol/L (3.5-5.5); Total Protein, Blood 7.9 g/dL (6.4-8.2)
[2022-08-29 17:43] LABS: Source, Urine Urostomy Bag
[2022-08-29 17:50] LABS: Appearance, Urine Cloudy (Clear); Bilirubin, Urine Neg (Neg); Blood, Urine 3+ (Neg); Color, Urine Yellow (P-Yellow); Glucose Qualitative, Urine 2+ (Neg); Ketones, Urine 2+ (Neg); Leukocyte Esterase, Urine 3+ (Neg); Nitrite, Urine Pos (Neg); Protein, Urine 2+ (Neg); Urobilinogen, Urine NORM (Normal)
[2022-08-29 18:14] LABS: Bacteria Many /hpf; Hyaline Casts 0-2 /lpf (0-2); Squamous Epithelial Cells Few /hpf (Few); WBC Cast 0-2 /lpf (0); White Blood Cells, Urine TNTC /hpf (0-5)
[2022-08-29] MEDS ORDERED: NOVOLOG100 UNIT/2 SC (22:20)
[2022-08-30 05:33] LABS: BASOPHILS ABSOLUTE AUTO 0.06 K/mm3 (0.00-0.23); BASOPHILS PERCENT AUTO 1 % (0-2); EOSINOPHILS ABSOLUTE AUTO 0.04 K/mm3 (0.00-0.68); EOSINOPHILS PERCENT AUTO 0 % (0-6); Hematocrit 42.2 % (33.0-51.0); Hemoglobin 14.3 g/dL (11.5-16.0); IMMATURE GRAN ABSOLUTE AUTO 0.05 K/mm3 (0.00-0.10); IMMATURE GRAN PERCENT AUTO 1 % (0-1); LYMPHOCYTES ABSOLUTE AUTO 2.21 K/mm3 (0.84-5.20); LYMPHOCYTES PERCENT AUTO 20 % (21-46); MONOCYTES ABSOLUTE AUTO 0.83 K/mm3 (0.16-1.47); MONOCYTES PERCENT AUTO 8 % (4-13); Mean Corpuscular HGB 29.7 pg (26.0-34.0); Mean Corpuscular HGB Conc 33.9 g/dL (31.5-36.5); Mean Corpuscular Volume 88 fL (80-100); Mean Platelet Volume 9.5 fL (9.1-12.4); NEUTROPHILS ABSOLUTE AUTO 7.69 K/mm3 (1.96-9.15); NEUTROPHILS PERCENT AUTO 71 % (41-73); Platelet Count 419 K/mm3 (150-400); RDW Standard Deviation 38.4 fL (35.1-46.3); Red Blood Cell Count 4.82 M/mm3 (3.80-5.20); White Blood Cell Count 10.88 K/mm3 (4.00-11.30)
[2022-08-30 06:04] LABS: Albumin, Blood 3.2 g/dL (3.4-5.0); Albumin/Globulin Ratio 0.9 (0.8-1.8); Bun/Creatinine Ratio 23.8 (12.0-20.0); Calcium, Blood 8.5 mg/dL (8.5-10.1); Creatinine, Blood 0.84 mg/dL (0.40-1.00); Globulin, Blood 3.7 g/dL (2.2-4.0); Potassium, Blood 3.3 mmol/L (3.5-5.5); Total Protein, Blood 6.9 g/dL (6.4-8.2)
--- NOTE | 2022-08-30 06:50 | NUR ---
SHIFT SUMMARY PT ADMITTED AT 2245- PT PAINFUL AND NAUSEATED ON ADMISSION - GAVE ZOFRAN AND FENTANYL X 2 T/O SHIFT - PT TOLERATED WELL - IV INFUSING WITHOUT PROBLEMS - PT HAD SPLINT ON LEFT ANKLE FROM FRACTURE - REPLACED BANDAGE AND WAYNE BANDAGE- PHOTOS TAKEN AND PLACED IN CHART- NO PRESSURE WOUNDS- PT IV INFILTRATED- NEW IV STARTED- PT SUPRAPUBIC GARY CAPPED OFF AND PT SELF EMPTIES - BED LOW POSITION, CALL LIGHT WITHIN REACH
[2022-08-30 12:32] LABS: U Amphetamine Screen Not Detected; U Barbituate Screen Not Detected; U Benzodiazapine Screen Not Detected; U Cocaine Screen Not Detected; U Methadone Screen Not Detected; U Methamphetamine Screen Not Detected; U Opiates Screen DETECTED
[2022-08-30 12:33] LABS: U Buprenorphine Screen Not Detected; U Cannabinoids Screen Not Detected; U Oxycodone Screen Not Detected; U Phencyclidine Screen Not Detected; U Propoxyphene Screen Not Detected
--- NOTE | 2022-08-30 18:10 | NUR ---
SHIFT SUMMARY: PATIENT A&OX4. CALM, PLEASANT, AND COOPERATIVE c CARE. USES CALL LIGHT APPROPRIATELY AND ABLE TO ADVOCATE FOR HER NEEDS. PATIENT ON TELE, SR IN HIGH 90'S BPM, PER PLATEN PRESS OPERATOR APPRENTICE, SIVA VILLANUEVA. PATIENT REPORTS CP 01/19. PER PATIENT IT'S NOT NEW TO HER SHE HAS BEEN HAVING CP SINCE YESTERDAY. VITAL SIGNS TAKEN BP OF 133/66 c HR OF 89 BPM. ELIGIBILITY SERVICES REPRESENTATIVE, HARI CANO WAS NOTIFIED. MEDICATED X1 c FENTANYL IV. PATIENT REPORT HAVING ADEQUATE RELIEF PAIN DOWN 10/19. LUNGS CLEAR T/O TO AUSCULTATION. PATIENT ON CL DIET AND TOLERATED WELL. DENIES N/V, SOB. PATIENT RECEIVED OT DOSE OF POTASSIUM CHLORIDE. IV TO R FOREARM INFUSING NS AT 75 MLS/HR. PATIENT HAD POSITIVE BLOOD CX, GRAM POSITIVE COCCI IN CLUSTER. DR. WHITMORE WAS NOTIFIED. NO NEW ORDER RECEIVED. VITAL SIGNS REVIEWED. CALL LIGHT IN REACH.
--- NOTE | 2022-08-30 18:39 | NUR ---
SHIFT SUMMARY: PATIENT A&OX4. SLOW TO RESPOND. CALM, PLEASANT AND COOPERATIVE c CARE. USES CALL LIGHT APPROPRIATELY AND ABLE TO ADVOCATE FOR HIS NEEDS. PATIENT DENIES CP/CHEST PRESSURE. LUNGS CLEAR/DIM T/O TO AUSCULTATION. DENIES SOB. BEGINNING OF SHIFT PATIENT WAS ON O2 3L VIA NC c SPO2 OF 100%. PATIENT WAS PLACED ON RA c SPO2 OF 95-97% T/O SHIFT. HALIE DRAIN TO RU SIDE HAS MINIMAL DRAINAIGE c TINY CLOTS T/O SHIFT. PATIENT REPORTS OF BACK PAIN. MEDICATED X2 c NORCO T/O SHIFT. PATIENT REPORTS OF HAVING ADEQUATE RELIEF. INCONTINENCE OF URINE AND STOOL. ATTENDS CHANGED AND REPOSITION T/O SHIFT. MIPELEX DRESSING TO COCCYX WAS CHANGED TODAY. CHEST CT WAS DONE THIS PM, AWAITING FOR RESULT. IV TO RAC SALINE LOCKED. BED ALARM ON FOR SAFETY. CALL LIGHT IN REACH.
--- NOTE | 2022-08-31 04:09 | NUR ---
PATIENT HAD PERIODS OVERNIGHT WHERE SHE WOULD BE VERY ANXIOUS ABOUT HER PAIN. SHE ASKED ABOUT AND RECEIVED FENTANYL, THEN IMMEDIATELY BECAME NAUSEATED. NAUSEA WAS RELEIVED WITH MARVIN. SHE STATES THAT ROUTINELY AT HOME, SHE TAKES 2 5MG OXYCODONE EVERY 4 HOURS NEEDED FOR PAIN. ONE THAT NOTE, THIS RN CALLED THE HOSPITALIST AND HAD THE FENTANYL DC'D AND THE OXYCODONE ORDERED. TWO HOURS LATER, SHE WOKE AND BEGAN DRY WRETCHING AND SAID BOTH LEGS HURT AND THAT SHE WOULD REQUIRE THE FENTANYL AGAIN. I EXPLAINED THAT IT WAS THE FENTANYL THAT HAD CAUSED HER TO WRETCH SOON SHE HAD TAKEN IT. WHILE WAITING ON MD CALL, PATIENT HAD FALLEN BACK ASLEEP WITH CPAP ON.
--- NOTE | 2022-08-31 10:45 | NUR ---
Spiritual care visit attempted. Patient is sleeping. I left a note of encouragement.
--- NOTE | 2022-08-31 19:29 | NUR ---
SHIFT SUMMARY: PATIENT A&OX4. PLEASANT AND COOPERATIVE c CARE. USES CALL LIGHT APPROPRIATELY AND ABLE TO ADVOCATE FOR HER NEEDS. PATIENT HAD VOMITING EPISODE AROUND 0700. MEDICATED X1 c ZOFRAN. PATIENT REPORTS OF ADEQUATE RELIEF. PATIENT ON FL DIET FOR LUNCH AND DINNER TOLERATED WELL. RECEIVED SHOWER AND LINEN CHANGED TODAY. REPORTS OF EPIGASTRIC PAIN 5/10. MEDICATE c OXYCODONE 10 MG. PATIENT REPORTS PAIN DOWN TO 2/10. STILL ON TELE, SR HIGH 90'S c PVC. PER FENCE MACHINE OPERATOR, SIVA VILLANUEVA. DENIES CP/CHEST PRESSURE THIS SHIFT. VITAL SIGNS REVIEWED. IV TO R FOREARM SALINE LOCKED. L LEG DRESSING CHANGED. CALL LIGHT IN REACH.
--- NOTE | 2022-09-01 09:00 | NUR ---
PT PLEASASNT COOP A/O . H/R REG, NO MURMUR NOTED. PER TELE NSR AT 88, STATES CONTINUES NAUSEATED. NO EMESIS THIS SHIFT SO FAR. LUNGS CLEAR, RESP EASY, UNLABORED. ON R.A. BT X4 LAST BM UNKNOWN BY PT. VOIDS SUPRAPUBIC CATH. YELLOW FLUID IN BAG. PT SLEEPS MUCH OF TIME. STATES BURNING EPIGASTRIC PAIN. STATES NOT UNUSUAL. HAS GASTRIC PARISIS. AND GERD. WILL SPEAK TO DR TO SEE IF ANY THING MIGHT BE HELP FULL. BED IN LOW POSITION, CALL LITE IN REACH. CALLS APPROP
--- NOTE | 2022-09-01 14:27 | NUR ---
CALLED DR HUSSEIN RE EPIGASTRIC PAIN. PT STATES HAS GASTROPARESIS. GERD. ASKED IF MAALOX OR SOME OTHER IDEAS MIGHT BE APPROP. DR TO SEE PT SOON.
[2022-09-01 16:41] LABS: Albumin, Blood 3.1 g/dL (3.4-5.0); Albumin/Globulin Ratio 0.8 (0.8-1.8); Bilirubin, Total 0.6 mg/dL (0.1-1.0); Bun/Creatinine Ratio 22.8 (12.0-20.0); Calcium, Blood 8.8 mg/dL (8.5-10.1); Creatinine, Blood 0.88 mg/dL (0.40-1.00); Globulin, Blood 3.9 g/dL (2.2-4.0); Potassium, Blood 3.5 mmol/L (3.5-5.5)
--- NOTE | 2022-09-01 18:39 | NUR ---
PT REFUSED BKFST AND LUNCH TODAY. DID EAT SOME DINNER WITH PRE MED WITH COMPAZINE. STATES THIS DID HELP SOME. MAY TRY ADVANCE DIET TOMORROW. DR CHANGING TO PROTONIX TO BID. ADJUSTING SOME MEDS TODAY. FAMILY IN TO VISIT TODAY. ALTHOUGH SLEPT MOST OF EARLY DAY, MORE AWAKE THIS AFT. AND TALKING MORE THIS JACINTA. NO OTHER CONCERNS NOTED TODAY. BED IN LOW POSITIION, CALL LITE IN REACH, CALLS APPROP
--- NOTE | 2022-09-01 20:01 | NUR ---
bp taken on monitor and manually by RN 74/50. patient laying down in bed c/o mild headache. HR currently 103. call placed to hospitalist. awaiting return call.
--- NOTE | 2022-09-01 20:24 | NUR ---
2nd call placed to hospitalist. online media director's aware of situation
[2022-09-02 06:01] LABS: BASOPHILS ABSOLUTE AUTO 0.03 K/mm3 (0.00-0.23); BASOPHILS PERCENT AUTO 0 % (0-2); EOSINOPHILS ABSOLUTE AUTO 0.13 K/mm3 (0.00-0.68); EOSINOPHILS PERCENT AUTO 2 % (0-6); Hematocrit 36.5 % (33.0-51.0); Hemoglobin 12.3 g/dL (11.5-16.0); IMMATURE GRAN ABSOLUTE AUTO 0.06 K/mm3 (0.00-0.10); IMMATURE GRAN PERCENT AUTO 1 % (0-1); LYMPHOCYTES ABSOLUTE AUTO 2.01 K/mm3 (0.84-5.20); LYMPHOCYTES PERCENT AUTO 24 % (21-46); MONOCYTES ABSOLUTE AUTO 0.71 K/mm3 (0.16-1.47); MONOCYTES PERCENT AUTO 8 % (4-13); Mean Corpuscular HGB 29.9 pg (26.0-34.0); Mean Corpuscular HGB Conc 33.7 g/dL (31.5-36.5); Mean Corpuscular Volume 89 fL (80-100); Mean Platelet Volume 10.2 fL (9.1-12.4); NEUTROPHILS ABSOLUTE AUTO 5.59 K/mm3 (1.96-9.15); NEUTROPHILS PERCENT AUTO 66 % (41-73); Platelet Count 326 K/mm3 (150-400); RDW Coefficient Variation 12.4 % (11.7-14.2); RDW Standard Deviation 39.8 fL (35.1-46.3); Red Blood Cell Count 4.12 M/mm3 (3.80-5.20); White Blood Cell Count 8.53 K/mm3 (4.00-11.30)
[2022-09-02 06:29] LABS: Alanine Aminotransfer (ALT/SGP 12 U/L (12-78); Albumin, Blood 2.7 g/dL (3.4-5.0); Albumin/Globulin Ratio 0.8 (0.8-1.8); Alk Phos 112 U/L (50-136); Anion Gap 7 mmol/L (6-16); Aspartate Aminotrans (AST/SGOT <3 U/L (12-37); Bilirubin, Total 0.6 mg/dL (0.1-1.0); Blood Urea Nitrogen 19 mg/dL (8-24); Bun/Creatinine Ratio 20.2 (12.0-20.0); CO2, Blood 24 mmol/L (21-32); Calcium, Blood 8.6 mg/dL (8.5-10.1); Chloride, Blood 106 mmol/L (98-108); Creatinine, Blood 0.94 mg/dL (0.40-1.00); Globulin, Blood 3.2 g/dL (2.2-4.0); Glomerular Filtration Rate 70 (60-); Glucose, Blood 132 mg/dL (70-99); Potassium, Blood 3.1 mmol/L (3.5-5.5); Sodium, Blood 137 mmol/L (136-145); Total Protein, Blood 5.9 g/dL (6.4-8.2)
--- NOTE | 2022-09-02 07:54 | NUR ---
NADRÉS GOT LITTLE SLEEP OVERNIGHT. BP AROUND 1999 WAS 74/50. THIS PROMPTED A CALL TO MD WHO ORDERED A FLUID BOLUS AND CONTINUOUS FLUIDS AT 100/HR. PRESSURES CAME UP AFTER THE BOLUS TO THE 110'S, HOWEVER BY THE END OF THE SHIFT, HER SYSTOLIC WAS BACK IN THE 90'S. PATIENT ALSO STATED THAT SHE HADN'T VOIDED ALL DAY. THIS WAS ALSO ADDRESSED AND PATIENT WAS BLADDER SCANNED FOR <5. AFTER THE FACT, IT WAS NOTED THAT SHE HAD VOIDED 525 ON DAY SHIFT, AND AN ADDITIONAL 800ML THIS MORNING
--- NOTE | 2022-09-02 08:45 | NUR ---
CALLED DR HUSSEIN RE BP LAST JACINTA. IN /S. DISCUSSED BOLUS AND THE LOSARTAN AND COMPAZINE. OKAY HOLD LOSARTAN TODAY. GIVE COMPAZINE. OKAY CONTINUE FLUIDS. OKAY ADVANCE DIET TOLERATED.
--- NOTE | 2022-09-02 09:00 | NUR ---
PT PLEASANT COOP A/O DENIES PAIN AT THIS TIME. STATES NOT HAVING PAIN AT THIS TIME. PT HAS A LEFT ANKLE BRACE/SPLINT FROM ANKLE INJURY AT HOME LAST YEAR. H/R REG, NO MURMUR NOTED. PER TELE NSR AT 85. LUNGS CLEAR, RESP EASY, UNLABORED. ON R.A. BT X4 LAST BM NOT KNOWN BY PT. VOIDS VIA SUPRAPUBIC CATH. PT MANAGING. BED IN LOW POSITION, CALL LITE IN REACH, CALLS APPROP
[2022-09-02 16:39] LABS: Albumin, Blood 3.1 g/dL (3.4-5.0); Albumin/Globulin Ratio 0.9 (0.8-1.8); Bilirubin, Total 0.7 mg/dL (0.1-1.0); Bun/Creatinine Ratio 17.8 (12.0-20.0); Calcium, Blood 8.6 mg/dL (8.5-10.1); Creatinine, Blood 0.84 mg/dL (0.40-1.00); Globulin, Blood 3.6 g/dL (2.2-4.0); Potassium, Blood 3.6 mmol/L (3.5-5.5); Total Protein, Blood 6.7 g/dL (6.4-8.2)
--- NOTE | 2022-09-02 18:29 | NUR ---
PT STATES FEELS SOME BETTER TODAY. I DID NOTICE EMESIS ONCE TODAY. GAVE COMPAZINE. GIVEING THE 5 MG DOSE AND PT STATES THIS DOES HELP QUITE WELL. ALSO DID GIVE SECOND BALANCE DOSE AT DINNER TIME. STATES MAY HAVE HELPED SOME. FRIEND IN TO VISIT TODAY. PT HAD CT TODAY. NO NEW CONCERNS NOTED. BED IN LOW POSITION, CALL LITE IN REACH. CALLS APPROP
[2022-09-03 06:59] LABS: BASOPHILS ABSOLUTE AUTO 0.04 K/mm3 (0.00-0.23); BASOPHILS PERCENT AUTO 1 % (0-2); EOSINOPHILS ABSOLUTE AUTO 0.17 K/mm3 (0.00-0.68); EOSINOPHILS PERCENT AUTO 2 % (0-6); Hematocrit 37.7 % (33.0-51.0); Hemoglobin 12.9 g/dL (11.5-16.0); IMMATURE GRAN ABSOLUTE AUTO 0.03 K/mm3 (0.00-0.10); IMMATURE GRAN PERCENT AUTO 0 % (0-1); LYMPHOCYTES ABSOLUTE AUTO 1.39 K/mm3 (0.84-5.20); LYMPHOCYTES PERCENT AUTO 18 % (21-46); MONOCYTES ABSOLUTE AUTO 0.62 K/mm3 (0.16-1.47); MONOCYTES PERCENT AUTO 8 % (4-13); Mean Corpuscular HGB Conc 34.2 g/dL (31.5-36.5); Mean Corpuscular Volume 88 fL (80-100); Mean Platelet Volume 9.9 fL (9.1-12.4); NEUTROPHILS ABSOLUTE AUTO 5.33 K/mm3 (1.96-9.15); NEUTROPHILS PERCENT AUTO 70 % (41-73); Platelet Count 324 K/mm3 (150-400); RDW Coefficient Variation 12.5 % (11.7-14.2); RDW Standard Deviation 40.1 fL (35.1-46.3); White Blood Cell Count 7.58 K/mm3 (4.00-11.30)
[2022-09-03 07:12] LABS: Albumin, Blood 2.9 g/dL (3.4-5.0); Albumin/Globulin Ratio 0.8 (0.8-1.8); Bilirubin, Total 0.7 mg/dL (0.1-1.0); Bun/Creatinine Ratio 13.6 (12.0-20.0); Calcium, Blood 8.4 mg/dL (8.5-10.1); Creatinine, Blood 0.74 mg/dL (0.40-1.00); Globulin, Blood 3.6 g/dL (2.2-4.0); Potassium, Blood 3.1 mmol/L (3.5-5.5); Total Protein, Blood 6.5 g/dL (6.4-8.2)
--- NOTE | 2022-09-03 07:44 | NUR ---
PATIENT SLEPT WELL FOR MOST OF THE EVENING. NO EMESIS NOTED UNTIL APPROX 0400. 30ML EMESIS RESOLVED WITH 5MG COMPAZINE AND PATIENT WENT BACK TO SLEEP. IV FLUID STOPPED AROUND 0400 ALSO PATIENT HAS BEEN DRINKING WELL, HAVING GOOD URINE OUTPUT AND WAS ALSO NOT ABLE TO TOLERATE IV RUNNING IN ANTICUBITAL SITE.
--- NOTE | 2022-09-03 18:42 | NUR ---
SHIFT SUMMARY- PT IS A/O, PLESANT AND COOPERATIVE. SHE HAS BEEN NAUSIOUS THIS SHIFT. SHE ATE WELL AT DINNER. IV INFULTRATED AND WAS REPLACED. THAT ALSO INFULTRATED LATER THIS SHIFT. PG WAS BEING PLACED AT THE END OF SHIFT. DR. MCCALLUM SAW THE PT. HE PLANS ON PREFORMING A SCOPE TOMORROW AFTERNOON. HER BED IS IN THE LOW POSITION AND CALL LIGHT IS WITHIN REACH.
--- NOTE | 2022-09-04 04:24 | NUR ---
SHIFT SUMMARY FULL CODE. PT TO GO FOR UPPER ENDO TODAY APROX 1500. PT TO HAVE ONLY ICE AND WATER UNTIL 1200 PM AND BE NPO AFTER. BOOT TO RLE FOR PREVIOUS ANKLE FX IN PLACE. MEDICATED WITH COMPAZINE IV EARLY IN SHIFT FOR NAUSEA. POWERGLIDE TO CIRO PLACED BY CHARGE NURSE AT START OF SHIFT. NO FURTHER CHANGES THIS SHIFT.
[2022-09-04 06:06] LABS: Alanine Aminotransfer (ALT/SGP 15 U/L (12-78); Albumin, Blood 2.6 g/dL (3.4-5.0); Albumin/Globulin Ratio 0.8 (0.8-1.8); Alk Phos 104 U/L (50-136); Anion Gap 7 mmol/L (6-16); Aspartate Aminotrans (AST/SGOT <3 U/L (12-37); Bilirubin, Total 0.7 mg/dL (0.1-1.0); Blood Urea Nitrogen 10 mg/dL (8-24); Bun/Creatinine Ratio 11.7 (12.0-20.0); CO2, Blood 25 mmol/L (21-32); Calcium, Blood 8.5 mg/dL (8.5-10.1); Chloride, Blood 107 mmol/L (98-108); Creatinine, Blood 0.86 mg/dL (0.40-1.00); Globulin, Blood 3.4 g/dL (2.2-4.0); Glomerular Filtration Rate 78 (60-); Glucose, Blood 117 mg/dL (70-99); Potassium, Blood 3.1 mmol/L (3.5-5.5); Sodium, Blood 139 mmol/L (136-145)
--- NOTE | 2022-09-04 14:59 | NUR ---
Patient is sitting on the EOB and alert. She tells me about her upcoming endoscopy and her hopes that some answers are found that would bring some relief to her nausea and vomiting. She then talks at length about her life and the challenging and humerous people and situations that surround her. She talks about her michael and her desire to keep moving forward in her connections with God. We explore paths of growth in her spiritual journey, and I provide spiritual direction and prayer. I also pray for peace for her upcoming procedure. Patient responded well and showed signs of increased peace and finding new direction. I will contnue to remain available to patient and family.
--- NOTE | 2022-09-04 17:20 | NUR ---
09/04/[address] NAVARRO; SEE ANESTHESIA RECORDS.
--- NOTE | 2022-09-04 18:28 | NUR ---
SHIFT SUMMARY PT A&OX4 AND IN PLEASENT MOOD T/O SHIFT. PT RETURNED FROM [facility]PPER SCOPE THIS AFTERNOON-PLAN FOR [facility] SOFT DIET VIA DAY VALVE SETTERHOMAR STONE. CALL LIGHT W/IN REACH. LUNG SOUNDS CLEAR, PT DENIES PAIN. N/V MEDICATED PER EMAR. VSS.
--- NOTE | 2022-09-05 05:22 | NUR ---
SHIFT SUMMARY 57 YR F ADMITTED ON 08/31/22 FOR SEPSIS UTI. FULL CODE. NO ACUTE CHANGES THIS SHIFT. PT STATED THAT SHE VOMITED A SMALL AMOUNT ONE TIME APPROX 30 MINUTES AFTER TAKING 2100 MEDS. SHE C/O PAIN IN HER ABDOMEN AND WAS GIVEN TYLENOL PER EMAR. SHE SLEPT FOR MOST OF THE REST OF THE SHIFT WITH NO MORE C/O N/V OR PAIN.
[2022-09-05 07:03] LABS: BASOPHILS ABSOLUTE AUTO 0.04 K/mm3 (0.00-0.23); BASOPHILS PERCENT AUTO 1 % (0-2); EOSINOPHILS PERCENT AUTO 3 % (0-6); Hematocrit 38.4 % (33.0-51.0); Hemoglobin 13.2 g/dL (11.5-16.0); IMMATURE GRAN ABSOLUTE AUTO 0.04 K/mm3 (0.00-0.10); IMMATURE GRAN PERCENT AUTO 1 % (0-1); LYMPHOCYTES ABSOLUTE AUTO 2.02 K/mm3 (0.84-5.20); LYMPHOCYTES PERCENT AUTO 27 % (21-46); MONOCYTES ABSOLUTE AUTO 0.62 K/mm3 (0.16-1.47); MONOCYTES PERCENT AUTO 8 % (4-13); Mean Corpuscular HGB 30.1 pg (26.0-34.0); Mean Corpuscular HGB Conc 34.4 g/dL (31.5-36.5); Mean Corpuscular Volume 88 fL (80-100); Mean Platelet Volume 9.7 fL (9.1-12.4); NEUTROPHILS ABSOLUTE AUTO 4.57 K/mm3 (1.96-9.15); NEUTROPHILS PERCENT AUTO 61 % (41-73); Platelet Count 307 K/mm3 (150-400); RDW Coefficient Variation 12.6 % (11.7-14.2); RDW Standard Deviation 40.2 fL (35.1-46.3); Red Blood Cell Count 4.39 M/mm3 (3.80-5.20); White Blood Cell Count 7.49 K/mm3 (4.00-11.30)
[2022-09-05 07:27] LABS: Albumin, Blood 2.9 g/dL (3.4-5.0); Albumin/Globulin Ratio 0.8 (0.8-1.8); Bilirubin, Total 0.6 mg/dL (0.1-1.0); Bun/Creatinine Ratio 13.2 (12.0-20.0); Calcium, Blood 8.6 mg/dL (8.5-10.1); Creatinine, Blood 0.91 mg/dL (0.40-1.00); Globulin, Blood 3.6 g/dL (2.2-4.0); Potassium, Blood 3.3 mmol/L (3.5-5.5); Total Protein, Blood 6.5 g/dL (6.4-8.2)
--- NOTE | 2022-09-05 12:24 | NUR ---
SUPRAPUBIC CATHETER CATHETER CHANGED BY THE NURSES IN [place]. PT TOLERATED WELL. CONTINUE POC.
--- NOTE | 2022-09-05 13:38 | NUR ---
DIZZY PT WANTED TO GO FOR A WALK. PROVIDED A JAMARCUS. SHE MADE IT FROM HER BED TO THE DOORWAY. SHE STOPPED AND STATED THAT SHE WAS DIZZY. RETURNED TO BED. SAT DOWN. BP 96/60. AFTER SITTING SHE STATED THAT THE DIZZINESS WAS GETTING BETTER. CONTINUE POC.
--- NOTE | 2022-09-05 16:02 | NUR ---
Patient tlaks about her possible d/c tomorrow and the mirna of seeing her cat again. She shares about the slow climb to better health but also how hopeful she is for some better healthier living. She then talks about her crazy highschool and young adult years and grateful she is to have made it through given her poor chioces. I provided therapeutic listening, levity and prayer. Patient responded well and showed signs having added mirna to her demenor. I will continue to remain available to patient and family.
--- NOTE | 2022-09-06 04:46 | NUR ---
SUMMARY: NO ACUTE EVENTS OVERNIGHT. VSS. PATIENT AMBULATED IN HALLWAY WITH WALKER. WORE CPAP OVERNIGHT. PATIENT EMPTIES SUPRAPUBIC CATH INDEPENDENTLY. PATIENT REQUESTED A ONE TIME DOES OF OXYCODONE FOR BACK PAIN. PROVIDED HEATING PAD WELL. CALL LIGHT IN REACH.
[2022-09-06 05:39] LABS: BASOPHILS ABSOLUTE AUTO 0.05 K/mm3 (0.00-0.23); BASOPHILS PERCENT AUTO 1 % (0-2); EOSINOPHILS ABSOLUTE AUTO 0.21 K/mm3 (0.00-0.68); EOSINOPHILS PERCENT AUTO 3 % (0-6); Hematocrit 38.9 % (33.0-51.0); Hemoglobin 13.3 g/dL (11.5-16.0); IMMATURE GRAN ABSOLUTE AUTO 0.05 K/mm3 (0.00-0.10); IMMATURE GRAN PERCENT AUTO 1 % (0-1); LYMPHOCYTES ABSOLUTE AUTO 2.13 K/mm3 (0.84-5.20); LYMPHOCYTES PERCENT AUTO 30 % (21-46); MONOCYTES ABSOLUTE AUTO 0.69 K/mm3 (0.16-1.47); MONOCYTES PERCENT AUTO 10 % (4-13); Mean Corpuscular HGB 30.1 pg (26.0-34.0); Mean Corpuscular HGB Conc 34.2 g/dL (31.5-36.5); Mean Corpuscular Volume 88 fL (80-100); Mean Platelet Volume 10.3 fL (9.1-12.4); NEUTROPHILS ABSOLUTE AUTO 3.97 K/mm3 (1.96-9.15); NEUTROPHILS PERCENT AUTO 56 % (41-73); Platelet Count 284 K/mm3 (150-400); RDW Coefficient Variation 12.8 % (11.7-14.2); RDW Standard Deviation 41.1 fL (35.1-46.3); Red Blood Cell Count 4.42 M/mm3 (3.80-5.20)
[2022-09-06 06:05] LABS: Albumin/Globulin Ratio 0.9 (0.8-1.8); Bilirubin, Total 0.6 mg/dL (0.1-1.0); Bun/Creatinine Ratio 17.1 (12.0-20.0); Calcium, Blood 8.9 mg/dL (8.5-10.1); Creatinine, Blood 1.05 mg/dL (0.40-1.00); Globulin, Blood 3.5 g/dL (2.2-4.0); Potassium, Blood 3.3 mmol/L (3.5-5.5); Total Protein, Blood 6.5 g/dL (6.4-8.2)
--- NOTE | 2022-09-06 11:36 | NUR ---
DR HUSSEIN MESSAGE LEFT DR HUSSEIN CONCERNING PT LOWISH BP. CONTINUE POC.
--- NOTE | 2022-09-06 19:28 | NUR ---
EVENING NOTE PT BP IMPROVED AFTER IVF STARTED. WITH STANDING PT HAS DENIED DIZZINESS THIS EVEING. VOIDED X1. UNALBE TO GET HER A SHOWER D/T NO HOT WATER. HELPED HER WASH UP AT THE SONK. LUNGS CTA. MEDICATED WITH COMPAZINBE THIS MORNING X1. EFFECTIVE. NO FURTHER NEED FOR ANTI EMETICS TODAY. CBG COVERED WITH SLIDING SCALE INSULIN. VISITING WITH FAMILY AT BEDSIDE. CONTINUE POC.
[2022-09-07 04:44] LABS: BASOPHILS ABSOLUTE AUTO 0.06 K/mm3 (0.00-0.23); BASOPHILS PERCENT AUTO 1 % (0-2); EOSINOPHILS ABSOLUTE AUTO 0.28 K/mm3 (0.00-0.68); EOSINOPHILS PERCENT AUTO 4 % (0-6); Hematocrit 35.6 % (33.0-51.0); IMMATURE GRAN ABSOLUTE AUTO 0.02 K/mm3 (0.00-0.10); IMMATURE GRAN PERCENT AUTO 0 % (0-1); LYMPHOCYTES ABSOLUTE AUTO 2.17 K/mm3 (0.84-5.20); LYMPHOCYTES PERCENT AUTO 32 % (21-46); MONOCYTES ABSOLUTE AUTO 0.55 K/mm3 (0.16-1.47); MONOCYTES PERCENT AUTO 8 % (4-13); Mean Corpuscular HGB 29.6 pg (26.0-34.0); Mean Corpuscular HGB Conc 33.7 g/dL (31.5-36.5); Mean Corpuscular Volume 88 fL (80-100); Mean Platelet Volume 9.7 fL (9.1-12.4); NEUTROPHILS ABSOLUTE AUTO 3.62 K/mm3 (1.96-9.15); NEUTROPHILS PERCENT AUTO 54 % (41-73); Platelet Count 295 K/mm3 (150-400); RDW Coefficient Variation 12.6 % (11.7-14.2); RDW Standard Deviation 40.5 fL (35.1-46.3); Red Blood Cell Count 4.05 M/mm3 (3.80-5.20)
[2022-09-07 05:29] LABS: Alanine Aminotransfer (ALT/SGP 15 U/L (12-78); Albumin, Blood 2.7 g/dL (3.4-5.0); Albumin/Globulin Ratio 0.8 (0.8-1.8); Alk Phos 90 U/L (50-136); Anion Gap 8 mmol/L (6-16); Aspartate Aminotrans (AST/SGOT <3 U/L (12-37); Bilirubin, Total 0.4 mg/dL (0.1-1.0); Blood Urea Nitrogen 16 mg/dL (8-24); Bun/Creatinine Ratio 20.2 (12.0-20.0); CO2, Blood 25 mmol/L (21-32); Calcium, Blood 8.9 mg/dL (8.5-10.1); Chloride, Blood 107 mmol/L (98-108); Creatinine, Blood 0.79 mg/dL (0.40-1.00); Globulin, Blood 3.2 g/dL (2.2-4.0); Glomerular Filtration Rate 86 (60-); Glucose, Blood 183 mg/dL (70-99); Potassium, Blood 3.6 mmol/L (3.5-5.5); Sodium, Blood 140 mmol/L (136-145); Total Protein, Blood 5.9 g/dL (6.4-8.2)
--- NOTE | 2022-09-07 05:36 | NUR ---
PT IS A&O4, UP SB WITH WALKER, VSS, BP'S STABLE OVERNIGHT, NO COMPLAINTS OF PAIN OR DISCOMFORT THIS SHIFT, PT EAGER TO GO HOME TODAY, CONTINUE POC
--- NOTE | 2022-09-07 12:42 | NUR ---
DISCHARGE PATIENT TRANSPORTED VIA WHEELCHAIR TO PRIVATE VEHICLE. DISCHARGE INSTRUCTIONS EXPLAINED TO PATIENT. PATIENT STATED UNDERSTANDING. PACKET SENT WITH PATIENT. NO IV ACCESS. TELE REMOVED WITHOUT DIFFICULTY. SUPRAPUBIC CATHETER PATENT AND INTACT AT TIME OF DISCHARGE. MEDICATIONS FAXED TO PREFERRED PHARMACY. [facility] SCHEDULED FOLLOW UP APPOINTMENT.
== END 2022-09-07 12:37 | disposition home or self-care (01) | DRG 698 ==
LOC: ER 15:19 → MEDS 22:47 → ER 08-31 21:13 → MEDS 08-31 21:13
PROVIDERS: Internal Medicine; Internal Medicine Gastroenterology; Student in an Organized Health Care Education/Training Program; ADMIT Internal Medicine
PROC: 3E03329 Introduction of Other Anti-infective into Peripheral Vein, Percutaneous Approach (ICD-10-PCS; 2022-08-30)
PROC: 5A09357 Assistance with Respiratory Ventilation, Less than 24 Consecutive Hours, Continuous Positive Airway Pressure (ICD-10-PCS; 2022-08-30)
PROC: 0DB68ZX Excision of Stomach, Via Natural or Artificial Opening Endoscopic, Diagnostic (ICD-10-PCS; 2022-09-04)
PROC: 0DB98ZX Excision of Duodenum, Via Natural or Artificial Opening Endoscopic, Diagnostic (ICD-10-PCS; principal; 2022-09-04 09:00)
DX: T83.518A Infection and inflammatory reaction due to other urinary catheter, initial encounter (principal); A41.01 Sepsis due to Methicillin susceptible Staphylococcus aureus; A41.50 Gram-negative sepsis, unspecified; N39.0 Urinary tract infection, site not specified; K22.10 Ulcer of esophagus without bleeding; Z68.41 Body mass index [BMI] 40.0-44.9, adult; R11.2 Nausea with vomiting, unspecified; E11.43 Type 2 diabetes mellitus with diabetic autonomic (poly)neuropathy; K31.84 Gastroparesis; K29.50 Unspecified chronic gastritis without bleeding; E11.42 Type 2 diabetes mellitus with diabetic polyneuropathy; I10 Essential (primary) hypertension; G47.00 Insomnia, unspecified; E03.9 Hypothyroidism, unspecified; K21.9 Gastro-esophageal reflux disease without esophagitis; M54.9 Dorsalgia, unspecified; G89.4 Chronic pain syndrome; F41.9 Anxiety disorder, unspecified; G47.33 Obstructive sleep apnea (adult) (pediatric); F32.A Depression, unspecified; E86.0 Dehydration; E87.6 Hypokalemia; I95.9 Hypotension, unspecified; E86.9 Volume depletion, unspecified; K64.9 Unspecified hemorrhoids; I25.119 Atherosclerotic heart disease of native coronary artery with unspecified angina pectoris; E11.621 Type 2 diabetes mellitus with foot ulcer; L97.519 Non-pressure chronic ulcer of other part of right foot with unspecified severity; E11.610 Type 2 diabetes mellitus with diabetic neuropathic arthropathy; E66.01 Morbid (severe) obesity due to excess calories; R33.9 Retention of urine, unspecified; Z87.81 Personal history of (healed) traumatic fracture; Z88.2 Allergy status to sulfonamides; Z88.0 Allergy status to penicillin; Z88.8 Allergy status to other drugs, medicaments and biological substances; Z79.891 Long term (current) use of opiate analgesic; Z79.02 Long term (current) use of antithrombotics/antiplatelets; Z79.4 Long term (current) use of insulin; Z79.2 Long term (current) use of antibiotics; Z79.899 Other long term (current) drug therapy; Z99.81 Dependence on supplemental oxygen; Z87.39 Personal history of other diseases of the musculoskeletal system and connective tissue; Z90.710 Acquired absence of both cervix and uterus; Z90.49 Acquired absence of other specified parts of digestive tract; Z98.890 Other specified postprocedural states; Z87.19 Personal history of other diseases of the digestive system; Z86.010 Personal history of colon polyps; Z90.722 Acquired absence of ovaries, bilateral; Z89.421 Acquired absence of other right toe(s); Z87.891 Personal history of nicotine dependence; Y84.6 Urinary catheterization as the cause of abnormal reaction of the patient, or of later complication, without mention of misadventure at the time of the procedure
CPT/HCPCS: 36415; 71045; 74177; 80053; 81001; 82947; 83036; 83605; 83690; 83880; 84443; 84484; 85025; 87040; 87077; 87086; 87186; 88305; 88342; 93005; 93010; 94660; 94760; 96365; 96375; 99285-25; A9270; C1751; C9113; J0696; J0780; J1200; J1650; J1815; J1956; J2001; J2270; J2405; J2550; J2704; J2765; J3010; J3480; J7030; J7050; J7120; Q9967

== ENCOUNTER 2022-10-03 17:50 | Observation (INO) | payer OTHER ==
[~2022-10-03] VITALS: Ht 172.7 cm; Wt 118.5 kg
[~2022-10-03 17:50] MED LIST changes: +NOVOLOG100 UNIT/2 SC
[2022-10-03 18:38] LABS: BASOPHILS ABSOLUTE AUTO 0.03 K/mm3 (0.00-0.23); BASOPHILS PERCENT AUTO 0 % (0-2); EOSINOPHILS ABSOLUTE AUTO 0.04 K/mm3 (0.00-0.68); EOSINOPHILS PERCENT AUTO 0 % (0-6); Hematocrit 39.1 % (33.0-51.0); Hemoglobin 13.8 g/dL (11.5-16.0); IMMATURE GRAN ABSOLUTE AUTO 0.04 K/mm3 (0.00-0.10); IMMATURE GRAN PERCENT AUTO 0 % (0-1); LYMPHOCYTES PERCENT AUTO 25 % (21-46); MONOCYTES ABSOLUTE AUTO 0.68 K/mm3 (0.16-1.47); MONOCYTES PERCENT AUTO 6 % (4-13); Mean Corpuscular HGB 29.9 pg (26.0-34.0); Mean Corpuscular HGB Conc 35.3 g/dL (31.5-36.5); Mean Corpuscular Volume 85 fL (80-100); Mean Platelet Volume 10.3 fL (9.1-12.4); NEUTROPHILS ABSOLUTE AUTO 7.12 K/mm3 (1.96-9.15); NEUTROPHILS PERCENT AUTO 67 % (41-73); Platelet Count 304 K/mm3 (150-400); RDW Coefficient Variation 11.9 % (11.7-14.2); RDW Standard Deviation 35.8 fL (35.1-46.3); Red Blood Cell Count 4.62 M/mm3 (3.80-5.20); White Blood Cell Count 10.61 K/mm3 (4.00-11.30)
[2022-10-03 18:42] LABS: Source, Urine Suprapubic Cath
[2022-10-03 18:47] LABS: Appearance, Urine Hazy (Clear); Bilirubin, Urine Neg (Neg); Blood, Urine 2+ (Neg); Color, Urine Yellow (P-Yellow); Glucose Qualitative, Urine Neg (Neg); Ketones, Urine 4+ (Neg); Leukocyte Esterase, Urine 3+ (Neg); Nitrite, Urine Neg (Neg); Protein, Urine 2+ (Neg); Specific Gravity, Urine 1.015 (1.003-1.022); Urobilinogen, Urine 1+ (Normal)
[2022-10-03 18:55] LABS: Bacteria Many /hpf; Mucus Light (0-Heavy); Squamous Epithelial Cells Mod /hpf (Few); Transitional Epithelial Cells Rare /hpf (0-Rare); Uric Acid Crystals Rare /hpf; White Blood Cells, Urine 25-50 /hpf (0-5)
[2022-10-03 19:05] LABS: Albumin, Blood 2.7 g/dL (3.4-5.0); Albumin/Globulin Ratio 0.9 (0.8-1.8); Bilirubin, Total 1.6 mg/dL (0.1-1.0); Bun/Creatinine Ratio 43.9 (12.0-20.0); Calcium, Blood 8.4 mg/dL (8.5-10.1); Creatinine, Blood 0.55 mg/dL (0.40-1.00); Globulin, Blood 3.1 g/dL (2.2-4.0); Potassium, Blood 2.9 mmol/L (3.5-5.5); Total Protein, Blood 5.8 g/dL (6.4-8.2)
--- NOTE | 2022-10-04 05:13 | NUR ---
PATIENT ARRIVED JUST BEFORE 2400 FROM ER. A&OX4, REQUESTING BEDBATH SOON SHE ARRIVED. COMPLAINTS OF DIFFUSE PAIN RIGHT HIM AND LEFT SHOULDER. NO EVIDENCE OF PRESSURE SORES, BRUISES OR SKIN TEARS NOTED. PATIENT DOES HAVE AN EXTREMELY RED RASH BETWEEN BOTH GROIN FOLDS AND ON HER PUBIS. AREA CLEANS WELL DURING BED BATH AND POWDER APPLIED AND PILLOWCASES PLACED IN SKIN FOLDS. WILL ASK ONCOMING RN TO PLEASE CONTACT HOSPITALIST TO OBTAIN SOME NYSTATIN POWDER. PATIENT REFUSING BIOX, AND DOES NOT HAVE ANYONE TO BRING IN HER CPAP FROM HOME..
[2022-10-04 05:27] LABS: BASOPHILS ABSOLUTE AUTO 0.03 K/mm3 (0.00-0.23); BASOPHILS PERCENT AUTO 0 % (0-2); EOSINOPHILS ABSOLUTE AUTO 0.16 K/mm3 (0.00-0.68); EOSINOPHILS PERCENT AUTO 1 % (0-6); Hematocrit 40.7 % (33.0-51.0); Hemoglobin 14.1 g/dL (11.5-16.0); IMMATURE GRAN ABSOLUTE AUTO 0.07 K/mm3 (0.00-0.10); IMMATURE GRAN PERCENT AUTO 1 % (0-1); LYMPHOCYTES ABSOLUTE AUTO 3.06 K/mm3 (0.84-5.20); LYMPHOCYTES PERCENT AUTO 27 % (21-46); MONOCYTES ABSOLUTE AUTO 1.04 K/mm3 (0.16-1.47); MONOCYTES PERCENT AUTO 9 % (4-13); Mean Corpuscular HGB 29.4 pg (26.0-34.0); Mean Corpuscular HGB Conc 34.6 g/dL (31.5-36.5); Mean Corpuscular Volume 85 fL (80-100); Mean Platelet Volume 10.1 fL (9.1-12.4); NEUTROPHILS PERCENT AUTO 62 % (41-73); Platelet Count 324 K/mm3 (150-400); RDW Coefficient Variation 11.9 % (11.7-14.2); RDW Standard Deviation 36.7 fL (35.1-46.3); Red Blood Cell Count 4.79 M/mm3 (3.80-5.20); White Blood Cell Count 11.56 K/mm3 (4.00-11.30)
[2022-10-04 06:03] LABS: Albumin/Globulin Ratio 0.9 (0.8-1.8); Bilirubin, Total 1.4 mg/dL (0.1-1.0); Bun/Creatinine Ratio 36.8 (12.0-20.0); Calcium, Blood 8.4 mg/dL (8.5-10.1); Creatinine, Blood 0.65 mg/dL (0.40-1.00); Globulin, Blood 3.2 g/dL (2.2-4.0); Potassium, Blood 2.2 mmol/L (3.5-5.5); Total Protein, Blood 6.2 g/dL (6.4-8.2)
[2022-10-04 06:22] LABS: Magnesium, Blood 2.3 mg/dL (1.6-2.4)
[2022-10-04 14:00] LABS: Bun/Creatinine Ratio 37.4 (12.0-20.0); Calcium, Blood 8.5 mg/dL (8.5-10.1); Creatinine, Blood 0.7 mg/dL (0.40-1.00); Potassium, Blood 3.1 mmol/L (3.5-5.5)
[2022-10-04] MEDS ORDERED: LANSOPRAZOLE30 M1 PO (14:39)
--- NOTE | 2022-10-04 16:00 | NUR ---
SHIFT SUMMARY PT RESTING QUIETLY ON CPAP DURING SHIFT REPORT. ATTEMPTED TO WAKE PT, BUT VERY DROWSY. PT LATER WOKE AGAIN AT BREAKFAST AND ASSISTED UP TO EOB TO EAT. PT MORBIDLY OBESE AND VERY WEAK. IV KCL INFUSING. DR HARVEY IN TO SEE PT; NEW ORDERS PLACED, SEE EMAR. PT REFUSING PO KCL, REQUESTING LIQUID. PT NOT LIKING LIQUID KCL EITHER. PT WITH CHRONIC SUPRAPUBIC CATH, DOING SELF CARE. UP TO CHAIR WITH O/T THIS AM. PT BACK TO BED AFTER LUNCH. REQUESTED TYLENOL FOR R SIDE PAIN AND REGLAN FOR NAUSEA. PT REPORTED HX OF GASTROPARESIS. NYSTATIN OBTAINED FOR SEVERE GROIN/ROMEO AREA REDNESS; MOIST, FOUL SMELLING. PT RESTING QUIETLY AT THIS TIME WITH CPAP ON. DENIED FURTHER NEEDS AT THIS TIME. CALL LT IN REACH.
[2022-10-05 04:50] LABS: BASOPHILS ABSOLUTE AUTO 0.04 K/mm3 (0.00-0.23); BASOPHILS PERCENT AUTO 0 % (0-2); EOSINOPHILS ABSOLUTE AUTO 0.32 K/mm3 (0.00-0.68); EOSINOPHILS PERCENT AUTO 3 % (0-6); Hematocrit 38.2 % (33.0-51.0); IMMATURE GRAN ABSOLUTE AUTO 0.07 K/mm3 (0.00-0.10); IMMATURE GRAN PERCENT AUTO 1 % (0-1); LYMPHOCYTES ABSOLUTE AUTO 3.19 K/mm3 (0.84-5.20); LYMPHOCYTES PERCENT AUTO 30 % (21-46); MONOCYTES ABSOLUTE AUTO 0.84 K/mm3 (0.16-1.47); MONOCYTES PERCENT AUTO 8 % (4-13); Mean Corpuscular HGB 29.2 pg (26.0-34.0); Mean Corpuscular Volume 86 fL (80-100); Mean Platelet Volume 10.3 fL (9.1-12.4); NEUTROPHILS ABSOLUTE AUTO 6.17 K/mm3 (1.96-9.15); NEUTROPHILS PERCENT AUTO 58 % (41-73); Platelet Count 333 K/mm3 (150-400); RDW Coefficient Variation 12.1 % (11.7-14.2); RDW Standard Deviation 37.3 fL (35.1-46.3); Red Blood Cell Count 4.45 M/mm3 (3.80-5.20); White Blood Cell Count 10.63 K/mm3 (4.00-11.30)
[2022-10-05 05:16] LABS: Albumin/Globulin Ratio 0.9 (0.8-1.8); Bilirubin, Total 0.8 mg/dL (0.1-1.0); Bun/Creatinine Ratio 35.2 (12.0-20.0); Creatinine, Blood 0.68 mg/dL (0.40-1.00); Globulin, Blood 3.2 g/dL (2.2-4.0); Potassium, Blood 2.7 mmol/L (3.5-5.5); Total Protein, Blood 6.2 g/dL (6.4-8.2)
--- NOTE | 2022-10-05 05:18 | NUR ---
SHIFT SUMMARY: PT A&O X4, [place] RELATED TO EAR INFECTION BEST TO TALK INTO LEFT EAR, ABLE TO VOICE NEEDS AND COMMUNICATES WITH STAFF. PT HAD NO S/S OF DISTRESS OR DISCOMFORT. PT TOOK MEDICATIONS WHOLE WITH WATER W/O DIFFICULTY. PT COMPLAINTED OF HEADACHE AT 0300 8/10 PAIN AND PT RECEVIED TYLENOL 325MG. ON REASSESSMENT PT HAD DECLINE IN PAIN 0/10 PAIN, PT ABLE TO SLEEP. PT GOT OUT OF BED AND AMBULATED OCCASIONALLY TO THE RESTROOM INDEPENDANTLY. PT RESTING IN BED MOST OF THE SHIFT. PT IN BED WITH CALL LIGHT WITHIN REACH.
--- NOTE | 2022-10-05 06:02 | NUR ---
SHIFT SUMMARY: PT A&O X4, PLEASANT, ABLE TO VOICE NEEDS, AND COMMUNICATES WITH STAFF. PT ABLE TO SIT ON SIDE OF THE BED AND DRAIN BLADDER THROUGH SUPRAPUBIC CATHETER TUBE INTO URINAL. PT HAD MODERATE PAIN TO HER LEFT LOWER BACK AND HIP AREA. PROVIDER CALLED DR. WARNER ORDERED OXYCODONE 5MG BID PRN. PT RECEVIED OXYCODONE 5 MG PRN AND A HEAT THERAPY, ON REASSESSMENT PT HAD IMPROVED PAIN. PT HAD COMPLAINTS OF PAIN AND RECEVIED TYLENOL 650MG PO, ON REASSESSMENT PT HAD IMPROVED PAIN. PT REQUESTED 2 CARTONS OF WHOLE MILK AND WAS ABLE TO SLEEP. PT IN BED WITH CPAP ON WITH CALL LIGHT WITHIN REACH.
--- NOTE | 2022-10-05 10:20 | NUR ---
Patient is sitting on EOB and alert. Patient talks about the struggles of excepting a new normal for herself in terms of her medical condition and the symptoms in presents. She talks about how discouraged she is by her many trips to the hospital with no relief in sight. We explore ways to live given these possible limitations. We talk about purpose, meaning and value. We talk about spirituality and her michael, the value of friends and family and ways to reassign positive meaning to her current struggles. I provide therapeutic listening, gentle school counsellor and prayer. Patient responded well and showed signs of an elevated perspective and a deeper resolve and drive for health and connection. I will continue to remain available to patient and family.
--- NOTE | 2022-10-05 20:21 | NUR ---
SHIFT SUMMARY PT RESTING QUIETLY ON BIPAP AT START OF SHIFT, BUT WOKE FOR SHIFT REPORT. PT ABLE TO PLACE AND REMOVE BIPAP ON HER OWN. UP TO EOB TO EAT. POTASSIUM LEVEL STILL LOW; SEE CHART. PO KCL GIVEN PER EMAR. YEAST RASH IN GROIN IMPROVING WITH NYSTATIN. AREA CLEANED AGAIN THIS AM PRIOR TO CREAM APPLICATION. PT LATER GIVEN BED BATH, PER REQUEST. DR BLANCO IN TO SEE PT THIS AM; DISCUSSED PLAN OF CARE. MEDICATIONS ADJUSTED WELL. PT MORE AWAKE TODAY, SITTING UP IN BED WATCHING TV AND TALKING WITH EVELIO IN THE AFTERNOON. PT ABLE TO EMPTY SUPRAPUBIC CATH ON HER OWN, USING URINAL. PT SOMEHOW EMPTIED CATHETER ON THE FLOOR THIS AFTERNOON. PER THERAPY, PT ABLE TO BE INDEPENDENT IN RM USING FWW. BS REPORT GIVEN FOR NOC SHIFT. DENIED FURTHER NEEDS. CALL LT IN REACH.
--- NOTE | 2022-10-06 04:54 | NUR ---
SHIFT SUMMARY 57 YR F ADMITTED ON 10/03/22 FOR HYPOKALEMIA. FULL CODE. NO ACUTE CHANGES THIS SHIFT. PT HAS SLEPT FOR MOST OF THIS SHIFT WITH CPAP THAT SHE MANAGES HERSELF. SHE ALSO MANAGES HER SUPRAPUBIC CATHETER BY EMPTYING IT INTO A URINAL. SHE C/O PAIN AT BEGINNING OF SHIFT AND SPECIFICALLY ASKED FOR FENTANYL AND WAS GIVEN 12 MCG. NO OTHER C/O PAIN OR DISCOMFORT THIS SHIFT. NYSTATIN CREAM WAS APPLIED BY SUPERVISOR ELECTRONICS TESTING PER PT REQUEST.
[2022-10-06 06:14] LABS: BASOPHILS ABSOLUTE AUTO 0.06 K/mm3 (0.00-0.23); BASOPHILS PERCENT AUTO 1 % (0-2); EOSINOPHILS ABSOLUTE AUTO 0.32 K/mm3 (0.00-0.68); EOSINOPHILS PERCENT AUTO 4 % (0-6); Hematocrit 37.7 % (33.0-51.0); Hemoglobin 13.1 g/dL (11.5-16.0); IMMATURE GRAN ABSOLUTE AUTO 0.06 K/mm3 (0.00-0.10); IMMATURE GRAN PERCENT AUTO 1 % (0-1); LYMPHOCYTES ABSOLUTE AUTO 2.69 K/mm3 (0.84-5.20); LYMPHOCYTES PERCENT AUTO 30 % (21-46); MONOCYTES ABSOLUTE AUTO 0.67 K/mm3 (0.16-1.47); MONOCYTES PERCENT AUTO 8 % (4-13); Mean Corpuscular HGB 29.8 pg (26.0-34.0); Mean Corpuscular HGB Conc 34.7 g/dL (31.5-36.5); Mean Corpuscular Volume 86 fL (80-100); Mean Platelet Volume 10.4 fL (9.1-12.4); NEUTROPHILS ABSOLUTE AUTO 5.15 K/mm3 (1.96-9.15); NEUTROPHILS PERCENT AUTO 57 % (41-73); Platelet Count 312 K/mm3 (150-400); RDW Coefficient Variation 12.2 % (11.7-14.2); RDW Standard Deviation 37.6 fL (35.1-46.3); White Blood Cell Count 8.95 K/mm3 (4.00-11.30)
[2022-10-06 06:41] LABS: Albumin, Blood 2.9 g/dL (3.4-5.0); Albumin/Globulin Ratio 0.9 (0.8-1.8); Bilirubin, Total 0.9 mg/dL (0.1-1.0); Bun/Creatinine Ratio 28.9 (12.0-20.0); Calcium, Blood 9.3 mg/dL (8.5-10.1); Creatinine, Blood 0.62 mg/dL (0.40-1.00); Globulin, Blood 3.2 g/dL (2.2-4.0); Phosphorus, Blood 3.5 mg/dL (2.5-4.9); Potassium, Blood 3.3 mmol/L (3.5-5.5); Total Protein, Blood 6.1 g/dL (6.4-8.2)
--- NOTE | 2022-10-06 17:04 | NUR ---
PT IS A/OX4, PLEASANT AND COOPERATIVE. THE PT IS UP IND IN HER ROOM. THE PT WAS UP AND SHOWERED TODAY. PT WAS MEDICATED FOR PAIN X1 SO FAR THIS SHIFT. PT APPEARS TO BE BREATHING EASILY ON RA AT REST. PT HAS SUPRAPUBIC CATHETER THT SHE HAS BEEN EMPTING HERSELF. CALL LIGHT IN REACH. WILL CONTNUE TO MONITOR AND ASSESS FOR CHANGES
--- NOTE | 2022-10-07 05:39 | NUR ---
SHIFT SUMMARY 57 YR F ADMITTED ON 10/03/22. FULL CODE. NO ACUTE CHANGES THIS SHIFT. PT ONLY C/O PAIN WAS AT THE BEGINNING OF THIS SHIFT AND SHE HAS OTHERWISE HAD NO C/O PAIN OR DISCOMFORT. SHE HAS SLEPT FOR MOST OF THIS SHIFT. SHE MANAGES HER OWN SUPRA PUBIC CATHETER AND CPAP. FALL PRECAUTIONS IN PLACE AND CALL LIGHT WITHIN REACH.
[2022-10-07 05:40] LABS: Bun/Creatinine Ratio 34.8 (12.0-20.0); Calcium, Blood 8.9 mg/dL (8.5-10.1); Creatinine, Blood 0.58 mg/dL (0.40-1.00); Potassium, Blood 3.7 mmol/L (3.5-5.5)
--- NOTE | 2022-10-07 16:31 | NUR ---
PT IS A/OX4, PLEASANT AND COOPERATIVE. THE PT WAS MEDICATED FOR PAIN X1 SO FAR TODAY. THE PT APPEARS TO BE BREATHING EASILY ON RA. THE PT WAS UP TO THE CHAIR TODAY. THE PT AMBULATED OUT INTO THE [place] TODAY. PT UP ON THE SIDE OF THE BED AT THIS TIME. CALL LIGHT IN REACH. WILL CONTINUE TO MONITOR AND ASSESS FOR CHANGES
[2022-10-08 05:24] LABS: Bun/Creatinine Ratio 34.4 (12.0-20.0); Calcium, Blood 8.7 mg/dL (8.5-10.1); Creatinine, Blood 0.58 mg/dL (0.40-1.00); Potassium, Blood 4.5 mmol/L (3.5-5.5)
[2022-10-08] MEDS ORDERED: METO10 PO (10:38)
[2022-10-08] MEDS ORDERED: NYSTRIT TOP (10:38)
[2022-10-08] MEDS ORDERED: POTA20LUD PO (10:40)
--- NOTE | 2022-10-08 12:09 | NUR ---
DISCHARGE HOME PT DISCHARGED HOME. IV REMOVED WITH CANNULA INTACT. CONTINUE POC.
== END 2022-10-08 11:57 | disposition home or self-care (01) ==
LOC: ER 17:50 → MEDS 17:51
PROVIDERS: Emergency Medicine; Family Medicine; Hospitalist; Student in an Organized Health Care Education/Training Program; ADMIT Internal Medicine
DX: E87.6 Hypokalemia (principal); E11.43 Type 2 diabetes mellitus with diabetic autonomic (poly)neuropathy; K31.84 Gastroparesis; K21.9 Gastro-esophageal reflux disease without esophagitis; E87.1 Hypo-osmolality and hyponatremia; G47.33 Obstructive sleep apnea (adult) (pediatric); F32.9 Major depressive disorder, single episode, unspecified; E03.9 Hypothyroidism, unspecified; I10 Essential (primary) hypertension; I25.10 Atherosclerotic heart disease of native coronary artery without angina pectoris; G89.4 Chronic pain syndrome; R55 Syncope and collapse; E78.5 Hyperlipidemia, unspecified; R26.0 Ataxic gait; E66.9 Obesity, unspecified; Z68.39 Body mass index [BMI] 39.0-39.9, adult; Z93.6 Other artificial openings of urinary tract status; Z87.891 Personal history of nicotine dependence; Z88.0 Allergy status to penicillin; Z88.2 Allergy status to sulfonamides; Z88.8 Allergy status to other drugs, medicaments and biological substances; Z79.899 Other long term (current) drug therapy; Z79.4 Long term (current) use of insulin
CPT/HCPCS: 36415; 70450; 72125; 73502; 80048; 80053; 81001; 82947; 83605; 83735; 84100; 84484; 85025; 87040; 87077; 87086; 87186; 93005; 93010; 93306; 93880; 94660; 94760; 96361; 96365; 96366; 96372; 96375; 96376; 97110; 97162; 97165; 97530; 99285-25; A9270; G0378; J1170; J1650; J1815; J2550; J2765; J3010; J3480; J7030; J7050

== ENCOUNTER 2022-10-13 14:07 | Emergency (ER) | payer OTHER ==
[~2022-10-13] VITALS: Ht 172.7 cm; Wt 104.3 kg
[~2022-10-13 14:07] MED LIST changes: +LANSOPRAZOLE30 M1 PO; +NYSTRIT TOP
[2022-10-13 15:37] LABS: BASOPHILS ABSOLUTE AUTO 0.07 K/mm3 (0.00-0.23); BASOPHILS PERCENT AUTO 0 % (0-2); EOSINOPHILS ABSOLUTE AUTO 0.02 K/mm3 (0.00-0.68); EOSINOPHILS PERCENT AUTO 0 % (0-6); Hematocrit 41.9 % (33.0-51.0); Hemoglobin 14.3 g/dL (11.5-16.0); IMMATURE GRAN ABSOLUTE AUTO 0.06 K/mm3 (0.00-0.10); IMMATURE GRAN PERCENT AUTO 0 % (0-1); LYMPHOCYTES ABSOLUTE AUTO 2.49 K/mm3 (0.84-5.20); LYMPHOCYTES PERCENT AUTO 13 % (21-46); MONOCYTES ABSOLUTE AUTO 1.05 K/mm3 (0.16-1.47); MONOCYTES PERCENT AUTO 6 % (4-13); Mean Corpuscular HGB 29.9 pg (26.0-34.0); Mean Corpuscular HGB Conc 34.1 g/dL (31.5-36.5); Mean Corpuscular Volume 88 fL (80-100); Mean Platelet Volume 10.1 fL (9.1-12.4); NEUTROPHILS ABSOLUTE AUTO 15.39 K/mm3 (1.96-9.15); NEUTROPHILS PERCENT AUTO 81 % (41-73); Platelet Count 380 K/mm3 (150-400); RDW Coefficient Variation 12.7 % (11.7-14.2); RDW Standard Deviation 40.5 fL (35.1-46.3); Red Blood Cell Count 4.79 M/mm3 (3.80-5.20); White Blood Cell Count 19.08 K/mm3 (4.00-11.30)
[2022-10-13 15:57] LABS: Source, Urine Voided
[2022-10-13 16:06] LABS: Appearance, Urine Clear (Clear); Bilirubin, Urine Neg (Neg); Blood, Urine 1+ (Neg); Color, Urine Yellow (P-Yellow); Glucose Qualitative, Urine 3+ (Neg); Ketones, Urine 1+ (Neg); Leukocyte Esterase, Urine 3+ (Neg); Nitrite, Urine Neg (Neg); Protein, Urine 1+ (Neg); Specific Gravity, Urine 1.015 (1.003-1.022); Urobilinogen, Urine NORM (Normal)
[2022-10-13 16:06] LABS: Albumin, Blood 3.2 g/dL (3.4-5.0); Albumin/Globulin Ratio 0.8 (0.8-1.8); Bilirubin, Total 0.7 mg/dL (0.1-1.0); Bun/Creatinine Ratio 33.4 (12.0-20.0); Calcium, Blood 8.9 mg/dL (8.5-10.1); Creatinine, Blood 0.93 mg/dL (0.40-1.00); Globulin, Blood 4.1 g/dL (2.2-4.0); Potassium, Blood 3.1 mmol/L (3.5-5.5); Total Protein, Blood 7.3 g/dL (6.4-8.2)
[2022-10-13 16:16] LABS: Bacteria Many /hpf; Hyaline Casts 0-2 /lpf (0-2); Squamous Epithelial Cells Mod /hpf (Few); Transitional Epithelial Cells Few /hpf (0-Rare)
[2022-10-13] MEDS ORDERED: PROM25 PO (18:07)
[2022-10-13] MEDS ORDERED: Macrobid 100 M100 MG PO (18:07)
[2022-10-13] MEDS ORDERED: ONDA4ODT MM (18:07)
== END 2022-10-13 18:20 | disposition home or self-care (01) ==
LOC: ER 14:07
PROVIDERS: Emergency Medicine
DX: K31.84 Gastroparesis (principal); N39.0 Urinary tract infection, site not specified; R55 Syncope and collapse; E11.9 Type 2 diabetes mellitus without complications; I10 Essential (primary) hypertension; E03.9 Hypothyroidism, unspecified; K21.9 Gastro-esophageal reflux disease without esophagitis; Z88.0 Allergy status to penicillin; Z88.2 Allergy status to sulfonamides; Z88.8 Allergy status to other drugs, medicaments and biological substances; Z79.899 Other long term (current) drug therapy; Z79.4 Long term (current) use of insulin; Z79.890 Hormone replacement therapy
CPT/HCPCS: 36415; 80053; 81001; 83690; 85025; 87077; 87086; 87186; 93005; 93010; 96361; 96374; 96375; 99284-25; A9270; J1790; J2405; J2765; J7030

== ENCOUNTER 2022-11-14 13:39 | Inpatient (IN) | payer OTHER, MEDICARE ==
[~2022-11-14] VITALS: Ht 172.7 cm; Wt 114.6 kg
[~2022-11-14 13:39] MED LIST changes: +Macrobid 100 M100 MG PO
[2022-11-14 14:50] LABS: BASOPHILS ABSOLUTE AUTO 0.06 K/mm3 (0.00-0.23); BASOPHILS PERCENT AUTO 0 % (0-2); EOSINOPHILS ABSOLUTE AUTO 0.03 K/mm3 (0.00-0.68); EOSINOPHILS PERCENT AUTO 0 % (0-6); Hemoglobin 16.2 g/dL (11.5-16.0); IMMATURE GRAN ABSOLUTE AUTO 0.08 K/mm3 (0.00-0.10); IMMATURE GRAN PERCENT AUTO 1 % (0-1); LYMPHOCYTES ABSOLUTE AUTO 2.12 K/mm3 (0.84-5.20); LYMPHOCYTES PERCENT AUTO 14 % (21-46); MONOCYTES ABSOLUTE AUTO 0.78 K/mm3 (0.16-1.47); MONOCYTES PERCENT AUTO 5 % (4-13); Mean Corpuscular HGB 29.2 pg (26.0-34.0); Mean Corpuscular HGB Conc 35.2 g/dL (31.5-36.5); Mean Corpuscular Volume 83 fL (80-100); Mean Platelet Volume 9.9 fL (9.1-12.4); NEUTROPHILS ABSOLUTE AUTO 11.73 K/mm3 (1.96-9.15); NEUTROPHILS PERCENT AUTO 79 % (41-73); Platelet Count 443 K/mm3 (150-400); RDW Coefficient Variation 12.1 % (11.7-14.2); RDW Standard Deviation 37.1 fL (35.1-46.3); Red Blood Cell Count 5.55 M/mm3 (3.80-5.20)
[2022-11-14 15:07] LABS: Bilirubin, Total 1.2 mg/dL (0.1-1.0); Bun/Creatinine Ratio 24.7 (12.0-20.0); Calcium, Blood 9.5 mg/dL (8.5-10.1); Creatinine, Blood 0.93 mg/dL (0.40-1.00); Globulin, Blood 4.1 g/dL (2.2-4.0); Potassium, Blood 2.5 mmol/L (3.5-5.5); Total Protein, Blood 8.1 g/dL (6.4-8.2)
[2022-11-14 21:54] LABS: Source, Urine Suprapubic Cath
[2022-11-14 22:04] LABS: Appearance, Urine Cloudy (Clear); Bilirubin, Urine Neg (Neg); Blood, Urine 2+ (Neg); Color, Urine Yellow (P-Yellow); Glucose Qualitative, Urine 4+ (Neg); Ketones, Urine 4+ (Neg); Leukocyte Esterase, Urine 3+ (Neg); Nitrite, Urine Pos (Neg); Protein, Urine 3+ (Neg); Urobilinogen, Urine NORM (Normal)
[2022-11-14 22:14] LABS: Amorphous Light (0-Heavy); Bacteria Many /hpf; Mucus Light (0-Heavy); Red Blood Cells, Urine 0-2 /hpf (0-2); Squamous Epithelial Cells Few /hpf (Few); White Blood Cells, Urine 25-50 /hpf (0-5)
[2022-11-14 22:15] LABS: Hyaline Casts 0-2 /lpf (0-2)
[2022-11-14 22:16] LABS: U Amphetamine Screen Not Detected; U Barbituate Screen Not Detected; U Benzodiazapine Screen Not Detected; U Buprenorphine Screen Not Detected; U Cannabinoids Screen Not Detected; U Cocaine Screen Not Detected; U Methadone Screen Not Detected; U Methamphetamine Screen Not Detected; U Opiates Screen Not Detected; U Oxycodone Screen Not Detected; U Phencyclidine Screen Not Detected; U Propoxyphene Screen Not Detected
--- NOTE | 2022-11-14 22:30 | NUR ---
ARRIVAL TO [facility] PT ARRIVED TO [facility] AT APPROXIMATELY 2220. PT TRANSFERED FROM [facility] TO HOSPITAL BED WITH SBA. PT A&Ox4, COMMUNICATES NEEDS APPROPRIATELY. PROVIDED EDUCATION ABOUT UNIT AND CALL LIGHT. BP ELEVATED, MANAGED PER EMAR. SINUS 90's, DENIES CP/PRESSURE. SpO2> 92% RA, DENIES SOB. SUPRAPUBIC CATHETER IN PLACE, PT MANAGES IND AND EMPTIES INTERMITTENTLY. PT WITH NAUSEA, MEDICATED PER EMAR. CALL LIGHT IN REACH, BED IN LOWEST POSITION.
[2022-11-14 23:34] VITALS: BP 190/94
[2022-11-15] VITALS (7 sets, daily range): BP systolic 107–153; BP diastolic 61–86
--- NOTE | 2022-11-15 05:08 | NUR ---
SHIFT SUMMARY SEE PREVIOUS NOTE. PT A&Ox4, COMMUNICATES NEEDS APPROPRIATELY. BP ELEVATED, MANAGED PER EMAR. SINUS 90's, DENIES CP/PRESSURE. SpO2> 92% RA, DENIES SOB. PT WEARS CPAP WHILE ASLEEP. SUPRAPUBIC CATHETER IN PLACE, PT MANAGES IND AND EMPTIES INTERMITTENTLY. PT WITH NAUSEA, MEDICATED PER EMAR. NO BM THIS SHIFT. PT SBA. PT WITH BACK PAIN, MANAGED PER EMAR. NO OTHER EVENTS, WILL REPORT TO ONCOMING RN.
[2022-11-15 09:38] LABS: BASOPHILS ABSOLUTE AUTO 0.04 K/mm3 (0.00-0.23); BASOPHILS PERCENT AUTO 0 % (0-2); EOSINOPHILS ABSOLUTE AUTO 0.09 K/mm3 (0.00-0.68); EOSINOPHILS PERCENT AUTO 1 % (0-6); Hematocrit 42.4 % (33.0-51.0); Hemoglobin 14.7 g/dL (11.5-16.0); IMMATURE GRAN ABSOLUTE AUTO 0.05 K/mm3 (0.00-0.10); IMMATURE GRAN PERCENT AUTO 1 % (0-1); LYMPHOCYTES ABSOLUTE AUTO 2.89 K/mm3 (0.84-5.20); LYMPHOCYTES PERCENT AUTO 26 % (21-46); MONOCYTES ABSOLUTE AUTO 0.69 K/mm3 (0.16-1.47); MONOCYTES PERCENT AUTO 6 % (4-13); Mean Corpuscular HGB 29.8 pg (26.0-34.0); Mean Corpuscular HGB Conc 34.7 g/dL (31.5-36.5); Mean Corpuscular Volume 86 fL (80-100); NEUTROPHILS ABSOLUTE AUTO 7.29 K/mm3 (1.96-9.15); NEUTROPHILS PERCENT AUTO 66 % (41-73); Platelet Count 368 K/mm3 (150-400); RDW Coefficient Variation 12.6 % (11.7-14.2); RDW Standard Deviation 39.3 fL (35.1-46.3); Red Blood Cell Count 4.94 M/mm3 (3.80-5.20); White Blood Cell Count 11.05 K/mm3 (4.00-11.30)
[2022-11-15 09:54] LABS: Albumin, Blood 3.6 g/dL (3.4-5.0); Albumin/Globulin Ratio 0.9 (0.8-1.8); Bilirubin, Total 1.2 mg/dL (0.1-1.0); Bun/Creatinine Ratio 29.9 (12.0-20.0); Calcium, Blood 8.6 mg/dL (8.5-10.1); Creatinine, Blood 0.7 mg/dL (0.40-1.00); Globulin, Blood 3.8 g/dL (2.2-4.0); Magnesium, Blood 1.9 mg/dL (1.6-2.4); Potassium, Blood 2.7 mmol/L (3.5-5.5); Total Protein, Blood 7.4 g/dL (6.4-8.2)
--- NOTE | 2022-11-15 16:22 | NUR ---
Patient is sitting up in bed and alert. She is known to this quality analyst/technical writer from previous hospital stays. She talks about her struggles to maintain her health and [place] She shares personal issues and speaks about her [place] michael. I provide therapeutic listening, a calming presence, companionship and prayer. Patient responded well and showed signs of reduced stress and an elevated mood. I will continue to remain available to patient and family.
--- NOTE | 2022-11-15 17:36 | NUR ---
TRANSFER NOTE. PT TO TRANSFER TO MEDICAL FLOOR. REPORT WAS PHONED TO RN. PT HAS HAD A DECENT DAY. DIET WAS ABLE TO BE INCREASED TO SOFT FOR DINNER. PT WAS ABLE TO EAT A SMALL AMOUNT. REGLAN WAS CHANGED TO SCHEDULED. 2 DOSES OF PRN PAIN MEDICATION FOR ABD/BACK PAIN. VITALS STABLE. LAST CBG 256 MEDICATED PER OCT. LAST BAG OF K FINISHED. REPEAT LABS DRAWN AT 1720, RESULTS PENDING. ALL BELONINGS TAKEN WITH PT ON TRANSFER.
[2022-11-15 17:47] LABS: Albumin, Blood 3.4 g/dL (3.4-5.0); Anion Gap 7 mmol/L (6-16); Blood Urea Nitrogen 23 mg/dL (8-24); Bun/Creatinine Ratio 31.7 (12.0-20.0); CO2, Blood 28 mmol/L (21-32); Calcium, Blood 8.9 mg/dL (8.5-10.1); Chloride, Blood 104 mmol/L (98-108); Creatinine, Blood 0.73 mg/dL (0.40-1.00); Glomerular Filtration Rate 95 (60-); Glucose, Blood 273 mg/dL (70-99); Phosphorus, Blood 1.8 mg/dL (2.5-4.9); Sodium, Blood 139 mmol/L (136-145)
--- NOTE | 2022-11-15 18:00 | NUR ---
pt arrived to 346 via wheelchair from PCU report was obtained from Yogi RN, pt able to stand and tx to bed kris tilley/elizabeth, oriented to room layout and call system, provided her water and milk that she requested, states she's feeling ok, no further needs or complaints at this time, call light in reach.
[2022-11-16 03:42] VITALS: BP 132/74
--- NOTE | 2022-11-16 04:25 | NUR ---
SHIFT SUMMARY ADMITTED FOR SYNCOPE/COLLAPSE. FULL CODE. UTI. ANTI B RX ARE SCHEDULED. Q6 CBG'S. IV NAUSEA AND PAIN MEDICATION REQUESTED THIS SHIFT. PT IS ON SOFT BITE SIZE/ADA DIET. CPAP @ HS. ON RA. TELEMETRY: NSR @ 77. SUPRAPUBIC CATHETER IN PLACE. HX OF DM2, GASTROPARESIS.
[2022-11-16 07:21] VITALS: BP 137/72
[2022-11-16 08:06] LABS: Albumin, Blood 2.8 g/dL (3.4-5.0); Anion Gap 3 mmol/L (6-16); Blood Urea Nitrogen 17 mg/dL (8-24); Bun/Creatinine Ratio 27.7 (12.0-20.0); CO2, Blood 26 mmol/L (21-32); Calcium, Blood 8.7 mg/dL (8.5-10.1); Chloride, Blood 108 mmol/L (98-108); Creatinine, Blood 0.61 mg/dL (0.40-1.00); Glomerular Filtration Rate 103 (60-); Glucose, Blood 223 mg/dL (70-99); Phosphorus, Blood 3.3 mg/dL (2.5-4.9); Potassium, Blood 3.1 mmol/L (3.5-5.5); Sodium, Blood 137 mmol/L (136-145)
--- NOTE | 2022-11-16 11:43 | NUR ---
RN AM NOTE MS JOHNSON IS ABLE TO ANSWER ALL ORIENTATION QUESTIONS. SHE HAS BEEN SLEEPING A LOT THIS MORNING, USING CPAP. SHE C/O NAUSEA THIS AM, GIVEN ZOFRAN, NOW C/O 7 UPPER MID ABDOMINAL PAIN. FENTANYL D/C'D THIS AM, PT SAID SHE TAKES OXY 10MG PO QD AT HOME. DR STOUT CALLED, HE IS PUTTING IN OXY ORDER, ALSO SAID OK TO D/C TELEMETRY. PT ANNOYED BY MY QUESTIONS ON ASSESSMENT, SAID SHE WILL ANSWER NO MORE QUESTIONS, FEELS BAD AND WANTS TO BE LEFT ALONE. SHE DID C/O DIZZYNESS THIS AM, AND SAID SHE WILL CALL ME BEFORE GETTING OUT OF BED. CALL LIGHT IN REACH, BED LOW.
[2022-11-16 15:17] VITALS: BP 109/69
--- NOTE | 2022-11-16 16:38 | NUR ---
SHIFT SUMMARY MS JOHNSON IS ORIENTATED X4. SHE HAS BEEN SLEEPY FOR MUCH OF THE SHIFT, C/O NAUSEA AND MID UPPER ABDOMINAL PAIN AND GENERALLY FEELING BAD UNTIL ABOUT 3PM WHEN SHE SAID SHE HAS STARTED TO FEEL BETTER. NAUSEA AND DISCOMFORT STILL THERE, BUT SHE SAID SHE GENERALLY FEELS BETTER. SHE ATE 40% OF HER BREAKFAST AND DECLINED LUNCH, TOLERATED SOME FLUIDS WITH BREAKFAST. LARGE VOLUME UOP VIA SUPRA PUBIC CATHETER THAT IS CLEAR PALE YELLOW. 1 EPISODE OF DIZZYNESS EARLIER TODAY, SHE WAS UP TO [facility] SHOWER THIS AFTERNOON WITHOUT FURTHER DIZZYNESS. BED LOW, CALL LIGHT IN REACH.
[2022-11-16 19:29] VITALS: BP 121/70
--- NOTE | 2022-11-17 04:46 | NUR ---
SHIFT SUMMARY 57 YR F ADMITTED ON 11/15/22 AFTER A SYNCOPE FALL. FULL CODE. NO ACUTE CHANGES THIS SHIFT. PT HAD NO C/O DIZZINESS OR NAUSEA THIS SHIFT. SHE TOOK HER PAIN MEDS AT BEDTIME AND HAD NO C/O PAIN THROUGHOUT THE NIGHT. SHE AMBULATED INDEPENDANTLY IN THE HALLWAY X2 AND HAS BEEN PLEASANT AND COOPERATIVE WITH CARE. PLAN IS FOR DISCHARGE TODAY.
[2022-11-17 05:29] VITALS: BP 128/83
[2022-11-17 05:33] LABS: BASOPHILS ABSOLUTE AUTO 0.06 K/mm3 (0.00-0.23); BASOPHILS PERCENT AUTO 1 % (0-2); EOSINOPHILS ABSOLUTE AUTO 0.35 K/mm3 (0.00-0.68); EOSINOPHILS PERCENT AUTO 4 % (0-6); Hematocrit 39.5 % (33.0-51.0); Hemoglobin 13.5 g/dL (11.5-16.0); IMMATURE GRAN ABSOLUTE AUTO 0.03 K/mm3 (0.00-0.10); IMMATURE GRAN PERCENT AUTO 0 % (0-1); LYMPHOCYTES ABSOLUTE AUTO 3.32 K/mm3 (0.84-5.20); LYMPHOCYTES PERCENT AUTO 36 % (21-46); MONOCYTES ABSOLUTE AUTO 0.55 K/mm3 (0.16-1.47); MONOCYTES PERCENT AUTO 6 % (4-13); Mean Corpuscular HGB 29.3 pg (26.0-34.0); Mean Corpuscular HGB Conc 34.2 g/dL (31.5-36.5); Mean Corpuscular Volume 86 fL (80-100); Mean Platelet Volume 9.8 fL (9.1-12.4); NEUTROPHILS ABSOLUTE AUTO 4.88 K/mm3 (1.96-9.15); NEUTROPHILS PERCENT AUTO 53 % (41-73); Platelet Count 341 K/mm3 (150-400); RDW Coefficient Variation 12.8 % (11.7-14.2); RDW Standard Deviation 39.8 fL (35.1-46.3); Red Blood Cell Count 4.61 M/mm3 (3.80-5.20); White Blood Cell Count 9.19 K/mm3 (4.00-11.30)
[2022-11-17 05:48] LABS: Albumin, Blood 3.1 g/dL (3.4-5.0); Anion Gap 4 mmol/L (6-16); Blood Urea Nitrogen 20 mg/dL (8-24); Bun/Creatinine Ratio 22.3 (12.0-20.0); CO2, Blood 29 mmol/L (21-32); Calcium, Blood 9.5 mg/dL (8.5-10.1); Chloride, Blood 103 mmol/L (98-108); Glomerular Filtration Rate 74 (60-); Glucose, Blood 217 mg/dL (70-99); Magnesium, Blood 1.4 mg/dL (1.6-2.4); Phosphorus, Blood 3.8 mg/dL (2.5-4.9); Sodium, Blood 136 mmol/L (136-145)
[2022-11-17 07:27] VITALS: BP 112/58
[2022-11-17] MEDS ORDERED: ONDA4ODT MM (08:35)
[2022-11-17] MEDS ORDERED: POTCHL20ER PO (08:38)
--- NOTE | 2022-11-17 12:24 | NUR ---
PATIENT DISCHARGED TO HOME ACCOMPANIED BY A FRIEND WHO IS DRIVING. IV SALINE LOCK REMOVED WITHOUT INCIDENT. VERBALIZED UNDERSTANDING OF D/C INSTRUCTIONS. PT PROVIDED WITH HARD RX FOR PAIN MEDICATIONS, COPY IN CHART. OFF UNIT AT 1119 VIA W/C. NO PERSONAL BELONGINGS LEFT BEHIND IN ROOM.
== END 2022-11-17 11:19 | disposition home or self-care (01) | DRG 641 ==
LOC: ER 13:39 → PCU 13:40 → MEDS 11-15 17:45
PROVIDERS: Family Medicine; Nurse Practitioner Acute Care; Physician Assistant; ADMIT Internal Medicine
DX: E86.0 Dehydration (principal); F11.20 Opioid dependence, uncomplicated; R65.10 Systemic inflammatory response syndrome (SIRS) of non-infectious origin without acute organ dysfunction; N39.0 Urinary tract infection, site not specified; E11.40 Type 2 diabetes mellitus with diabetic neuropathy, unspecified; G47.33 Obstructive sleep apnea (adult) (pediatric); E03.9 Hypothyroidism, unspecified; I10 Essential (primary) hypertension; G47.00 Insomnia, unspecified; K21.9 Gastro-esophageal reflux disease without esophagitis; F32.A Depression, unspecified; I25.10 Atherosclerotic heart disease of native coronary artery without angina pectoris; K31.84 Gastroparesis; E11.43 Type 2 diabetes mellitus with diabetic autonomic (poly)neuropathy; M54.9 Dorsalgia, unspecified; G89.4 Chronic pain syndrome; E86.1 Hypovolemia; E87.6 Hypokalemia; E83.42 Hypomagnesemia; Z90.49 Acquired absence of other specified parts of digestive tract; Z90.710 Acquired absence of both cervix and uterus; Z98.890 Other specified postprocedural states; Z99.89 Dependence on other enabling machines and devices; Z88.0 Allergy status to penicillin; Z88.2 Allergy status to sulfonamides; Z88.8 Allergy status to other drugs, medicaments and biological substances; Z79.4 Long term (current) use of insulin; Z79.890 Hormone replacement therapy; Z79.899 Other long term (current) drug therapy
CPT/HCPCS: 36415; 72070; 80053; 80069; 81001; 82947; 83690; 83735; 85025; 87077; 87086; 87186; 93005; 93010; 94660; 94760; 96361; 96365; 96366; 96372; 96375; 96376; 99285-25; A9270; C9113; G0378; J0696; J1650; J1815; J2405; J2765; J3010; J3475; J3480; J7030; J7050

== ENCOUNTER 2023-05-14 17:42 | Emergency (ER) | payer OTHER ==
[~2023-05-14] VITALS: Ht 175.3 cm; Wt 129.7 kg
[~2023-05-14 17:42] MED LIST changes: +POTCHL20ER PO
[2023-05-14 19:05] LABS: BASOPHILS ABSOLUTE AUTO 0.07 K/mm3 (0.00-0.23); BASOPHILS PERCENT AUTO 1 % (0-2); EOSINOPHILS ABSOLUTE AUTO 0.31 K/mm3 (0.00-0.68); EOSINOPHILS PERCENT AUTO 3 % (0-6); Hematocrit 43.1 % (33.0-51.0); Hemoglobin 14.4 g/dL (11.5-16.0); IMMATURE GRAN ABSOLUTE AUTO 0.05 K/mm3 (0.00-0.10); IMMATURE GRAN PERCENT AUTO 1 % (0-1); LYMPHOCYTES ABSOLUTE AUTO 2.19 K/mm3 (0.84-5.20); LYMPHOCYTES PERCENT AUTO 21 % (21-46); MONOCYTES ABSOLUTE AUTO 0.76 K/mm3 (0.16-1.47); MONOCYTES PERCENT AUTO 7 % (4-13); Mean Corpuscular HGB Conc 33.4 g/dL (31.5-36.5); Mean Corpuscular Volume 87 fL (80-100); Mean Platelet Volume 9.1 fL (9.1-12.4); NEUTROPHILS ABSOLUTE AUTO 7.08 K/mm3 (1.96-9.15); NEUTROPHILS PERCENT AUTO 68 % (41-73); Platelet Count 315 K/mm3 (150-400); RDW Coefficient Variation 12.9 % (11.7-14.2); RDW Standard Deviation 40.7 fL (35.1-46.3); Red Blood Cell Count 4.97 M/mm3 (3.80-5.20); White Blood Cell Count 10.46 K/mm3 (4.00-11.30)
[2023-05-14 19:35] LABS: Albumin, Blood 3.8 g/dL (3.4-5.0); Bilirubin, Total 0.5 mg/dL (0.1-1.0); Bun/Creatinine Ratio 14.3 (12.0-20.0); Calcium, Blood 9.1 mg/dL (8.5-10.1); Creatinine, Blood 0.84 mg/dL (0.40-1.00); Potassium, Blood 4.3 mmol/L (3.5-5.5); Total Protein, Blood 7.8 g/dL (6.4-8.2)
[2023-05-14 20:00] VITALS: BP 154/90
== END 2023-05-14 20:23 | disposition home or self-care (01) ==
LOC: ER 17:42
PROVIDERS: Student in an Organized Health Care Education/Training Program
DX: R07.1 Chest pain on breathing (principal); E11.9 Type 2 diabetes mellitus without complications; Z88.0 Allergy status to penicillin; Z88.2 Allergy status to sulfonamides; Z91.018 Allergy to other foods; Z88.8 Allergy status to other drugs, medicaments and biological substances; Z79.899 Other long term (current) drug therapy; Z79.890 Hormone replacement therapy; Z79.4 Long term (current) use of insulin; Z87.891 Personal history of nicotine dependence
CPT/HCPCS: 71045; 80053; 84484; 85025; 93005; 93010; 99285-25

== ENCOUNTER → 2023-06-23 | Outpatient (CLI) | payer OTHER | LOC: LAB SHORT 16:58 → LAB 16:58 | DX: R82.90 Unspecified abnormal findings in urine (principal); Z96.0 Presence of urogenital implants | CPT/HCPCS: 87086 ==

== ENCOUNTER → 2023-07-01 | Outpatient (CLI) | payer OTHER | LOC: LAB 15:00 → LAB SHORT 15:00 | DX: E11.621 Type 2 diabetes mellitus with foot ulcer (principal) | CPT/HCPCS: 87070; 87075; 87077; 87147; 87186; 87205 ==

== ENCOUNTER 2023-07-25 17:37 | Inpatient (IN) | payer OTHER ==
[~2023-07-25] VITALS: Ht 172.7 cm; Wt 134.6 kg
[2023-07-25 19:49] LABS: BASOPHILS ABSOLUTE AUTO 0.01 K/mm3 (0.00-0.23); BASOPHILS PERCENT AUTO 0 % (0-2); EOSINOPHILS PERCENT AUTO 0 % (0-6); Hematocrit 44.2 % (33.0-51.0); Hemoglobin 15.3 g/dL (11.5-16.0); IMMATURE GRAN ABSOLUTE AUTO 0.09 K/mm3 (0.00-0.10); IMMATURE GRAN PERCENT AUTO 1 % (0-1); LYMPHOCYTES ABSOLUTE AUTO 1.67 K/mm3 (0.84-5.20); LYMPHOCYTES PERCENT AUTO 10 % (21-46); MONOCYTES ABSOLUTE AUTO 1.25 K/mm3 (0.16-1.47); MONOCYTES PERCENT AUTO 7 % (4-13); Mean Corpuscular HGB 29.5 pg (26.0-34.0); Mean Corpuscular HGB Conc 34.6 g/dL (31.5-36.5); Mean Corpuscular Volume 85 fL (80-100); Mean Platelet Volume 10.1 fL (9.1-12.4); NEUTROPHILS PERCENT AUTO 83 % (41-73); Platelet Count 468 K/mm3 (150-400); RDW Coefficient Variation 12.4 % (11.7-14.2); RDW Standard Deviation 38.2 fL (35.1-46.3); Red Blood Cell Count 5.18 M/mm3 (3.80-5.20); White Blood Cell Count 17.32 K/mm3 (4.00-11.30)
[2023-07-25 20:07] LABS: Albumin, Blood 4.1 g/dL (3.4-5.0); Bilirubin, Total 1.6 mg/dL (0.1-1.0); Bun/Creatinine Ratio 36.3 (12.0-20.0); Calcium, Blood 9.2 mg/dL (8.5-10.1); Creatinine, Blood 1.82 mg/dL (0.40-1.00); Globulin, Blood 4.3 g/dL (2.2-4.0); Potassium, Blood 3.5 mmol/L (3.5-5.5); Total Protein, Blood 8.4 g/dL (6.4-8.2)
[2023-07-25 21:43] LABS: Base Excess Venous 1.1 mmol/L; Bicarbonate Venous 25.8 mmol/L (24.0-30.0); PCO2 Venous 31.8 mmHg (38-42); pH Blood Venous 7.49 (7.34-7.37)
[2023-07-25 21:49] LABS: Source, Urine Clean Catch
[2023-07-25 21:52] LABS: Blood, Urine 5+ (Neg); Glucose Qualitative, Urine 4+ (Neg); Ketones, Urine 3+ (Neg); Leukocyte Esterase, Urine 3+ (Neg); Nitrite, Urine Neg (Neg); Protein, Urine 3+ (Neg); Urobilinogen, Urine NORM (Normal)
[2023-07-25 22:01] LABS: Beta-hydroxybutyrate 52.5 mg/dL (0.2-2.8)
[2023-07-25 22:11] LABS: Bilirubin, Urine 1+ (Neg)
[2023-07-25 22:12] LABS: Appearance, Urine Turbid (Clear); Color, Urine Yellow (P-Yellow)
[2023-07-25 22:21] LABS: Amorphous Heavy (0-Heavy); Bacteria Many /hpf; Squamous Epithelial Cells Few /hpf (Few); White Blood Cells, Urine TNTC /hpf (0-5)
[2023-07-25 23:45] VITALS: BP 144/71
[2023-07-25] MEDS ORDERED: ESCI20 PO (23:56)
[2023-07-25] MEDS ORDERED: Oxybutynin Chlo15 MG PO (23:57)
[2023-07-25] MEDS ORDERED: Cyclobenzaprine5 MG PO (23:59)
[2023-07-26] VITALS (28 sets, daily range): BP systolic 95–189; BP diastolic 62–81
[2023-07-26] MEDS ORDERED: ACET500 PO
[2023-07-26 01:12] LABS: Base Excess Venous 4.1 mmol/L; Bicarbonate Venous 26.7 mmol/L (24.0-30.0); PCO2 Venous 41.6 mmHg (38-42); pH Blood Venous 7.44 (7.34-7.37)
[2023-07-26 01:40] LABS: Glucose, Blood 488 mg/dL (70-99)
[2023-07-26 02:50] LABS: Bun/Creatinine Ratio 34.4 (12.0-20.0); Creatinine, Blood 1.95 mg/dL (0.40-1.00); Potassium, Blood 2.6 mmol/L (3.5-5.5)
[2023-07-26 04:06] LABS: BASOPHILS ABSOLUTE AUTO 0.02 K/mm3 (0.00-0.23); BASOPHILS PERCENT AUTO 0 % (0-2); EOSINOPHILS PERCENT AUTO 0 % (0-6); Hematocrit 39.5 % (33.0-51.0); Hemoglobin 13.6 g/dL (11.5-16.0); IMMATURE GRAN ABSOLUTE AUTO 0.08 K/mm3 (0.00-0.10); IMMATURE GRAN PERCENT AUTO 1 % (0-1); LYMPHOCYTES ABSOLUTE AUTO 2.22 K/mm3 (0.84-5.20); LYMPHOCYTES PERCENT AUTO 13 % (21-46); MONOCYTES ABSOLUTE AUTO 1.78 K/mm3 (0.16-1.47); MONOCYTES PERCENT AUTO 11 % (4-13); Mean Corpuscular HGB 29.6 pg (26.0-34.0); Mean Corpuscular HGB Conc 34.4 g/dL (31.5-36.5); Mean Corpuscular Volume 86 fL (80-100); Mean Platelet Volume 10.2 fL (9.1-12.4); NEUTROPHILS ABSOLUTE AUTO 12.61 K/mm3 (1.96-9.15); NEUTROPHILS PERCENT AUTO 75 % (41-73); Platelet Count 401 K/mm3 (150-400); RDW Coefficient Variation 12.3 % (11.7-14.2); RDW Standard Deviation 38.1 fL (35.1-46.3); White Blood Cell Count 16.71 K/mm3 (4.00-11.30)
[2023-07-26 04:28] LABS: Albumin, Blood 3.3 g/dL (3.4-5.0); Albumin/Globulin Ratio 0.8 (0.8-1.8); Bun/Creatinine Ratio 33.7 (12.0-20.0); Calcium, Blood 8.1 mg/dL (8.5-10.1); Creatinine, Blood 2.02 mg/dL (0.40-1.00); Globulin, Blood 3.9 g/dL (2.2-4.0); Potassium, Blood 3.1 mmol/L (3.5-5.5); Total Protein, Blood 7.2 g/dL (6.4-8.2)
[2023-07-26 06:47] LABS: Bun/Creatinine Ratio 31.4 (12.0-20.0); Creatinine, Blood 2.26 mg/dL (0.40-1.00); Potassium, Blood 3.3 mmol/L (3.5-5.5)
[2023-07-26 08:27] LABS: Source, Urine Suprapubic Cath
[2023-07-26 08:31] LABS: Appearance, Urine Turbid (Clear); Blood, Urine 5+ (Neg); Color, Urine Yellow (P-Yellow); Glucose Qualitative, Urine 4+ (Neg); Ketones, Urine 2+ (Neg); Leukocyte Esterase, Urine 3+ (Neg); Nitrite, Urine Neg (Neg); Protein, Urine 3+ (Neg); Specific Gravity, Urine 1.015 (1.003-1.022); Urobilinogen, Urine NORM (Normal)
[2023-07-26 08:37] LABS: Bilirubin, Urine 1+ (Neg)
[2023-07-26 08:41] LABS: Bacteria Many /hpf; Red Blood Cells, Urine 50-100 /hpf (0-2); Squamous Epithelial Cells Many /hpf (Few); White Blood Cells, Urine TNTC /hpf (0-5)
[2023-07-26 08:43] LABS: Transitional Epithelial Cells Rare /hpf (0-Rare)
--- NOTE | 2023-07-26 17:26 | NUR ---
PT ARRIVED TO [facility] FROM ICU AT APROX 1700. PT ABLE TO STAND FROM WHEELCHAIR AND TURN HERSELF TO THE BED AND SIT DOWN. PT IS AWAKE, ALERT, ORIENTED X 4 AND HAS A VERY FLAT AFFECT. PT ORIENTED TO ROOM, CALL LIGHT AND UNIT ROUTINES. PT VERBALIZES UNDERSTANDING AND STATES SHE HAS NO NEEDS AT THIS TIME. CALL LIGHT IN REACH, WILL CONTINUE TO MONITOR/TREAT AND GIVE REPORT TO ONCOMING SHIFT RN.
--- NOTE | 2023-07-26 17:30 | NUR ---
TRANSFER TO PCU / SHIFT SUMMARY: REPORT HAS BEEN GIVEN TO MED Victoria RN TO ASSUME CARE. CHART, MEDS & ALL BELONGINGS HAVE BEEN TAKEN OVER W/ THE PT AT THAT TIME. SHE HAS BEEN TAKEN OVER BY WHEELCHAIR AT APPROX 1650. PT REMAINS A&O, COOPERATIVE W/ CARE, FLAT AFFECT. PT ON RA W/ O2 SATS > 92%. MONITOR SHOWS SR W/ HR 70-80s, BP STABLE. PT STS HAVING NO APPETITE AT THIS TIME, HAS HAD NO FURTHER EMESIS EPISODES SINCE ZOFRAN PER EMAR. CHRONIC SUPRAPUBIC CATHETER IN PLACE, DRAINING TURBID TEA COLORED URINE. SKIN CONDITION OVERALL FRAGILE, PT REPOSITIONS SELF FOR COMFORT PRN. DR ZEPEDA HAS SEEN THE PT THIS AFTERNOON PER CONSULT ORDERS, STS TO PLACE DRY FOAM DRESSINGS ON THE RIGHT GREAT TOE & 4TH TOE WOUNDS. VASCULAR US COMPLETED WELL PRIOR TO CONSIDERING DEBRIDEMENT OF WOUNDS. THE PT HAS CONTINUED REFUSE ALL CARE MEASURES/ ADLs DURING THIS SHIFT.
--- NOTE | 2023-07-26 22:36 | NUR ---
PT MOSTLY COOPERATIVE WITH CARE BUT VERY FLAT THUS FAR. REFUSED CONTINUOUS SPO2 MONITOR DESPITE EDUCATION ON IMPORTANCE. PT IS WEARING CPAP OVERNIGHT AND HAS BEEN SLEEPING COMFORTABLY SINCE 2099 MEDICATION ADMINISTRATION. 1999 BP HIGH, CALLED DR. FERNANDEZ WHO ORDERED IV HYDRALAZINE FOR MANAGEMENT. HYDRALAZINE ADMINISTERED AND BP HAS COME DOWN TO MORE ACCEPTABLE LEVEL. CONTINUING TO MONITOR.
[2023-07-27] VITALS (10 sets, daily range): BP systolic 120–195; BP diastolic 48–91
--- NOTE | 2023-07-27 02:18 | NUR ---
PT WOKE UP VOMITING AT ABOUT 0205. REPORTS STILL FEELING NAUSEOUS. NO PRN N/V MEDICATION AVAILABLE. SPOKE WITH DR. FERNANDEZ WHO ORDERED ONE TIME DOSE OF PO PHENERGAN TO ATTEMPT TO MANAGE. WILL ADMINISTER ONCE AVAILABLE.
[2023-07-27 04:30] LABS: BASOPHILS ABSOLUTE AUTO 0.02 K/mm3 (0.00-0.23); BASOPHILS PERCENT AUTO 0 % (0-2); EOSINOPHILS ABSOLUTE AUTO 0.01 K/mm3 (0.00-0.68); EOSINOPHILS PERCENT AUTO 0 % (0-6); Hematocrit 40.3 % (33.0-51.0); Hemoglobin 13.3 g/dL (11.5-16.0); IMMATURE GRAN ABSOLUTE AUTO 0.07 K/mm3 (0.00-0.10); IMMATURE GRAN PERCENT AUTO 1 % (0-1); LYMPHOCYTES ABSOLUTE AUTO 1.62 K/mm3 (0.84-5.20); LYMPHOCYTES PERCENT AUTO 16 % (21-46); MONOCYTES ABSOLUTE AUTO 0.76 K/mm3 (0.16-1.47); MONOCYTES PERCENT AUTO 8 % (4-13); Mean Corpuscular HGB 29.5 pg (26.0-34.0); Mean Corpuscular Volume 89 fL (80-100); Mean Platelet Volume 10.1 fL (9.1-12.4); NEUTROPHILS ABSOLUTE AUTO 7.52 K/mm3 (1.96-9.15); NEUTROPHILS PERCENT AUTO 75 % (41-73); Platelet Count 324 K/mm3 (150-400); RDW Coefficient Variation 12.4 % (11.7-14.2); RDW Standard Deviation 40.7 fL (35.1-46.3); Red Blood Cell Count 4.51 M/mm3 (3.80-5.20)
--- NOTE | 2023-07-27 04:35 | NUR ---
SHIFT SUMMARY. OVERALL, PT HAS BEEN DOING WELL THIS SHIFT. AOX3-4, MOSTLY COOPERATIVE WITH CARE. VERY FLAT DEMEANOR TO THE POINT OF BEING SOMEWHAT DISAGREEABLE. DESPITE THIS, HAS BEEN MOSTLY COOPERATIVE WITH CARE. 1 PERSON ASSIST TO BATHROOM, PRIMARILY FOR LINE MANAGEMENT. CONTIENT THUS FAR THIS SHIFT. SUPRAPUBIC CATH HAS BEEN FUNCTIONING WELL THROUGHOUT SHIFT. BP HAS BEEN SPORADICALLY ELEVATED BUT HAS REMAINED IN ACCEPTABLE LEVELS SINCE IV HYDRALAZINE ADMINISTRATION EARLY IN SHIFT. AFTER BOUT OF N/V THIS MORNING, PT HAS BEEN ABLE TO SLEEP COMFORTABLY SINCE PO PHENERGAN ADMINISTRATION. SEE RELATED NOTE FOR DETAILS. NS W/POTASSIUM DISCONTINUED EARLY IN SHIFT. REPLACED BY NS @ 125 THAT HAS BEEN RUNNING THROUGHOUT REMAINDER OF SHIFT. PT HAS BEEN ABLE TO SLEEP THROUGH MOST OF SHIFT. WEARING CPAP OVERNIGHT, REFUSED TO WEAR CONTINUOUS PULSE OXIMETER BUT HAS BEEN SATTING WELL ON VITALS. BED LOCKED IN LOWEST POSITION. CALL LIGHT LEFT WITHIN REACH.
[2023-07-27 04:51] LABS: Albumin, Blood 3.1 g/dL (3.4-5.0); Albumin/Globulin Ratio 0.8 (0.8-1.8); Bilirubin, Total 0.9 mg/dL (0.1-1.0); Bun/Creatinine Ratio 44.5 (12.0-20.0); Calcium, Blood 8.1 mg/dL (8.5-10.1); Creatinine, Blood 1.1 mg/dL (0.40-1.00); Globulin, Blood 3.7 g/dL (2.2-4.0); Potassium, Blood 4.1 mmol/L (3.5-5.5); Total Protein, Blood 6.8 g/dL (6.4-8.2)
--- NOTE | 2023-07-27 15:33 | NUR ---
SHIFT SUMMARY: PATIENT IS MORE AWAKE TODAY. SHE IS A&OX4. VS ARE WNL AND IS ON RA AND HAS >90% OXYGEN SATS. PATIENT HAS BEEN INTERMITTENTLY NAUSEOUS THROUGHOUT THE DAY BUT HAS BEEN BETTER MANAGED WITH IV ZOFRAN, PO REGLAN, AND SHE WAS ABLE TO GET A SHOWER TODAY WELL AND SHE STATED "I FEEL MORE HUMAN NOW" AFTER SHOWERING. SHE WAS ABLE TO TOLERATE A SMALL AMOUNT OF HER LUNCH THIS SHIFT. SHE HAS HAD NO EMESIS THIS SHIFT. HER CHRONIC SUPRAPUBIC CATH IS DRAINING PER GRAVITY YELLOW URINE AND SHE IS ALSO PASSING FLATUS. THIS NURSE DRESSED THE PATIENTS RIGHT TOE/FOOT DUE TO HER RIGHT GREATER TOE WOUND BLEEDING AFTER THE SHOWER. HER RIGHT TOE/FOOT HAS GAUZE, KERLEX, AND COBAN THAT IS C/D/I AT THIS TIME. SHE IS ABLE TO MOVE ALL FINGERS AND TOES WHEN ASKED. PATIENT IS A SBA TO AMBULATE WITHIN THE ROOM. PATIENT CALLS APPROPRIATELY. SHE IS CURRENTLY LAYING IN BED WATCHING TV WITH CALL LIGHT IN REACH. THE PLAN IS TO CONTINUE IV ABX AND CONTINUE CBG MANAGEMENT WITH INSULIN. DR. ZEPEDA HAS BEEN CONSULTED ON THE PATIENT FOR HER RIGHT GREATER TOE. THERE IS NO INTERVENTIONAL RADIOLOGIST COVERAGE UNTIL SATURDAY.
[2023-07-28 03:28] VITALS: BP 147/69
--- NOTE | 2023-07-28 04:28 | NUR ---
SHIFT SUMMARY. PT HAS BEEN DOING WELL THIS SHIFT OVERALL. AOX4, COOPERATIVE WITH CARE. REMAINS FLAT BUT LESS SO THAN PREVIOUS SHIFT WITH THIS NURSE. COMPLAINED OF CONGESTION EARLY THIS MORNING, SPOKE WITH DR. FERNANDEZ WHO ORDERED SALINE NASAL SPRAY WHICH HAS BEEN WORKING WELL. SPORADIC N/V HAS BEEN WELL MANAGED VIA PRN IV ZOFRAN. ELEVATED BP ON 1999 VITALS, ADMINISTERED PRN IV HYDRALAZINE AND BP HAS BEEN WITHIN ACCEPTABLE RANGE SINCE. SOME MILD BACK PAIN REPORTED EARLY THIS MORNING. PT INITIALLY REQUESTED OXYCONTIN BUT DID NOT HAVE ANY AVAILABLE SO PRN TYLENOL WAS ADMINISTERED AND PT WAS ABLE TO SLEEP COMFORTABLY FOR A WHILE AFTER THAT. PT CALLS APPROPRIATELY, SBA TO BATHROOM, CONTINENT OF BOWEL. SUPRAPUBIC CATH REMAINS IN PLACE AND FUNCTIONING WELL. CONSULT CALLED INTO OFFICE OF DR. JAEGER PER ORDER OF DR. ZEPEDA. UPDATED CONSULT ORDER TO REFLECT. FLUIDS INFUSING THROUGHOUT SHIFT. DAVID POWERGLIDE INFUSING WELL AT THIS TIME. BED LOCKED IN LOWEST POSITION. CALL LIGHT LEFT WITHIN REACH. CONTINUING TO MONITOR.
[2023-07-28 04:31] LABS: Albumin, Blood 2.9 g/dL (3.4-5.0); Albumin/Globulin Ratio 0.9 (0.8-1.8); Bilirubin, Total 0.7 mg/dL (0.1-1.0); Bun/Creatinine Ratio 34.5 (12.0-20.0); Creatinine, Blood 0.84 mg/dL (0.40-1.00); Globulin, Blood 3.3 g/dL (2.2-4.0); Potassium, Blood 3.7 mmol/L (3.5-5.5); Total Protein, Blood 6.2 g/dL (6.4-8.2)
--- NOTE | 2023-07-28 06:00 | NUR ---
PT HAS BEEN DEALING WITH CONSISTENT N/V SINCE EARLY THIS MORNING. ADMINISTERED PRN IV ZOFRAN AT 0400 AND PT DID EXPERIENCE SOME RELIEF FOR A TIME AFTER BUT HAS SINCE CONTINUED TO FEEL NAUSEOUS WITH SPORADIC SMALL AMOUNT OF EMESIS. NOTIFIED DR. JARA WHO ORDERED ONE TIME DOSE OF IV REGLAN 10 MG FOR MANAGEMENT PT DOES NOT FEEL LIKE SHE WOULD BE ABLE TO KEEP DOWN PO PHENERGAN THAT IS AVAILABLE ON THE EMAR. ADMINISTERED IV REGLAN AND NOW CONTINUING TO MONITOR.
[2023-07-28 07:31] VITALS: BP 162/74
--- NOTE | 2023-07-28 10:54 | NUR ---
AM NOTES: PT HAS BEEN SLEEPING MOST OF THIS MORNING SHIFT, REFUSED BREAKFAST, WILL ANSWER QUESTIONS WITH SHOR RESPONSES, FLAT AND WITHDRAWN. REFUSED TO PLACE OXIMETER AND CPAP. PHYSICAL THERAPIST ATTEMPTED TO WORK THE PT REFUSED WELL PER THERAPIST THIS THE 3RD TIME THE PT HAS REFUSED SO PT WAS DISCHARGE ON THEIR SIDE, DR MENDOZA MADE AWARE. SUPRAPUBIC CATHETER DRAINING PATENT VIA GRAVITY, NS RUNNING AT 125MLS/HR. VITALS HRR SR 80'S, SBP 160'S, SATS ABOVE 90% ON RA, AFEBRILE. CALL LIGHTS IN REACH WILL CONTINUE TO MONITOR
[2023-07-28 11:19] VITALS: BP 180/91
[2023-07-28 15:36] VITALS: BP 131/57
--- NOTE | 2023-07-28 18:40 | NUR ---
PT SUMMARY: SEE AM NOTES: PT ABLE TO WAKE UP AROUND LUNCH TIME AND TALK TO DR MENDOZA. PEHENERGAN DOSE INCCREASED TO 25MG WHICH SEEMED TO HELP PT ABLE TO KEEP 2 CARTONS OF MILK DOWN FOR LUNCH AND NO EMESIS REPORTED SINCE THEN HAD ANOTHER 2 CARTONS OF MILK FOR DINNER, CBG REMAINED ON THE 200'S. PT ABLE TO AMBULATE WITH 1PA TO THE BATHROOM NO SUCCESS HAVING A BM. SUPRAPUBIC CATH DRAINING VIA GRAVITY. TOE DRESSING WAS CHANGED FOR THE SHIFT. PT HAS BEEN COMPLIANT OF CPAP USE FOR SLEEP AFTER EDUCATING PT OF IMPORTANCE AND BENEFITS. NS RUNNING AT 125MLS/HR. AWAITING FOR DR JAEGER TO SEE PT TOMORROW 07/29/23 FOR IR CONSULT. NO OTHER ISSUES REPORTED. PT HAS BEEN CALLING APPROPRIATELY, WILL REPORT TO ONCOMING SHIFT
[2023-07-28 20:32] VITALS: BP 158/87
[2023-07-29] VITALS (7 sets, daily range): BP systolic 110–186; BP diastolic 50–75
[2023-07-29 04:56] LABS: Albumin/Globulin Ratio 0.9 (0.8-1.8); Bilirubin, Total 0.8 mg/dL (0.1-1.0); Bun/Creatinine Ratio 22.1 (12.0-20.0); Calcium, Blood 8.5 mg/dL (8.5-10.1); Creatinine, Blood 0.95 mg/dL (0.40-1.00); Globulin, Blood 3.5 g/dL (2.2-4.0); Potassium, Blood 3.8 mmol/L (3.5-5.5); Total Protein, Blood 6.5 g/dL (6.4-8.2)
--- NOTE | 2023-07-29 06:27 | NUR ---
SHIFT SUMMARY A/Ox4 AND MOSTLY COOPERATIVE WITH CARE. ANSWERS QUESTIONS APPROPRIATELY AND ABLE TO MAKE HER NEEDS KNOWN. CONTINUES TO PRESENT WITH FLAT/WITHDRAWN AFFECT, BUT NO ACUTE EVENTS OVERNIGHT. CARDIAC, REMAINS IN SR-ST 80-100'S WITH NO REPORTS OF CP OR PRESSURE T/O THE NIGHT. SBP HAS BEEN ELEVATED RANGING 110-150'S. RESPIRATORY, MAINTAINS SPO2 >92% ON RA WITH NO REPORTS OF SOB OR DYSPNEA WHILE AT REST. SOME INCREASED WORK OF BREATHING NOTED WITH EXERTION. WORE CPAP T/O THE NIGHT WHEN SLEEPING. GI/, INTERMITTENT EPISODES OF NAUSEA. MANAGED WELL WITH SCHEDULED/PRN ANTIEMETICS. SMALL EPISODE OF GREEN EMESIS. SP CATH PATENT AND DRAINING YELLOW URINE TO GRAVITY. NO BM THIS SHIFT. IR CONSULT IN PLACE AND PT HAS BEEN NPO SINCE MDN FOR POSSIBLE PROCEDURE THIS AM. PAIN MANAGED WELL WITH PRN PAIN MEDICATION. ASSESSED PT FOR RISKS OF ANY IGNITION SOURCES WELL BEHAVIORS FOR INCREASED RISKS OF FIRE DANGER. PT EDUCATED ON COMMON SOURCES OF IGNITION WELL NEED TO KEEP A SAFE ENVIRONMENT. PT VOICED UNDERSTANDING. NO NEW ORDERS AT THIS TIME, WILL REPORT TO ONCOMING RN. MARIO RICHTER OF THIS NOTE
[2023-07-29 07:52] LABS: BASOPHILS ABSOLUTE AUTO 0.04 K/mm3 (0.00-0.23); BASOPHILS PERCENT AUTO 0 % (0-2); EOSINOPHILS ABSOLUTE AUTO 0.15 K/mm3 (0.00-0.68); EOSINOPHILS PERCENT AUTO 1 % (0-6); Hemoglobin 13.2 g/dL (11.5-16.0); IMMATURE GRAN ABSOLUTE AUTO 0.15 K/mm3 (0.00-0.10); IMMATURE GRAN PERCENT AUTO 1 % (0-1); LYMPHOCYTES ABSOLUTE AUTO 3.85 K/mm3 (0.84-5.20); LYMPHOCYTES PERCENT AUTO 35 % (21-46); MONOCYTES PERCENT AUTO 6 % (4-13); Mean Corpuscular HGB 29.9 pg (26.0-34.0); Mean Corpuscular Volume 91 fL (80-100); Mean Platelet Volume 10.6 fL (9.1-12.4); NEUTROPHILS ABSOLUTE AUTO 6.16 K/mm3 (1.96-9.15); NEUTROPHILS PERCENT AUTO 56 % (41-73); NRBC ABSOLUTE 0.02 K/mm3 (0.00-0.02); NRBC Auto 0.2 /100 WBC (0.0-0.2); Platelet Count 325 K/mm3 (150-400); RDW Coefficient Variation 12.4 % (11.7-14.2); RDW Standard Deviation 40.7 fL (35.1-46.3); Red Blood Cell Count 4.42 M/mm3 (3.80-5.20); White Blood Cell Count 11.05 K/mm3 (4.00-11.30)
--- NOTE | 2023-07-29 18:55 | NUR ---
PT SUMMARY: NO ACUTE CHANGE FOR THE SHIFT VITALS HAS BEEN STABLE, BP ELEVATED ONCE AT LUNCH TIME WHEN PT HAD EMESIS, HYDRALAZINE 10MG ONE TIME IV DOSE GIVEN BP TREND DOWN TO 130'S. DR BRICE NOT HERE TODAY, DR JAEGER TO SEE PT TOMORROW, TO KEEP PTO NPO AFTER MIDNIGHT FOR POSSIBLE PROCEDURE TOMORROW 07/30/23. PT STILL HASNT HAD MUCH TO EAT TODAY PT WAS EDUCATED ABOUT NAUSEA AND SMALL SOLID FOOD INTAKES PT TRIED COUPLE BITES OF LUNCH ABLE TO TOLERATE. PRN AND SCHEDULED ANTI NAUSEA MEDS WAS GIVEN. NS RUNNING AT 125MLS/HR, SP CATHETER DRAINING YELLOW URINE VIA GRAVITY. PT HAD A SHOWER THIS MORNING TOE DRESSINGS CHANGED. PT COMPLIANT WITH CPAP USE. REFUSED TO WORK WITH OCCUPATIONAL THERAPIST. PT HAS BEEN SLEEPING MOST OF THE SHIFT, CALLS APPROPRIATELY WILL REPORT TO ONCOMING SHIFT
[2023-07-30] VITALS (15 sets, daily range): BP systolic 103–173; BP diastolic 58–89
--- NOTE | 2023-07-30 05:15 | NUR ---
SHIFT SUMMARY A/Ox4 AND MOSTLY COOPERATIVE WITH CARE. ANSWERS QUESTIONS APPROPRIATELY AND ABLE TO MAKE HER NEEDS KNOWN. CONTINUES TO PRESENT WITH FLAT/WITHDRAWN AFFECT, BUT NO ACUTE EVENTS OVERNIGHT FOR THE PT MOSTLY SLEPT. MRI OF RIGHT FOOT COMPLETED, PENDING RESULTS. CARDIAC, REMAINS IN SR 70-80'S WITH NO REPORTS OF CP OR PRESSURE T/O THE NIGHT. SBP HAS BEEN BETTER MANAGED RANGING 130-140'S. RESPIRATORY, MAINTAINS SPO2 >94% ON RA WITH NO REPORTS OF SOB OR DYSPNEA WHILE AT REST. WORE CPAP T/O THE NIGHT WHEN SLEEPING. GI/, INTERMITTENT EPISODES OF NAUSEA, BUT HAS BEEN MANAGED WELL WITH SCHEDULED/PRN ANTIEMETICS. NO EMESIS THIS SHIFT OF THIS NOTE. SP CATH PATENT AND DRAINING YELLOW URINE TO GRAVITY. NO BM THIS SHIFT. IR CONSULT IN PLACE AND PT HAS BEEN NPO SINCE MDN FOR POSSIBLE PROCEDURE THIS AM. PAIN MANAGED WELL WITH PRN PAIN MEDICATION.CONTINUES TO REFUSE TO WORK WITH PT/OT PER DAYSHIFT REPORT. ASSESSED PT FOR RISKS OF ANY IGNITION SOURCES WELL BEHAVIORS FOR INCREASED RISKS OF FIRE DANGER. PT EDUCATED ON COMMON SOURCES OF IGNITION WELL NEED TO KEEP A SAFE ENVIRONMENT. PT VOICED UNDERSTANDING. NO NEW ORDERS AT THIS TIME, WILL REPORT TO ONCOMING RN. MARIO RICHTER OF THIS NOTE
[2023-07-30 06:37] LABS: BASOPHILS ABSOLUTE AUTO 0.04 K/mm3 (0.00-0.23); BASOPHILS PERCENT AUTO 0 % (0-2); EOSINOPHILS ABSOLUTE AUTO 0.28 K/mm3 (0.00-0.68); EOSINOPHILS PERCENT AUTO 3 % (0-6); Hematocrit 36.1 % (33.0-51.0); Hemoglobin 12.1 g/dL (11.5-16.0); IMMATURE GRAN ABSOLUTE AUTO 0.09 K/mm3 (0.00-0.10); IMMATURE GRAN PERCENT AUTO 1 % (0-1); LYMPHOCYTES ABSOLUTE AUTO 2.63 K/mm3 (0.84-5.20); LYMPHOCYTES PERCENT AUTO 29 % (21-46); MONOCYTES ABSOLUTE AUTO 0.61 K/mm3 (0.16-1.47); MONOCYTES PERCENT AUTO 7 % (4-13); Mean Corpuscular HGB 29.6 pg (26.0-34.0); Mean Corpuscular HGB Conc 33.5 g/dL (31.5-36.5); Mean Corpuscular Volume 88 fL (80-100); Mean Platelet Volume 10.2 fL (9.1-12.4); NEUTROPHILS ABSOLUTE AUTO 5.38 K/mm3 (1.96-9.15); NEUTROPHILS PERCENT AUTO 60 % (41-73); Platelet Count 269 K/mm3 (150-400); RDW Coefficient Variation 12.3 % (11.7-14.2); RDW Standard Deviation 39.8 fL (35.1-46.3); Red Blood Cell Count 4.09 M/mm3 (3.80-5.20); White Blood Cell Count 9.03 K/mm3 (4.00-11.30)
[2023-07-30 06:55] LABS: Albumin, Blood 2.8 g/dL (3.4-5.0); Albumin/Globulin Ratio 0.9 (0.8-1.8); Bilirubin, Total 0.6 mg/dL (0.1-1.0); Bun/Creatinine Ratio 20.8 (12.0-20.0); Calcium, Blood 8.1 mg/dL (8.5-10.1); Creatinine, Blood 0.82 mg/dL (0.40-1.00); Globulin, Blood 3.1 g/dL (2.2-4.0); Potassium, Blood 3.4 mmol/L (3.5-5.5); Total Protein, Blood 5.9 g/dL (6.4-8.2)
--- NOTE | 2023-07-30 10:21 | NUR ---
AM NOTE: PATIENT ALERT AND ORIENTED X4. NOT FEELING WELL THIS MORNING, REPORTING NAUSEA WITH ABDOMINAL PAIN AND CHRONIC BACK PAIN. DENIES OTHER PAINS. PERRLA. ABLE TO SIT UP AND MOVE AROUND IND IN BED. EQUAL EXTREMITY MOVEMENTS. PERRLA. BED BATH COMPLETED THIS MORNING AND UP IN RECLINER FOR SHORT PERIOD OF TIME. ON ROOM AIR SATING ABOVE 95%. DENIES SOB/COUGH. EVEN AND UNLABORED RESPIRATIONS. LUNGS SOUNDING CLEAR AND DIM IN BASES. TELE SHOWING SR WITH HR 60-90'S. DENIES CHEST PAIN/PRESSURE/PALPITATIONS. BP STABLE. PPP. NO SIGNS OF EDEMA. SC HEPARIN GIVEN THIS AM PER EMAR. PATIENT COMPLAINS OF ABDOMINAL PAIN SECONDARY TO NAUSEA WITH VOMITTING. BOWEL TONES PRESENT. PATIENT CURRENTLY NPO PENDNING CONSULT WITH DR. JAEGER. PRN MEDS GIVEN FOR NAUSEA WITH LITTLE RELIEF. SUPRA PUBIC GARY CATH IN PLACE, CATH CARE COMPLETED THIS AM WITH BED BATH. URINE YELLOW/MARCEL IN COLOR. UP TO BATHROOM WITH SBA. EPISODE OF DIARRHEA THIS AM. ATTENDS IN PLACE. SKING OVERALL PALE AND COOL TO TOUCH. DIABETIC ULCERS TO RIGHT FOOT/RIGHT GREAT TOE. DR. WHITMORE IN THIS AM, THIS RN AT BEDSIDE FOR PROVIDER ROUNDING. PATIENT DISCUSSED NAUSEA AND BACK PAIN WITH DR. WHITMORE. ACHS BLOOD SUGARS. NS INFUSING PER EMAR. ABX AND KCL INFUSED PER EMAR THIS AM. CALL LIGHT IN REACH. PATIENT CURRENLY LAYING ON LEFT SIDE WITH HEATING PAD ON BACK, DENIES NEEDS.
--- NOTE | 2023-07-30 15:52 | NUR ---
PATIENT TO BANK BOSS AT THIS TIME
--- NOTE | 2023-07-30 16:42 | NUR ---
Patient is sitting up in bed and alert. Patient is known to this Collection Specialist from previous hospital admissions. She explains about the events that led to her calling , what her current medical issues are and the fears that she has moving forward. She talks about her relationship and family unit complications, about her beloved cats and the challenges she might face given the possiblity of an amputation (amputation is not suggested by a physician, but is the patient's fear). We discuss her spiritual journey and the hope that she places in God. I Normalize her feelings and fears and provide therapeutic listening, gentle student financial services counselor and prayer. Patient responded well and showed signs of reduced stress.
--- NOTE | 2023-07-30 17:55 | NUR ---
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 LEFT GROIN SITE REMAINS SOFT/NONTENDER. SCANT DRAINAGE UNDER DRESSING THAT REMAINS UNCHANGED. POST VITALS IN PROGRESS. PATIENT DENIES NAUSEA AT THIS TIME. WANTING TO EAT ONCE SHE IS ABLE TO SIT UP MORE. NO EVENTS ON TELE THIS SHIFT. REMAINS SR. IV PAIN MEDICATION X2 THIS SHIFT. LOOSE BOWEL MOVEMENT THIS AM. SUPRAPUBIC CATH CONTINUES TO DRAIN CLEAR/YELLOW URINE. IV FLUIDS INFUSING PER EMAR
[2023-07-31 00:52] VITALS: BP 116/62
[2023-07-31 03:47] VITALS: BP 122/68
[2023-07-31 04:11] LABS: BASOPHILS ABSOLUTE AUTO 0.03 K/mm3 (0.00-0.23); BASOPHILS PERCENT AUTO 0 % (0-2); EOSINOPHILS ABSOLUTE AUTO 0.33 K/mm3 (0.00-0.68); EOSINOPHILS PERCENT AUTO 4 % (0-6); Hematocrit 36.9 % (33.0-51.0); IMMATURE GRAN PERCENT AUTO 1 % (0-1); LYMPHOCYTES ABSOLUTE AUTO 2.28 K/mm3 (0.84-5.20); LYMPHOCYTES PERCENT AUTO 24 % (21-46); MONOCYTES ABSOLUTE AUTO 0.68 K/mm3 (0.16-1.47); MONOCYTES PERCENT AUTO 7 % (4-13); Mean Corpuscular HGB 29.3 pg (26.0-34.0); Mean Corpuscular HGB Conc 32.5 g/dL (31.5-36.5); Mean Corpuscular Volume 90 fL (80-100); Mean Platelet Volume 10.1 fL (9.1-12.4); NEUTROPHILS ABSOLUTE AUTO 5.91 K/mm3 (1.96-9.15); NEUTROPHILS PERCENT AUTO 63 % (41-73); Platelet Count 262 K/mm3 (150-400); RDW Coefficient Variation 12.6 % (11.7-14.2); RDW Standard Deviation 41.1 fL (35.1-46.3); Red Blood Cell Count 4.09 M/mm3 (3.80-5.20); White Blood Cell Count 9.33 K/mm3 (4.00-11.30)
[2023-07-31 04:32] LABS: Albumin, Blood 2.5 g/dL (3.4-5.0); Albumin/Globulin Ratio 0.8 (0.8-1.8); Bilirubin, Total 0.5 mg/dL (0.1-1.0); Calcium, Blood 7.8 mg/dL (8.5-10.1); Creatinine, Blood 0.73 mg/dL (0.40-1.00); Globulin, Blood 3.1 g/dL (2.2-4.0); Potassium, Blood 3.7 mmol/L (3.5-5.5); Total Protein, Blood 5.6 g/dL (6.4-8.2)
--- NOTE | 2023-07-31 04:34 | NUR ---
SHIFT SUMMARY THIS RN ASSUMED CARE OF PATIENT AT 1900. PT A&O X4. ABLE TO MAKE NEEDS KNOWN. BP STABLE. SR WITH HR 70'S. ON RA WITH SPO2 >92%, ON CPAP FOR NOC, REFUSED CONTINUOUS SPO2 MONITORING. LEFT FEMORAL ACCESS SITE SOFT/NONTENDER, SMALL AMOUNT OF BLOOD AT PUNCTURE SITE, OTHERWISE NO SIGNS OF SWELLING, DISCOLORATION, OR BLEEDING. PPP. PT DENIED PAIN IN RIGHT FOOT. NO CHANGES TO WOUNDS ON FEET. PT REPOSITIONING SELF INDEPENDENTLY. SP CATH PATENT AND DRAINING DARK YELLOW URINE. NS INFUSING PER EMAR. BED IN LOWEST POSITION AND CALL LIGHT WITHIN REACH. THIS RN WILL REPORT TO ONCOMING DAYSHIFT RN.
[2023-07-31 08:12] VITALS: BP 113/59
[2023-07-31 12:11] VITALS: BP 149/83
[2023-07-31 15:49] VITALS: BP 149/85
--- NOTE | 2023-07-31 17:55 | NUR ---
PT SUMMARY: NO ACUTE CHANGE FOR THE SHIFT, PT TRANSITIONED TO MEDICAL NO TELE. VITALS HAS BEEN STABLE, PT ABLE TO MAKE NEEDS KNOWN. SBA FOR TRANSFERS. PT WITH INTERMITTENT NAUSEA MEDICATED WITH BOTH PRN AND PO ANTINAUSEA MEDS. PAIN MEDS X1 GIVEN. LEFT FEMORAL ACCESS SITE CDI. PT TOLERATING PO INTAKE, LIKES TO DRINK MILK, PT EDUCATED ABOUT NUTRITIONAL INTAKE, ALSO ABOUT PLAN OF CARE AND ENCOURAGED TO WORK WITH PT/OT. PT KOBE TO AMBULATE OUTSIDE ROOM AND TOOK 2 STEPS IN THE STAIR PER OT. PT COMPLIANT WITH CPAP USE. SP CATH DRAINING YELLOW URINE VIA GRAVITY, NO OTHER ISSUES REPORTED WILL REPORT TO ONCOMING SHIFT
--- NOTE | 2023-07-31 18:16 | NUR ---
SHIFT SUMMARY- PT TRANSFERED TO MEDICAL FLOOR FROM PCU. PT HAS A SUPRAPUBIC CATH THAT IS PATENT AND DRAINING YELLOW URINE. PT ARRIVED NEAR THE END OF SHIFT. SHE DECLINED TO EAT DINNER. PT IS AC/HS BG CHECKS. PLAN IS TO DC THE PT HOME TOMORROW. PT CURRENTLY IN BED, CALL LIGHT IN REACH NO S&S OF DISTRESS. WILL PASS ON IN REPORT TO NIGHT RN.
[2023-07-31 20:10] VITALS: BP 137/75
[2023-08-01 02:29] VITALS: BP 107/71
--- NOTE | 2023-08-01 04:35 | NUR ---
SHIFT SUMMARY. PATIENT IS A/OX4 AND ABLE TO MAKE HER NEEDS KNOWN. PATIENT IS SBA TO THE BATHROOM-GAIT IS STEADY. PATIENT HAS SUPRAPUBIC CATHETER-PATENT AND DRAINING YELLOW URINE TO GRAVITY. PATIENT C/O PAIN-MEDICATED PER EMAR. PATIENT COMPLIANT WITH CPAP WHEN ASLEEP. PATIENT UP EARLY THIS AM WATCHING TV. PATIENT REQUESTING REGULAR CLEAR SODA-EDUCATED PATIENT ON DIETARY INTAKE INCLUDING SUGARY BEVERAGES-PATIENT RESPONDED "THEY WERE GIVING IT TO ME IN THE OTHER PLACES". BED IS LOCKED IN THE LOWEST POSITION WITH CALL LIGHT IN REACH. NO S/S OF DISTRESS NOTED AT THIS TIME.
[2023-08-01 05:35] LABS: BASOPHILS ABSOLUTE AUTO 0.04 K/mm3 (0.00-0.23); BASOPHILS PERCENT AUTO 0 % (0-2); EOSINOPHILS ABSOLUTE AUTO 0.29 K/mm3 (0.00-0.68); EOSINOPHILS PERCENT AUTO 3 % (0-6); Hematocrit 37.8 % (33.0-51.0); Hemoglobin 12.5 g/dL (11.5-16.0); IMMATURE GRAN ABSOLUTE AUTO 0.12 K/mm3 (0.00-0.10); IMMATURE GRAN PERCENT AUTO 1 % (0-1); LYMPHOCYTES ABSOLUTE AUTO 2.67 K/mm3 (0.84-5.20); LYMPHOCYTES PERCENT AUTO 30 % (21-46); MONOCYTES ABSOLUTE AUTO 0.73 K/mm3 (0.16-1.47); MONOCYTES PERCENT AUTO 8 % (4-13); Mean Corpuscular HGB 29.3 pg (26.0-34.0); Mean Corpuscular HGB Conc 33.1 g/dL (31.5-36.5); Mean Corpuscular Volume 89 fL (80-100); Mean Platelet Volume 10.3 fL (9.1-12.4); NEUTROPHILS ABSOLUTE AUTO 5.06 K/mm3 (1.96-9.15); NEUTROPHILS PERCENT AUTO 57 % (41-73); Platelet Count 303 K/mm3 (150-400); RDW Coefficient Variation 12.6 % (11.7-14.2); RDW Standard Deviation 40.3 fL (35.1-46.3); Red Blood Cell Count 4.26 M/mm3 (3.80-5.20); White Blood Cell Count 8.91 K/mm3 (4.00-11.30)
[2023-08-01 05:59] LABS: Albumin, Blood 2.8 g/dL (3.4-5.0); Albumin/Globulin Ratio 0.8 (0.8-1.8); Bilirubin, Total 0.6 mg/dL (0.1-1.0); Bun/Creatinine Ratio 13.6 (12.0-20.0); Calcium, Blood 8.4 mg/dL (8.5-10.1); Creatinine, Blood 0.96 mg/dL (0.40-1.00); Globulin, Blood 3.3 g/dL (2.2-4.0); Potassium, Blood 3.5 mmol/L (3.5-5.5); Total Protein, Blood 6.1 g/dL (6.4-8.2)
[2023-08-01 07:40] VITALS: BP 103/54
[2023-08-01 15:44] VITALS: BP 120/57
--- NOTE | 2023-08-01 16:59 | NUR ---
Patient is sitting up in bed and alert. She tells me that she feels like she has declined today from yesterday and has been unable to eat, except for a pudding. She talks at length about her family, her hopes and dreams, as well as, the regrets she has for treating her body the way that she has. We explore topics of matthew, forgiveness, meaning and human dignity. We also talk about her living conditions and transportation issues which effect her being able to manage her health once she will d/c. I provide therapeutic listening, prayer and gentle guidance. Patient responded well and showed signs of an elevated mood and increase in hope.
--- NOTE | 2023-08-01 17:02 | NUR ---
1700- UPDATED DR. WHITMORE REGARDING PT TAKING COMPAZINE PRIOR TO EATING LUNCH AND EATING ONLY PUDDING FOR LUNCH PER PT'S REQUEST. PT EXPLAINED SHE FELT EATING SOFT/PUREED FOODS HELPED HER WITH HER SWALLOWING. PT IS OKAY WITH CHANGING HER DIET TO MECHANICAL SOFT FOR DINNER. PT HAD X1 EMESIS EPISODE AFTER EATING CHEERIOS AND A BANANA FOR BREAKFAST. PT DID NOT HAVE ANY EMESIS EPISODES AFTER LUNCH. PT BELIEVES THIS WAS DUE TO THE TEXTURE OF LUNCH. RN TO PLACE [facility] SOFT DIET ORDER.
--- NOTE | 2023-08-01 17:11 | NUR ---
SUMMARY- AAOX4. SBA. PT REFUSED TO WALK TODAY. PT WANTED TO STAY IN BED ALL SHIFT. REFER TO ABOVE NOTE FOR DETAILS REGARDING PT'S DIET/SWALLOWING.
[2023-08-01 20:36] VITALS: BP 143/84
[2023-08-02 02:34] VITALS: BP 111/65
--- NOTE | 2023-08-02 05:08 | NUR ---
SHIFT SUMMARY PT A&OX4 AND ANSWERS QUESTIONS APPROPRIATELY. PT TRANSPORTED TO IMAGING FOR X-RAY AROUND 2200 WITH NO PROBLEMS OR CONCERNS DURING TRANSPORT. PT BACK IN ROOM AND MEDICATIONS ADMINISTERED AROUND 22:20. PT USING CPAP DURING NIGHT. PT VERBALIZED FEELING DIZZY/LIGHTHEADED AFTER TRANSPORT BUT RESOLVED FEELING BY LAYING DOWN. NO FURTHER COMPLAINTS OR CONCERNS. NO ACUTE EVENTS DURING SHIFT. VSS. PT KEPT IN A POSITION OF SAFETY WITH FALL PRECAUTIONS IN PLACE AND CALL LIGHT WITHIN REACH.
[2023-08-02 05:45] LABS: BASOPHILS ABSOLUTE AUTO 0.03 K/mm3 (0.00-0.23); BASOPHILS PERCENT AUTO 0 % (0-2); EOSINOPHILS ABSOLUTE AUTO 0.33 K/mm3 (0.00-0.68); EOSINOPHILS PERCENT AUTO 4 % (0-6); Hematocrit 33.7 % (33.0-51.0); Hemoglobin 11.2 g/dL (11.5-16.0); IMMATURE GRAN ABSOLUTE AUTO 0.11 K/mm3 (0.00-0.10); IMMATURE GRAN PERCENT AUTO 1 % (0-1); LYMPHOCYTES ABSOLUTE AUTO 2.64 K/mm3 (0.84-5.20); LYMPHOCYTES PERCENT AUTO 31 % (21-46); MONOCYTES ABSOLUTE AUTO 0.67 K/mm3 (0.16-1.47); MONOCYTES PERCENT AUTO 8 % (4-13); Mean Corpuscular HGB 29.5 pg (26.0-34.0); Mean Corpuscular HGB Conc 33.2 g/dL (31.5-36.5); Mean Corpuscular Volume 89 fL (80-100); Mean Platelet Volume 10.5 fL (9.1-12.4); NEUTROPHILS ABSOLUTE AUTO 4.66 K/mm3 (1.96-9.15); NEUTROPHILS PERCENT AUTO 55 % (41-73); Platelet Count 288 K/mm3 (150-400); RDW Coefficient Variation 12.7 % (11.7-14.2); RDW Standard Deviation 40.7 fL (35.1-46.3); White Blood Cell Count 8.44 K/mm3 (4.00-11.30)
[2023-08-02 06:09] LABS: Albumin, Blood 2.6 g/dL (3.4-5.0); Albumin/Globulin Ratio 0.9 (0.8-1.8); Bilirubin, Total 0.5 mg/dL (0.1-1.0); Bun/Creatinine Ratio 20.8 (12.0-20.0); Calcium, Blood 8.6 mg/dL (8.5-10.1); Creatinine, Blood 0.77 mg/dL (0.40-1.00); Potassium, Blood 3.2 mmol/L (3.5-5.5); Total Protein, Blood 5.6 g/dL (6.4-8.2)
[2023-08-02 08:01] VITALS: BP 160/77
--- NOTE | 2023-08-02 12:36 | NUR ---
VERBAL FROM JOVITA AT 1215. THIS RN INFORMED MD THAT PT HAD MULTIPLE EMESIS EPISODES AFTER DRINKING FLUIDS AND TAKING PILLS. MD GAVE VERBAL TO ORDER 40 MEQ POTASSIUM IV NOW, D51/2 NS AT 75 CONTINUOUS, CHEM BG Q 6 DUE TO NPO, NPO STATUS, AND CHANGE INSULIN COVERAGE FOR SHORT ACTING TO Q6.
[2023-08-02 15:59] VITALS: BP 160/89
--- NOTE | 2023-08-02 18:28 | NUR ---
SUMMARY- PT DID NOT TOLERATE MECH SOFT BREAKFAST OR PUREED LUNCH; PT HAD EPISODES OF EMESIS AFTER EATING AND TAKING PILLS, DESPITE THE REGLAN AND COMPAZINE. PT NOW NPO ON D5/ NS. CHEM BG Q6. AAOX4. SBA. PT REFUSED WORKING WITH OT MORE THAN 2-3 MINUTES.
[2023-08-02 19:56] VITALS: BP 85/56
[2023-08-02 20:55] VITALS: BP 90/42
[2023-08-02 22:20] VITALS: BP 131/73
[2023-08-03 04:25] VITALS: BP 126/73
--- NOTE | 2023-08-03 04:43 | NUR ---
SHIFT SUMMARY PT'S BLOOD PRESSURE AT START OF SHIFT WAS 85/56 WHICH WAS A SIGNIFICANT DROP FROM DAY SHIFT OF SBP IN THE 160'S. RECYCLING OPERATOR PROVIDER NOTIFIED AND ORDERED LR BOLUS. PRIOR TO START OF LR BOLUS ANOTEHR B/P RECHECK WAS 90/42. RECHECK AFTER COMPLETION OF BOLUS WAS 131/73. PT HAS BEEN NPO AND REFUSING ORAL MEDS AT THIS TIME DUE TO NAUSEA/VOMITING R/T GASTROPORESIS. PO PAIN MANAGEMENT CHANGED TO IV FENT FOR CHRONIC BACK PAIN WITH REPORTED RELIEF. CALL LIGHT IN REACH, BED LOCKED IN LOW POSITION. CPAP OVERNIGHT, REFUSING CONTINUOUS PULSE OX.
--- NOTE | 2023-08-03 07:26 | NUR ---
ATTEMPTED TO DRAW FROM [employer] FOR MORNING LABS AND WAS UNSUCCESSFUL. DID NOT DRAW BACK THIS MORNING. CALLED LAB TO COME AND DRAW MORNING LABS.
[2023-08-03 07:57] VITALS: BP 118/51
[2023-08-03 10:28] LABS: BASOPHILS ABSOLUTE AUTO 0.04 K/mm3 (0.00-0.23); BASOPHILS PERCENT AUTO 1 % (0-2); EOSINOPHILS ABSOLUTE AUTO 0.26 K/mm3 (0.00-0.68); EOSINOPHILS PERCENT AUTO 3 % (0-6); Hematocrit 33.6 % (33.0-51.0); Hemoglobin 11.4 g/dL (11.5-16.0); IMMATURE GRAN ABSOLUTE AUTO 0.07 K/mm3 (0.00-0.10); IMMATURE GRAN PERCENT AUTO 1 % (0-1); LYMPHOCYTES ABSOLUTE AUTO 2.89 K/mm3 (0.84-5.20); LYMPHOCYTES PERCENT AUTO 34 % (21-46); MONOCYTES ABSOLUTE AUTO 0.81 K/mm3 (0.16-1.47); MONOCYTES PERCENT AUTO 10 % (4-13); Mean Corpuscular HGB 30.4 pg (26.0-34.0); Mean Corpuscular HGB Conc 33.9 g/dL (31.5-36.5); Mean Corpuscular Volume 90 fL (80-100); Mean Platelet Volume 10.2 fL (9.1-12.4); NEUTROPHILS ABSOLUTE AUTO 4.43 K/mm3 (1.96-9.15); NEUTROPHILS PERCENT AUTO 52 % (41-73); Platelet Count 271 K/mm3 (150-400); RDW Coefficient Variation 12.7 % (11.7-14.2); RDW Standard Deviation 40.7 fL (35.1-46.3); Red Blood Cell Count 3.75 M/mm3 (3.80-5.20)
[2023-08-03 10:47] LABS: Albumin, Blood 2.6 g/dL (3.4-5.0); Albumin/Globulin Ratio 0.8 (0.8-1.8); Bilirubin, Total 0.5 mg/dL (0.1-1.0); Bun/Creatinine Ratio 14.2 (12.0-20.0); Calcium, Blood 8.1 mg/dL (8.5-10.1); Creatinine, Blood 0.85 mg/dL (0.40-1.00); Globulin, Blood 3.1 g/dL (2.2-4.0); Potassium, Blood 3.3 mmol/L (3.5-5.5); Total Protein, Blood 5.7 g/dL (6.4-8.2)
[2023-08-03 15:26] VITALS: BP 118/61
--- NOTE | 2023-08-03 19:04 | NUR ---
SHIFT SUMMARY: PT IS A 58 YEAR OLD FEMALE HERE FOR GASTROPARESIS SECONDARY TO DIABETES. SHE HAS HAD NAUSEA WITH NO VOMITING THIS SHIFT. SHE HAS ADVANCED TO A FULL LIQUID DIET AND TOLERATING WELL. SHE IS GETTING IV POTASSIUM FOR A POTASSIUM OF 3.3. PLAN IS TO D/C HOME TOMORROW. SHE IS PLEASANT AND COOPERATIVE WITH CARE, USES HER CALL LIGHT APPROPRIATELY, AND NO SIGNS OR SYMPTOMS OF DISTRESS. PLAN OF CARE ONGOING.
[2023-08-03 19:48] VITALS: BP 128/77
--- NOTE | 2023-08-04 04:51 | NUR ---
SHIFT SUMMARY: A&OX4. REPORTS NAUSEA HAS IMPROVED, NO EMESIS, SLIGHT NAUSEA NOTED. ABLE TO KEEP DOWN FULL LIQUID DIET. DENIES CHEST PAIN/PRESSURE. STABLE VITAL SIGNS, SEE PT RECORD. MEDICATED WITH PRN PAIN MEDICATION FOR CHRONIC BACK PAIN, SEE EMAR. SUPRAPUBIC CATHETER DRAINING TEA COLORED, CLEAR URINE WITHOUT DIFFICULTY. NO ACUTE CHANGES NOTED DURING THIS SHIFT. PT RESTING IN BED WITH EYES CLOSED. CALL LIGHT IN REACH. BED IN LOW POSITION.
[2023-08-04 05:28] VITALS: BP 145/74
[2023-08-04 06:03] LABS: BASOPHILS ABSOLUTE AUTO 0.04 K/mm3 (0.00-0.23); BASOPHILS PERCENT AUTO 1 % (0-2); EOSINOPHILS PERCENT AUTO 4 % (0-6); Hematocrit 33.2 % (33.0-51.0); Hemoglobin 11.1 g/dL (11.5-16.0); IMMATURE GRAN ABSOLUTE AUTO 0.07 K/mm3 (0.00-0.10); IMMATURE GRAN PERCENT AUTO 1 % (0-1); LYMPHOCYTES ABSOLUTE AUTO 2.71 K/mm3 (0.84-5.20); LYMPHOCYTES PERCENT AUTO 31 % (21-46); MONOCYTES ABSOLUTE AUTO 0.68 K/mm3 (0.16-1.47); MONOCYTES PERCENT AUTO 8 % (4-13); Mean Corpuscular HGB Conc 33.4 g/dL (31.5-36.5); Mean Corpuscular Volume 90 fL (80-100); Mean Platelet Volume 10.4 fL (9.1-12.4); NEUTROPHILS ABSOLUTE AUTO 4.89 K/mm3 (1.96-9.15); NEUTROPHILS PERCENT AUTO 56 % (41-73); Platelet Count 279 K/mm3 (150-400); RDW Coefficient Variation 13.1 % (11.7-14.2); RDW Standard Deviation 42.1 fL (35.1-46.3); White Blood Cell Count 8.69 K/mm3 (4.00-11.30)
[2023-08-04 06:26] LABS: Albumin, Blood 2.6 g/dL (3.4-5.0); Albumin/Globulin Ratio 0.8 (0.8-1.8); Bilirubin, Total 0.4 mg/dL (0.1-1.0); Bun/Creatinine Ratio 16.1 (12.0-20.0); Calcium, Blood 8.4 mg/dL (8.5-10.1); Creatinine, Blood 0.87 mg/dL (0.40-1.00); Globulin, Blood 3.2 g/dL (2.2-4.0); Potassium, Blood 4.1 mmol/L (3.5-5.5); Total Protein, Blood 5.8 g/dL (6.4-8.2)
[2023-08-04 08:17] VITALS: BP 120/74
[2023-08-04] MEDS ORDERED: ACET325UDC PO (13:44)
[2023-08-04] MEDS ORDERED: METO10SY PO (13:59)
[2023-08-04] MEDS ORDERED: PROM12.5S PR (14:02)
--- NOTE | 2023-08-04 15:05 | NUR ---
DISCUSSED DISCHARGE INSTRUCTIONS WITH PT AND PROVIDED WRITTEN COPY. POWERGLIDE REMOVED. ALL PERSONAL BELONGINGS SENT HOME WITH PT. PT'S SON PROVIDED TRANSPORTATION HOME VIA PERSONAL VEHICLE. PT TRANSPORTED TO PERSONAL VEHICLE VIA WHEELCHAIR.
== END 2023-08-04 14:45 | disposition home or self-care (01) | DRG 981 ==
LOC: ER 17:37 → ICUE 22:51 → PCU 22:51 → MEDS 22:51 → ICUE 22:57 → PCU 07-26 16:58 → MEDS 07-31 17:41
PROVIDERS: Emergency Medicine; Family Medicine; Internal Medicine; Student in an Organized Health Care Education/Training Program; ADMIT Internal Medicine
PROC: 3E03329 Introduction of Other Anti-infective into Peripheral Vein, Percutaneous Approach (ICD-10-PCS; 2023-07-25)
PROC: 5A09357 Assistance with Respiratory Ventilation, Less than 24 Consecutive Hours, Continuous Positive Airway Pressure (ICD-10-PCS; 2023-07-26)
PROC: 047P3ZZ Dilation of Right Anterior Tibial Artery, Percutaneous Approach (ICD-10-PCS; principal; 2023-07-30)
PROC: B4101ZZ Fluoroscopy of Abdominal Aorta using Low Osmolar Contrast (ICD-10-PCS; 2023-07-30)
PROC: B41F1ZZ Fluoroscopy of Right Lower Extremity Arteries using Low Osmolar Contrast (ICD-10-PCS; 2023-07-30)
DX: T83.510A Infection and inflammatory reaction due to cystostomy catheter, initial encounter (principal); A41.59 Other Gram-negative sepsis; E11.10 Type 2 diabetes mellitus with ketoacidosis without coma; I21.A1 Myocardial infarction type 2; R65.20 Severe sepsis without septic shock; E11.52 Type 2 diabetes mellitus with diabetic peripheral angiopathy with gangrene; N17.9 Acute kidney failure, unspecified; N39.0 Urinary tract infection, site not specified; I70.261 Atherosclerosis of native arteries of extremities with gangrene, right leg; Z16.24 Resistance to multiple antibiotics; E11.43 Type 2 diabetes mellitus with diabetic autonomic (poly)neuropathy; K31.84 Gastroparesis; E78.5 Hyperlipidemia, unspecified; E11.621 Type 2 diabetes mellitus with foot ulcer; L97.512 Non-pressure chronic ulcer of other part of right foot with fat layer exposed; I70.202 Unspecified atherosclerosis of native arteries of extremities, left leg; L08.89 Other specified local infections of the skin and subcutaneous tissue; E86.0 Dehydration; E03.9 Hypothyroidism, unspecified; I10 Essential (primary) hypertension; G47.33 Obstructive sleep apnea (adult) (pediatric); K21.9 Gastro-esophageal reflux disease without esophagitis; G89.29 Other chronic pain; R19.7 Diarrhea, unspecified; Z88.0 Allergy status to penicillin; Z88.2 Allergy status to sulfonamides; Z88.8 Allergy status to other drugs, medicaments and biological substances; Z79.890 Hormone replacement therapy; Z79.4 Long term (current) use of insulin; Z79.84 Long term (current) use of oral hypoglycemic drugs; Z79.85 Long-term (current) use of injectable non-insulin antidiabetic drugs; Z87.891 Personal history of nicotine dependence; Z79.891 Long term (current) use of opiate analgesic; Z93.50 Unspecified cystostomy status; Z89.421 Acquired absence of other right toe(s); Z60.2 Problems related to living alone
CPT/HCPCS: 36415; 37228; 37232; 51702; 71046; 73630; 73718; 74018; 75625; 75716; 75774; 76937; 80048; 80053; 81001; 82010; 82803; 82947; 83036; 83605; 83690; 83735; 84132; 84484; 85025; 87040; 87077; 87086; 87186; 92610; 93005; 93010; 93925; 94660; 94760; 94762; 96361; 96365; 96375; 97110; 97161; 97165; 97535; 99152; 99153; 99285-25; A9270; C1725; C1751; C1760; C1769; C1887; C1894; C9113; J0360; J0744; J0780; J1170; J1644; J1815; J2185; J2250; J2270; J2405; J2765; J3010; J3480; J7030; J7042; J7050; J7120; Q0164; Q9967

== ENCOUNTER 2023-08-14 16:55 | Emergency (ER) | payer OTHER ==
[~2023-08-14] VITALS: Ht 172.7 cm; Wt 113.4 kg
[~2023-08-14 16:55] MED LIST changes: +ACET325UDC PO; +ACET500 PO; +METO10SY PO
[2023-08-14 18:15] LABS: BASOPHILS ABSOLUTE AUTO 0.04 K/mm3 (0.00-0.23); BASOPHILS PERCENT AUTO 0 % (0-2); EOSINOPHILS PERCENT AUTO 0 % (0-6); Hematocrit 43.1 % (33.0-51.0); Hemoglobin 14.8 g/dL (11.5-16.0); IMMATURE GRAN ABSOLUTE AUTO 0.08 K/mm3 (0.00-0.10); IMMATURE GRAN PERCENT AUTO 0 % (0-1); LYMPHOCYTES ABSOLUTE AUTO 1.12 K/mm3 (0.84-5.20); LYMPHOCYTES PERCENT AUTO 6 % (21-46); MONOCYTES ABSOLUTE AUTO 0.78 K/mm3 (0.16-1.47); MONOCYTES PERCENT AUTO 4 % (4-13); Mean Corpuscular HGB Conc 34.3 g/dL (31.5-36.5); Mean Corpuscular Volume 87 fL (80-100); NEUTROPHILS ABSOLUTE AUTO 16.08 K/mm3 (1.96-9.15); NEUTROPHILS PERCENT AUTO 89 % (41-73); Platelet Count 421 K/mm3 (150-400); RDW Coefficient Variation 13.1 % (11.7-14.2); RDW Standard Deviation 41.1 fL (35.1-46.3); Red Blood Cell Count 4.94 M/mm3 (3.80-5.20)
[2023-08-14 18:41] LABS: Albumin, Blood 3.7 g/dL (3.4-5.0); Albumin/Globulin Ratio 0.8 (0.8-1.8); Bilirubin, Total 1.1 mg/dL (0.1-1.0); Bun/Creatinine Ratio 24.8 (12.0-20.0); Calcium, Blood 9.4 mg/dL (8.5-10.1); Creatinine, Blood 0.97 mg/dL (0.40-1.00); Globulin, Blood 4.8 g/dL (2.2-4.0); Magnesium, Blood 1.7 mg/dL (1.6-2.4); Potassium, Blood 3.5 mmol/L (3.5-5.5); Total Protein, Blood 8.5 g/dL (6.4-8.2)
[2023-08-14 21:45] VITALS: BP 112/70
== END 2023-08-14 21:39 | disposition home or self-care (01) ==
LOC: ER 16:55
PROVIDERS: Emergency Medicine
DX: E11.43 Type 2 diabetes mellitus with diabetic autonomic (poly)neuropathy (principal); K31.84 Gastroparesis; E11.40 Type 2 diabetes mellitus with diabetic neuropathy, unspecified; E03.9 Hypothyroidism, unspecified; E78.5 Hyperlipidemia, unspecified; Z87.891 Personal history of nicotine dependence; Z79.4 Long term (current) use of insulin; Z79.85 Long-term (current) use of injectable non-insulin antidiabetic drugs; Z79.890 Hormone replacement therapy; Z79.899 Other long term (current) drug therapy
CPT/HCPCS: 80053; 83605; 83690; 83735; 85025; 96361; 96374; 96375; 96376; 99284-25; J0780; J1170; J1790; J7030

== ENCOUNTER 2023-09-30 18:58 | Emergency (ER) | payer OTHER ==
[~2023-09-30] VITALS: Ht 172.7 cm; Wt 113.4 kg
[2023-09-30] MEDS ORDERED: Ondansetron HCl 2 MG / ML 2ML Vial IV PRN (19:45)
[2023-09-30 19:56] LABS: BASOPHILS ABSOLUTE AUTO 0.05 K/mm3 (0.00-0.23); BASOPHILS PERCENT AUTO 1 % (0-2); EOSINOPHILS ABSOLUTE AUTO 0.18 K/mm3 (0.00-0.68); EOSINOPHILS PERCENT AUTO 2 % (0-6); Hematocrit 43.7 % (33.0-51.0); Hemoglobin 14.2 g/dL (11.5-16.0); IMMATURE GRAN ABSOLUTE AUTO 0.02 K/mm3 (0.00-0.10); IMMATURE GRAN PERCENT AUTO 0 % (0-1); LYMPHOCYTES ABSOLUTE AUTO 2.15 K/mm3 (0.84-5.20); LYMPHOCYTES PERCENT AUTO 23 % (21-46); MONOCYTES ABSOLUTE AUTO 0.44 K/mm3 (0.16-1.47); MONOCYTES PERCENT AUTO 5 % (4-13); Mean Corpuscular HGB 28.9 pg (26.0-34.0); Mean Corpuscular HGB Conc 32.5 g/dL (31.5-36.5); Mean Corpuscular Volume 89 fL (80-100); Mean Platelet Volume 9.8 fL (9.1-12.4); NEUTROPHILS ABSOLUTE AUTO 6.35 K/mm3 (1.96-9.15); NEUTROPHILS PERCENT AUTO 69 % (41-73); Platelet Count 362 K/mm3 (150-400); RDW Coefficient Variation 12.8 % (11.7-14.2); RDW Standard Deviation 41.4 fL (35.1-46.3); Red Blood Cell Count 4.92 M/mm3 (3.80-5.20); White Blood Cell Count 9.19 K/mm3 (4.00-11.30)
[2023-09-30 20:37] LABS: Albumin, Blood 3.3 g/dL (3.4-5.0); Albumin/Globulin Ratio 0.7 (0.8-1.8); Bilirubin, Total 0.6 mg/dL (0.1-1.0); Bun/Creatinine Ratio 19.7 (12.0-20.0); Creatinine, Blood 0.71 mg/dL (0.40-1.00); Globulin, Blood 4.7 g/dL (2.2-4.0); Potassium, Blood 4.3 mmol/L (3.5-5.5)
[2023-09-30 21:02] VITALS: BP 148/86
== END 2023-09-30 21:38 | disposition left against medical advice (07) ==
LOC: ER 18:58
PROVIDERS: Student in an Organized Health Care Education/Training Program
DX: R10.9 Unspecified abdominal pain (principal); Z53.29 Procedure and treatment not carried out because of patient's decision for other reasons
CPT/HCPCS: 71046; 80053; 83690; 84484; 85025; 93005; 93010; 96374; 99283-25; J2405

== ENCOUNTER → 2023-10-03 | Outpatient (CLI) | payer OTHER ==
[2023-10-03 19:07] LABS: Appearance, Urine Cloudy (Clear); Bilirubin, Urine Neg (Neg); Blood, Urine 5+ (Neg); Color, Urine Yellow (P-Yellow); Glucose Qualitative, Urine 4+ (Neg); Ketones, Urine Neg (Neg); Leukocyte Esterase, Urine 3+ (Neg); Nitrite, Urine Pos (Neg); Protein, Urine 2+ (Neg); Specific Gravity, Urine 1.015 (1.003-1.022); Urobilinogen, Urine NORM (Normal)
[2023-10-03 19:42] LABS: White Blood Cells, Urine 25-50 /hpf (0-5)
[2023-10-03 19:43] LABS: Bacteria Many /hpf; Squamous Epithelial Cells Few /hpf (Few)
== END ==
LOC: LAB SHORT 19:02 → LAB 19:02
PROVIDERS: Nurse Practitioner Family
DX: R82.90 Unspecified abnormal findings in urine (principal); R39.89 Other symptoms and signs involving the genitourinary system
CPT/HCPCS: 81001; 87077; 87086; 87147; 87186

== ENCOUNTER → 2024-01-29 | Outpatient (CLI) | payer OTHER ==
[2024-01-29 18:10] LABS: Source, Urine Foley catheter
[2024-01-29 20:19] LABS: Appearance, Urine Hazy (Clear); Bilirubin, Urine Neg (Neg); Blood, Urine 5+ (Neg); Color, Urine Yellow (P-Yellow); Glucose Qualitative, Urine 1+ (Neg); Ketones, Urine Neg (Neg); Leukocyte Esterase, Urine 3+ (Neg); Nitrite, Urine Pos (Neg); Protein, Urine 2+ (Neg); Specific Gravity, Urine 1.015 (1.003-1.022); Urobilinogen, Urine NORM (Normal)
[2024-01-29 20:37] LABS: Bacteria Many /hpf; Squamous Epithelial Cells Few /hpf (Few); White Blood Cells, Urine 25-50 /hpf (0-5)
== END | disposition home or self-care (01) ==
LOC: LAB 18:08 → LAB SHORT 18:08
PROVIDERS: Nurse Practitioner Family
DX: R82.90 Unspecified abnormal findings in urine (principal); R31.9 Hematuria, unspecified
CPT/HCPCS: 81001; 87077; 87086; 87186

== ENCOUNTER → 2024-03-31 | Outpatient (CLI) | payer OTHER ==
[2024-03-31 18:56] LABS: Appearance, Urine Hazy (Clear); Bilirubin, Urine Neg (Neg); Blood, Urine 5+ (Neg); Color, Urine Red (P-Yellow); Glucose Qualitative, Urine 4+ (Neg); Ketones, Urine Neg (Neg); Leukocyte Esterase, Urine 3+ (Neg); Nitrite, Urine Pos (Neg); Protein, Urine 3+ (Neg); Urobilinogen, Urine NORM (Normal); pH, Urine 6.5 (5.0-8.0)
[2024-03-31 19:20] LABS: Bacteria Mod /hpf; Red Blood Cells, Urine 50-100 /hpf (0-2)
[2024-03-31 19:21] LABS: Squamous Epithelial Cells Few /hpf (Few)
== END | disposition home or self-care (01) ==
LOC: LAB SHORT 12:45 → LAB 12:45
PROVIDERS: Nurse Practitioner Family
DX: R30.0 Dysuria (principal)
CPT/HCPCS: 81001; 87086

== ENCOUNTER 2024-05-19 16:00 | Inpatient (IN) | payer OTHER ==
[~2024-05-19] VITALS: Ht 172.7 cm; Wt 136.9 kg
[2024-05-19 16:57] LABS: BASOPHILS ABSOLUTE AUTO 0.03 K/mm3 (0.00-0.23); BASOPHILS PERCENT AUTO 0 % (0-2); EOSINOPHILS PERCENT AUTO 0 % (0-6); Hematocrit 47.2 % (33.0-51.0); Hemoglobin 16.4 g/dL (11.5-16.0); IMMATURE GRAN ABSOLUTE AUTO 0.08 K/mm3 (0.00-0.10); IMMATURE GRAN PERCENT AUTO 0 % (0-1); LYMPHOCYTES ABSOLUTE AUTO 1.64 K/mm3 (0.84-5.20); LYMPHOCYTES PERCENT AUTO 8 % (21-46); MONOCYTES ABSOLUTE AUTO 0.93 K/mm3 (0.16-1.47); MONOCYTES PERCENT AUTO 5 % (4-13); Mean Corpuscular HGB 30.5 pg (26.0-34.0); Mean Corpuscular HGB Conc 34.7 g/dL (31.5-36.5); Mean Corpuscular Volume 88 fL (80-100); Mean Platelet Volume 9.6 fL (9.1-12.4); NEUTROPHILS ABSOLUTE AUTO 17.85 K/mm3 (1.96-9.15); NEUTROPHILS PERCENT AUTO 87 % (41-73); Platelet Count 397 K/mm3 (150-400); RDW Coefficient Variation 12.7 % (11.7-14.2); RDW Standard Deviation 40.8 fL (35.1-46.3); Red Blood Cell Count 5.38 M/mm3 (3.80-5.20); White Blood Cell Count 20.53 K/mm3 (4.00-11.30)
[2024-05-19 17:15] LABS: Albumin, Blood 4.2 g/dL (3.4-5.0); Bilirubin, Total 1.2 mg/dL (0.1-1.0); Bun/Creatinine Ratio 46.1 (12.0-20.0); Calcium, Blood 10.2 mg/dL (8.5-10.1); Creatinine, Blood 0.96 mg/dL (0.40-1.00); Globulin, Blood 4.4 g/dL (2.2-4.0); Potassium, Blood 4.1 mmol/L (3.5-5.5); Total Protein, Blood 8.6 g/dL (6.4-8.2)
[2024-05-19] MEDS ORDERED: NS 1,000 ML IV SCH (22:35)
[2024-05-19] MEDS ORDERED: Ondansetron HCl 2 MG / ML 2ML Vial IV ONE (22:35)
[2024-05-19 23:11] LABS: Base Excess Venous 3.3 mmol/L; Bicarbonate Venous 27.3 mmol/L (24.0-30.0); PCO2 Venous 37.7 mmHg (38-42); pH Blood Venous 7.47 (7.34-7.37)
[2024-05-19] MEDS ORDERED: Insulin Regular 100 Unit/ML 1ML Dose SC ONE (23:40)
[2024-05-19] MEDS ORDERED: CefTRIAXone Sodium 2,000 MG in NS 100 ML IV ONE (23:40)
[2024-05-19 23:51] LABS: Beta-hydroxybutyrate 29.6 mg/dL (0.2-2.8)
[2024-05-19] MEDS ORDERED: DiphenhydrAMINE HCl 50 MG/ML 1ML Vial IV ONE (23:55)
[2024-05-19] MEDS ORDERED: Prochlorperazine Edisylate 10 mg Vial IV ONE (23:55)
[2024-05-20 00:37] LABS: Source, Urine Foley catheter
[2024-05-20] MEDS ORDERED: FentaNYL Citrate 50 MCG/ML 2 ML Injection IV PRN (00:45)
[2024-05-20] MEDS ORDERED: Miconazole Nitrate 2% 85 GM PWD TOP ONE (01:05)
[2024-05-20 01:07] LABS: Bilirubin, Urine Neg (Neg); Blood, Urine 4+ (Neg); Glucose Qualitative, Urine 4+ (Neg); Ketones, Urine 4+ (Neg); Leukocyte Esterase, Urine 2+ (Neg); Nitrite, Urine Neg (Neg); Protein, Urine 2+ (Neg); Specific Gravity, Urine 1.015 (1.003-1.022); Urobilinogen, Urine NORM (Normal)
[2024-05-20 01:30] LABS: Appearance, Urine Hazy (Clear); Color, Urine Yellow (P-Yellow)
[2024-05-20 01:31] LABS: Red Blood Cells, Urine 0-2 /hpf (0-2); White Blood Cells, Urine 25-50 /hpf (0-5)
[2024-05-20 01:32] LABS: Bacteria Many /hpf; Squamous Epithelial Cells Many /hpf (Few); Yeast/Fungi Urine Mod /hpf
[2024-05-20] MEDS ORDERED: Insulin Regular 100 Unit/ML 1ML Dose SC ONE (01:35)
[2024-05-20] MEDS ORDERED: NS 1,000 ML IV SCH (01:35)
[2024-05-20] MEDS ORDERED: Metoclopramide HCl 5MG / ML 2ML Vial IV ONE (02:05)
[2024-05-20 04:38] LABS: Albumin, Blood 3.5 g/dL (3.4-5.0); Albumin/Globulin Ratio 0.9 (0.8-1.8); Bilirubin, Total 0.8 mg/dL (0.1-1.0); Bun/Creatinine Ratio 46.7 (12.0-20.0); Calcium, Blood 9.1 mg/dL (8.5-10.1); Creatinine, Blood 1.05 mg/dL (0.40-1.00); Globulin, Blood 3.9 g/dL (2.2-4.0); Potassium, Blood 3.7 mmol/L (3.5-5.5); Total Protein, Blood 7.4 g/dL (6.4-8.2)
[2024-05-20] MEDS ORDERED: HYDROmorphone HCl/Pf 1MG SYR IV PRN (05:50)
[2024-05-20] MEDS ORDERED: FLU VACC TS2024-25(6MOS UP)/PF 45 MCG/0.5 ML SYRINGE IM SCH (05:50)
[2024-05-20] MEDS ORDERED: Acetaminophen 650 MG Supp PR PRN (05:55)
[2024-05-20] MEDS ORDERED: Naloxone HCl 0.4MG / ML 1ML Vial IV PRN (05:55)
[2024-05-20] MEDS ORDERED: OxyCODONE HCL 5 MG TAB PO PRN (05:55)
[2024-05-20] MEDS ORDERED: Metoclopramide HCl 5MG / ML 2ML Vial IV PRN (05:55)
[2024-05-20] MEDS ORDERED: Ondansetron HCl 2 MG / ML 2ML Vial IV PRN (05:55)
[2024-05-20] MEDS ORDERED: Acetaminophen 325 MG TABLET PO PRN (06:00)
[2024-05-20] MEDS ORDERED: Insulin Regular 100 UNIT/ML 10ML Vial SC SCH ×3 (06:00→09:00)
[2024-05-20] MEDS ORDERED: Lactated Ringer's 1,000 ML IV SCH (06:00)
[2024-05-20] MEDS ORDERED: Insulin Glargine-Yfgn 100 Unit/mL 3 ML SYR SC SCH ×2 (07:00→09:00)
[2024-05-20] MEDS ORDERED: Lactated Ringer's 1,000 ML IV ONE ×2 (07:53→12:15)
[2024-05-20 08:57] LABS: Base Excess Venous 5.5 mmol/L; Bicarbonate Venous 29.1 mmol/L (24.0-30.0); PCO2 Venous 37.9 mmHg (38-42); pH Blood Venous 7.49 (7.34-7.37)
[2024-05-20] MEDS ORDERED: Lactobacil 2-S.Thermo-Bifido 1 1 Cap PO SCH (09:00)
[2024-05-20] MEDS ORDERED: Docusate Sodium 100 MG Cap PO SCH (09:00)
[2024-05-20 09:04] LABS: BASOPHILS ABSOLUTE AUTO 0.02 K/mm3 (0.00-0.23); BASOPHILS PERCENT AUTO 0 % (0-2); EOSINOPHILS PERCENT AUTO 0 % (0-6); Hematocrit 42.1 % (33.0-51.0); Hemoglobin 14.3 g/dL (11.5-16.0); IMMATURE GRAN ABSOLUTE AUTO 0.08 K/mm3 (0.00-0.10); IMMATURE GRAN PERCENT AUTO 0 % (0-1); LYMPHOCYTES ABSOLUTE AUTO 1.53 K/mm3 (0.84-5.20); LYMPHOCYTES PERCENT AUTO 8 % (21-46); MONOCYTES ABSOLUTE AUTO 1.65 K/mm3 (0.16-1.47); MONOCYTES PERCENT AUTO 9 % (4-13); Mean Corpuscular HGB 30.6 pg (26.0-34.0); Mean Corpuscular Volume 90 fL (80-100); Mean Platelet Volume 9.7 fL (9.1-12.4); NEUTROPHILS ABSOLUTE AUTO 14.92 K/mm3 (1.96-9.15); NEUTROPHILS PERCENT AUTO 82 % (41-73); Platelet Count 337 K/mm3 (150-400); RDW Coefficient Variation 12.9 % (11.7-14.2); RDW Standard Deviation 42.3 fL (35.1-46.3); Red Blood Cell Count 4.68 M/mm3 (3.80-5.20)
[2024-05-20 09:24] LABS: Bun/Creatinine Ratio 49.6 (12.0-20.0); Calcium, Blood 9.1 mg/dL (8.5-10.1); Creatinine, Blood 1.13 mg/dL (0.40-1.00); Magnesium, Blood 2.2 mg/dL (1.6-2.4); Potassium, Blood 3.7 mmol/L (3.5-5.5)
[2024-05-20] MEDS ORDERED: Insulin Glargine-Yfgn 100 Unit/mL 3 ML SYR SC ONE (14:00)
[2024-05-20 15:15] LABS: Bun/Creatinine Ratio 55.5 (12.0-20.0); Calcium, Blood 9.3 mg/dL (8.5-10.1); Creatinine, Blood 0.97 mg/dL (0.40-1.00); Potassium, Blood 3.8 mmol/L (3.5-5.5)
[2024-05-20 15:55] VITALS: BP 189/111
[2024-05-20] MEDS ORDERED: Insulin Human Lispro 100 Units/ML 3ML Syringe SC SCH ×2 (16:30→17:30)
--- NOTE | 2024-05-20 18:02 | NUR ---
SUMMARY PT WAS AN ADMIT FROM ER AT 1400. STANDS AND PIVOTS TO BED BUT LE'S WEAK. A/O X4. NAUSEOUS AT TIMES, DID NOT WANT TO EAT DINNER TONIGHT BUT WILL DRINK WATER AND TEA. ON LR AT 200ML/HR. HAS SUPRAPUBIC CATH THAT PT STATES SHE HAS HAD FOR YEARS. HYPERTENSIVE TONIGHT, SPOKE WITH DR. NICHOLS WHO SAID HE WOULD ORDER PRN MEDS. NO SIGN OF DISTRESS.
[2024-05-20 18:31] VITALS: BP 135/79
[2024-05-20 20:04] VITALS: BP 187/103
[2024-05-20] MEDS ORDERED: Labetalol HCL 5 MG/ML 4ML Injection (Single Dose) IV PRN (20:40)
[2024-05-20] MEDS ORDERED: CefTRIAXone Sodium 1,000 MG in NS 100 ML IV SCH (21:00)
[2024-05-20 21:01] VITALS: BP 195/95
[2024-05-20 21:45] VITALS: BP 151/82
[2024-05-20 23:10] VITALS: BP 173/85
[2024-05-21] VITALS (13 sets, daily range): BP systolic 134–213; BP diastolic 69–114
--- NOTE | 2024-05-21 04:36 | NUR ---
SHIFT SUMMARY. SHIFT HAS BEEN UNREMARKABLE. PT AOX4, COOPERATIVE, ABLE TO MAKE NEEDS KNOWN. HAS BEEN ABLE TO REST COMFORTABLY THROUGHOUT MOST OF SHIFT. PAIN ADEQUATELY MANAGED VIA EMAR. VITALS HAVE REMAINED MOSTLY STABLE. SOME EPISODES OF HTN, MANAGED VIA EMAR THUS FAR. WAS ON CPAP FOR SEVERAL HOURS BEFORE REQUESTING TO GO BACK TO [facility]. HAS BEEN RUNNING SINUS THROUGHOUT SHIFT. PO INTAKE HAS BEEN MINIMAL THROUGHOUT SHIFT THUS FAR. STEADY SBA BATHROOM TO BEDSIDE COMMODE. BED LOCKED IN LOWEST POSITION. CALL LIGHT LEFT WITHIN REACH. CONTINUING TO MONITOR.
[2024-05-21 05:14] LABS: BASOPHILS ABSOLUTE AUTO 0.03 K/mm3 (0.00-0.23); BASOPHILS PERCENT AUTO 0 % (0-2); EOSINOPHILS ABSOLUTE AUTO 0.01 K/mm3 (0.00-0.68); EOSINOPHILS PERCENT AUTO 0 % (0-6); Hematocrit 41.2 % (33.0-51.0); Hemoglobin 13.6 g/dL (11.5-16.0); IMMATURE GRAN ABSOLUTE AUTO 0.07 K/mm3 (0.00-0.10); IMMATURE GRAN PERCENT AUTO 1 % (0-1); LYMPHOCYTES ABSOLUTE AUTO 2.23 K/mm3 (0.84-5.20); LYMPHOCYTES PERCENT AUTO 17 % (21-46); MONOCYTES ABSOLUTE AUTO 1.02 K/mm3 (0.16-1.47); MONOCYTES PERCENT AUTO 8 % (4-13); Mean Corpuscular Volume 91 fL (80-100); Mean Platelet Volume 9.5 fL (9.1-12.4); NEUTROPHILS ABSOLUTE AUTO 9.89 K/mm3 (1.96-9.15); NEUTROPHILS PERCENT AUTO 75 % (41-73); Platelet Count 299 K/mm3 (150-400); RDW Coefficient Variation 12.6 % (11.7-14.2); Red Blood Cell Count 4.54 M/mm3 (3.80-5.20); White Blood Cell Count 13.25 K/mm3 (4.00-11.30)
[2024-05-21] MEDS ORDERED: HydrALAZINE HCl 20 MG / ML 1ML Vial IV PRN (05:30)
[2024-05-21 05:44] LABS: Albumin, Blood 3.3 g/dL (3.4-5.0); Albumin/Globulin Ratio 0.9 (0.8-1.8); Bilirubin, Total 0.8 mg/dL (0.1-1.0); Bun/Creatinine Ratio 50.5 (12.0-20.0); Calcium, Blood 9.1 mg/dL (8.5-10.1); Creatinine, Blood 0.75 mg/dL (0.40-1.00); Globulin, Blood 3.8 g/dL (2.2-4.0); Potassium, Blood 3.7 mmol/L (3.5-5.5); Total Protein, Blood 7.1 g/dL (6.4-8.2)
[2024-05-21] MEDS ORDERED: Levothyroxine Sodium 0.112 MG Tab PO SCH (06:00)
[2024-05-21] MEDS ORDERED: Pantoprazole Sodium 40 MG Injection IV SCH (06:00)
--- NOTE | 2024-05-21 06:52 | NUR ---
late note. pt blood pressure trending up this morning. spoke with dr. randall. ordered prn hydralazine which has brought blood pressure down. pt was having broad pain that has since come down after management via emar. continuing to monitor.
[2024-05-21] MEDS ORDERED: Insulin Glargine-Yfgn 100 Unit/mL 3 ML SYR SC SCH (09:00)
[2024-05-21] MEDS ORDERED: Citalopram Hydrobromide 20 MG Tab PO SCH (09:00)
[2024-05-21] MEDS ORDERED: Metoclopramide HCl 5MG / ML 2ML Vial IV PRN (15:40)
[2024-05-21] MEDS ORDERED: HYDROmorphone HCl/Pf 1MG SYR IV PRN (15:45)
[2024-05-21] MEDS ORDERED: Lactated Ringer's 1,000 ML IV SCH (15:45)
[2024-05-21] MEDS ORDERED: Prochlorperazine Edisylate 10 mg Vial IV PRN (15:45)
[2024-05-21] MEDS ORDERED: Insulin Glargine-Yfgn 100 Unit/mL 3 ML SYR SC ONE (15:50)
--- NOTE | 2024-05-21 18:22 | NUR ---
SHIFT SUMMARY PT A/OX4 AND COOPERATIVE OF CARE. PT ABLE TO EXPRESS NEEDS AND CALLED APPROPIATE. PT BP'S ELEVATED DURING SHIFT, TREATED PER EMAR. OTHER VSS THROGUHOUT SHIFT WITH O2 SATS IN THE 90'S ON RA. PT ENDORSED ABD/BACK PAIN, TREATED PER EMAR. PT HAD POOR PO INTAKE, 15 UNITS OF INSULIN WITH MEALS HELD DUE TO PT REFUSING TRAYS. CBG'S REMAINED IN THE 200'S. NO REPORT OF SOB/DYSPNEA THROUGHOUT SHIFT. NO REPORT OF CHEST PAIN/PRESSURE "RELATED TO CARDIAC" PER PT. LR RUNNING PER EMAR. SUPRAPUBIC CATHETER PATENT.
[2024-05-21] MEDS ORDERED: Mag Hydrox/Al Hydrox/Simeth 18 ML,Lidocaine 2% Viscous Soln 9 ML,Atropine/Scopalam/Hyos... PO ONE (22:50)
[2024-05-22 01:09] VITALS: BP 137/54
[2024-05-22 03:59] VITALS: BP 127/53
[2024-05-22 04:32] LABS: BASOPHILS ABSOLUTE AUTO 0.05 K/mm3 (0.00-0.23); BASOPHILS PERCENT AUTO 0 % (0-2); EOSINOPHILS ABSOLUTE AUTO 0.12 K/mm3 (0.00-0.68); EOSINOPHILS PERCENT AUTO 1 % (0-6); Hemoglobin 13.5 g/dL (11.5-16.0); IMMATURE GRAN ABSOLUTE AUTO 0.08 K/mm3 (0.00-0.10); IMMATURE GRAN PERCENT AUTO 1 % (0-1); LYMPHOCYTES ABSOLUTE AUTO 3.32 K/mm3 (0.84-5.20); LYMPHOCYTES PERCENT AUTO 28 % (21-46); MONOCYTES ABSOLUTE AUTO 0.97 K/mm3 (0.16-1.47); MONOCYTES PERCENT AUTO 8 % (4-13); Mean Corpuscular HGB 30.1 pg (26.0-34.0); Mean Corpuscular HGB Conc 32.9 g/dL (31.5-36.5); Mean Corpuscular Volume 91 fL (80-100); Mean Platelet Volume 9.5 fL (9.1-12.4); NEUTROPHILS ABSOLUTE AUTO 7.29 K/mm3 (1.96-9.15); NEUTROPHILS PERCENT AUTO 62 % (41-73); Platelet Count 288 K/mm3 (150-400); RDW Coefficient Variation 12.4 % (11.7-14.2); RDW Standard Deviation 41.6 fL (35.1-46.3); Red Blood Cell Count 4.49 M/mm3 (3.80-5.20); White Blood Cell Count 11.83 K/mm3 (4.00-11.30)
--- NOTE | 2024-05-22 04:41 | NUR ---
SHIFT SUMMARY. SHIFT HAS BEEN UNREMARKABLE. PT AOX4, PLEASANT, COOPERATIVE WITH CARE, ABLE TO MAKE NEEDS KNOWN. HAS BEEN ABLE TO REST COMFORTABLY SPORADICALLY THROUGHOUT SHIFT. PAIN HAS BEEN SOMEWHAT ADEQUATELY MANAGED VIA EMAR. PT HAS BEEN HESITANT TO TAKE OXYCODONE PO DUE TO FEAR OF PO INTAKE UPSETTING HER STOMACH, WAS AGREEABLE TO TAKING PO OXYCODONE ALONG WITH IV DILAUDID 0.5 MG FOR PAIN MANAGEMENT. HAS ALLOWED PT TO BE MOSTLY COMFORTABLE. BP WAS ELEVATED EARLY IN SHIFT, MANAGED VIA EMAR. SINCE THAT TIME, BP HAS BEEN MORE WITHIN NORMAL RANGES. APPEARS TO BE CORRELATED AT LEAST SOMEWHAT WITH PT PAIN LEVELS. CONTINUES TO RUN SINUS ON TELE. CATHETER REMAINS IN PLACE, FUNCTIONING WELL WITH NO COMPLAINTS OF PAIN/PRESSURE. EARLY THIS MORNING PT WAS COMPLAINING OF BURNING INDIGESTION, REQUESTED GI COCKTAIL. ORDERED THROUGH DR. COOLEY, SYMPTOMS APPEAR TO HAVE BEEN RELIEVED VIA THIS TREATMENT. OTHERWISE SHIFT HAS BEEN UNREMARKABLE. BED LOCKED IN LOWEST POSITION. CALL LIGHT LEFT WITHIN REACH. CONTINUING TO MONITOR.
[2024-05-22 04:50] LABS: Albumin, Blood 3.3 g/dL (3.4-5.0); Bilirubin, Total 0.6 mg/dL (0.1-1.0); Bun/Creatinine Ratio 43.8 (12.0-20.0); Calcium, Blood 9.2 mg/dL (8.5-10.1); Creatinine, Blood 0.71 mg/dL (0.40-1.00); Globulin, Blood 3.4 g/dL (2.2-4.0); Magnesium, Blood 2.1 mg/dL (1.6-2.4); Phosphorus, Blood 2.7 mg/dL (2.5-4.9); Total Protein, Blood 6.7 g/dL (6.4-8.2)
[2024-05-22] MEDS ORDERED: DiphenhydrAMINE HCL 25 MG Cap PO ONE (06:40)
[2024-05-22 07:41] VITALS: BP 103/46
[2024-05-22] MEDS ORDERED: Insulin Glargine-Yfgn 100 Unit/mL 3 ML SYR SC SCH (09:00)
[2024-05-22] MEDS ORDERED: Mag Hydrox/Al Hydrox/Simeth 72 ML,Lidocaine 2% Viscous Soln 36 ML,Atropine/Scopalam/Hyo... PO PRN (09:10)
[2024-05-22] MEDS ORDERED: HYDROmorphone HCl/Pf 1MG SYR IV PRN (12:05)
[2024-05-22] MEDS ORDERED: Lactated Ringer's 1,000 ML IV SCH (12:10)
[2024-05-22 12:18] VITALS: BP 157/80
[2024-05-22] MEDS ORDERED: Insulin Human Lispro 100 Units/ML 3ML Syringe SC SCH (12:30)
--- NOTE | 2024-05-22 15:05 | NUR ---
ANKIT UPDATE REPORT GIVEN TO MED FLOOR RN AT 1457. PT TRANSFERED AT 1510 VIA HOSPITAL BED AND ON RA. PT PERSONAL BELONGINGS IN BAGS AND TRNANSFERED WITH PT. MEDS IN GREEN MED BAG AND TRANSFERED WITH PT.
[2024-05-22 15:25] VITALS: BP 154/77
[2024-05-22] MEDS ORDERED: Metoclopramide HCl 5MG / ML 2ML Vial IV SCH (16:30)
--- NOTE | 2024-05-22 18:01 | NUR ---
PATIENT IS ALERT AND ORIENTED AND COOPERATIVE WITH CARE. C/O ABD PAIN, MEDICATED PER EMAR. PATIENT REPORTS LAST BM WAS ON 05/17/24. ENCOURAGED TO TAKE MEDICATIONS, SHE STATED THE MAALOX HELPED HER SWALLOW THE DOCUSATE. SUPRAPUBIC CATHETER IN PLACE. VSS. PATIENT STATES SHE WILL ATTEMPT TO HAVE A BM FOLLOWING DINNER. WILL CONTINUE TO MONITOR
[2024-05-22] MEDS ORDERED: Bisacodyl 10 MG Supp PR PRN (20:10)
[2024-05-22] MEDS ORDERED: Water 500ML With 1 PKT Castile Soap Enema PR ONE (20:10)
[2024-05-22 20:23] VITALS: BP 147/80
[2024-05-23] VITALS (8 sets, daily range): BP systolic 109–214; BP diastolic 53–104
--- NOTE | 2024-05-23 05:20 | NUR ---
LAND SALES AGENT SUMMARY PT HADNT HAD A BOWEL MOVEMENT SINCE 05/17 SO I CALLED THE MD AND GOT AN ORDER TO GIVE A TAP WATER ENEMA. IT WAS PARTIALLY EFFECTIVE. SHE HAD SEVERAL SMALL HARD PELLETS COME OUT AND A LITTLE HEMORRHOID BLOOD. SHE CONTINUES TO HAVE ABDOMINAL PAIN AND NAUSEA, BUT WAS ABLE TO KEEP DOWN 1 PUDDING YESTERDAY.
[2024-05-23 07:53] LABS: Bun/Creatinine Ratio 22.6 (12.0-20.0); Calcium, Blood 8.6 mg/dL (8.5-10.1); Creatinine, Blood 0.75 mg/dL (0.40-1.00); Potassium, Blood 3.6 mmol/L (3.5-5.5)
--- NOTE | 2024-05-23 13:32 | NUR ---
1240 DISCUSSED REGULAR AND CURRENT BP ELEVATION AND H/ACHE WITH DR NICHOLS. HYDRAL GIVEN. HE TO REVIEW AND SEE IF NEEDS DAILY PO. 1315 BP DROPPED FROM 214/104 TO 117/58 WITH 10 MG HYDRALAZINE. 1328 BP AT 109/53. PT STATES H/ACHE GONE. ASYMPTOMATIC AT THIS TIME. CALLED DR NICHOLS. LOWER DOSE HYDRALAZINE TO 5 MG.
[2024-05-23] MEDS ORDERED: HydrALAZINE HCl 20 MG / ML 1ML Vial IV PRN (13:40)
[2024-05-23] MEDS ORDERED: Losartan Potassium 25 MG Tab PO SCH (15:00)
--- NOTE | 2024-05-23 17:11 | NUR ---
PT PLEASANT TODAY. DID AMBULATE 1 ASST TO BATHROOM. NO BM THIS DAY. DID STATE HAD BM LAST JACINTA. NEW B/P MED ADDED TODAY. ALSO GAVE HYDRALAZINE ONCE. DOSE LOWERED PER PRIOR NOTES. NO OTHER NEW CONCERNS NOTED. BED IN LOW POSITION, CALL LITE IN REACH, CALLS APPROP
[2024-05-24 02:14] VITALS: BP 109/54
--- NOTE | 2024-05-24 04:03 | NUR ---
CONSULTING INTERN SUMMARY PT HAD 1 BITE OF A SANDWHICH AND IMMEDIATELY VOMITED IT BACK UP. [id number] AND COMPAZINE PRN AND SCHEDULED REGLAN UTILIZED. COMPAZINE WORKS BEST PER PT. POOR PO INTAKE ASSOCIATED WITH N/V AND MODERATE-SEVERE ABDOMINAL PAIN. IV DILAUDID WORKS BEST PER PT. PT HAD A SMALL HARD BOWEL MOVEMENT ON 05/22 AND NO BM SINCE THEN, BUT ISNT EATING. HAS ACTIVE BOWEL TONES AND HAS PASSED GAS.
[2024-05-24 07:49] VITALS: BP 112/51
[2024-05-24] MEDS ORDERED: Polyethylene Glycol 3350 17 gm PO PRN (08:10)
[2024-05-24] MEDS ORDERED: Docusate Sodium/Senna 1 Tab PO PRN (08:10)
[2024-05-24] MEDS ORDERED: Magnesium Hydroxide Conc 10 ML UDC PO PRN (08:10)
[2024-05-24] MEDS ORDERED: Insulin Glargine-Yfgn 100 Unit/mL 3 ML SYR SC SCH (09:00)
[2024-05-24 09:03] VITALS: BP 126/68
[2024-05-24 09:09] LABS: BASOPHILS ABSOLUTE AUTO 0.03 K/mm3 (0.00-0.23); BASOPHILS PERCENT AUTO 0 % (0-2); EOSINOPHILS ABSOLUTE AUTO 0.48 K/mm3 (0.00-0.68); EOSINOPHILS PERCENT AUTO 5 % (0-6); Hematocrit 41.9 % (33.0-51.0); Hemoglobin 13.6 g/dL (11.5-16.0); IMMATURE GRAN ABSOLUTE AUTO 0.05 K/mm3 (0.00-0.10); IMMATURE GRAN PERCENT AUTO 1 % (0-1); LYMPHOCYTES ABSOLUTE AUTO 2.92 K/mm3 (0.84-5.20); LYMPHOCYTES PERCENT AUTO 32 % (21-46); MONOCYTES ABSOLUTE AUTO 0.67 K/mm3 (0.16-1.47); MONOCYTES PERCENT AUTO 7 % (4-13); Mean Corpuscular HGB 30.1 pg (26.0-34.0); Mean Corpuscular HGB Conc 32.5 g/dL (31.5-36.5); Mean Corpuscular Volume 93 fL (80-100); Mean Platelet Volume 9.9 fL (9.1-12.4); NEUTROPHILS ABSOLUTE AUTO 5.08 K/mm3 (1.96-9.15); NEUTROPHILS PERCENT AUTO 55 % (41-73); Platelet Count 241 K/mm3 (150-400); RDW Coefficient Variation 12.3 % (11.7-14.2); RDW Standard Deviation 41.8 fL (35.1-46.3); Red Blood Cell Count 4.52 M/mm3 (3.80-5.20); White Blood Cell Count 9.23 K/mm3 (4.00-11.30)
[2024-05-24 09:26] LABS: Bun/Creatinine Ratio 18.9 (12.0-20.0); Calcium, Blood 8.9 mg/dL (8.5-10.1); Creatinine, Blood 0.8 mg/dL (0.40-1.00); Potassium, Blood 3.5 mmol/L (3.5-5.5)
[2024-05-24] MEDS ORDERED: TraZODone HCl 50 MG Tab PO PRN (14:40)
[2024-05-24 15:29] VITALS: BP 106/59
--- NOTE | 2024-05-24 18:24 | NUR ---
PT PLEASANT TODAY. DID REQUEST PAIN MEDS T/O DAY. ALSO STARTED EXTRA BOWEL MEDS TODAY. AVAIL BID. PT STATES FEELS MAY HAVE BM THIS JACINTA. NO NEW CONCERNS NOTED TODYA. BED IN LOW POSITION, CALL LITE IN REACH, CALLS APROP.. AMBULATES SBA TO BATHROOM.
[2024-05-24 19:49] VITALS: BP 132/73
[2024-05-25 02:46] VITALS: BP 112/58
--- NOTE | 2024-05-25 04:25 | NUR ---
FINANCIAL PROFESSIONAL SUMMARY 05/24 WAS THE FIRST DAY PT HAS BEEN ABLE TO KEEP DOWN SOME FOOD. 05/24 WAS THE FIRST EVENING IN SEVERAL DAYS THAT SHE DID NOT VOMIT. SHE STILL FEELS ABDOMINAL PAIN AND NAUSEA AND STATES SHE IS SCARED TO GO HOME. PT HAD A HARD BOWEL MOVEMENT ON 05/22 BUT NONE SINCE THEN, ALTHOUGH THIS IS NOT UNEXPECTED SINCE SHE HASNT EATEN MUCH IN SEVERAL DAYS. NONETHELESS, GAVE PT MIRALAX, 2 SENNAS AND DOCUSATE AT BEDTIME . PT IS PASSING GAS AND HAS ACTIVE BOWEL TONES.
[2024-05-25 07:11] LABS: BASOPHILS ABSOLUTE AUTO 0.04 K/mm3 (0.00-0.23); BASOPHILS PERCENT AUTO 1 % (0-2); EOSINOPHILS ABSOLUTE AUTO 0.63 K/mm3 (0.00-0.68); EOSINOPHILS PERCENT AUTO 8 % (0-6); Hematocrit 34.6 % (33.0-51.0); Hemoglobin 11.4 g/dL (11.5-16.0); IMMATURE GRAN ABSOLUTE AUTO 0.04 K/mm3 (0.00-0.10); IMMATURE GRAN PERCENT AUTO 1 % (0-1); LYMPHOCYTES ABSOLUTE AUTO 2.57 K/mm3 (0.84-5.20); LYMPHOCYTES PERCENT AUTO 31 % (21-46); MONOCYTES ABSOLUTE AUTO 0.73 K/mm3 (0.16-1.47); MONOCYTES PERCENT AUTO 9 % (4-13); Mean Corpuscular HGB 30.4 pg (26.0-34.0); Mean Corpuscular HGB Conc 32.9 g/dL (31.5-36.5); Mean Corpuscular Volume 92 fL (80-100); Mean Platelet Volume 10.1 fL (9.1-12.4); NEUTROPHILS ABSOLUTE AUTO 4.43 K/mm3 (1.96-9.15); NEUTROPHILS PERCENT AUTO 52 % (41-73); Platelet Count 227 K/mm3 (150-400); RDW Coefficient Variation 12.5 % (11.7-14.2); RDW Standard Deviation 41.7 fL (35.1-46.3); Red Blood Cell Count 3.75 M/mm3 (3.80-5.20); White Blood Cell Count 8.44 K/mm3 (4.00-11.30)
[2024-05-25 07:34] LABS: Bun/Creatinine Ratio 17.5 (12.0-20.0); Calcium, Blood 8.4 mg/dL (8.5-10.1); Creatinine, Blood 0.8 mg/dL (0.40-1.00); Potassium, Blood 3.6 mmol/L (3.5-5.5)
[2024-05-25 08:04] VITALS: BP 150/77
[2024-05-25 15:47] VITALS: BP 134/81
--- NOTE | 2024-05-25 18:18 | NUR ---
SHIFT SUMMARY PT IS A/OX4. NO ACUTE EVENTS THROUGHOUT THE SHIFT. PT STILL EXPEREINCES NAUSEA, NO VOMITING, GIVEN PRN COMPAZINE X1 THIS SHIFT. PT RESTED IN BED THROUGHOUT MUCH OF THE SHIFT. PRN DILAUDID X2 THIS SHIFT FOR BACK PAIN.
[2024-05-25 20:27] VITALS: BP 131/53
[2024-05-26 04:58] VITALS: BP 143/52
[2024-05-26 07:23] VITALS: BP 132/67
--- NOTE | 2024-05-26 07:24 | NUR ---
SET UP OPERATOR TOOL SUMMARY NO ISSUES OVERNIGHT. PT APPEARS READY TO DISCHARGE. PT HAS NOT HAD A BOWEL MOVEMENT SINCE 05-22 BUT HAS ONLY BEEN EATING SINCE 05/24. SHE DOES NOT FEEL CONSTIPATED AND IS PASSING GAS/HAS ACTIVE BOWEL SOUNDS/NO VOMITING. GAVE MILK OF MAG, MIRALAX, 2 SENNAS, AND A DOCUSATE. PT SAYS SHES NOT READY FOR A SUPPOSITORY YET.
[2024-05-26] MEDS ORDERED: Metoclopramide HCl 10 MG Tab PO SCH (07:30)
[2024-05-26] MEDS ORDERED: OMEP20ER PO (13:23)
[2024-05-26] MEDS ORDERED: ONDA4ODT MM (13:23)
[2024-05-26] MEDS ORDERED: LOSA25 PO (13:23)
--- NOTE | 2024-05-26 14:38 | NUR ---
DISCHARGE SUMMARY PATIENT IN NO APPARENT DISTRESS, SHE VERBALIZES DESIRE TO DISCHARGE HOME. PATIENT MEDICATION AND EDUCATION PACKET PRINTED FOR PATIENT AND SIGNATURE OBTAINED. CLEANING SPECIALIST REVIEWED EDUCATION WITH PATIENT. SHE HAS NO QUESTIONS AT THIS TIME. POWERGLIDE REMOVED BY THIS CLEANING SPECIALIST WITH NO ISSUES. PATIENT LEFT UNIT AT 1410 VIA TRANSPORT CHAIR WITH [facility] VEHICLE.
--- NOTE | 2024-05-26 14:51 | NUR ---
SHIFT SUMMARY THIS NURSE IN TO ASSESS PATIENT AND PASS MORNING MEDICATIONS. PT STATED THAT SHE WAS NAUSEATED AND THAT SHE DID NOT WANT TO TAKE HER MORNING MEDICATIONS AT THAT TIME. THIS NURSE MEDICATED FOR NAUSEA PER EMAR. AT 1030 THIS NURSE IN TO REASSESS PT WHO WAS SLEEPING AND SHE WOKE AND REFUSED HER MORNING MEDICAITONS AGAIN. DR GARCIA NOTIFIED. WHEN THIS NURSE INQUIRED ABOUT ASSESSING HER SUPRAPUBIC CATHETER, PT STATED THIS NURSE COULD ASSESS WHEN SHE HAS A "SHOWER." PT WAS THEN DISCHARGED AT 1410 BY MARCEL TODD RN. PT LEFT HER DISCHARGE PAPERWORK IN ROOM AT TIME OF DISCHARGE. PER ER NOTE, PT GETS HER SUPRAPUBIC CATHETER CHANGED AT HER DOCTOR'S OFFICE MONTHLY.
== END 2024-05-26 14:38 | disposition home or self-care (01) | DRG 698 ==
LOC: ER 16:00 → PCU 05-20 05:49 → ERHOLD 05-20 05:49 → MEDS 05-20 05:49 → PCU 05-20 14:05 → MEDS 05-22 15:20 → ENPENDDIS 05-26 13:03 → MEDS 05-26 14:38
PROVIDERS: Emergency Medicine; Hospitalist; Internal Medicine; Student in an Organized Health Care Education/Training Program; ADMIT Student in an Organized Health Care Education/Training Program
DX: T83.510A Infection and inflammatory reaction due to cystostomy catheter, initial encounter (principal); A41.9 Sepsis, unspecified organism; E11.10 Type 2 diabetes mellitus with ketoacidosis without coma; N39.0 Urinary tract infection, site not specified; Z68.42 Body mass index [BMI] 45.0-49.9, adult; E87.3 Alkalosis; E11.40 Type 2 diabetes mellitus with diabetic neuropathy, unspecified; E03.9 Hypothyroidism, unspecified; E78.5 Hyperlipidemia, unspecified; E86.0 Dehydration; E11.43 Type 2 diabetes mellitus with diabetic autonomic (poly)neuropathy; K31.84 Gastroparesis; N31.9 Neuromuscular dysfunction of bladder, unspecified; I25.10 Atherosclerotic heart disease of native coronary artery without angina pectoris; I10 Essential (primary) hypertension; G47.33 Obstructive sleep apnea (adult) (pediatric); K21.9 Gastro-esophageal reflux disease without esophagitis; G89.29 Other chronic pain; E66.9 Obesity, unspecified; F32.9 Major depressive disorder, single episode, unspecified; K59.00 Constipation, unspecified; Z87.891 Personal history of nicotine dependence; Z88.0 Allergy status to penicillin; Z88.2 Allergy status to sulfonamides; Z88.8 Allergy status to other drugs, medicaments and biological substances; Z91.018 Allergy to other foods; Z79.890 Hormone replacement therapy; Z79.899 Other long term (current) drug therapy; Z79.4 Long term (current) use of insulin; Z87.19 Personal history of other diseases of the digestive system
CPT/HCPCS: 36415; 51705; 80048; 80053; 81001; 82010; 82803; 82947; 83605; 83690; 83735; 84100; 85025; 87040; 87086; 87106; 93005; 93010; 94660; 94760; 94762; 96361-59; 96365-59; 96375; 96375-59; 97110; 97162; 97165; 97530; 99285-25; A9270; C1751; J0360; J0696; J0780; J1170; J1200; J1815; J2405; J2470; J2765; J3010; J7030; J7120

== ENCOUNTER 2024-06-04 20:42 | Observation (INO) | payer OTHER ==
[~2024-06-04] VITALS: Ht 172.7 cm; Wt 134.7 kg
[2024-06-04] MEDS ORDERED: Ondansetron HCl 2 MG / ML 2ML Vial IV PRN (20:55)
[2024-06-04 21:18] LABS: BASOPHILS ABSOLUTE AUTO 0.07 K/mm3 (0.00-0.23); BASOPHILS PERCENT AUTO 1 % (0-2); EOSINOPHILS ABSOLUTE AUTO 0.02 K/mm3 (0.00-0.68); EOSINOPHILS PERCENT AUTO 0 % (0-6); Hematocrit 45.1 % (33.0-51.0); Hemoglobin 15.3 g/dL (11.5-16.0); IMMATURE GRAN ABSOLUTE AUTO 0.05 K/mm3 (0.00-0.10); IMMATURE GRAN PERCENT AUTO 0 % (0-1); LYMPHOCYTES ABSOLUTE AUTO 1.39 K/mm3 (0.84-5.20); LYMPHOCYTES PERCENT AUTO 9 % (21-46); MONOCYTES ABSOLUTE AUTO 0.45 K/mm3 (0.16-1.47); MONOCYTES PERCENT AUTO 3 % (4-13); Mean Corpuscular HGB Conc 33.9 g/dL (31.5-36.5); Mean Corpuscular Volume 88 fL (80-100); Mean Platelet Volume 9.7 fL (9.1-12.4); NEUTROPHILS ABSOLUTE AUTO 13.17 K/mm3 (1.96-9.15); NEUTROPHILS PERCENT AUTO 87 % (41-73); Platelet Count 458 K/mm3 (150-400); RDW Coefficient Variation 12.2 % (11.7-14.2); White Blood Cell Count 15.15 K/mm3 (4.00-11.30)
[2024-06-04 21:37] LABS: Bilirubin, Total 0.8 mg/dL (0.1-1.0); Bun/Creatinine Ratio 28.3 (12.0-20.0); Calcium, Blood 9.7 mg/dL (8.5-10.1); Creatinine, Blood 1.06 mg/dL (0.40-1.00); Globulin, Blood 4.2 g/dL (2.2-4.0); Potassium, Blood 4.1 mmol/L (3.5-5.5); Total Protein, Blood 8.2 g/dL (6.4-8.2)
[2024-06-04] MEDS ORDERED: NS 1,000 ML IV SCH (23:10)
[2024-06-04] MEDS ORDERED: Prochlorperazine Edisylate 10 mg Vial IV ONE (23:10)
[2024-06-04] MEDS ORDERED: Mag Hydrox/AL Hydrox/Simeth 30 ML UDC PO ONE (23:10)
[2024-06-05] MEDS ORDERED: Promethazine HCl 25 MG Supp PR ONE (01:25)
[2024-06-05] MEDS ORDERED: HYDROcodone 5-APAP 325 TAB PO ONE (01:30)
[2024-06-05] MEDS ORDERED: Ketorolac Tromethamine 30mg Vial IV ONE (01:40)
[2024-06-05] MEDS ORDERED: FentaNYL Citrate 50 MCG/ML 2 ML Injection IV ONE ×2 (02:10→06:00)
[2024-06-05 02:12] LABS: pH Blood Venous 7.44 (7.34-7.37)
[2024-06-05 02:13] LABS: Base Excess Venous 3.2 mmol/L; Bicarbonate Venous 26.9 mmol/L (24.0-30.0)
[2024-06-05 03:26] LABS: Source, Urine Suprapubic Cath
[2024-06-05 03:41] LABS: Bilirubin, Urine Neg (Neg); Blood, Urine 3+ (Neg); Glucose Qualitative, Urine 4+ (Neg); Ketones, Urine 4+ (Neg); Leukocyte Esterase, Urine 2+ (Neg); Nitrite, Urine Neg (Neg); Protein, Urine 2+ (Neg); Urobilinogen, Urine NORM (Normal)
[2024-06-05 03:49] LABS: Appearance, Urine Cloudy (Clear); Color, Urine Yellow (P-Yellow)
[2024-06-05 03:52] LABS: Bacteria Many /hpf; Red Blood Cells, Urine 0-2 /hpf (0-2); Squamous Epithelial Cells Many /hpf (Few); White Blood Cells, Urine 25-50 /hpf (0-5); Yeast/Fungi Urine Many /hpf
[2024-06-05] MEDS ORDERED: Cefepime HCl 2,000 MG in NS 100 ML IV ONE (04:05)
[2024-06-05] MEDS ORDERED: Phenazopyridine HCl 100 MG Tab PO ONE (04:05)
[2024-06-05] MEDS ORDERED: FLU VACC TS2024-25(6MOS UP)/PF 45 MCG/0.5 ML SYRINGE IM ONE (04:35)
[2024-06-05] MEDS ORDERED: Metoclopramide HCl 5MG / ML 2ML Vial IV PRN (04:35)
[2024-06-05] MEDS ORDERED: Lactated Ringer's 1,000 ML IV SCH (05:00)
[2024-06-05] MEDS ORDERED: Ondansetron HCl 2 MG / ML 2ML Vial IV PRN (05:20)
[2024-06-05] MEDS ORDERED: Prochlorperazine Edisylate 10 mg Vial IV ONE (06:00)
[2024-06-05] MEDS ORDERED: FentaNYL Citrate 50 MCG/ML 2 ML Injection IV PRN (06:00)
[2024-06-05] MEDS ORDERED: Insulin Regular 100 UNIT/ML 10ML Vial SC SCH (06:00)
[2024-06-05] MEDS ORDERED: Prochlorperazine Edisylate 10 mg Vial IV PRN (06:00)
[2024-06-05 06:06] LABS: Bun/Creatinine Ratio 33.3 (12.0-20.0); Calcium, Blood 9.1 mg/dL (8.5-10.1); Creatinine, Blood 1.02 mg/dL (0.40-1.00); Phosphorus, Blood 2.9 mg/dL (2.5-4.9); Potassium, Blood 4.2 mmol/L (3.5-5.5)
[2024-06-05 08:17] VITALS: BP 135/71
[2024-06-05] MEDS ORDERED: Lactobacil 2-S.Thermo-Bifido 1 1 Cap PO SCH (09:00)
[2024-06-05] MEDS ORDERED: Insulin Glargine-Yfgn 100 Unit/mL 3 ML SYR SC SCH ×2 (09:00→21:00)
[2024-06-05 09:13] LABS: Bun/Creatinine Ratio 43.8 (12.0-20.0); Calcium, Blood 6.6 mg/dL (8.5-10.1); Creatinine, Blood 0.71 mg/dL (0.40-1.00); Potassium, Blood 2.9 mmol/L (3.5-5.5)
--- NOTE | 2024-06-05 09:30 | NUR ---
ADMISSION: PT ARRIVED TO PCU 9 AT APPROX @0845 VIA GURNEY. PT ABLE TO TRANSFER WITH ONE PERSON ASSIST TO BED. ALERT AND ORIENTED X4, ABLE TO FOLLOW COMMANDS AND MAKE NEEDS KNOWN. IRRITABLE AT TIMES. BP STABLE, HR SR 90'S, AFEBRILE, SPO2 >96% ON ROOM AIR. RESPIRATIONS EVEN AND UNLABORED. LUNG SOUNDS DIM IN BASES. PULSES STRONG AND EQUAL THROUGHOUT. +1 EDEMA NOTED IN BLE. PT WITH 5/10 ABDOMINAL PAIN, NO EPISODES OF EMESIS SINCE ADMISSION. ABD SOFT. BOWEL SOUNDS +. PT WITH NS GTT @200ML/HR. BED IN LOW, CALL LIGHT IN REACH.
[2024-06-05] MEDS ORDERED: Potassium Chl 20MEQ/Water100ML 100 ML IV ONE (10:00)
[2024-06-05] MEDS ORDERED: Cefepime HCl 2,000 MG in NS 100 ML IV SCH (10:00)
[2024-06-05] MEDS ORDERED: Insulin Human Lispro 100 Units/ML 3ML Syringe SC SCH (11:30)
[2024-06-05 11:53] VITALS: BP 164/67
--- NOTE | 2024-06-05 15:40 | NUR ---
DISCHARGE: PT D/C PCU 9 @2793 VIA WHEELCHAIR. DISCHARGE INSTRUCTIONS AND EDUCATION PROVIDED. ALL BELONGINGS WITH PT.
[2024-06-06] MEDS ORDERED: Enoxaparin 40 MG/0.4 ML SYR SC SCH (09:00)
== END 2024-06-05 15:16 | disposition home or self-care (01) ==
LOC: ER 20:42 → PCU 20:43 → ERHOLD 20:43 → PCU 06-05 08:13
PROVIDERS: Emergency Medicine; ADMIT Student in an Organized Health Care Education/Training Program
DX: E11.43 Type 2 diabetes mellitus with diabetic autonomic (poly)neuropathy (principal); K31.84 Gastroparesis; I25.10 Atherosclerotic heart disease of native coronary artery without angina pectoris; I10 Essential (primary) hypertension; E11.65 Type 2 diabetes mellitus with hyperglycemia; E03.9 Hypothyroidism, unspecified; E78.5 Hyperlipidemia, unspecified; K21.9 Gastro-esophageal reflux disease without esophagitis; G47.33 Obstructive sleep apnea (adult) (pediatric); F11.20 Opioid dependence, uncomplicated; Z87.891 Personal history of nicotine dependence; Z79.890 Hormone replacement therapy; Z79.4 Long term (current) use of insulin; Z79.899 Other long term (current) drug therapy; Z88.0 Allergy status to penicillin; Z88.2 Allergy status to sulfonamides; Z91.018 Allergy to other foods; Z88.8 Allergy status to other drugs, medicaments and biological substances; Z90.710 Acquired absence of both cervix and uterus; Z96.0 Presence of urogenital implants
CPT/HCPCS: 36415; 71046; 80048; 80053; 81001; 82010; 82803; 82947; 83605; 83690; 83735; 84100; 84484; 85025; 87040; 87077; 87086; 87186; 93005; 93010; 96361; 96365; 96375; 96376; 99285-25; A9270; C1751; G0378; J0692; J0780; J1815; J1885; J2405; J3010; J3480; J7030; J7120

== ENCOUNTER → 2024-07-24 13:47 | Emergency (ER) | payer OTHER ==
[~2024-07-24] VITALS: Ht 172.7 cm; Wt 131.5 kg
[2024-07-24 14:30] VITALS: BP 103/78
[2024-07-24 14:57] LABS: BASOPHILS ABSOLUTE AUTO 0.03 K/mm3 (0.00-0.23); BASOPHILS PERCENT AUTO 0 % (0-2); EOSINOPHILS ABSOLUTE AUTO 0.17 K/mm3 (0.00-0.68); EOSINOPHILS PERCENT AUTO 2 % (0-6); Hematocrit 42.6 % (33.0-51.0); Hemoglobin 14.4 g/dL (11.5-16.0); IMMATURE GRAN ABSOLUTE AUTO 0.02 K/mm3 (0.00-0.10); IMMATURE GRAN PERCENT AUTO 0 % (0-1); LYMPHOCYTES ABSOLUTE AUTO 1.71 K/mm3 (0.84-5.20); LYMPHOCYTES PERCENT AUTO 17 % (21-46); MONOCYTES ABSOLUTE AUTO 0.58 K/mm3 (0.16-1.47); MONOCYTES PERCENT AUTO 6 % (4-13); Mean Corpuscular HGB 29.4 pg (26.0-34.0); Mean Corpuscular HGB Conc 33.8 g/dL (31.5-36.5); Mean Corpuscular Volume 87 fL (80-100); Mean Platelet Volume 9.5 fL (9.1-12.4); NEUTROPHILS PERCENT AUTO 75 % (41-73); Platelet Count 323 K/mm3 (150-400); RDW Coefficient Variation 11.9 % (11.7-14.2); RDW Standard Deviation 37.8 fL (35.1-46.3); White Blood Cell Count 9.81 K/mm3 (4.00-11.30)
[2024-07-24 14:58] LABS: Bicarbonate Venous 26.9 mmol/L (24.0-30.0); pH Blood Venous 7.46 (7.34-7.37)
[2024-07-24 15:31] LABS: Albumin, Blood 3.4 g/dL (3.4-5.0); Albumin/Globulin Ratio 0.8 (0.8-1.8); Bilirubin, Total 0.6 mg/dL (0.1-1.0); Bun/Creatinine Ratio 31.3 (12.0-20.0); Calcium, Blood 9.4 mg/dL (8.5-10.1); Creatinine, Blood 0.9 mg/dL (0.40-1.00); Magnesium, Blood 1.8 mg/dL (1.6-2.4); Total Protein, Blood 7.4 g/dL (6.4-8.2)
== END | disposition left against medical advice (07) ==
LOC: ER 13:47
PROVIDERS: Physician Assistant
DX: R11.2 Nausea with vomiting, unspecified (principal); Z53.29 Procedure and treatment not carried out because of patient's decision for other reasons
CPT/HCPCS: 80053; 82803; 83735; 85025; 99281

== ENCOUNTER → 2024-08-04 | Outpatient (CLI) | payer OTHER ==
[2024-08-04 15:28] LABS: Source, Urine Clean Catch
[2024-08-04 15:39] LABS: Appearance, Urine Hazy (Clear); Bilirubin, Urine Neg (Neg); Blood, Urine 4+ (Neg); Color, Urine Yellow (P-Yellow); Glucose Qualitative, Urine 4+ (Neg); Ketones, Urine Neg (Neg); Leukocyte Esterase, Urine 3+ (Neg); Nitrite, Urine Neg (Neg); Protein, Urine 2+ (Neg); Urobilinogen, Urine NORM (Normal)
[2024-08-04 15:58] LABS: Bacteria Many /hpf; Squamous Epithelial Cells Mod /hpf (Few); White Blood Cells, Urine 25-50 /hpf (0-5); Yeast/Fungi Urine Many /hpf
== END ==
LOC: LAB 11:30 → LAB SHORT 11:30
PROVIDERS: Nurse Practitioner Family
DX: N39.0 Urinary tract infection, site not specified (principal)
CPT/HCPCS: 81001; 87077; 87086; 87106; 87186

== ENCOUNTER 2024-08-29 19:09 | Emergency (ER) | payer OTHER ==
[~2024-08-29] VITALS: Ht 172.7 cm; Wt 136.1 kg
[2024-08-29 19:39] LABS: BASOPHILS ABSOLUTE AUTO 0.03 K/mm3 (0.00-0.23); BASOPHILS PERCENT AUTO 0 % (0-2); EOSINOPHILS PERCENT AUTO 0 % (0-6); Hematocrit 46.3 % (33.0-51.0); Hemoglobin 15.9 g/dL (11.5-16.0); IMMATURE GRAN PERCENT AUTO 1 % (0-1); LYMPHOCYTES ABSOLUTE AUTO 0.88 K/mm3 (0.84-5.20); LYMPHOCYTES PERCENT AUTO 5 % (21-46); MONOCYTES ABSOLUTE AUTO 0.69 K/mm3 (0.16-1.47); MONOCYTES PERCENT AUTO 4 % (4-13); Mean Corpuscular HGB Conc 34.3 g/dL (31.5-36.5); Mean Corpuscular Volume 85 fL (80-100); Mean Platelet Volume 9.7 fL (9.1-12.4); NEUTROPHILS ABSOLUTE AUTO 16.81 K/mm3 (1.96-9.15); NEUTROPHILS PERCENT AUTO 91 % (41-73); Platelet Count 382 K/mm3 (150-400); RDW Coefficient Variation 12.4 % (11.7-14.2); RDW Standard Deviation 37.8 fL (35.1-46.3); Red Blood Cell Count 5.48 M/mm3 (3.80-5.20); White Blood Cell Count 18.51 K/mm3 (4.00-11.30)
[2024-08-29 19:44] LABS: Base Excess Venous -3.6 mmol/L; Bicarbonate Venous 22.2 mmol/L (24.0-30.0); PCO2 Venous 33.4 mmHg (38-42); pH Blood Venous 7.41 (7.34-7.37)
[2024-08-29 19:59] LABS: Albumin, Blood 4.3 g/dL (3.4-5.0); Albumin/Globulin Ratio 0.9 (0.8-1.8); Beta-hydroxybutyrate 35.9 mg/dL (0.2-2.8); Bilirubin, Total 0.9 mg/dL (0.1-1.0); Bun/Creatinine Ratio 28.4 (12.0-20.0); Calcium, Blood 10.2 mg/dL (8.5-10.1); Creatinine, Blood 0.78 mg/dL (0.40-1.00); Potassium, Blood 4.4 mmol/L (3.5-5.5); Total Protein, Blood 9.3 g/dL (6.4-8.2)
[2024-08-29 20:23] LABS: Source, Urine Suprapubic Cath
[2024-08-29 20:34] LABS: Appearance, Urine Hazy (Clear); Bilirubin, Urine Neg (Neg); Blood, Urine 3+ (Neg); Color, Urine Yellow (P-Yellow); Glucose Qualitative, Urine 4+ (Neg); Ketones, Urine 4+ (Neg); Leukocyte Esterase, Urine 2+ (Neg); Nitrite, Urine Neg (Neg); Protein, Urine 3+ (Neg); Specific Gravity, Urine 1.015 (1.003-1.022); Urobilinogen, Urine NORM (Normal)
[2024-08-29 20:40] LABS: Bacteria Rare /hpf; Squamous Epithelial Cells Not Seen /hpf (Few); Yeast/Fungi Urine Many /hpf
[2024-08-29] MEDS ORDERED: NS 1,000 ML IV ONE (20:51)
[2024-08-29] MEDS ORDERED: NS 1,000 ML IV SCH (20:55)
[2024-08-29] MEDS ORDERED: Morphine Sulfate 4 MG/1 ML Injection IV ONE (21:30)
[2024-08-29] MEDS ORDERED: Ondansetron HCl 2 MG / ML 2ML Vial IV ONE (21:30)
[2024-08-29] MEDS ORDERED: Mag Hydrox/AL Hydrox/Simeth 30 ML UDC PO ONE (21:45)
[2024-08-29] MEDS ORDERED: Lidocaine 2% Viscous Soln 15 ML UDC PO ONE (21:45)
[2024-08-29 22:05] LABS: CORONAVIRUS COVID-19 AG Negative (NEGATIVE); INFLUENZA A AG Negative (NEGATIVE); INFLUENZA B AG Negative (NEGATIVE)
[2024-08-29 22:26] LABS: Magnesium, Blood 1.9 mg/dL (1.6-2.4)
[2024-08-30] MEDS ORDERED: Cephalexin Monohydrate 500 MG Cap PO ONE (00:30)
[2024-08-30] MEDS ORDERED: Metoclopramide HCl 5MG / ML 2ML Vial IV ONE (00:35)
[2024-08-30 01:00] VITALS: BP 166/89
[2024-08-30] MEDS ORDERED: CEPH500 PO (01:02)
[2024-08-30] MEDS ORDERED: PROC25S PR (01:02)
[2024-08-30] MEDS ORDERED: OMEP20ER PO (01:02)
== END 2024-08-30 01:13 | disposition home or self-care (01) ==
LOC: ER 19:09
PROVIDERS: Student in an Organized Health Care Education/Training Program
DX: K20.90 Esophagitis, unspecified without bleeding (principal); N30.00 Acute cystitis without hematuria; R07.2 Precordial pain; R11.2 Nausea with vomiting, unspecified; E03.9 Hypothyroidism, unspecified; E78.5 Hyperlipidemia, unspecified; E11.9 Type 2 diabetes mellitus without complications; Z87.891 Personal history of nicotine dependence; Z79.899 Other long term (current) drug therapy; Z79.4 Long term (current) use of insulin; Z88.0 Allergy status to penicillin; Z88.2 Allergy status to sulfonamides; Z91.018 Allergy to other foods; Z88.8 Allergy status to other drugs, medicaments and biological substances
CPT/HCPCS: 71045; 74177; 80053; 81001; 82010; 82803; 82947; 83690; 83735; 84484; 85025; 87428-QW; A9270; J2270; J2405; J2765; J7030; Q9967

== ENCOUNTER → 2024-09-25 | Outpatient (CLI) | payer OTHER ==
[2024-09-25 18:51] LABS: Source, Urine Voided
[2024-09-25 19:40] LABS: Appearance, Urine Hazy (Clear); Bilirubin, Urine Neg (Neg); Blood, Urine 4+ (Neg); Glucose Qualitative, Urine 4+ (Neg); Ketones, Urine Neg (Neg); Leukocyte Esterase, Urine 3+ (Neg); Nitrite, Urine Pos (Neg); Protein, Urine 2+ (Neg); Urobilinogen, Urine NORM (Normal)
[2024-09-25 19:48] LABS: Color, Urine Pale Yellow (P-Yellow)
[2024-09-25 19:49] LABS: Bacteria Many /hpf; Red Blood Cells, Urine 25-50 /hpf (0-2); Squamous Epithelial Cells Many /hpf (Few); White Blood Cells, Urine 50-100 /hpf (0-5); Yeast/Fungi Urine Mod /hpf
[2024-09-25 19:50] LABS: Granular Casts 0-2 /lpf (0)
== END ==
LOC: LAB 18:49 → LAB SHORT 18:49
PROVIDERS: Nurse Practitioner Family
DX: R30.0 Dysuria (principal)
CPT/HCPCS: 81001; 87077; 87086; 87186

== ENCOUNTER → 2024-11-24 | Outpatient (CLI) | payer OTHER ==
[2024-11-24 19:51] LABS: Appearance, Urine Cloudy (Clear); Bilirubin, Urine Neg (Neg); Blood, Urine 5+ (Neg); Glucose Qualitative, Urine Neg (Neg); Ketones, Urine Neg (Neg); Leukocyte Esterase, Urine 3+ (Neg); Nitrite, Urine Neg (Neg); Protein, Urine 2+ (Neg); Specific Gravity, Urine 1.015 (1.003-1.022); Urobilinogen, Urine NORM (Normal)
[2024-11-24 19:59] LABS: Color, Urine Red (P-Yellow)
[2024-11-24 20:00] LABS: Bacteria Many /hpf; Red Blood Cells, Urine TNTC /hpf (0-2); Squamous Epithelial Cells Few /hpf (Few); White Blood Cells, Urine TNTC /hpf (0-5)
== END ==
LOC: LAB 19:04 → LAB SHORT 19:04
PROVIDERS: Nurse Practitioner Family
DX: N39.0 Urinary tract infection, site not specified (principal)
CPT/HCPCS: 81001; 87077; 87086; 87186

== ENCOUNTER → 2025-02-10 | Outpatient (CLI) | payer OTHER ==
[2025-02-10 17:57] LABS: Source, Urine Urostomy Bag
[2025-02-10 18:53] LABS: Bilirubin, Urine Neg (Neg); Color, Urine Yellow (P-Yellow); Glucose Qualitative, Urine 4+ (Neg); Ketones, Urine Neg (Neg); Leukocyte Esterase, Urine 3+ (Neg); Protein, Urine 2+ (Neg); Specific Gravity, Urine 1.020 (1.003-1.022); Urobilinogen, Urine NORM (Normal)
[2025-02-10 19:06] LABS: White Blood Cells, Urine 25-50 /hpf (0-5)
[2025-02-10 19:07] LABS: Yeast/Fungi Urine Rare /hpf
== END ==
LOC: LAB SHORT 17:55 → LAB 17:55
PROVIDERS: Family Medicine
DX: N39.0 Urinary tract infection, site not specified (principal); T83.511S Infection and inflammatory reaction due to indwelling urethral catheter, sequela
CPT/HCPCS: 81001; 87086

== ENCOUNTER 2025-02-21 22:32 | Emergency (ER) | payer OTHER ==
[~2025-02-21] VITALS: Ht 172.7 cm; Wt 136.1 kg
[2025-02-21] MEDS ORDERED: Ondansetron HCl 2 MG / ML 2ML Vial IV ONE (23:00)
[2025-02-21 23:19] LABS: BASOPHILS ABSOLUTE AUTO 0.06 K/mm3 (0.00-0.23); BASOPHILS PERCENT AUTO 0 % (0-2); EOSINOPHILS ABSOLUTE AUTO 0.01 K/mm3 (0.00-0.68); EOSINOPHILS PERCENT AUTO 0 % (0-6); Hematocrit 42.9 % (33.0-51.0); Hemoglobin 13.7 g/dL (11.5-16.0); IMMATURE GRAN ABSOLUTE AUTO 0.05 K/mm3 (0.00-0.10); IMMATURE GRAN PERCENT AUTO 0 % (0-1); LYMPHOCYTES ABSOLUTE AUTO 2.76 K/mm3 (0.84-5.20); LYMPHOCYTES PERCENT AUTO 15 % (21-46); MONOCYTES ABSOLUTE AUTO 1.16 K/mm3 (0.16-1.47); MONOCYTES PERCENT AUTO 6 % (4-13); Mean Corpuscular HGB Conc 31.9 g/dL (31.5-36.5); Mean Corpuscular Volume 82 fL (80-100); NEUTROPHILS ABSOLUTE AUTO 14.30 K/mm3 (1.96-9.15); NEUTROPHILS PERCENT AUTO 78 % (41-73); NRBC ABSOLUTE 0.00 K/mm3 (0.00-0.02); NRBC Auto 0.0 /100 WBC (0.0-0.2); Platelet Count 508 K/mm3 (150-400); RDW Coefficient Variation 13.6 % (11.7-14.2); RDW Standard Deviation 40.4 fL (35.1-46.3)
[2025-02-21 23:27] LABS: Prothrombin Time Results 12.1 Sec (9.7-11.5)
[2025-02-21 23:33] LABS: Alanine Aminotransfer (ALT/SGP 16.0 U/L (12-78); Albumin, Blood 3.4 g/dL (3.4-5.0); Albumin/Globulin Ratio 0.8 (0.8-1.8); Anion Gap 10.0 mmol/L (3-11); Aspartate Aminotrans (AST/SGOT 8.0 U/L (12-37); Bilirubin, Total 0.9 mg/dL (0.1-1.0); Blood Urea Nitrogen 41.0 mg/dL (8-24); CO2, Blood 34.0 mmol/L (21-32); Calcium, Blood 8.9 mg/dL (8.5-10.1); Chloride, Blood 91.0 mmol/L (98-108); Creatinine, Blood 1.1 mg/dL (0.40-1.00); Globulin, Blood 4.3 g/dL (2.2-4.0); Glucose, Blood 394.0 mg/dL (70-99); Potassium, Blood 3.2 mmol/L (3.5-5.5); Sodium, Blood 132.0 mmol/L (136-145); Total Protein, Blood 7.7 g/dL (6.4-8.2)
[2025-02-21] MEDS ORDERED: DiphenhydrAMINE HCl 50 MG/ML 1ML Vial ONE (23:48)
[2025-02-21] MEDS ORDERED: DiphenhydrAMINE HCl 50 MG/ML 1ML Vial IV ONE (23:50)
[2025-02-22] MEDS ORDERED: NS 1,000 ML IV SCH (00:40)
[2025-02-22] MEDS ORDERED: Morphine Sulfate 4 MG/1 ML Injection IV ONE (00:45)
[2025-02-22 02:22] LABS: pH Blood Venous 7.55 (7.34-7.37)
[2025-02-22] MEDS ORDERED: Potassium Chl 20MEQ/Water100ML 100 ML IV ONE (02:35)
[2025-02-22] MEDS ORDERED: HYDROmorphone HCl/Pf 1MG SYR IV ONE (02:40)
[2025-02-22] MEDS ORDERED: NS 1,000 ML IV ONE (02:43)
[2025-02-22 07:39] LABS: Source, Urine Clean Catch
[2025-02-22 07:41] LABS: Bilirubin, Urine Neg (Neg); Glucose Qualitative, Urine 4+ (Neg); Ketones, Urine 2+ (Neg); Leukocyte Esterase, Urine 3+ (Neg); Protein, Urine 1+ (Neg); Specific Gravity, Urine 1.015 (1.003-1.022); Urobilinogen, Urine NORM (Normal)
[2025-02-22 07:47] LABS: Color, Urine Pale Yellow (P-Yellow)
[2025-02-22 07:49] LABS: White Blood Cells, Urine 50-100 /hpf (0-5)
[2025-02-22] MEDS ORDERED: CEFU500T30 PO (08:14)
[2025-02-22 08:51] VITALS: BP 128/72
== END 2025-02-22 08:56 | disposition home or self-care (01) ==
LOC: ER 22:32
PROVIDERS: Student in an Organized Health Care Education/Training Program
DX: N30.00 Acute cystitis without hematuria (principal); D72.829 Elevated white blood cell count, unspecified; E11.40 Type 2 diabetes mellitus with diabetic neuropathy, unspecified; E03.9 Hypothyroidism, unspecified; E78.5 Hyperlipidemia, unspecified; E11.43 Type 2 diabetes mellitus with diabetic autonomic (poly)neuropathy; Z87.891 Personal history of nicotine dependence; Z96.0 Presence of urogenital implants; Z79.4 Long term (current) use of insulin; Z79.899 Other long term (current) drug therapy; Z88.0 Allergy status to penicillin; Z88.2 Allergy status to sulfonamides; Z91.018 Allergy to other foods
CPT/HCPCS: 51705; 71046; 74177; 80053; 81001; 82010; 82803; 83605; 83690; 83880; 85025; 85610; 85730; 86850; 86900; 86901; 87077; 87086; 87186; 93005; 93010; 96361-59; 96365-59; 96366-59; 96375; 96375-59; 99285-25; A9270; C2627; J1171; J1200; J1790; J2270; J2405; J2919; J3480; J7030; Q9967

== ENCOUNTER → 2025-04-20 | Outpatient (CLI) | payer OTHER ==
[~2025-04-20] MED LIST changes: +CEFU500T30 PO
== END | disposition home or self-care (01) ==
LOC: LAB 12:45 → LAB SHORT 12:45
DX: T83.511A Infection and inflammatory reaction due to indwelling urethral catheter, initial encounter (principal); N39.0 Urinary tract infection, site not specified
CPT/HCPCS: 87077; 87086; 87186

== ENCOUNTER 2025-07-15 20:38 | Emergency (ER) | payer OTHER ==
[~2025-07-15] VITALS: Ht 172.7 cm; Wt 108.9 kg
[2025-07-15 21:09] LABS: BASOPHILS ABSOLUTE AUTO 0.03 K/mm3 (0.00-0.23); BASOPHILS PERCENT AUTO 0 % (0-2); EOSINOPHILS ABSOLUTE AUTO 0.01 K/mm3 (0.00-0.68); EOSINOPHILS PERCENT AUTO 0 % (0-6); Hematocrit 45.1 % (33.0-51.0); Hemoglobin 14.7 g/dL (11.5-16.0); IMMATURE GRAN ABSOLUTE AUTO 0.06 K/mm3 (0.00-0.10); IMMATURE GRAN PERCENT AUTO 0 % (0-1); LYMPHOCYTES ABSOLUTE AUTO 2.01 K/mm3 (0.84-5.20); LYMPHOCYTES PERCENT AUTO 11 % (21-46); MONOCYTES ABSOLUTE AUTO 0.73 K/mm3 (0.16-1.47); MONOCYTES PERCENT AUTO 4 % (4-13); Mean Corpuscular HGB Conc 32.6 g/dL (31.5-36.5); Mean Corpuscular Volume 82 fL (80-100); NEUTROPHILS ABSOLUTE AUTO 16.09 K/mm3 (1.96-9.15); NEUTROPHILS PERCENT AUTO 85 % (41-73); NRBC ABSOLUTE 0.00 K/mm3 (0.00-0.02); NRBC Auto 0.0 /100 WBC (0.0-0.2); Platelet Count 466 K/mm3 (150-400); RDW Coefficient Variation 14.1 % (11.7-14.2); RDW Standard Deviation 42.0 fL (35.1-46.3)
[2025-07-15 21:27] LABS: Alanine Aminotransfer (ALT/SGP 16.0 U/L (12-78); Albumin, Blood 4.0 g/dL (3.4-5.0); Albumin/Globulin Ratio 1.0 (0.8-1.8); Anion Gap 12.0 mmol/L (3-11); Aspartate Aminotrans (AST/SGOT 8.0 U/L (12-37); Bilirubin, Total 0.8 mg/dL (0.1-1.0); Blood Urea Nitrogen 36.0 mg/dL (8-24); CO2, Blood 29.0 mmol/L (21-32); Calcium, Blood 9.2 mg/dL (8.5-10.1); Chloride, Blood 100.0 mmol/L (98-108); Creatinine, Blood 0.82 mg/dL (0.40-1.00); Globulin, Blood 4.2 g/dL (2.2-4.0); Glucose, Blood 401.0 mg/dL (70-99); Potassium, Blood 3.7 mmol/L (3.5-5.5); Sodium, Blood 137.0 mmol/L (136-145); Total Protein, Blood 8.2 g/dL (6.4-8.2)
[2025-07-16] MEDS ORDERED: Prochlorperazine Edisylate 10 mg Vial IV ONE (00:45)
[2025-07-16] MEDS ORDERED: NS 1,000 ML IV SCH (00:45)
[2025-07-16] MEDS ORDERED: DiphenhydrAMINE HCl 50 MG/ML 1ML Vial IV ONE (00:45)
[2025-07-16] MEDS ORDERED: Metoclopramide HCl 5MG / ML 2ML Vial IV ONE (03:30)
[2025-07-16] MEDS ORDERED: FentaNYL Citrate 50 MCG/ML 2 ML Injection IV PRN (03:30)
[2025-07-16 04:15] VITALS: BP 184/89
== END 2025-07-16 05:27 | disposition home or self-care (01) ==
LOC: ER 20:38
PROVIDERS: Student in an Organized Health Care Education/Training Program
DX: E11.43 Type 2 diabetes mellitus with diabetic autonomic (poly)neuropathy (principal); K31.84 Gastroparesis; R11.2 Nausea with vomiting, unspecified; E03.9 Hypothyroidism, unspecified; E78.5 Hyperlipidemia, unspecified; E11.40 Type 2 diabetes mellitus with diabetic neuropathy, unspecified; Z87.891 Personal history of nicotine dependence; Z68.36 Body mass index [BMI] 36.0-36.9, adult; Z79.4 Long term (current) use of insulin; Z79.899 Other long term (current) drug therapy; Z88.0 Allergy status to penicillin; Z91.018 Allergy to other foods; Z91.041 Radiographic dye allergy status; Z88.2 Allergy status to sulfonamides; Z88.8 Allergy status to other drugs, medicaments and biological substances
CPT/HCPCS: 71046; 80053; 83605; 83690; 84484; 85025; 93005; 93010; 96374; 96375; 99284-25; J0780; J1200; J2765; J3010; J7030